=== PATIENT | female | born 1955 | race Caucasian/White ===

== ENCOUNTER 2016-10-02 12:51 | Emergency (ER) | payer OTHER, MEDICARE ==
[2016-10-02] MEDS ORDERED: ASPIRIN 81 MG TABLET, CHEWABLE PO ONE (13:00)
--- NOTE | 2016-10-02 13:00 | ER Document Report ---
ED Medical Screen (RME) - General Stated Complaint: SHORTNESS OF BREATH Notes: Chest pain shortness of breath awoke her 3:00 this morning. has had a cough for three weeks I greeted and performed a rapid initial assessment of this patient. Comprehensive ED assessment and evaluation of the patient, analysis of test results and completion of the medical decision making process will be conducted by additional ED providers. TRAVEL OUTSIDE OF THE [place] IN LAST 30 DAYS: No - Related Data Allergies/Adverse Reactions: diphenhydramine HCl [From Benadryl] Adverse Reaction (Intermediate, Verified 10:45) Anxiety amoxicillin trihydrate [From Augmentin] Adverse Reaction (Mild, Verified 10:45) Diarrhea Potassium Clavulanate * [From Augmentin] Adverse Reaction (Mild, Verified 10:45) Diarrhea Past Medical History - Past Medical History Cardiac Medical History: Reports: Hx Coronary Artery Disease - high chol , Hx Hypercholesterolemia, Hx Hypertension Denies: Hx Heart Attack Pulmonary Medical History: Reports: Hx Asthma, Hx Bronchitis, Hx COPD, Hx Pneumonia - 2003 Neurological Medical History: Denies: Hx Cerebrovascular Accident, Hx Seizures GI Medical History: Denies: Hx Hepatitis, Hx Hiatal Hernia, Hx Ulcer Musculoskeltal Medical History: Reports Hx Arthritis - RA Psychiatric Medical History: Reports: Hx Depression Infectious Medical History: Denies: Hx Hepatitis Past Surgical History: Reports: Hx Appendectomy, Hx Breast Surgery, Hx Hysterectomy, Hx Orthopedic Surgery. Denies: Hx Mastectomy, Hx Open Heart Surgery, Hx Pacemaker - Immunizations Hx Diphtheria, Pertussis, Tetanus Vaccination: Yes - 1966
[2016-10-02 13:36] LABS: HEMATOCRIT 41.6 % (36.0-47.0); HEMOGLOBIN 13.6 g/dL (12.0-15.5); HGB HCT DIFFERENCE -0.8; MEAN CORPUSCULAR HEMOGLOBIN 29.2 pg (27.0-33.4); MEAN CORPUSCULAR HGB CONC 32.6 g/dL (32.0-36.0); MEAN CORPUSCULAR VOLUME 89 fl (80-97); RED BLOOD COUNT 4.65 10^6/uL (3.72-5.28); RED CELL DISTRIBUTION WIDTH 17.1 % (11.5-14.0); WHITE BLOOD COUNT 10.9 10^3/uL (4.0-10.5)
[2016-10-02 13:47] LABS: ALANINE AMINOTRANSFERASE 55 U/L (9-52); ALBUMIN 4.2 g/dL (3.5-5.0); ALKALINE PHOSPHATASE 118 U/L (38-126); ANION GAP 10 (5-19); ASPARTATE AMINO TRANSFERASE 41 U/L (14-36); BILIRUBIN,TOTAL 0.6 mg/dL (0.2-1.3); BLOOD UREA NITROGEN 26 mg/dL (7-20); CALCIUM 9.3 mg/dL (8.4-10.2); CARBON DIOXIDE 30 mmol/L (22-30); CHLORIDE 97 mmol/L (98-107); CREATINE KINASE 100 U/L (30-135); CREATININE RESULT 0.73 mg/dL (0.52-1.25); GLUCOSE 81 mg/dL (75-110); POTASSIUM 4.9 mmol/L (3.6-5.0); SODIUM 137.2 mmol/L (137-145); TOTAL PROTEIN 6.7 g/dL (6.3-8.2)
[2016-10-02 13:53] LABS: BAND NEUTROPHILS % (MANUAL) 1 % (3-5); BASOPHILS % (MANUAL) 0 % (0-2); EOSINOPHILS % (MANUAL) 2 % (0-6); LYMPHOCYTES % (MANUAL) 10 % (13-45); NUCLEATED RED BLOOD CELLS 1 /100 WBC (0); TOTAL CELLS COUNTED 100; TOXIC VACUOLATION PRESENT
[2016-10-02 13:54] LABS: ANISOCYTOSIS 2+; OVALOCYTES 1+; POIKILOCYTOSIS 1+; TOXIC GRANULATION 1+
[2016-10-02 14:03] LABS: TROPONIN I < 0.012 ng/mL
[2016-10-02] MEDS ORDERED: IPRATROPIUM/ALBUTEROL 0.5-2.5 MG/3 ML AMPUL NEB ONE ×3 (14:13)
[2016-10-02] MEDS ORDERED: PREDNISONE 20 MG TABLET PO ONE (14:13)
[2016-10-02] MEDS ORDERED: HYDROCODONE BIT/HOMATROPINE SYRUP 5 ML UDCUP PO ONE (14:48)
[2016-10-02] MEDS ORDERED: HYDROCODONE BIT/HOMATROPINE 5-1.5 MG TABLET PO ONE (14:59)
--- NOTE | 2016-10-02 15:02 | ER Document Report ---
ED General - General Chief Complaint: Shortness Of Breath Stated Complaint: SHORTNESS OF BREATH Mode of Arrival: Ambulatory Information source: Patient Notes: 61-year-old female smoker presents with complaints of shortness of breath over the past 2 weeks. Patient denies any fevers or chills denies any nausea or vomiting. Admits to worsening symptoms when she walks. Admits to productive cough Patient notes that she's been on steroids, has lupus and is on medication for it , notes today she woke after coughing nursing sharp pain in her left rib and right back, pain only occurs when she coughs TRAVEL OUTSIDE OF THE [place] IN LAST 30 DAYS: No - HPI Onset: Last week Onset/Duration: Intermittent Quality of pain: Sharp Severity: Mild Pain Level: 1 Associated symptoms: Nonproductive cough, Shortness of breath Exacerbated by: Coughing Relieved by: Denies Similar symptoms previously: Yes Recently seen / treated by doctor: Yes - Related Data Allergies/Adverse Reactions: diphenhydramine HCl [From Benadryl] Adverse Reaction (Intermediate, Verified 13:01) Anxiety amoxicillin trihydrate [From Augmentin] Adverse Reaction (Mild, Verified 13:01) Diarrhea Potassium Clavulanate * [From Augmentin] Adverse Reaction (Mild, Verified 13:01) Diarrhea Past Medical History - Social History Smoking Status: Current Every Day Smoker Cigarette use (# per day): No Chew tobacco use (# tins/day): No Smoking Education Provided: No Frequency of alcohol use: None Drug Abuse: None Family History: Reviewed & Not Pertinent Patient has suicidal ideation: No Patient has homicidal ideation: No - Past Medical History Cardiac Medical History: Reports: Hx Coronary Artery Disease - high chol , Hx Hypercholesterolemia, Hx Hypertension Denies: Hx Heart Attack Pulmonary Medical History: Reports: Hx Asthma, Hx Bronchitis, Hx COPD, Hx Pneumonia - 2003 Neurological Medical History: Denies: Hx Cerebrovascular Accident, Hx Seizures Renal/ Medical History: Denies: Hx Peritoneal Dialysis GI Medical History: Denies: Hx Hepatitis, Hx Hiatal Hernia, Hx Ulcer Musculoskeltal Medical History: Reports Hx Arthritis - RA Psychiatric Medical History: Reports: Hx Depression Infectious Medical History: Denies: Hx Hepatitis Past Surgical History: Reports: Hx Appendectomy, Hx Breast Surgery, Hx Hysterectomy, Hx Orthopedic Surgery. Denies: Hx Mastectomy, Hx Open Heart Surgery, Hx Pacemaker - Immunizations Hx Diphtheria, Pertussis, Tetanus Vaccination: Yes - 1963 Hx Pneumococcal Vaccination: 09/04/11 Review of Systems - Review of Systems Notes: REVIEW OF SYSTEMS: CONSTITUTIONAL : Denies fever, chills, or sweats. Denies recent illness. EENT: Denies eye, ear, throat, or mouth pain or symptoms. Denies nasal or sinus congestion or discharge. Denies throat, tongue, or mouth swelling or difficulty swallowing. CARDIOVASCULAR: Denies chest pain. Denies palpitations or racing or irregular heart beat. Denies ankle edema. RESPIRATORY: Admits to shortness of breath nonproductive cough pain with coughing. GASTROINTESTINAL: Denies abdominal pain or distention. Denies nausea, vomiting , or diarrhea. Denies blood in vomitus, stools, or per rectum. Denies black, tarry stools. Denies constipation. GENITOURINARY: Denies difficulty urinating, painful urination, burning, frequency, blood in urine, or discharge. FEMALE GENITOURINARY: Denies vaginal bleeding, heavy or abnormal periods, irregular periods. Denies vaginal discharge or odor. MUSCULOSKELETAL: Denies back or neck pain or stiffness. Denies joint pain or swelling. SKIN: Denies rash, lesions or sores. HEMATOLOGIC : Denies easy bruising or bleeding. LYMPHATIC: Denies swollen, enlarged glands. NEUROLOGICAL: Denies confusion or altered mental status. Denies passing out or loss of consciousness. Denies dizziness or lightheadedness. Denies headache. Denies weakness or paralysis or loss of use of either side. Denies problems with gait or speech. Denies sensory loss, numbness, or tingling. Denies seizures. PSYCHIATRIC: Denies anxiety or stress. Denies depression, suicidal ideation, or homicidal ideation. ALL OTHER SYSTEMS REVIEWED AND NEGATIVE. Dictation was performed using [employer] voice recognition software PHYSICAL EXAMINATION: GENERAL: Well-appearing, well-nourished and in no acute distress. HEAD: Atraumatic, normocephalic. EYES: Pupils equal round and reactive to light, extraocular movements intact, conjunctiva are normal. ENT: Nares patent, oropharynx clear without exudates. Moist mucous membranes. NECK: Normal range of motion, supple without lymphadenopathy LUNGS: Coarse rhonchi all throughout. HEART: Regular rate and rhythm without murmurs ABDOMEN: Soft, nontender, nondistended abdomen. No guarding, no rebound. No masses appreciated. Female : deferred Musculoskeletal: Normal range of motion, no pitting or edema. No cyanosis. NEUROLOGICAL: Cranial nerves grossly intact. Normal speech, normal gait. Normal sensory, motor exams PSYCH: Normal mood, normal affect. SKIN: Warm, Dry, normal turgor, no rashes or lesions noted. Physical Exam - Vital signs Vitals: Temp Pulse Resp BP Pulse Ox 99.0 F 110 H 24 H 122/75 95 10/02/16 13:01 10/02/16 13:01 10/02/16 13:10/02/16 13:10/02/16 13:01 Course - Re-evaluation Re-evalutation: 10/02/16 15:01 Patient will be given 3 duo nebs Hycodan tablets for her pain and cough. Otherwise she appears well. She is satting 98% on room air 10/02/16 17:40 pt was ambulated , never went below 95% , cta negative will dc home . After performing a Medical Screening Examination, I estimate there is LOW risk for ACUTE CORONARY SYNDROME, RESPIRATORY FAILURE, SEPSIS OR MENINGITIS, thus I consider the discharge disposition reasonable. The patient and I have discussed the diagnosis and risks, and we agree with discharging home with close follow- up. We also discussed returning to the Emergency Department immediately if new or worsening symptoms occur. We have discussed the symptoms which are most concerning (e.g., changing or worsening pain, trouble swallowing or breathing, neck stiffness, fever) that necessitate immediate return. - Vital Signs Vital signs: Temp Pulse Resp BP Pulse Ox 99.0 F 110 H 23 H 122/66 95 10/02/16 13:01 10/02/16 13:01 10/02/16 17:09 10/02/16 17:09 10/02/16 17:09 - Laboratory Result Diagrams: 10/02/16 13:05 10/02/16 13:05 Laboratory results interpreted by me: 10/02/16 10/02/16 13:05 13:05 WBC 10.9 H RDW 17.1 H Band Neutrophils % 1 L Lymphocytes % (Manual) 10 L Metamyelocytes % 1 H Myelocytes % 1 H Abs Neuts (Manual) 8.3 H Chloride 97 L BUN 26 H AST 41 H ALT 55 H - Diagnostic Test Radiology reviewed: Image reviewed, Reports reviewed - EKG Interpretation by Me EKG shows normal: Sinus rhythm, [place], Intervals, QRS Complexes Discharge - Discharge Clinical Impression: Chest wall pain URI (upper respiratory infection) Qualifiers: URI type: unspecified viral URI Qualified Code(s): J06.9 - Acute upper respiratory infection, unspecified; B97.89 - Other viral agents as the cause of diseases classified elsewhere Condition: Stable Disposition: HOME, SELF-CARE Instructions: Upper Respiratory Illness ([facility]) Prescriptions: Ipratropium/Albuterol Sulfate [Duoneb 3 ml Ampul] 3 ml NEB RTQ8 #20 vial.neb Prednisone 20 mg PO ASDIR PRN #30 tablet PRN Reason: Referrals: TERRY HAGER [Primary Care Provider] - Follow up tomorrow
[2016-10-02] MEDS ORDERED: KETOROLAC TROMETHAMINE INJ/PF 30 MG/1 ML SDV IV ONE (16:37)
[2016-10-02 17:29] VITALS: BP 122/66
--- NOTE | 2016-10-02 22:53 | EKG REPORT ---
SEVERITY:- DEFECTIVE ECG - RIGHT AND LEFT ARM LEADS REVERSED, PLEASE REPEAT ECG : Confirmed by: Alicia Tang MD 02-Oct-2016 22:53:12
[2016-10-03 19:23] LABS: PATH REVIEW PATHOLOGIST REVIEWED
== END 2016-10-02 17:54 | disposition home or self-care (01) ==
LOC: ER 12:51
DX: J06.9 Acute upper respiratory infection, unspecified (principal); R06.02 Shortness of breath; B97.89 Other viral agents as the cause of diseases classified elsewhere; R07.89 Other chest pain; F17.200 Nicotine dependence, unspecified, uncomplicated; I25.10 Atherosclerotic heart disease of native coronary artery without angina pectoris; E78.00 Pure hypercholesterolemia, unspecified; I10 Essential (primary) hypertension; J45.909 Unspecified asthma, uncomplicated; J44.9 Chronic obstructive pulmonary disease, unspecified; Z90.710 Acquired absence of both cervix and uterus; Z88.0 Allergy status to penicillin
CPT/HCPCS: 93005; 94640 ×2; 99285; 96374; 36415; 82553; 82550; 85025; 80053; 84484; 71010; 71275; 93010; J1885; J7512; J7620

== ENCOUNTER 2016-10-09 08:35 | Inpatient (IN) | payer MEDICARE, OTHER ==
[2016-10-09] MEDS ORDERED: NORMAL SALINE 1000 ML 1,000 ML IV ONE ×3 (09:28→11:47)
[2016-10-09 09:39] LABS: ALANINE AMINOTRANSFERASE 43 U/L (9-52); ALBUMIN 3.7 g/dL (3.5-5.0); ALKALINE PHOSPHATASE 96 U/L (38-126); ANION GAP 9 (5-19); ASPARTATE AMINO TRANSFERASE 27 U/L (14-36); BILIRUBIN,TOTAL 1.5 mg/dL (0.2-1.3); BLOOD UREA NITROGEN 27 mg/dL (7-20); CALCIUM 8.6 mg/dL (8.4-10.2); CARBON DIOXIDE 30 mmol/L (22-30); CHLORIDE 99 mmol/L (98-107); CREATINE KINASE 32 U/L (30-135); CREATININE RESULT 0.75 mg/dL (0.52-1.25); GLUCOSE 105 mg/dL (75-110); POTASSIUM 4.2 mmol/L (3.6-5.0); SODIUM 137.5 mmol/L (137-145); TOTAL PROTEIN 6.6 g/dL (6.3-8.2)
[2016-10-09 09:40] LABS: ABSOLUTE LYMPHOCYTES (AUTO) 1.3 10^3/uL (0.5-4.7); ABSOLUTE NEUT (AUTO) 17.2 10^3/uL (1.7-8.2); BASOPHILS % (AUTO) 0.2 % (0-2); EOSINOPHILS % (AUTO) 0.1 % (0-6); HEMATOCRIT 37.8 % (36.0-47.0); HEMOGLOBIN 12.4 g/dL (12.0-15.5); HGB HCT DIFFERENCE -0.6; LYMPHOCYTES % (AUTO) 6.8 % (13-45); MEAN CORPUSCULAR HEMOGLOBIN 29.1 pg (27.0-33.4); MEAN CORPUSCULAR HGB CONC 32.7 g/dL (32.0-36.0); MEAN CORPUSCULAR VOLUME 89 fl (80-97); MONOCYTES % (AUTO) 5.3 % (3-13); RED BLOOD COUNT 4.25 10^6/uL (3.72-5.28); RED CELL DISTRIBUTION WIDTH 16.1 % (11.5-14.0); SEGMENTED NEUTROPHILS % (AUTO) 87.6 % (42-78); WHITE BLOOD COUNT 19.7 10^3/uL (4.0-10.5)
[2016-10-09] MEDS ORDERED: CEFTRIAXONE 1 GM/D5W RTU 50 ML IV ONE (09:43)
[2016-10-09] MEDS ORDERED: AZITHROMYCIN INJ 500 MG VIAL IV ONE (09:43)
[2016-10-09] MEDS ORDERED: IPRATROPIUM/ALBUTEROL 0.5-2.5 MG/3 ML AMPUL NEB ONE (09:48)
--- NOTE | 2016-10-09 09:54 | ER Document Report ---
ED General - General Chief Complaint: Nonproductive Cough Stated Complaint: SHOULDER PAIN Information source: Patient, Relative Notes: This is a 61-year-old female who presents to the emergency department with cough and fever. She has a history of multiple medical problems including COPD , pneumonia, and lupus. Of note she was seen in the ER last week for cough and diagnosed with an upper respiratory infection and has been treated with nebulizers and prednisone. She denies any antibiotics in the past few months. She states that her symptoms became worse 2 days ago and that yesterday she ran a fever of 102. This was the first episode of documented fever for this illness she states that her cough has been nonproductive but associated with pain in her chest when she coughs. She does not feel short of breath at this time. She has been tolerating fluids and denies any nausea vomiting or diarrhea. She also has had no dysuria. She does have a prior history of pneumonia and was hospitalized in [place] last February for several weeks she is uncertain if she had a flu shot this year. TRAVEL OUTSIDE OF THE [place] IN LAST 30 DAYS: No - Related Data Allergies/Adverse Reactions: diphenhydramine HCl [From Benadryl] Adverse Reaction (Intermediate, Verified 01/18 08:42) Anxiety amoxicillin trihydrate [From Augmentin] Adverse Reaction (Mild, Verified 08:42) Diarrhea Potassium Clavulanate * [From Augmentin] Adverse Reaction (Mild, Verified 08:42) Diarrhea Home Medications: Current Home Medications Fluticasone/Salmeterol [Advair 250-50 Diskus 14 Dose/Diskus] 1 inh IH BID [History] Nystatin 1 applic TOP BID 10/09/16 [History] Tofacitinib Citrate [Xeljanz] 5 mg PO BID 10/09/16 [History] Triamcinolone Acetonide [Aristocort 0.025% Cream] 1 applic TOP DAILY 10/09/16 [ History] Past Medical History - General Information source: Patient, Relative, [facility] Records - Social History Smoking Status: Never Smoker Chew tobacco use (# tins/day): No Frequency of alcohol use: None Drug Abuse: None Family History: Reviewed & Not Pertinent Patient has suicidal ideation: No Patient has homicidal ideation: No - Past Medical History Cardiac Medical History: Reports: Hx Coronary Artery Disease - high chol , Hx Hypercholesterolemia, Hx Hypertension Denies: Hx Heart Attack Pulmonary Medical History: Reports: Hx Asthma, Hx Bronchitis, Hx COPD, Hx Pneumonia - 2003 Neurological Medical History: Denies: Hx Cerebrovascular Accident, Hx Seizures Endocrine Medical History: Reports: Other Renal/ Medical History: Denies: Hx Peritoneal Dialysis GI Medical History: Denies: Hx Hepatitis, Hx Hiatal Hernia, Hx Ulcer Musculoskeltal Medical History: Reports Hx Arthritis - RA Psychiatric Medical History: Reports: Hx Depression Infectious Medical History: Denies: Hx Hepatitis Past Surgical History: Reports: Hx Appendectomy, Hx Breast Surgery, Hx Hysterectomy, Hx Orthopedic Surgery. Denies: Hx Mastectomy, Hx Open Heart Surgery, Hx Pacemaker - Immunizations Hx Diphtheria, Pertussis, Tetanus Vaccination: Yes - 1963 Hx Pneumococcal Vaccination: 09/04/11 Review of Systems - Review of Systems Notes: REVIEW OF SYSTEMS: CONSTITUTIONAL : as per hpi EENT: Denies eye, ear, throat, or mouth pain or symptoms. CARDIOVASCULAR: As per history of present illness RESPIRATORY: As per history of present illness GASTROINTESTINAL: Denies abdominal pain. Denies nausea, vomiting, or diarrhea. GENITOURINARY: Denies difficulty urinating, painful urination, burning, frequency, or blood in urine. MUSCULOSKELETAL: Denies neck or back pain or joint pain or swelling. SKIN: Denies rash or skin lesions. HEMATOLOGIC : Denies easy bruising or bleeding. LYMPHATIC: Denies swollen, enlarged glands. NEUROLOGICAL: Denies altered mental status or loss of consciousness. Denies headache. PSYCHIATRIC: Denies current anxiety or stress or depression. ALL OTHER SYSTEMS REVIEWED AND NEGATIVE. Physical Exam - Vital signs Vitals: Temp Pulse Resp BP Pulse Ox 98.1 F 100 21 H 80/42 L 91 L 10/09/16 08:40 10/09/16 08:40 10/09/16 08:40 10/09/16 08:40 10/09/16 08:40 Course - Re-evaluation Re-evalutation: 10/09/16 10:32 Patient reexamined. She is alert and conversant and states she is breathing better after the nebulizer. She is noted to be satting 96% on 2 L nasal cannula. We discussed her lab results and her x-ray results with bilateral pneumonia. Her blood pressure is responding to the IV fluids and is now 96 systolic. She will be admitted to the hospital today and she and her daughter are comfortable with the plan, all questions are answered. 10/09/16 11:24 Patient had initial response to IV fluid bolus however her pressure is now noted to be 81 systolic after the first liter of IV normal saline has completed. She will receive a second liter bolus and we will discuss possible central line placement if pressors are going to be needed. 10/09/16 13:14 Awaiting hospital admission. Patient reassessed and noted the blood pressure systolic is 103. She is responding well to the IV fluids. At this point central venous catheter has not been placed. - Vital Signs Vital signs: Temp Pulse Resp BP Pulse Ox 98.1 F 100 12 107/56 L 95 10/09/16 08:40 10/09/16 08:40 10/09/16 14:35 10/09/16 14:35 10/09/16 14:35 - Laboratory Result Diagrams: 10/09/16 09:00 10/09/16 09:00 Laboratory results interpreted by me: 10/09/16 10/09/16 09:00 09:00 WBC 19.7 H RDW 16.1 H Seg Neutrophils % 87.6 H Lymphocytes % 6.8 L Absolute Neutrophils 17.2 H BUN 27 H Total Bilirubin 1.5 H - Diagnostic Test Radiology reviewed: Reports reviewed - EKG Interpretation by Me Additional EKG results interpreted by me: 10/09/16 09:58 EKG at 0928 demonstrates normal sinus rhythm with a rate of 76. There are no ST elevation or depressions. Discharge - Discharge Clinical Impression: Pneumonia Qualifiers: Pneumonia type: due to unspecified organism Laterality: right Lung location: upper lobe of lung Qualified Code(s): J18.1 - Lobar pneumonia, unspecified organism Sepsis Qualifiers: Sepsis type: sepsis due to unspecified organism Qualified Code(s): A41.9 - Sepsis, unspecified organism Condition: Fair Disposition: ADMITTED INPATIENT Admitting Provider: Hospitalist Unit Admitted: [facility]
[2016-10-09 09:57] LABS: CREATINE KINASE MB < 0.22 ng/mL (<4.55); TROPONIN I < 0.012 ng/mL
--- NOTE | 2016-10-09 10:31 | EKG REPORT ---
SEVERITY:- NORMAL ECG - SINUS RHYTHM : Confirmed by: Sen Tee 09-Oct-2016 10:30:50
[2016-10-09] MEDS ORDERED: VANCOMYCIN HCL INJ 1000 MG VIAL IV ONE (11:25)
[2016-10-09] MEDS ORDERED: ALBUTEROL SULFATE 0.083% NEB 2.5 MG/3 ML AMPUL NEB PRN (11:41)
[2016-10-09] MEDS ORDERED: VANCOMYCIN HCL 0 MG in DEXTROSE 5%-WATER 250 ML IV NR (12:45)
[2016-10-09] MEDS ORDERED: BISACODYL 10 MG SUPP.RECT PR PRN (12:47)
[2016-10-09] MEDS ORDERED: ENOXAPARIN SODIUM INJ 40 MG/0.4 ML DISP.SYRIN SUBCUT ONE ×2 (13:00→18:15)
[2016-10-09] MEDS ORDERED: METHYLPREDNISOLONE INJ 125 MG/2 ML SDV IV ONE (13:15)
[2016-10-09] MEDS ORDERED: KETOROLAC TROMETHAMINE INJ/PF 30 MG/1 ML SDV IV ONE (13:15)
[2016-10-09] MEDS: NORMAL SALINE 1000 ML 1,000 ML IV PRN ×2 (14:02→20:08)
[2016-10-09] MEDS: ACYCLOVIR 200 MG CAPSULE PO SCH ×3 (14:04→18:34)
[2016-10-09] MEDS: IPRATROPIUM/ALBUTEROL 0.5-2.5 MG/3 ML AMPUL NEB SCH ×3 (14:10→20:14)
[2016-10-09 15:58] LABS: APPEARANCE,URINE SLIGHTLY-CLOUDY; BILIRUBIN,URINE NEGATIVE (NEGATIVE); GLUCOSE, URINE NEGATIVE (NEGATIVE); KETONES,URINE NEGATIVE (NEGATIVE); LEUKOCYTE ESTERASE,URINE NEGATIVE (NEGATIVE); NITRITE,URINE NEGATIVE (NEGATIVE); PROTEIN,URINE NEGATIVE (NEGATIVE); URINE SPECIFIC GRAVITY 1.009; UROBILINOGEN,URINE NEGATIVE mg/dL (<2.0)
[2016-10-09] MEDS ORDERED: (PENDING PHARMACY ID) (Tofacitinib Citrate [Xeljanz] 5 MG) PO SCH (18:00)
[2016-10-09] MEDS ORDERED: VIT D3 PO SCH (18:00)
[2016-10-09] MEDS ORDERED: MINERALS PO SCH (18:00)
[2016-10-09] MEDS ORDERED: CALCIUM CARB PO SCH (18:00)
[2016-10-09] MEDS ORDERED: [UNRECOGNIZED DRUG - OTHER] PO SCH (18:00)
[2016-10-09] MEDS: CALCIUM CARBONATE 250 MG/VITAMIN D3 125 UNIT TABLET PO SCH (18:26)
[2016-10-09] MEDS: ASPIRIN 81 MG TABLET, CHEWABLE PO SCH (18:28)
[2016-10-09] MEDS ORDERED: INFLUENZA ADLT QUAD (36MOS+) 2016-17 VAC 0.5 ML SYR IM PRN (18:56)
[2016-10-09] MEDS: ACETYLCYSTEINE 20% SOLN 800 MG/4 ML VIAL.NEB NEB SCH (20:15)
[2016-10-09] MEDS: CEFEPIME 1 GM/D5W RTU 50 ML IV SCH (21:52)
[2016-10-09] MEDS: METHYLPREDNISOLONE INJ 125 MG/2 ML SDV IV SCH (21:53)
[2016-10-09] MEDS: GUAIFENESIN 600 MG TABLET.SA PO SCH (21:54)
[2016-10-09] MEDS: FAMOTIDINE 20 MG TABLET PO SCH (21:54)
[2016-10-09] MEDS: MONTELUKAST SODIUM 10 MG TABLET PO SCH (21:55)
[2016-10-09] MEDS: FLUTICASONE/SALMETEROL DISKUS 250-50 MCG/DOSE IH SCH (21:55)
[2016-10-10 04:43] LABS: HEMATOCRIT 33.6 % (36.0-47.0); HEMOGLOBIN 10.9 g/dL (12.0-15.5); HGB HCT DIFFERENCE -0.9; MEAN CORPUSCULAR HEMOGLOBIN 29.1 pg (27.0-33.4); MEAN CORPUSCULAR HGB CONC 32.5 g/dL (32.0-36.0); MEAN CORPUSCULAR VOLUME 90 fl (80-97); RED BLOOD COUNT 3.75 10^6/uL (3.72-5.28); RED CELL DISTRIBUTION WIDTH 16.5 % (11.5-14.0); WHITE BLOOD COUNT 13.4 10^3/uL (4.0-10.5)
[2016-10-10 05:00] LABS: ANION GAP 9 (5-19); BASOPHILS % (MANUAL) 0 % (0-2); BLOOD UREA NITROGEN 16 mg/dL (7-20); CALCIUM 7.6 mg/dL (8.4-10.2); CARBON DIOXIDE 21 mmol/L (22-30); CHLORIDE 111 mmol/L (98-107); CREATININE RESULT 0.58 mg/dL (0.52-1.25); EOSINOPHILS % (MANUAL) 0 % (0-6); GLUCOSE 161 mg/dL (75-110); LYMPHOCYTES % (MANUAL) 2 % (13-45); POTASSIUM 4.2 mmol/L (3.6-5.0); SODIUM 141.3 mmol/L (137-145); TOTAL CELLS COUNTED 100
[2016-10-10 05:01] LABS: ANISOCYTOSIS 1+; OVALOCYTES SLIGHT; POIKILOCYTOSIS SLIGHT; TOXIC GRANULATION SLIGHT
[2016-10-10] MEDS: METHYLPREDNISOLONE INJ 125 MG/2 ML SDV IV SCH ×4 (06:33→23:13)
[2016-10-10] MEDS: ACYCLOVIR 200 MG CAPSULE PO SCH ×5 (06:33→18:36)
[2016-10-10] MEDS: VANCOMYCIN HCL 750 MG in DEXTROSE 5%-WATER 250 ML IV SCH ×2 (06:34→18:36)
[2016-10-10] MEDS: IPRATROPIUM/ALBUTEROL 0.5-2.5 MG/3 ML AMPUL NEB SCH ×4 (08:05→20:52)
[2016-10-10] MEDS: ACETYLCYSTEINE 20% SOLN 800 MG/4 ML VIAL.NEB NEB SCH ×2 (08:07→20:52)
--- NOTE | 2016-10-10 08:13 | PDOC H&P ---
History of Present Illness Admission Date/PCP: TERRY HAGER History of Present Illness: ALYSHA BEDOLLA is a 61 year old female who presents to the emergency department with cough and fever. She has a history of multiple medical problems including COPD, pneumonia, and lupus. Of note she was seen in the ER last week for cough and diagnosed with an upper respiratory infection and has been treated with nebulizers and prednisone. She denies any antibiotics in the past few months. She states that her symptoms became worse 2 days ago and that yesterday she ran a fever of 102. This was the first episode of documented fever for this illness she states that her cough has been nonproductive but associated with pain in her chest when she coughs. She does not feel short of breath at this time. She has been tolerating fluids and denies any nausea vomiting or diarrhea. She also has had no dysuria. She does have a prior history of pneumonia and was hospitalized in [place] last February for several weeks she is uncertain if she had a flu shot this year. Past Medical History Cardiac Medical History: Reports: Coronary Artery Disease - high chol , Hyperlipidema, Hypertension Denies: Myocardial Infarction Pulmonary Medical History: Reports: Asthma, Bronchitis, Chronic Obstructive Pulmonary Disease (COPD), Pneumonia - 2003 Neurological Medical History: Denies: Seizures Endocrine Medical History: Reports: Other GI Medical History: Denies: Hepatitis, Hiatal Hernia Musculoskeltal Medical History: Reports: Arthritis - RA Psychiatric Medical History: Reports: Depression Hematology: Reports: Anemia Denies: Sickle Cell Disease Past Surgical History Past Surgical History: Reports: Appendectomy, Hysterectomy, Orthopedic Surgery Denies: Amputation, Mastectomy, Pacemaker Social History Smoking Status: Never Smoker Frequency of Alcohol Use: None Hx Recreational Drug Use: No Hx Prescription Drug Abuse: No - Advance Directive Resuscitation Status: Full Code Surrogate healthcare decision maker:: edgar beckford Family History Family History: CAD, CVA, Hypertension, Malignancy Parental Family History Reviewed: Yes Children Family History Reviewed: Yes Sibling(s) Family History Reviewed.: Yes Medication/Allergy Home Medications: Levothyroxine Sodium [Synthroid 0.075 mg Tablet] 75 mcg PO QAM 02/20/12 Estradiol 0.5 mg PO QHS 10/29/13 Fish Oil/Dha/Epa [Fish Oil 1,200 mg Fish Oil] 1 each PO BID 10/29/13 Metoprolol Succinate 50 mg PO DAILY 10/29/13 Montelukast Sodium [Singulair 10 mg Tablet] 10 mg PO QHS 10/29/13 Omeprazole 40 mg PO DAILY 10/29/13 Prednisone 7.5 mg PO QAM 10/29/13 Sertraline HCl 100 mg PO DAILY 10/29/13 Simvastatin [Zocor 20 mg Tablet] 20 mg PO QPM 10/29/13 Albuterol Sulfate [Albuterol Sulfate Hfa] 1 puff PO PRN PRN 10/30/13 Biotin [Biotin 1 mg Tablet] 1 tab PO BID 03/11/15 L.acidoph & Paracasei,B.lactis [Probiotic] 1 each PO QHS 06/11/15 Potassium Chloride [Klor-Con 10] 8 meq PO QHS 06/11/15 Ipratropium/Albuterol Sulfate [Duoneb 3 ml Ampul] 3 ml [facility] RTQ8 #[address] Ascorbic Acid [Vitamin C] 1,000 mg PO QAM 10/09/16 Aspirin [Adult Low Dose Aspirin EC] 81 mg PO DAILY 10/09/16 Calcium Carbonate/Vitamin D3 [Calcium 600 + Vit D Tablet] 2 tab PO BID 10/09/16 Fluticasone/Salmeterol [Advair 250-50 Diskus 14 Dose/Diskus] 1 inh IH BID Ibuprofen [Motrin 800 mg Tablet] 800 mg PO PRN PRN 10/09/16 Nystatin 1 applic TOP BID 10/09/16 Tofacitinib Citrate [Xeljanz] 5 mg PO BID 10/09/16 Triamcinolone Acetonide [Aristocort 0.025% Cream] 1 applic TOP DAILY 10/09/16 Allergies/Adverse Reactions: diphenhydramine HCl [From Benadryl] Adverse Reaction (Intermediate, Verified 01/18 08:42) Anxiety Review of Systems Constitutional: PRESENT: chills, fatigue, fever(s), weakness. ABSENT: headache( s), weight gain, weight loss Eyes: ABSENT: visual disturbances Ears: ABSENT: hearing changes Cardiovascular: PRESENT: chest pain. ABSENT: dyspnea on exertion, edema, orthropnea, palpitations Respiratory: PRESENT: cough, dyspnea, sputum. ABSENT: hemoptysis Gastrointestinal: PRESENT: constipation. ABSENT: abdominal pain, diarrhea, hematemesis, hematochezia, nausea, vomiting Genitourinary: ABSENT: dysuria, hematuria Musculoskeletal: ABSENT: joint swelling Integumentary: ABSENT: rash, wounds Neurological: ABSENT: abnormal gait, abnormal speech, confusion, dizziness, focal weakness, syncope Psychiatric: ABSENT: anxiety, depression, homidical ideation, suicidal ideation Endocrine: ABSENT: cold intolerance, heat intolerance, polydipsia, polyuria Hematologic/Lymphatic: ABSENT: easy bleeding, easy bruising Physical Exam Vital Signs: Temp Pulse Resp BP Pulse Ox 98.1 F 100 13 91/50 L 93 10/09/16 08:40 10/09/16 08:40 10/09/16 11:31 10/09/16 11:31 10/09/16 11:31 Intake & Output 10/08/16 10/09/16 10/10/16 06:59 06:59 06:59 Weight 73.5 kg General appearance: PRESENT: mild distress, obese, well-developed, well- nourished, other - Cushingoid-like appearance Head exam: PRESENT: atraumatic, normocephalic Eye exam: PRESENT: conjunctiva pink, EOMI, periorbital swelling, PERRLA. ABSENT : conjunctival injection, scleral icterus Ear exam: PRESENT: normal external ear exam Mouth exam: PRESENT: dry mucosa, tongue midline Neck exam: ABSENT: JVD, lymphadenopathy, thyromegaly, tracheal deviation Respiratory exam: PRESENT: accessory muscle use, crackles, rhonchi - Right greater than left, symmetrical, tachypnea. ABSENT: rales, wheezes Cardiovascular exam: PRESENT: RRR, +S1, +S2, systolic murmur, tachycardia. ABSENT: diastolic murmur, gallop, rubs Pulses: PRESENT: normal dorsalis pedis pul Vascular exam: PRESENT: normal capillary refill GI/Abdominal exam: PRESENT: hypoactive bowel sounds, normal bowel sounds, soft. ABSENT: distended, firm, guarding, mass, Brown's sign, organolmegaly, rebound , tenderness Rectal exam: PRESENT: deferred Extremities exam: PRESENT: full ROM. ABSENT: calf tenderness, clubbing, pedal edema Neurological exam: PRESENT: alert, awake, oriented to person, oriented to place , oriented to time, oriented to situation, CN II-XII grossly intact. ABSENT: motor sensory deficit Psychiatric exam: PRESENT: appropriate affect, normal mood. ABSENT: homicidal ideation, suicidal ideation Skin exam: PRESENT: dry, intact, warm. ABSENT: cyanosis, rash Results Laboratory Results: 10/09/16 09:00 10/09/16 09:00 10/09/16 10/09/16 10/09/16 09:00 09:00 09:00 WBC 19.7 H RBC 4.25 Hgb 12.4 Hct 37.8 MCV 89 MCH 29.1 MCHC 32.7 RDW 16.1 H Plt Count 192 Seg Neutrophils % 87.6 H Lymphocytes % 6.8 L Monocytes % 5.3 Eosinophils % 0.1 Basophils % 0.2 Absolute Neutrophils 17.2 H Absolute Lymphocytes 1.3 Absolute Monocytes 1.0 Absolute Eosinophils 0.0 Absolute Basophils 0.0 Sodium 137.5 Potassium 4.2 Chloride 99 Carbon Dioxide 30 Anion Gap 9 BUN 27 H Creatinine 0.75 Est GFR ( Amer) > 60 Est GFR (Non-Af Amer) > 60 Glucose 105 Lactic Acid 1.6 Calcium 8.6 Total Bilirubin 1.5 H AST 27 ALT 43 Alkaline Phosphatase 96 Total Protein 6.6 Albumin 3.7 10/09/16 10/09/16 09:00 09:00 Creatine Kinase 32 CK-MB (CK-2) < 0.22 Troponin I < 0.012 NT-Pro-B Natriuret Pep 467 Impressions: Chest X-Ray 10/09/16 09:21 IMPRESSION: Right upper lobe and bilateral lower lobe patchy airspace disease, edema versus pneumonia. Assessment & Plan - Diagnosis (1) Sepsis Qualifiers: Sepsis type: sepsis due to unspecified organism Qualified Code(s): A41.9 - Sepsis, unspecified organism Is this a current diagnosis for this admission?: YesPlan: Patient has pneumonia and a set up for structural lung disease. Will treat pneumonia. Maintain map greater than 65. (2) Acute hypoxemic respiratory failure Is this a current diagnosis for this admission?: YesPlan: Continue oxygen as needed to maintain saturation greater than 94 (3) Pneumonia Qualifiers: Pneumonia type: due to unspecified organism Laterality: right Lung location: upper lobe of lung Qualified Code(s): J18.1 - Lobar pneumonia, unspecified organism Is this a current diagnosis for this admission?: YesPlan: We'll place patient on vancomycin, azithromycin, and cefepime. Patient has a history of structural lung disease and has had 4 weeks of URI followed by fever of 102.7 while chronically immunosuppressed. Aggressive pulmonary toileting. Pending sputum culture. (4) COPD (chronic obstructive pulmonary disease) Qualifiers: COPD type: unspecified COPD Qualified Code(s): J44.9 - Chronic obstructive pulmonary disease, unspecified Is this a current diagnosis for this admission?: YesPlan: We'll place patient on scheduled nebulized treatments. At this time, as questioned this diagnosis of COPD and have concerns for methotrexate related lung disease. (5) Steroid dependence Is this a current diagnosis for this admission?: YesPlan: Place patient on Solu-Medrol 125 IV every 8 and give dose now. Patient is chronically on 7.5 mg of prednisone daily. Patient is cushingoid in appearance. (6) Hypotension (arterial) Qualifiers: Hypotension type: other hypotension type Qualified Code(s): I95.89 - Other hypotension Is this a current diagnosis for this admission?: YesPlan: Patient's hypotension is multifactorial secondary to sepsis and likely baseline adrenal insufficiency due to her chronic corticosteroid dependence. Will adequately bolus patient per sepsis protocol and give 125 mg IV Solu-Medrol to see if this improves her blood pressure. (7) HLD (hyperlipidemia) Qualifiers: Hyperlipidemia type: unspecified Qualified Code(s): E78.5 - Hyperlipidemia, unspecified Is this a current diagnosis for this admission?: NoPlan: on statin (8) Lupus (systemic lupus erythematosus) Qualifiers: Systemic lupus erythematosus type: unspecified Systemic lupus erythematosus organ involvement: unspecified Qualified Code(s): M32.9 - Systemic lupus erythematosus, unspecified Is this a current diagnosis for this admission?: Yes (9) Obesity (BMI 30.0-34.9) Is this a current diagnosis for this admission?: Yes - Time Time Spent: 50 to 70 Minutes Medications reviewed and adjusted accordingly: Yes - Inpatient Certification Based on my medical assessment, after consideration of the patient's comorbidities, presenting symptoms, or acuity I expect that the services needed warrant INPATIENT care.: Yes I certify that my determination is in accordance with my understanding of Medicare's requirements for reasonable and necessary INPATIENT services [42 CFR 412.3e].: Yes Medical Necessity: Need Close Monitoring Due to Risk of Patient Decompensation, Need for Nebulizer Therapy and Monitoring of Response 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
[2016-10-10] MEDS: NORMAL SALINE 1000 ML 1,000 ML IV PRN (08:30)
[2016-10-10] MEDS: LEVOTHYROXINE SODIUM 0.075 MG TABLET PO SCH (09:18)
[2016-10-10] MEDS: GUAIFENESIN 600 MG TABLET.SA PO SCH ×2 (09:18→21:41)
[2016-10-10] MEDS: FAMOTIDINE 20 MG TABLET PO SCH ×2 (09:18→21:42)
[2016-10-10] MEDS: SERTRALINE HCL 50 MG TABLET PO SCH (09:18)
[2016-10-10] MEDS: CEFEPIME 1 GM/D5W RTU 50 ML IV SCH ×2 (09:19→21:40)
[2016-10-10] MEDS: CALCIUM CARBONATE 250 MG/VITAMIN D3 125 UNIT TABLET PO SCH ×2 (09:19→18:36)
[2016-10-10] MEDS: FLUTICASONE/SALMETEROL DISKUS 250-50 MCG/DOSE IH SCH ×2 (09:20→21:41)
[2016-10-10] MEDS: ENOXAPARIN SODIUM INJ 40 MG/0.4 ML DISP.SYRIN SUBCUT SCH (09:20)
[2016-10-10] MEDS ORDERED: CEFTRIAXONE 1 GM/D5W RTU 50 ML IV SCH (10:00)
[2016-10-10] MEDS ORDERED: NORMAL SALINE 1000 ML 1,000 ML IV PRN (11:20)
[2016-10-10] MEDS: AZITHROMYCIN 500 MG in DEXTROSE 5%-WATER 250 ML IV SCH (11:35)
[2016-10-10] MEDS ORDERED: KETOROLAC TROMETHAMINE INJ/PF 30 MG/1 ML SDV IV ONE (13:00)
[2016-10-10] MEDS ORDERED: KETOROLAC TROMETHAMINE INJ/PF 30 MG/1 ML SDV IV PRN (18:00)
[2016-10-10] MEDS ORDERED: (PENDING PHARMACY ID) (Fish Oil/Dha/Epa [Fish Oil 1,200 Mg Fish Oil] 1 EACH) PO SCH (18:00)
[2016-10-10] MEDS ORDERED: VITAMIN D3 PO SCH (18:00)
[2016-10-10] MEDS ORDERED: CALCIUM CARBONATE PO SCH (18:00)
[2016-10-10] MEDS: ASPIRIN 81 MG TABLET, CHEWABLE PO SCH (18:36)
[2016-10-10] MEDS: ACETAMINOPHEN 325 MG TABLET PO PRN (20:36)
[2016-10-10] MEDS: MONTELUKAST SODIUM 10 MG TABLET PO SCH (21:42)
[2016-10-10] MEDS: SIMVASTATIN 10 MG TABLET PO SCH (21:54)
[2016-10-10] MEDS: LACTOBACILLUS ACIDOPHILUS 250 MG TAB PO SCH (21:54)
[2016-10-10] MEDS: OMEGA-3 ACID ETHYL ESTERS 1 GM CAPSULE PO SCH (21:54)
[2016-10-10] MEDS ORDERED: ACIDOPH PO SCH (22:00)
[2016-10-10] MEDS ORDERED: PARACASEI B LACTIS PO SCH (22:00)
--- NOTE | 2016-10-11 03:46 | PDOC PROGRESS REPORT ---
Subjective Progress Note for:: 10/10/16 Subjective:: Patient reports she breathing somewhat better. Continues to complain of pleuritic type chest pain. Patient denies abdominal pain, nausea, vomiting, fevers, chills, diarrhea, constipation, headache, new onset weakness. Physical Exam Vital Signs: Temp Pulse Resp BP Pulse Ox 97.3 F 79 20 133/82 H 98 10/10/16 03:52 10/10/16 03:52 10/10/16 03:52 10/10/16 03:52 10/10/16 03:52 Intake & Output 10/09/16 10/10/16 10/11/16 06:59 06:59 06:59 Intake Total 6604 Balance 6604 Weight 78.6 kg Exam: General: Awake alert and oriented x3, mild respiratory distress HEENT: Duncan like facies, AT/NC, PERRL, EOMI, oropharynx is moist, pink, no scleral icterus, no conjunctival injection Neck: No JVD, trachea midline Chest: Occasional rhonchi and bilateral end expiratory wheezes CV: Regular rate and rhythm, normal S1 and S2, no rub or gallop, 2/6 LLSB SM Abdomen: Soft, nontender to palpation, nondistended, active bowel sounds; no rebound, rigidity, or guarding Extremities: No cyanosis, clubbing or edema Neuro: Cranial nerves II through XII are grossly intact without focal deficits; awake alert and oriented x3 Psych: Normal mood and affect Results Laboratory Results: 10/10/16 04:18 10/10/16 04:18 10/09/16 10/10/16 10/10/16 12:10 04:18 04:18 WBC 13.4 H RBC 3.75 Hgb 10.9 L Hct 33.6 L MCV 90 MCH 29.1 MCHC 32.5 RDW 16.5 H Plt Count 124 L Seg Neutrophils % Not Reportable Lymphocytes % Not Reportable Monocytes % Not Reportable Eosinophils % Not Reportable Basophils % Not Reportable Absolute Neutrophils Not Reportable Absolute Lymphocytes Not Reportable Absolute Monocytes Not Reportable Absolute Eosinophils Not Reportable Absolute Basophils Not Reportable Sodium 141.3 Potassium 4.2 Chloride 111 H Carbon Dioxide 21 L Anion Gap 9 BUN 16 Creatinine 0.58 Est GFR ( Amer) > 60 Est GFR (Non-Af Amer) > 60 Glucose 161 H Calcium 7.6 L Urine Color YELLOW Urine Appearance SLIGHTLY-CLOUDY Urine pH 6.0 Ur Specific [place] 1.009 Urine Protein NEGATIVE Urine Glucose (UA) NEGATIVE Urine Ketones NEGATIVE Urine Blood NEGATIVE Urine Nitrite NEGATIVE Ur Leukocyte Esterase NEGATIVE Urine WBC (Auto) 1 Impressions: Chest X-Ray 10/09/16 09:21 IMPRESSION: Right upper lobe and bilateral lower lobe patchy airspace disease, edema versus pneumonia. Assessment & Plan - Diagnosis (1) Sepsis Qualifiers: Sepsis type: sepsis due to unspecified organism Qualified Code(s): A41.9 - Sepsis, unspecified organism Is this a current diagnosis for this admission?: YesPlan: Patient has pneumonia and a set up for structural lung disease. Will treat pneumonia. Maintain map greater than 65. (2) Acute hypoxemic respiratory failure Is this a current diagnosis for this admission?: YesPlan: Continue oxygen as needed to maintain saturation greater than 94 (3) Pneumonia Qualifiers: Pneumonia type: due to unspecified organism Laterality: right Lung location: upper lobe of lung Qualified Code(s): J18.1 - Lobar pneumonia, unspecified organism Is this a current diagnosis for this admission?: YesPlan: We'll place patient on vancomycin, azithromycin, and cefepime. Patient has a history of structural lung disease and has had 4 weeks of URI followed by fever of 102.7 while chronically immunosuppressed. Aggressive pulmonary toileting. Pending sputum culture. (4) COPD (chronic obstructive pulmonary disease) Qualifiers: COPD type: unspecified COPD Qualified Code(s): J44.9 - Chronic obstructive pulmonary disease, unspecified Is this a current diagnosis for this admission?: YesPlan: We'll place patient on scheduled nebulized treatments. At this time, as questioned this diagnosis of COPD and have concerns for methotrexate related lung disease. Increase patient's Solu-Medrol she still quite bronchospastic. (5) Steroid dependence Is this a current diagnosis for this admission?: Yes (6) Hypotension (arterial) Qualifiers: Hypotension type: other hypotension type Qualified Code(s): I95.89 - Other hypotension Is this a current diagnosis for this admission?: YesPlan: Patient's hypotension is multifactorial secondary to sepsis and likely baseline adrenal insufficiency due to her chronic corticosteroid dependence. Improved with corticosteroids and IV fluids (7) HLD (hyperlipidemia) Qualifiers: Hyperlipidemia type: unspecified Qualified Code(s): E78.5 - Hyperlipidemia, unspecified Is this a current diagnosis for this admission?: No (8) Lupus (systemic lupus erythematosus) Qualifiers: Systemic lupus erythematosus type: unspecified Systemic lupus erythematosus organ involvement: unspecified Qualified Code(s): M32.9 - Systemic lupus erythematosus, unspecified Is this a current diagnosis for this admission?: Yes (9) Obesity (BMI 30.0-34.9) Is this a current diagnosis for this admission?: Yes - Time Time Spent with patient: 25-34 minutes Medications reviewed and adjusted accordingly: Yes
[2016-10-11 05:14] LABS: ANION GAP 10 (5-19); BLOOD UREA NITROGEN 19 mg/dL (7-20); CALCIUM 8.9 mg/dL (8.4-10.2); CARBON DIOXIDE 22 mmol/L (22-30); CHLORIDE 109 mmol/L (98-107); CREATININE RESULT 0.56 mg/dL (0.52-1.25); GLUCOSE 165 mg/dL (75-110); POTASSIUM 3.7 mmol/L (3.6-5.0)
[2016-10-11 05:43] LABS: HEMATOCRIT 31.8 % (36.0-47.0); HEMOGLOBIN 10.5 g/dL (12.0-15.5); HGB HCT DIFFERENCE -0.3; MEAN CORPUSCULAR HEMOGLOBIN 29.5 pg (27.0-33.4); MEAN CORPUSCULAR HGB CONC 33.2 g/dL (32.0-36.0); MEAN CORPUSCULAR VOLUME 89 fl (80-97); RED BLOOD COUNT 3.57 10^6/uL (3.72-5.28)
[2016-10-11 05:50] LABS: BAND NEUTROPHILS % (MANUAL) 2 % (3-5); BASOPHILS % (MANUAL) 0 % (0-2); EOSINOPHILS % (MANUAL) 0 % (0-6); LYMPHOCYTES % (MANUAL) 5 % (13-45); TOTAL CELLS COUNTED 100
[2016-10-11 05:52] LABS: ANISOCYTOSIS 1+; OVALOCYTES SLIGHT; POIKILOCYTOSIS SLIGHT; POLYCHROMASIA SLIGHT; TEAR DROP CELLS SLIGHT; TOXIC GRANULATION SLIGHT
[2016-10-11] MEDS: METHYLPREDNISOLONE INJ 125 MG/2 ML SDV IV SCH ×2 (05:54→12:59)
[2016-10-11] MEDS: VANCOMYCIN HCL 750 MG in DEXTROSE 5%-WATER 250 ML IV SCH (05:54)
[2016-10-11] MEDS: ACYCLOVIR 200 MG CAPSULE PO SCH ×5 (07:05→18:14)
[2016-10-11] MEDS: IPRATROPIUM/ALBUTEROL 0.5-2.5 MG/3 ML AMPUL NEB SCH ×4 (07:54→19:56)
[2016-10-11] MEDS: ACETYLCYSTEINE 20% SOLN 800 MG/4 ML VIAL.NEB NEB SCH ×2 (07:55→19:56)
[2016-10-11] MEDS: ASCORBIC ACID 500 MG TABLET PO SCH (08:26)
[2016-10-11] MEDS: ENOXAPARIN SODIUM INJ 40 MG/0.4 ML DISP.SYRIN SUBCUT SCH (08:27)
[2016-10-11] MEDS: CEFEPIME 1 GM/D5W RTU 50 ML IV SCH (09:59)
[2016-10-11] MEDS: GUAIFENESIN 600 MG TABLET.SA PO SCH ×2 (10:00→21:55)
[2016-10-11] MEDS: SERTRALINE HCL 50 MG TABLET PO SCH (10:01)
[2016-10-11] MEDS: ASPIRIN 81 MG TABLET, ENT COATED PO SCH (10:01)
[2016-10-11] MEDS: METOPROLOL SUCCINATE 50 MG TAB.SR.24H PO SCH (10:01)
[2016-10-11] MEDS: FAMOTIDINE 20 MG TABLET PO SCH ×2 (10:02→21:55)
[2016-10-11] MEDS: LEVOTHYROXINE SODIUM 0.075 MG TABLET PO SCH (10:02)
[2016-10-11] MEDS: OMEGA-3 ACID ETHYL ESTERS 1 GM CAPSULE PO SCH ×2 (10:02→21:55)
[2016-10-11] MEDS: CALCIUM CARBONATE 250 MG/VITAMIN D3 125 UNIT TABLET PO SCH ×2 (10:02→18:14)
[2016-10-11] MEDS: LANSOPRAZOLE 30 MG TAB.RAP.DR PO SCH (10:02)
[2016-10-11] MEDS: FLUTICASONE/SALMETEROL DISKUS 250-50 MCG/DOSE IH SCH ×2 (10:03→21:56)
[2016-10-11] MEDS: TRIAMCINOLONE ACETONIDE 0.025% CREAM 15 GM TOP SCH (10:08)
[2016-10-11] MEDS: AZITHROMYCIN 500 MG in DEXTROSE 5%-WATER 250 ML IV SCH (12:59)
[2016-10-11] MEDS: ACETAMINOPHEN 325 MG TABLET PO PRN (14:08)
--- NOTE | 2016-10-11 14:32 | PDOC PROGRESS REPORT ---
Subjective Progress Note for:: 10/11/16 Subjective:: Patient has continued nonproductive cough, shortness of breath. She feels generally better than she did on admission. She has been getting up and ambulating to the bathroom without difficulty. Patient denies fever, chills, headache, new focal weakness, chest pain, abdominal pain, nausea, vomiting, diarrhea, constipation. Physical Exam Vital Signs: Temp Pulse Resp BP Pulse Ox 97.7 F 94 20 145/85 H 100 10/11/16 12:20 10/11/16 12:20 10/11/16 12:20 10/11/16 12:20 10/11/16 12:20 Intake & Output 10/10/16 10/11/16 10/12/16 06:59 06:59 06:59 Intake Total 6604 5298 462 Balance 6604 5298 462 Weight 78.6 kg 78.4 kg GENERAL: No acute distress HEENT: Conjunctiva clear, nonicteric, moist mucous membranes, no JVD, midline trachea RESPIRATORY: Bilateral wheezes/rhonchi, diminished air excursion CARDIAC: Regular rate and rhythm, no murmurs/gallops/rubs ABDOMEN: Soft, nondistended, nontender, positive bowel sounds, no rebound, no guarding EXTREMETIES: No edema, cyanosis, clubbing NEUROLOGIC: Alert, oriented to person/place/time, CN's grossly intact, no focal deficits SKIN: No rash, wounds PSYCH: Normal mood, normal affect Results Laboratory Results: 10/11/16 04:15 10/11/16 04:15 10/11/16 10/11/16 04:15 04:15 WBC 12.0 H RBC 3.57 L Hgb 10.5 L Hct 31.8 L MCV 89 MCH 29.5 MCHC 33.2 RDW 16.0 H Plt Count 126 L Seg Neutrophils % Not Reportable Lymphocytes % Not Reportable Monocytes % Not Reportable Eosinophils % Not Reportable Basophils % Not Reportable Absolute Neutrophils Not Reportable Absolute Lymphocytes Not Reportable Absolute Monocytes Not Reportable Absolute Eosinophils Not Reportable Absolute Basophils Not Reportable Sodium 141.0 Potassium 3.7 Chloride 109 H Carbon Dioxide 22 Anion Gap 10 BUN 19 Creatinine 0.56 Est GFR ( Amer) > 60 Est GFR (Non-Af Amer) > 60 Glucose 165 H Calcium 8.9 10/09/16 12:10 Clean Catch Midstream Urine Culture - Final NO GROWTH 2 DAYS Impressions: Chest X-Ray 10/09/16 09:21 IMPRESSION: Right upper lobe and bilateral lower lobe patchy airspace disease, edema versus pneumonia. Assessment & Plan - Diagnosis (1) Acute hypoxemic respiratory failure Is this a current diagnosis for this admission?: YesPlan: Continue oxygen supplementation (2) Sepsis Qualifiers: Sepsis type: sepsis due to unspecified organism Qualified Code(s): A41.9 - Sepsis, unspecified organism Is this a current diagnosis for this admission?: Yes (3) Pneumonia Qualifiers: Pneumonia type: due to unspecified organism Laterality: right Lung location: upper lobe of lung Qualified Code(s): J18.1 - Lobar pneumonia, unspecified organism Is this a current diagnosis for this admission?: YesPlan: Patient has multilobar pneumonia on chest x-ray. This is likely bacterial. Cultures of been negative. Discontinue IV antibiotics. Start oral Levaquin. (4) COPD (chronic obstructive pulmonary disease) Qualifiers: COPD type: unspecified COPD Qualified Code(s): J44.9 - Chronic obstructive pulmonary disease, unspecified Is this a current diagnosis for this admission?: YesPlan: Continue IV Solu-Medrol. Continue nebulizer treatments scheduled and when necessary. (5) HLD (hyperlipidemia) Qualifiers: Hyperlipidemia type: unspecified Qualified Code(s): E78.5 - Hyperlipidemia, unspecified Is this a current diagnosis for this admission?: No (6) Lupus (systemic lupus erythematosus) Qualifiers: Systemic lupus erythematosus type: unspecified Systemic lupus erythematosus organ involvement: unspecified Qualified Code(s): M32.9 - Systemic lupus erythematosus, unspecified Is this a current diagnosis for this admission?: Yes (7) Steroid dependence Is this a current diagnosis for this admission?: Yes (8) Hypothyroid Is this a current diagnosis for this admission?: Yes - Time Time Spent with patient: 35 or more minutes Anticipated discharge: Home Within: within 72 hours
[2016-10-11] MEDS: MONTELUKAST SODIUM 10 MG TABLET PO SCH (21:55)
[2016-10-11] MEDS: LACTOBACILLUS ACIDOPHILUS 250 MG TAB PO SCH (21:55)
[2016-10-11] MEDS: METHYLPREDNISOLONE INJ 40 MG/1 ML SDV IV SCH (21:56)
[2016-10-11] MEDS ORDERED: METHYLPREDNISOLONE INJ 125 MG/2 ML SDV IV SCH (22:00)
[2016-10-12] MEDS: METHYLPREDNISOLONE INJ 40 MG/1 ML SDV IV SCH (05:47)
[2016-10-12 06:21] LABS: HEMATOCRIT 31.9 % (36.0-47.0); HEMOGLOBIN 10.7 g/dL (12.0-15.5); HGB HCT DIFFERENCE 0.2; MEAN CORPUSCULAR HEMOGLOBIN 29.3 pg (27.0-33.4); MEAN CORPUSCULAR HGB CONC 33.4 g/dL (32.0-36.0); MEAN CORPUSCULAR VOLUME 88 fl (80-97); RED BLOOD COUNT 3.64 10^6/uL (3.72-5.28); RED CELL DISTRIBUTION WIDTH 15.3 % (11.5-14.0); WHITE BLOOD COUNT 12.6 10^3/uL (4.0-10.5)
[2016-10-12 06:34] LABS: ANION GAP 9 (5-19); BLOOD UREA NITROGEN 21 mg/dL (7-20); CALCIUM 8.5 mg/dL (8.4-10.2); CARBON DIOXIDE 24 mmol/L (22-30); CHLORIDE 107 mmol/L (98-107); CREATININE RESULT 0.53 mg/dL (0.52-1.25); GLUCOSE 131 mg/dL (75-110); POTASSIUM 3.6 mmol/L (3.6-5.0)
[2016-10-12 07:00] LABS: BAND NEUTROPHILS % (MANUAL) 1 % (3-5); BASOPHILS % (MANUAL) 0 % (0-2); EOSINOPHILS % (MANUAL) 0 % (0-6); LYMPHOCYTES % (MANUAL) 1 % (13-45); TOTAL CELLS COUNTED 100
[2016-10-12 07:01] LABS: ANISOCYTOSIS 1+; TOXIC GRANULATION SLIGHT
[2016-10-12] MEDS: ACYCLOVIR 200 MG CAPSULE PO SCH ×5 (07:02→18:17)
[2016-10-12] MEDS: ASCORBIC ACID 500 MG TABLET PO SCH (07:45)
[2016-10-12] MEDS: ENOXAPARIN SODIUM INJ 40 MG/0.4 ML DISP.SYRIN SUBCUT SCH (07:46)
[2016-10-12] MEDS: ACETYLCYSTEINE 20% SOLN 800 MG/4 ML VIAL.NEB NEB SCH ×2 (08:15→20:17)
[2016-10-12] MEDS: IPRATROPIUM/ALBUTEROL 0.5-2.5 MG/3 ML AMPUL NEB SCH ×4 (08:16→20:16)
[2016-10-12] MEDS: OMEGA-3 ACID ETHYL ESTERS 1 GM CAPSULE PO SCH ×2 (09:30→21:18)
[2016-10-12] MEDS: LANSOPRAZOLE 30 MG TAB.RAP.DR PO SCH (09:30)
[2016-10-12] MEDS: METOPROLOL SUCCINATE 50 MG TAB.SR.24H PO SCH (09:31)
[2016-10-12] MEDS: ASPIRIN 81 MG TABLET, ENT COATED PO SCH (09:32)
[2016-10-12] MEDS: FAMOTIDINE 20 MG TABLET PO SCH ×2 (09:32→21:18)
[2016-10-12] MEDS: GUAIFENESIN 600 MG TABLET.SA PO SCH ×2 (09:32→21:17)
[2016-10-12] MEDS: LEVOTHYROXINE SODIUM 0.075 MG TABLET PO SCH (09:32)
[2016-10-12] MEDS: SERTRALINE HCL 50 MG TABLET PO SCH (09:33)
[2016-10-12] MEDS: CALCIUM CARBONATE 250 MG/VITAMIN D3 125 UNIT TABLET PO SCH ×2 (09:33→18:18)
[2016-10-12] MEDS: LEVOFLOXACIN 750 MG TABLET PO SCH (09:34)
[2016-10-12] MEDS: FLUTICASONE/SALMETEROL DISKUS 250-50 MCG/DOSE IH SCH ×2 (09:36→21:15)
[2016-10-12] MEDS: TRIAMCINOLONE ACETONIDE 0.025% CREAM 15 GM TOP SCH (10:08)
--- NOTE | 2016-10-12 11:01 | PDOC PROGRESS REPORT ---
Subjective Progress Note for:: 10/12/16 Subjective:: Patient has continued nonproductive cough, shortness of breath. She feels generally better than she did on admission. Patient denies fever, chills, headache, new focal weakness, chest pain, abdominal pain, nausea, vomiting, diarrhea, constipation. Physical Exam Vital Signs: Temp Pulse Resp BP Pulse Ox 98.2 F 74 16 166/87 H 95 10/12/16 07:21 10/12/16 07:21 10/12/16 07:21 10/12/16 07:21 10/12/16 07:21 Intake & Output 10/11/16 10/12/16 10/13/16 06:59 06:59 06:59 Intake Total 5298 2269 Balance 5298 2269 Weight 78.4 kg 83.2 kg GENERAL: No acute distress HEENT: Conjunctiva clear, nonicteric, moist mucous membranes, no JVD, midline trachea RESPIRATORY: Faint bilateral wheezes, good air excursion CARDIAC: Regular rate and rhythm, no murmurs/gallops/rubs ABDOMEN: Soft, nondistended, nontender, positive bowel sounds, no rebound, no guarding EXTREMETIES: No edema, cyanosis, clubbing NEUROLOGIC: Alert, oriented to person/place/time, CN's grossly intact, no focal deficits SKIN: No rash, wounds PSYCH: Normal mood, normal affect Results Laboratory Results: 10/12/16 04:54 10/12/16 04:54 10/12/16 10/12/16 04:54 04:54 WBC 12.6 H RBC 3.64 L Hgb 10.7 L Hct 31.9 L MCV 88 MCH 29.3 MCHC 33.4 RDW 15.3 H Plt Count 161 Seg Neutrophils % Not Reportable Lymphocytes % Not Reportable Monocytes % Not Reportable Eosinophils % Not Reportable Basophils % Not Reportable Absolute Neutrophils Not Reportable Absolute Lymphocytes Not Reportable Absolute Monocytes Not Reportable Absolute Eosinophils Not Reportable Absolute Basophils Not Reportable Sodium 140.0 Potassium 3.6 Chloride 107 Carbon Dioxide 24 Anion Gap 9 BUN 21 H Creatinine 0.53 Est GFR ( Amer) > 60 Est GFR (Non-Af Amer) > 60 Glucose 131 H Calcium 8.5 10/09/16 12:10 Clean Catch Midstream Urine Culture - Final NO GROWTH 2 DAYS Impressions: Chest X-Ray 10/09/16 09:21 IMPRESSION: Right upper lobe and bilateral lower lobe patchy airspace disease, edema versus pneumonia. Assessment & Plan - Diagnosis (1) Acute hypoxemic respiratory failure Is this a current diagnosis for this admission?: YesPlan: Continue oxygen supplementation (2) Sepsis Qualifiers: Sepsis type: sepsis due to unspecified organism Qualified Code(s): A41.9 - Sepsis, unspecified organism Is this a current diagnosis for this admission?: Yes (3) Pneumonia Qualifiers: Pneumonia type: due to unspecified organism Laterality: right Lung location: upper lobe of lung Qualified Code(s): J18.1 - Lobar pneumonia, unspecified organism Is this a current diagnosis for this admission?: YesPlan: Patient has multilobar pneumonia on chest x-ray. This is likely bacterial. Cultures of been negative. Influenza screen negative. Continue Levaquin. (4) COPD (chronic obstructive pulmonary disease) Qualifiers: COPD type: unspecified COPD Qualified Code(s): J44.9 - Chronic obstructive pulmonary disease, unspecified Is this a current diagnosis for this admission?: YesPlan: Discontinue IV Solu-Medrol. Start prednisone 40 mg daily. Continue Advair, Singulair. Continue nebulizer treatments scheduled and when necessary. (5) HLD (hyperlipidemia) Qualifiers: Hyperlipidemia type: unspecified Qualified Code(s): E78.5 - Hyperlipidemia, unspecified Is this a current diagnosis for this admission?: No (6) Lupus (systemic lupus erythematosus) Qualifiers: Systemic lupus erythematosus type: unspecified Systemic lupus erythematosus organ involvement: unspecified Qualified Code(s): M32.9 - Systemic lupus erythematosus, unspecified Is this a current diagnosis for this admission?: Yes (7) Steroid dependence Is this a current diagnosis for this admission?: Yes (8) Hypothyroid Is this a current diagnosis for this admission?: Yes - Time Time Spent with patient: 35 or more minutes Anticipated discharge: Home Within: within 72 hours
[2016-10-12] MEDS: PREDNISONE 20 MG TABLET PO SCH (13:24)
[2016-10-12] MEDS: BENZONATATE 100 MG CAPSULE PO PRN ×2 (13:26→21:17)
[2016-10-12] MEDS: SIMVASTATIN 10 MG TABLET PO SCH (18:18)
[2016-10-12] MEDS: OXYCODONE-ACETAMINOPHEN 5-325 MG TABLET PO PRN (21:15)
[2016-10-12] MEDS: LACTOBACILLUS ACIDOPHILUS 250 MG TAB PO SCH (21:16)
[2016-10-12] MEDS: MONTELUKAST SODIUM 10 MG TABLET PO SCH (21:20)
[2016-10-13 05:00] LABS: HEMATOCRIT 32.6 % (36.0-47.0); HEMOGLOBIN 10.8 g/dL (12.0-15.5); HGB HCT DIFFERENCE -0.2; MEAN CORPUSCULAR HEMOGLOBIN 29.2 pg (27.0-33.4); MEAN CORPUSCULAR VOLUME 89 fl (80-97); RED BLOOD COUNT 3.69 10^6/uL (3.72-5.28); RED CELL DISTRIBUTION WIDTH 15.8 % (11.5-14.0); WHITE BLOOD COUNT 11.5 10^3/uL (4.0-10.5)
[2016-10-13 05:36] LABS: ANION GAP 8 (5-19); BLOOD UREA NITROGEN 21 mg/dL (7-20); CALCIUM 8.6 mg/dL (8.4-10.2); CARBON DIOXIDE 27 mmol/L (22-30); CHLORIDE 105 mmol/L (98-107); CREATININE RESULT 0.53 mg/dL (0.52-1.25); GLUCOSE 125 mg/dL (75-110); POTASSIUM 3.3 mmol/L (3.6-5.0); SODIUM 140.3 mmol/L (137-145)
[2016-10-13 05:59] LABS: BAND NEUTROPHILS % (MANUAL) 1 % (3-5); BASOPHILS % (MANUAL) 0 % (0-2); EOSINOPHILS % (MANUAL) 0 % (0-6); LYMPHOCYTES % (MANUAL) 4 % (13-45); TOTAL CELLS COUNTED 100
[2016-10-13 06:00] LABS: ANISOCYTOSIS SLIGHT; OVALOCYTES SLIGHT; TOXIC GRANULATION 1+; TOXIC VACUOLATION PRESENT
[2016-10-13] MEDS: BENZONATATE 100 MG CAPSULE PO PRN (06:41)
[2016-10-13] MEDS: ACYCLOVIR 200 MG CAPSULE PO SCH ×5 (06:41→20:38)
[2016-10-13] MEDS: OXYCODONE-ACETAMINOPHEN 5-325 MG TABLET PO PRN (06:41)
[2016-10-13] MEDS ORDERED: POTASSIUM CHLORIDE 10 MEQ TABLET.SA PO ONE (07:21)
[2016-10-13] MEDS: ACETYLCYSTEINE 20% SOLN 800 MG/4 ML VIAL.NEB NEB SCH (07:51)
[2016-10-13] MEDS: IPRATROPIUM/ALBUTEROL 0.5-2.5 MG/3 ML AMPUL NEB SCH ×3 (07:51→19:58)
[2016-10-13] MEDS ORDERED: ACETAMINOPHEN 325 MG TABLET ONE (08:06)
[2016-10-13] MEDS: ACETAMINOPHEN 325 MG TABLET PO PRN (08:10)
[2016-10-13] MEDS: ENOXAPARIN SODIUM INJ 40 MG/0.4 ML DISP.SYRIN SUBCUT SCH (08:11)
[2016-10-13] MEDS: ASCORBIC ACID 500 MG TABLET PO SCH (08:11)
[2016-10-13] MEDS: OMEGA-3 ACID ETHYL ESTERS 1 GM CAPSULE PO SCH ×2 (09:45→21:27)
[2016-10-13] MEDS: LANSOPRAZOLE 30 MG TAB.RAP.DR PO SCH (09:45)
[2016-10-13] MEDS: GUAIFENESIN 600 MG TABLET.SA PO SCH ×2 (09:46→21:28)
[2016-10-13] MEDS: CALCIUM CARBONATE 250 MG/VITAMIN D3 125 UNIT TABLET PO SCH ×2 (09:47→17:32)
[2016-10-13] MEDS: LEVOFLOXACIN 750 MG TABLET PO SCH (09:48)
[2016-10-13] MEDS: SERTRALINE HCL 50 MG TABLET PO SCH (09:48)
[2016-10-13] MEDS: ASPIRIN 81 MG TABLET, ENT COATED PO SCH (09:48)
[2016-10-13] MEDS: METOPROLOL SUCCINATE 50 MG TAB.SR.24H PO SCH (09:49)
[2016-10-13] MEDS: LEVOTHYROXINE SODIUM 0.075 MG TABLET PO SCH (09:49)
[2016-10-13] MEDS: FAMOTIDINE 20 MG TABLET PO SCH ×2 (09:49→21:27)
[2016-10-13] MEDS: FLUTICASONE/SALMETEROL DISKUS 250-50 MCG/DOSE IH SCH ×2 (09:50→21:27)
[2016-10-13] MEDS: TRIAMCINOLONE ACETONIDE 0.025% CREAM 15 GM TOP SCH (09:51)
[2016-10-13] MEDS ORDERED: PROMETHAZINE HCL INJ 25 MG/1 ML VIAL IV ONE (09:56)
[2016-10-13] MEDS ORDERED: HYDROMORPHONE HCL INJ/PF 2 MG/ML AMPULE IV ONE (09:56)
[2016-10-13] MEDS ORDERED: ALBUTEROL SULFATE 0.083% NEB 2.5 MG/3 ML AMPUL NEB PRN (09:57)
--- NOTE | 2016-10-13 10:06 | PDOC PROGRESS REPORT ---
Subjective Progress Note for:: 10/13/16 Subjective:: Patient states her cough and shortness of breath is much improved. She does have a migraine headache. She states she gets migraines occasionally. Patient denies fever, chills, headache, new focal weakness, chest pain, shortness of breath, abdominal pain, nausea, vomiting, diarrhea, constipation. Physical Exam Vital Signs: Temp Pulse Resp BP Pulse Ox 97.9 F 72 17 154/73 H 93 10/13/16 07:32 10/13/16 08:27 10/13/16 07:32 10/13/16 07:32 10/13/16 07:32 Intake & Output 10/12/16 10/13/16 10/14/16 06:59 06:59 06:59 Intake Total 9 1981 Balance 2268 1981 Weight 83.2 kg 83.1 kg GENERAL: No acute distress HEENT: Conjunctiva clear, nonicteric, moist mucous membranes, no JVD, midline trachea RESPIRATORY: Faint bilateral wheezes, good air excursion CARDIAC: Regular rate and rhythm, no murmurs/gallops/rubs ABDOMEN: Soft, nondistended, nontender, positive bowel sounds, no rebound, no guarding EXTREMETIES: No edema, cyanosis, clubbing NEUROLOGIC: Alert, oriented to person/place/time, CN's grossly intact, no focal deficits SKIN: No rash, wounds PSYCH: Normal mood, normal affect Results Laboratory Results: 10/13/16 04:29 10/13/16 04:29 10/13/16 10/13/16 04:29 04:29 WBC 11.5 H RBC 3.69 L Hgb 10.8 L Hct 32.6 L MCV 89 MCH 29.2 MCHC 33.0 RDW 15.8 H Plt Count 140 L Seg Neutrophils % Not Reportable Lymphocytes % Not Reportable Monocytes % Not Reportable Eosinophils % Not Reportable Basophils % Not Reportable Absolute Neutrophils Not Reportable Absolute Lymphocytes Not Reportable Absolute Monocytes Not Reportable Absolute Eosinophils Not Reportable Absolute Basophils Not Reportable Sodium 140.3 Potassium 3.3 L Chloride 105 Carbon Dioxide 27 Anion Gap 8 BUN 21 H Creatinine 0.53 Est GFR ( Amer) > 60 Est GFR (Non-Af Amer) > 60 Glucose 125 H Calcium 8.6 Impressions: Chest X-Ray 10/09/16 09:21 IMPRESSION: Right upper lobe and bilateral lower lobe patchy airspace disease, edema versus pneumonia. Assessment & Plan - Diagnosis (1) Acute hypoxemic respiratory failure Is this a current diagnosis for this admission?: YesPlan: Continue oxygen supplementation. We will check room air oxygen saturation prior to discharge to see if patient needs home oxygen. (2) Sepsis Qualifiers: Sepsis type: sepsis due to unspecified organism Qualified Code(s): A41.9 - Sepsis, unspecified organism Is this a current diagnosis for this admission?: Yes (3) Pneumonia Qualifiers: Pneumonia type: due to unspecified organism Laterality: right Lung location: upper lobe of lung Qualified Code(s): J18.1 - Lobar pneumonia, unspecified organism Is this a current diagnosis for this admission?: YesPlan: Patient has multilobar pneumonia on chest x-ray. This is likely bacterial. Cultures of been negative. Influenza screen negative. Continue Levaquin. (4) COPD (chronic obstructive pulmonary disease) Qualifiers: COPD type: unspecified COPD Qualified Code(s): J44.9 - Chronic obstructive pulmonary disease, unspecified Is this a current diagnosis for this admission?: YesPlan: Continue prednisone 40 mg daily. Continue Advair, Singulair. Continue nebulizer treatments scheduled and when necessary. (5) HLD (hyperlipidemia) Qualifiers: Hyperlipidemia type: unspecified Qualified Code(s): E78.5 - Hyperlipidemia, unspecified Is this a current diagnosis for this admission?: No (6) Lupus (systemic lupus erythematosus) Qualifiers: Systemic lupus erythematosus type: unspecified Systemic lupus erythematosus organ involvement: unspecified Qualified Code(s): M32.9 - Systemic lupus erythematosus, unspecified Is this a current diagnosis for this admission?: Yes (7) Steroid dependence Is this a current diagnosis for this admission?: Yes (8) Hypothyroid Is this a current diagnosis for this admission?: YesPlan: Continue Synthroid. (9) Migraine Is this a current diagnosis for this admission?: YesPlan: Give one-time dose of Dilaudid and Phenergan IV. (10) Hypertension Is this a current diagnosis for this admission?: YesPlan: Continue Toprol-XL 50 mg daily. Patient's blood pressure is slightly elevated however she is also having severe headache. I will treat her pain first and if her blood pressure remains elevated I will adjust blood pressure regimen. - Time Time Spent with patient: 35 or more minutes Anticipated discharge: Home Within: within 24 hours
[2016-10-13] MEDS: PREDNISONE 20 MG TABLET PO SCH (12:10)
[2016-10-13] MEDS: SIMVASTATIN 10 MG TABLET PO SCH (17:32)
[2016-10-13] MEDS: LACTOBACILLUS ACIDOPHILUS 250 MG TAB PO SCH (21:28)
[2016-10-13] MEDS: MONTELUKAST SODIUM 10 MG TABLET PO SCH (21:28)
[2016-10-13] MEDS ORDERED: DILTIAZEM HCL 120 MG CAP.SR.24H PO SCH (22:00)
[2016-10-14] MEDS: ACYCLOVIR 200 MG CAPSULE PO SCH ×3 (06:19→12:03)
[2016-10-14] MEDS: IPRATROPIUM/ALBUTEROL 0.5-2.5 MG/3 ML AMPUL NEB SCH ×2 (08:05→13:37)
[2016-10-14] MEDS: ASCORBIC ACID 500 MG TABLET PO SCH (08:11)
[2016-10-14] MEDS: ENOXAPARIN SODIUM INJ 40 MG/0.4 ML DISP.SYRIN SUBCUT SCH (08:12)
[2016-10-14] MEDS: BENZONATATE 100 MG CAPSULE PO PRN (10:00)
[2016-10-14] MEDS: OMEGA-3 ACID ETHYL ESTERS 1 GM CAPSULE PO SCH ×2 (10:39→21:21)
[2016-10-14] MEDS: LANSOPRAZOLE 30 MG TAB.RAP.DR PO SCH (10:39)
[2016-10-14] MEDS: CALCIUM CARBONATE 250 MG/VITAMIN D3 125 UNIT TABLET PO SCH ×2 (10:39→17:29)
[2016-10-14] MEDS: FLUTICASONE/SALMETEROL DISKUS 250-50 MCG/DOSE IH SCH ×2 (10:39→21:22)
[2016-10-14] MEDS: FAMOTIDINE 20 MG TABLET PO SCH ×2 (10:40→21:23)
[2016-10-14] MEDS: ASPIRIN 81 MG TABLET, ENT COATED PO SCH (10:40)
[2016-10-14] MEDS: LEVOTHYROXINE SODIUM 0.075 MG TABLET PO SCH (10:41)
[2016-10-14] MEDS: LEVOFLOXACIN 750 MG TABLET PO SCH (10:41)
[2016-10-14] MEDS: GUAIFENESIN 600 MG TABLET.SA PO SCH ×2 (10:41→21:22)
[2016-10-14] MEDS: SERTRALINE HCL 50 MG TABLET PO SCH (10:42)
[2016-10-14] MEDS: METOPROLOL SUCCINATE 50 MG TAB.SR.24H PO SCH ×2 (10:42→21:23)
[2016-10-14] MEDS: TRIAMCINOLONE ACETONIDE 0.025% CREAM 15 GM TOP SCH (10:43)
[2016-10-14] MEDS: PREDNISONE 20 MG TABLET PO SCH (12:02)
[2016-10-14] MEDS: ACETAMINOPHEN 325 MG TABLET PO PRN (14:04)
[2016-10-14] MEDS ORDERED: HYDROCODONE BIT/HOMATROPINE SYRUP 5 ML UDCUP PO PRN (14:17)
--- NOTE | 2016-10-14 14:23 | PDOC PROGRESS REPORT ---
Subjective Progress Note for:: 10/14/16 Subjective:: Patient states that her cough is worse today. She also complains of constipation. She states she does not want to go home because she is afraid she will have to be readmitted to the hospital again. Patient denies fever, chills, headache, new focal weakness, chest pain, shortness of breath, abdominal pain, nausea, vomiting, diarrhea. Physical Exam Vital Signs: Temp Pulse Resp BP Pulse Ox 97.8 F 78 16 149/71 H 96 10/14/16 12:05 10/14/16 13:37 10/14/16 13:37 10/14/16 12:05 10/14/16 13:37 Intake & Output 10/13/16 10/14/16 10/15/16 06:59 06:59 06:59 Intake Total 1981 1591 618 Balance 1981 1591 618 Weight 83.1 kg 82 kg GENERAL: No acute distress HEENT: Conjunctiva clear, nonicteric, moist mucous membranes, no JVD, midline trachea RESPIRATORY: Clear to auscultation bilaterally, no wheezes, no rhonchi CARDIAC: Regular rate and rhythm, no murmurs/gallops/rubs ABDOMEN: Soft, nondistended, nontender, positive bowel sounds, no rebound, no guarding EXTREMETIES: No edema, cyanosis, clubbing NEUROLOGIC: Alert, oriented to person/place/time, CN's grossly intact, no focal deficits SKIN: No rash, wounds PSYCH: Normal mood, normal affect Results Laboratory Results: 10/13/16 04:29 10/13/16 04:29 Impressions: Chest X-Ray 10/09/16 09:21 IMPRESSION: Right upper lobe and bilateral lower lobe patchy airspace disease, edema versus pneumonia. Assessment & Plan - Diagnosis (1) Acute hypoxemic respiratory failure Is this a current diagnosis for this admission?: YesPlan: Resolved. O2 sat stable on room air. (2) Sepsis Qualifiers: Sepsis type: sepsis due to unspecified organism Qualified Code(s): A41.9 - Sepsis, unspecified organism Is this a current diagnosis for this admission?: Yes (3) Pneumonia Qualifiers: Pneumonia type: due to unspecified organism Laterality: right Lung location: upper lobe of lung Qualified Code(s): J18.1 - Lobar pneumonia, unspecified organism Is this a current diagnosis for this admission?: YesPlan: Patient has multilobar pneumonia on chest x-ray. This is likely bacterial. Cultures of been negative. Influenza screen negative. Continue Levaquin. (4) COPD (chronic obstructive pulmonary disease) Qualifiers: COPD type: unspecified COPD Qualified Code(s): J44.9 - Chronic obstructive pulmonary disease, unspecified Is this a current diagnosis for this admission?: YesPlan: Continue prednisone 40 mg daily. Continue Advair, Singulair. Continue nebulizer treatments scheduled and when necessary. (5) HLD (hyperlipidemia) Qualifiers: Hyperlipidemia type: unspecified Qualified Code(s): E78.5 - Hyperlipidemia, unspecified Is this a current diagnosis for this admission?: No (6) Lupus (systemic lupus erythematosus) Qualifiers: Systemic lupus erythematosus type: unspecified Systemic lupus erythematosus organ involvement: unspecified Qualified Code(s): M32.9 - Systemic lupus erythematosus, unspecified Is this a current diagnosis for this admission?: Yes (7) Steroid dependence Is this a current diagnosis for this admission?: Yes (8) Hypothyroid Is this a current diagnosis for this admission?: YesPlan: Continue Synthroid. (9) Migraine Is this a current diagnosis for this admission?: Yes (10) Hypertension Is this a current diagnosis for this admission?: YesPlan: Increase Toprol-XL to 50 mg twice daily. (11) Constipation Is this a current diagnosis for this admission?: YesPlan: Give one-time dose of milk of magnesia. Start Colace 100 mg twice daily. Discontinue ipratropium secondary to potential anticholinergic side effects. - Time Time Spent with patient: 35 or more minutes
[2016-10-14] MEDS ORDERED: HYDROCODONE BIT/HOMATROPINE 5-1.5 MG TABLET PO PRN (14:39)
[2016-10-14] MEDS ORDERED: MAGNESIUM HYDROXIDE SUSP 30 ML UDCUP PO ONE (15:00)
[2016-10-14 16:39] LABS: STREP PNEUMO TYPE 56 1.2 ug/mL (>1.3)
[2016-10-14] MEDS: DOCUSATE SODIUM 100 MG CAPSULE PO SCH (17:29)
[2016-10-14] MEDS: SIMVASTATIN 10 MG TABLET PO SCH (17:30)
[2016-10-14] MEDS: LACTOBACILLUS ACIDOPHILUS 250 MG TAB PO SCH (21:22)
[2016-10-14] MEDS: MONTELUKAST SODIUM 10 MG TABLET PO SCH (21:22)
[2016-10-15] MEDS: BENZONATATE 100 MG CAPSULE PO PRN (04:31)
[2016-10-15] MEDS: ASCORBIC ACID 500 MG TABLET PO SCH (09:18)
[2016-10-15] MEDS: CALCIUM CARBONATE 250 MG/VITAMIN D3 125 UNIT TABLET PO SCH (09:19)
[2016-10-15] MEDS: DOCUSATE SODIUM 100 MG CAPSULE PO SCH (09:19)
[2016-10-15] MEDS: METOPROLOL SUCCINATE 50 MG TAB.SR.24H PO SCH (09:19)
[2016-10-15] MEDS: LEVOFLOXACIN 750 MG TABLET PO SCH (09:20)
[2016-10-15] MEDS: FAMOTIDINE 20 MG TABLET PO SCH (09:20)
[2016-10-15] MEDS: SERTRALINE HCL 50 MG TABLET PO SCH (09:20)
[2016-10-15] MEDS: ASPIRIN 81 MG TABLET, ENT COATED PO SCH (09:20)
[2016-10-15] MEDS: LEVOTHYROXINE SODIUM 0.075 MG TABLET PO SCH (09:20)
[2016-10-15] MEDS: LANSOPRAZOLE 30 MG TAB.RAP.DR PO SCH (09:21)
[2016-10-15] MEDS: OMEGA-3 ACID ETHYL ESTERS 1 GM CAPSULE PO SCH (09:21)
[2016-10-15] MEDS: GUAIFENESIN 600 MG TABLET.SA PO SCH (09:21)
[2016-10-15] MEDS: FLUTICASONE/SALMETEROL DISKUS 250-50 MCG/DOSE IH SCH (09:21)
[2016-10-15] MEDS: ENOXAPARIN SODIUM INJ 40 MG/0.4 ML DISP.SYRIN SUBCUT SCH (09:29)
[2016-10-15] MEDS: TRIAMCINOLONE ACETONIDE 0.025% CREAM 15 GM TOP SCH (09:29)
--- NOTE | 2016-10-15 10:08 | PDOC DISCHARGE SUMMARY ---
General - Admit/Disc Date/PCP Admission Date/Primary Care Provider: 10/09/16 11:41 Primary care provider: TERRY HAGER Pulmonary medicine: Dr. Dia Discharge Date: 10/15/16 - Discharge Diagnosis (1) Acute hypoxemic respiratory failure Is this a current diagnosis for this admission?: Yes (2) Sepsis Is this a current diagnosis for this admission?: Yes (3) Pneumonia Is this a current diagnosis for this admission?: Yes (4) COPD (chronic obstructive pulmonary disease) Is this a current diagnosis for this admission?: Yes (5) HLD (hyperlipidemia) Is this a current diagnosis for this admission?: Yes (6) Lupus (systemic lupus erythematosus) Is this a current diagnosis for this admission?: Yes (7) Steroid dependence Is this a current diagnosis for this admission?: Yes (8) Hypothyroid Is this a current diagnosis for this admission?: Yes (9) Migraine Is this a current diagnosis for this admission?: Yes (10) Hypertension Is this a current diagnosis for this admission?: Yes (11) Constipation Is this a current diagnosis for this admission?: Yes - Additional Information Resuscitation Status: Full Code Discharge Diet: Cardiac Discharge Activity: Activity As Tolerated Home Medications: Levothyroxine Sodium [Synthroid 0.075 mg Tablet] 75 mcg PO QAM 02/20/12 Estradiol 0.5 mg PO QHS 10/29/13 Fish Oil/Dha/Epa [Fish Oil 1,200 mg Fish Oil] 1 each PO BID 10/29/13 Montelukast Sodium [Singulair 10 mg Tablet] 10 mg PO QHS 10/29/13 Omeprazole 40 mg PO DAILY 10/29/13 Sertraline HCl 100 mg PO DAILY 10/29/13 Simvastatin [Zocor 20 mg Tablet] 20 mg PO QPM 10/29/13 Albuterol Sulfate [Albuterol Sulfate Hfa] 1 puff PO PRN PRN 10/30/13 Biotin [Biotin 1 mg Tablet] 1 tab PO BID 03/11/15 L.acidoph & Paracasei,B.lactis [Probiotic] 1 each PO QHS 06/11/15 Ipratropium/Albuterol Sulfate [Duoneb 3 ml Ampul] 3 ml NEB RTQ8 #20 vial.neb Ascorbic Acid [Vitamin C] 1,000 mg PO QAM 10/09/16 Aspirin [Adult Low Dose Aspirin EC] 81 mg PO DAILY 10/09/16 Calcium Carbonate/Vitamin D3 [Calcium 600 + Vit D Tablet] 2 tab PO BID 10/09/16 Fluticasone/Salmeterol [Advair 250-50 Diskus 14 Dose/Diskus] 1 inh IH BID Ibuprofen [Motrin 800 mg Tablet] 800 mg PO PRN PRN 10/09/16 Tofacitinib Citrate [Xeljanz] 5 mg PO BID 10/09/16 Triamcinolone Acetonide [Aristocort 0.025% Cream] 1 applic TOP DAILY 10/09/16 Acetaminophen [Tylenol 325 mg Tablet] 650 mg PO Q4HP PRN tablet 10/15/16 Albuterol Sulfate [Ventolin 0.083% Neb 2.5 mg/3 mL Ampul] 2.5 mg NEB RTQ4HP PRN #60 vial.neb 10/15/16 Benzonatate [Tessalon Perles 100 mg Capsule] 100 mg PO Q8HP PRN #20 capsule 07/21 Docusate Sodium [Colace 100 mg Capsule] 100 mg PO BID #60 capsule 10/15/16 Famotidine [Pepcid 20 mg Tablet] 20 mg PO Q12 #60 tablet 10/15/16 Guaifenesin [Mucinex Sr 600 mg Tablet.sa] 1,200 mg PO Q12 #20 tablet.sa Hydrocodone Bit/Homatropine [Hycodan 5-1.5 mg Tablet] 1 tab PO Q8HP PRN #10 tablet 10/15/16 Levofloxacin [Levaquin 750 mg Tablet] 750 mg PO DAILY #5 tablet 10/15/16 Metoprolol Succinate [Toprol Xl 50 mg Tab.sr] 50 mg PO Q12 #60 tab.sr.24h Prednisone 7.5 mg PO QAM #0 10/15/16 Prednisone [Deltasone 20 mg Tablet] 40 mg PO DAILY@1200 #7 tablet 10/15/16 History of Present Illness Patient complains of: Cough/fever History of Present Illness: ALYSHA BEDOLLA is a 61 year old female who presents to the emergency department with cough and fever. She has a history of multiple medical problems including COPD, pneumonia, and lupus. Of note she was seen in the ER last week for cough and diagnosed with an upper respiratory infection and has been treated with nebulizers and prednisone. She denies any antibiotics in the past few months. She states that her symptoms became worse 2 days ago and that yesterday she ran a fever of 102. This was the first episode of documented fever for this illness she states that her cough has been nonproductive but associated with pain in her chest when she coughs. She does not feel short of breath at this time. She has been tolerating fluids and denies any nausea vomiting or diarrhea. She also has had no dysuria. She does have a prior history of pneumonia and was hospitalized in [place] last February for several weeks she is uncertain if she had a flu shot this year. Hospital Course Hospital Course: Patient was admitted for multi focal pneumonia and treated initially with IV antibiotics. Cultures were negative and patient was transitioned to oral Levaquin. White blood count has improved from 19.7 on admission to 11.5 at discharge. Mild leukocytosis is likely related to corticosteroids. Patient is afebrile at time of discharge. Lung exam is clear. Patient has persistent cough. She is discharged home on oral Levaquin and prednisone to be tapered down to her maintenance dose of 7.5 mg daily. She is to follow-up with her primary care provider and her pulmonary medicine specialist. Patient has lupus and is chronic steroid dependent on prednisone 7.5 mg daily at baseline. She also takes Xeljanz, however this medication was held during admission secondary to infection. This can be resumed upon discharge. Patient has hypertension and we increased her metoprolol to 50 mg twice daily secondary to elevated blood pressures. Hopefully her blood pressure 1 improved with steroid taper. Physical Exam Vital Signs: Temp Pulse Resp BP Pulse Ox 98.0 F 81 16 160/79 H 97 10/15/16 07:17 10/15/16 08:00 10/15/16 08:00 10/15/16 07:17 10/15/16 08:00 Intake & Output 10/14/16 10/15/16 10/16/16 06:59 06:59 06:59 Intake Total 1591 2174 Balance 1591 2174 Weight 82 kg 80.8 kg GENERAL: No acute distress HEENT: Conjunctiva clear, nonicteric, moist mucous membranes, no JVD, midline trachea RESPIRATORY: Clear to auscultation bilaterally, no wheezes, no rhonchi CARDIAC: Regular rate and rhythm, no murmurs/gallops/rubs ABDOMEN: Soft, nondistended, nontender, positive bowel sounds, no rebound, no guarding EXTREMETIES: No edema, cyanosis, clubbing NEUROLOGIC: Alert, oriented to person/place/time, CN's grossly intact, no focal deficits SKIN: No rash, wounds PSYCH: Normal mood, normal affect Results Laboratory Results: 10/13/16 04:29 10/13/16 04:29 Labs- Last Values WBC 11.5 10^3/uL (4.0-10.5) H 10/13/16 04:29 RBC 3.69 10^6/uL (3.72-5.28) L 10/13/16 04:29 Hgb 10.8 g/dL (12.0-15.5) L 10/13/16 04:29 Hct 32.6 % (36.0-47.0) L 10/13/16 04:29 MCV 89 fl (80-97) 10/13/16 04:29 MCH 29.2 pg (27.0-33.4) 10/13/16 04:29 MCHC 33.0 g/dL (32.0-36.0) 10/13/16 04:29 RDW 15.8 % (11.5-14.0) H 10/13/16 04:29 Plt Count 140 10^3/uL (150-450) L 10/13/16 04:29 Total Counted 100 10/13/16 04:29 Seg Neutrophils % Not Reportable 10/13/16 04:29 Seg Neuts % (Manual) 89 % (42-78) H 10/13/16 04:29 Band Neutrophils % 1 % (3-5) L 10/13/16 04:29 Lymphocytes % Not Reportable 10/13/16 04:29 Lymphocytes % (Manual) 4 % (13-45) L 10/13/16 04:29 Monocytes % Not Reportable 10/13/16 04:29 Monocytes % (Manual) 6 % (3-13) 10/13/16 04:29 Eosinophils % Not Reportable 10/13/16 04:29 Eosinophils % (Manual) 0 % (0-6) 10/13/16 04:29 Basophils % Not Reportable 10/13/16 04:29 Basophils % (Manual) 0 % (0-2) 10/13/16 04:29 Absolute Neutrophils Not Reportable 10/13/16 04:29 Abs Neuts (Manual) 10.4 10^3/uL (1.7-8.2) H 10/13/16 04:29 Absolute Lymphocytes Not Reportable 10/13/16 04:29 Abs Lymphs (Manual) 0.5 10^3/uL (0.5-4.7) 10/13/16 04:29 Absolute Monocytes Not Reportable 10/13/16 04:29 Abs Monocytes (Manual) 0.7 10^3/uL (0.1-1.4) 10/13/16 04:29 Absolute Eosinophils Not Reportable 10/13/16 04:29 Absolute Eos (Manual) 0.0 10^3/uL (0.0-0.6) 10/13/16 04:29 Absolute Basophils Not Reportable 10/13/16 04:29 Abs Basophils (Manual) 0.0 10^3/uL (0.0-0.2) 10/13/16 04:29 Toxic Granulation 1+ 10/13/16 04:29 Toxic Vacuolation PRESENT 10/13/16 04:29 Platelet Comment DECREASED 10/13/16 04:29 Polychromasia SLIGHT 10/11/16 04:15 Poikilocytosis SLIGHT 10/11/16 04:15 Anisocytosis SLIGHT 10/13/16 04:29 Tear Drop Cells SLIGHT 10/11/16 04:15 Ovalocytes SLIGHT 10/13/16 04:29 Sodium 140.3 mmol/L (137-145) 10/13/16 04:29 Potassium 3.3 mmol/L (3.6-5.0) L 10/13/16 04:29 Chloride 105 mmol/L (98-107) 10/13/16 04:29 Carbon Dioxide 27 mmol/L (22-30) 10/13/16 04:29 Anion Gap 8 (5-19) 10/13/16 04:29 BUN 21 mg/dL (7-20) H 10/13/16 04:29 Creatinine 0.53 mg/dL (0.52-1.25) 10/13/16 04:29 Est GFR ( Amer) > 60 (>60) 10/13/16 04:29 Est GFR (Non-Af Amer) > 60 (>60) 10/13/16 04:29 Glucose 125 mg/dL (75-110) H 10/13/16 04:29 Lactic Acid 1.6 mmol/L (0.7-2.1) 10/09/16 09:00 Calcium 8.6 mg/dL (8.4-10.2) 10/13/16 04:29 Total Bilirubin 1.5 mg/dL (0.2-1.3) H 10/09/16 09:00 Direct Bilirubin 0.0 mg/dL (0.0-0.3) 10/09/16 09:00 AST 27 U/L (14-36) 10/09/16 09:00 ALT 43 U/L (9-52) 10/09/16 09:00 Alkaline Phosphatase 96 U/L (38-126) 10/09/16 09:00 Creatine Kinase 32 U/L (30-135) 10/09/16 09:00 CK-MB (CK-2) < 0.22 ng/mL (<4.55) 10/09/16 09:00 Troponin I < 0.012 ng/mL 10/09/16 09:00 NT-Pro-B Natriuret Pep 467 pg/mL (5-900) 10/09/16 09:00 Total Protein 6.6 g/dL (6.3-8.2) 10/09/16 09:00 Albumin 3.7 g/dL (3.5-5.0) 10/09/16 09:00 Urine Color YELLOW 10/09/16 12:10 Urine Appearance SLIGHTLY-CLOUDY 10/09/16 12:10 Urine pH 6.0 (5.0-9.0) 10/09/16 12:10 Ur Specific [place] 1.009 10/09/16 12:10 Urine Protein NEGATIVE mg/dL (NEGATIVE) 10/09/16 12:10 Urine Glucose (UA) NEGATIVE mg/dL (NEGATIVE) 10/09/16 12:10 Urine Ketones NEGATIVE mg/dL (NEGATIVE) 10/09/16 12:10 Urine Blood NEGATIVE (NEGATIVE) 10/09/16 12:10 Urine Nitrite NEGATIVE (NEGATIVE) 10/09/16 12:10 Urine Bilirubin NEGATIVE (NEGATIVE) 10/09/16 12:10 Urine Urobilinogen NEGATIVE mg/dL (<2.0) 10/09/16 12:10 Ur Leukocyte Esterase NEGATIVE (NEGATIVE) 10/09/16 12:10 Urine WBC (Auto) 1 /HPF 10/09/16 12:10 Urine Bacteria (Auto) TRACE /HPF 10/09/16 12:10 Squamous Epi Cells Auto 1 /HPF 10/09/16 12:10 Urine Mucus (Auto) RARE /LPF 10/09/16 12:10 Urine Ascorbic Acid NEGATIVE (NEGATIVE) 10/09/16 12:10 Influenza A (Rapid) NEGATIVE (NEGATIVE) 10/09/16 10:20 Influenza B (Rapid) NEGATIVE (NEGATIVE) 10/09/16 10:20 10/13/16 06:44 Gram Stain - Preliminary Sputum 10/13/16 05:35 Legionella Urinary Antigen - Pending Clean Catch Midstream 10/09/16 12:10 Urine Culture - Final Clean Catch Midstream NO GROWTH 2 DAYS Impressions: Chest X-Ray 10/09/16 09:21 IMPRESSION: Right upper lobe and bilateral lower lobe patchy airspace disease, edema versus pneumonia. Qualifiers PATEINT BEING DISCHARGED WITH ANY OF THE FOLLOWING DIAGNOSIS?: No Plan Time Spent: Less than 30 Minutes
[2016-10-15 10:52] VITALS: BP 107/58
[2016-10-15] MEDS: PREDNISONE 20 MG TABLET PO SCH (11:48)
== END 2016-10-15 13:31 | disposition home or self-care (01) | DRG 871 ==
LOC: ER 08:35 → EH 11:41 → 3W 16:40
PROVIDERS: ADMIT Family Medicine; ATTEND Family Medicine
PROC: 3E0F73Z Introduction of Anti-inflammatory into Respiratory Tract, Via Natural or Artificial Opening (ICD-10-PCS; principal; 2016-10-09)
DX: A41.9 Sepsis, unspecified organism (principal); J18.9 Pneumonia, unspecified organism; J96.01 Acute respiratory failure with hypoxia; J44.9 Chronic obstructive pulmonary disease, unspecified; M32.9 Systemic lupus erythematosus, unspecified; Z88.0 Allergy status to penicillin; Z88.8 Allergy status to other drugs, medicaments and biological substances; I25.10 Atherosclerotic heart disease of native coronary artery without angina pectoris; I10 Essential (primary) hypertension; E78.00 Pure hypercholesterolemia, unspecified; J45.909 Unspecified asthma, uncomplicated; Z86.73 Personal history of transient ischemic attack (TIA), and cerebral infarction without residual deficits; M06.9 Rheumatoid arthritis, unspecified; Z90.49 Acquired absence of other specified parts of digestive tract; F32.9 Major depressive disorder, single episode, unspecified; Z90.710 Acquired absence of both cervix and uterus; Z79.82 Long term (current) use of aspirin; Z79.899 Other long term (current) drug therapy; Z79.52 Long term (current) use of systemic steroids; Z82.49 Family history of ischemic heart disease and other diseases of the circulatory system; Z82.3 Family history of stroke; Z80.9 Family history of malignant neoplasm, unspecified; Z92.25 Personal history of immunosuppression therapy; E78.5 Hyperlipidemia, unspecified; E66.9 Obesity, unspecified; Z68.31 Body mass index [BMI] 31.0-31.9, adult; E03.9 Hypothyroidism, unspecified; G43.909 Migraine, unspecified, not intractable, without status migrainosus; K59.00 Constipation, unspecified
CPT/HCPCS: 36415; 71010; 80048; 80053; 81001; 82550; 82553; 83605; 83880; 84484; 85025; 86317; 87040; 87070; 87086; 87205; 87804; 93005; 93010; 94660; 94667; 94799; 96365; 96367; 99285; J0456; J0692; J0696; J1170; J1650; J1885; J2550; J2920; J2930; J3370; J3490; J7030; J7060; J7512; J7620

== ENCOUNTER 2017-01-06 14:08 | Inpatient (IN) | payer MEDICARE, OTHER ==
--- NOTE | 2017-01-06 14:14 | ER Document Report ---
ED Respiratory Problem - General Stated Complaint: DIFFICULTY BREATHING Mode of Arrival: Medic Information source: Emergency Med Personnel Cannot obtain history due to: Other - CANNOT VERBALIZE TRAVEL OUTSIDE OF THE [place] IN LAST 30 DAYS: No - HPI Patient complains to provider of: Short of breath Onset: This morning Duration: Continuous Severity: Moderate EMS treatments: Bronchodilators, CPAP, Solumedrol Similar symptoms previously: Yes Recently seen / treated by doctor: No Notes: Patient from home, has been noted to have apparent shortness of breath all day today. EMS arrived to find the patient's respirations labored, O2 sats in the low 70s on room air, she had no fever but was tachypneic and tachycardic. She was treated with supplemental oxygen, bronchodilators, and CPAP, with improvement of the oxygen saturation to the low 90s. Patient is unable to verbalize any history. - Related Data Allergies/Adverse Reactions: diphenhydramine HCl [From Benadryl] Adverse Reaction (Intermediate, Verified 01/18 08:42) Anxiety Past Medical History - General Information source: [facility] Records, Outside Facility Records - Social History Smoking Status: Unknown if Ever Smoked Cigarette use (# per day): No Chew tobacco use (# tins/day): No Frequency of alcohol use: None Drug Abuse: None Lives with: Longterm Family History: CAD, CVA, Hypertension, Malignancy - Past Medical History Cardiac Medical History: Reports: Hx Coronary Artery Disease - high chol , Hx Hypercholesterolemia, Hx Hypertension Denies: Hx Heart Attack Pulmonary Medical History: Reports: Hx Asthma, Hx Bronchitis, Hx COPD, Hx Pneumonia - 2003 Neurological Medical History: Denies: Hx Cerebrovascular Accident, Hx Seizures Renal/ Medical History: Denies: Hx Peritoneal Dialysis GI Medical History: Denies: Hx Hepatitis, Hx Hiatal Hernia, Hx Ulcer Musculoskeltal Medical History: Reports Hx Arthritis - RA Psychiatric Medical History: Reports: Hx Depression Infectious Medical History: Denies: Hx Hepatitis Past Surgical History: Reports: Hx Appendectomy, Hx Breast Surgery, Hx Hysterectomy, Hx Orthopedic Surgery. Denies: Hx Mastectomy, Hx Open Heart Surgery, Hx Pacemaker - Immunizations Hx Diphtheria, Pertussis, Tetanus Vaccination: Yes - 1966 Hx Pneumococcal Vaccination: 09/04/11 Review of Systems - Review of Systems -: Yes ROS unobtainable due to patient's medical condition Physical Exam - Vital signs Vitals: Resp Pulse Ox 30 H 95 01/06/17 14:29 01/06/17 14:29 Interpretation: Hypotensive, Tachycardic, Tachypneic - General General appearance: Lethargic In distress: None - HEENT Head: Normocephalic Eyes: Normal Conjunctiva: Normal Ears: Normal Nasal: Normal Mouth/Lips: Normal Mucous membranes: Normal - Respiratory Respiratory status: Tachypnea Breath sounds: Rhonchi - SCATTERED, BILAT. - Cardiovascular Rhythm: Regular, Tachycardia Heart sounds: Normal auscultation Murmur: No - Abdominal Inspection: Normal Bowel sounds: Hypoactive Tenderness: Nontender - Extremities General upper extremity: Normal inspection General lower extremity: Normal inspection - Neurological Neuro grossly intact: Yes Cognition: Normal Orientation: AAOx4 - Skin Skin Temperature: Warm Skin Moisture: Dry Skin Color: Normal, [place] Skin Turgor: Elastic Course - Vital Signs Vital signs: Temp Pulse Resp BP Pulse Ox 99.6 F 29 H 90/58 L 96 01/06/17 19:26 01/06/17 19:26 01/06/17 19:26 01/06/17 19:26 - Laboratory Result Diagrams: 01/06/17 14:50 01/06/17 14:50 Laboratory results interpreted by me: 01/06/17 01/06/17 01/06/17 14:50 14:50 14:50 Hgb 11.6 L RDW 14.8 H Band Neutrophils % 1 L VBG pH VBG HCO3 Potassium 3.4 L Carbon Dioxide 19 L Creatinine 1.44 H Est GFR ( Amer) 44 L Est GFR (Non-Af Amer) 37 L Lactic Acid 6.9 H Calcium 8.2 L Total Protein 5.1 L Albumin 3.1 L 01/06/17 15:58 Hgb RDW Band Neutrophils % VBG pH 7.29 L VBG HCO3 18.9 L Potassium Carbon Dioxide Creatinine Est GFR ( Amer) Est GFR (Non-Af Amer) Lactic Acid Calcium Total Protein Albumin - EKG Interpretation by Pr EKG shows normal: Sinus rhythm, Gr[place], Intervals, QRS Complexes, ST-T Waves Rate: Tachycardia - Consults DR. TOLENTINO Time consulted: 16:20 Consulted provider: will come to ER Critical Care Note - Critical Care Note Total time excluding time spent on procedures (mins): 30 Comments: Patient extremely ill with sepsis, multiple organ system dysfunction, aggressive interventions, including intravenous pressor agents, necessary to stabilize patient. Discharge - Discharge Clinical Impression: Pneumonia Qualifiers: Pneumonia type: due to unspecified organism Laterality: right Lung location: upper lobe of lung Qualified Code(s): J18.1 - Lobar pneumonia, unspecified organism Sepsis Qualifiers: Sepsis type: sepsis due to unspecified organism Qualified Code(s): A41.9 - Sepsis, unspecified organism Acute renal failure Qualifiers: Acute renal failure type: with acute tubular necrosis Qualified Code(s): N17.0 - Acute kidney failure with tubular necrosis COPD (chronic obstructive pulmonary disease) Qualifiers: COPD type: emphysema Emphysema type: unspecified Qualified Code(s): J43.9 - Emphysema, unspecified Hypotension (arterial) Qualifiers: Hypotension type: other hypotension type Qualified Code(s): I95.89 - Other hypotension Admitting Provider: Hospitalist Unit Admitted: ICU
[2017-01-06] MEDS ORDERED: NORMAL SALINE 1000 ML 500 ML IV ONE ×3 (14:27→23:00)
[2017-01-06 15:10] LABS: HEMATOCRIT 36.1 % (36.0-47.0); HEMOGLOBIN 11.6 g/dL (12.0-15.5); HGB HCT DIFFERENCE -1.3; MEAN CORPUSCULAR HEMOGLOBIN 28.9 pg (27.0-33.4); MEAN CORPUSCULAR HGB CONC 32.1 g/dL (32.0-36.0); MEAN CORPUSCULAR VOLUME 90 fl (80-97); RED BLOOD COUNT 4.02 10^6/uL (3.72-5.28); RED CELL DISTRIBUTION WIDTH 14.8 % (11.5-14.0); WHITE BLOOD COUNT 9.6 10^3/uL (4.0-10.5)
[2017-01-06 15:23] LABS: ALANINE AMINOTRANSFERASE 33 U/L (9-52); ALBUMIN 3.1 g/dL (3.5-5.0); ALKALINE PHOSPHATASE 76 U/L (38-126); ANION GAP 17 (5-19); ASPARTATE AMINO TRANSFERASE 31 U/L (14-36); BILIRUBIN,DIRECT 0.2 mg/dL (0.0-0.4); BILIRUBIN,TOTAL 0.7 mg/dL (0.2-1.3); BLOOD UREA NITROGEN 19 mg/dL (7-20); CALCIUM 8.2 mg/dL (8.4-10.2); CARBON DIOXIDE 19 mmol/L (22-30); CHLORIDE 102 mmol/L (98-107); CREATINE KINASE 116 U/L (30-135); CREATININE RESULT 1.44 mg/dL (0.52-1.25); GLUCOSE 110 mg/dL (75-110); POTASSIUM 3.4 mmol/L (3.6-5.0); SODIUM 137.9 mmol/L (137-145); TOTAL PROTEIN 5.1 g/dL (6.3-8.2)
[2017-01-06 15:38] LABS: BASOPHILS % (MANUAL) 0 % (0-2); CREATINE KINASE MB 0.95 ng/mL (<4.55); EOSINOPHILS % (MANUAL) 0 % (0-6); LYMPHOCYTES % (MANUAL) 13 % (13-45); TOTAL CELLS COUNTED 100
[2017-01-06 15:39] LABS: ANISOCYTOSIS SLIGHT; POLYCHROMASIA SLIGHT; TOXIC GRANULATION SLIGHT; TROPONIN I < 0.012 ng/mL
[2017-01-06] MEDS ORDERED: NORMAL SALINE 1000 ML 1,000 ML IV ONE (16:05)
[2017-01-06] MEDS ORDERED: ERTAPENEM SODIUM INJ 1 GM VIAL IV ONE (16:13)
[2017-01-06 16:17] LABS: VENOUS BLOOD BASE EXCESS -7.2 mmol/L; VENOUS BLOOD HCO3 18.9 mmol/L (20-32); VENOUS BLOOD PH 7.29 (7.30-7.42)
[2017-01-06] MEDS ORDERED: NOREPINEPHRINE BITARTRATE INJ/PF 4 MG/4 ML SDV IV ONE ×2 (16:30→22:25)
[2017-01-06] MEDS: DEXTROSE 5%-WATER 250 ML with NOREPINEPHRINE BITARTRATE 4 MG IV PRN ×4 (16:35→23:24)
[2017-01-06] MEDS ORDERED: ACETAMINOPHEN 325 MG TABLET PO PRN (16:55)
[2017-01-06] MEDS ORDERED: NORMAL SALINE 1000 ML 1,000 ML IV PRN (16:55)
[2017-01-06] MEDS ORDERED: GENTAMICIN SULFATE 0 MG in DEXTROSE 5%-WATER 100 ML IV NR (17:00)
[2017-01-06] MEDS ORDERED: DEXTROSE 40% GEL 15 GM TUBE PO PRN ×2 (17:04)
[2017-01-06] MEDS ORDERED: GLUCAGON,HUMAN RECOMB 1 MG INJ IM PRN (17:04)
[2017-01-06] MEDS ORDERED: DEXTROSE 50%-WATER 25 GM/50 ML DISP.SYRIN IV PRN ×2 (17:04)
[2017-01-06] MEDS ORDERED: NORMAL SALINE 1000 ML 2,000 ML IV ONE (17:06)
[2017-01-06] MEDS ORDERED: PHARMACY COMMUNICATION ORDER MC NR (17:30)
--- NOTE | 2017-01-06 17:50 | PDOC H&P ---
History of Present Illness Admission Date/PCP: 01/06/2017 TERRY HAGER PA-C History of Present Illness: ALYSHA BEDOLLA is a 61 year old female who presents to the emergency department with via EMS with a one-day history of shortness of breath. Upon EMS arrival to patient's residence, she was found to be hypoxic to the low 70s. Patient was also tachycardic and tachypnic. She has a history of multiple medical problems including COPD, pneumonia, chronic steroid dependance, rheumatoid arthritis, and lupus. Patient is currently on BiPAP and history is limited due to patient's hypotension and lethargy. Patient has had one day of vomiting and reports several diarrheal stools. Patient was hospitalized from 10/09/16- and this H&P and discharge summary was reviewed. Patient was discharged on Levaquin at that time. Chest x-ray in the emergency department reveals a right lower lobe pneumonia. Patient's hypotensive currently receiving IV fluids and Levophed. Patient is referred to the hospital service for evaluation and treatment of septic shock. Past Medical History Cardiac Medical History: Reports: Coronary Artery Disease - high chol , Hyperlipidema, Hypertension Denies: Myocardial Infarction Pulmonary Medical History: Reports: Asthma, Bronchitis, Chronic Obstructive Pulmonary Disease (COPD), Pneumonia - 2003 Neurological Medical History: Denies: Seizures Endocrine Medical History: Reports: Diabetes Mellitus Type 2, Hypothyroidism GI Medical History: Denies: Hepatitis, Hiatal Hernia Musculoskeltal Medical History: Reports: Arthritis - RA Psychiatric Medical History: Reports: Depression Hematology: Reports: Anemia Denies: Sickle Cell Disease Past Surgical History Past Surgical History: Reports: Appendectomy, Hysterectomy, Orthopedic Surgery Denies: Amputation, Mastectomy, Pacemaker Social History Lives with: Half-Way Smoking Status: Never Smoker Frequency of Alcohol Use: None Hx Recreational Drug Use: No Drugs: None Hx Prescription Drug Abuse: No - Advance Directive Resuscitation Status: Full Code Surrogate healthcare decision maker:: Georgia Lees daughter Family History Family History: CAD, CVA, Hypertension, Malignancy Parental Family History Reviewed: No - lethargy Children Family History Reviewed: No Sibling(s) Family History Reviewed.: No Medication/Allergy Home Medications: Levothyroxine Sodium [Synthroid 0.075 mg Tablet] 75 mcg PO QAM 02/20/12 Estradiol 0.5 mg PO QHS 10/29/13 Fish Oil/Dha/Epa [Fish Oil 1,200 mg Fish Oil] 1 each PO BID 10/29/13 Montelukast Sodium [Singulair 10 mg Tablet] 10 mg PO QHS 10/29/13 Omeprazole 40 mg PO DAILY 10/29/13 Sertraline HCl 100 mg PO DAILY 10/29/13 Simvastatin [Zocor 20 mg Tablet] 20 mg PO QPM 10/29/13 Albuterol Sulfate [Albuterol Sulfate Hfa] 1 puff PO PRN PRN 10/30/13 Biotin [Biotin 1 mg Tablet] 1 tab PO BID 03/11/15 L.acidoph & Paracasei,B.lactis [Probiotic] 1 each PO QHS 06/11/15 Ipratropium/Albuterol Sulfate [Duoneb 3 ml Ampul] 3 ml NEB RTQ8 #20 vial.neb Ascorbic Acid [Vitamin C] 1,000 mg PO QAM 10/09/16 Aspirin [Adult Low Dose Aspirin EC] 81 mg PO DAILY 10/09/16 Calcium Carbonate/Vitamin D3 [Calcium 600 + Vit D Tablet] 2 tab PO BID 10/09/16 Fluticasone/Salmeterol [Advair 250-50 Diskus 14 Dose/Diskus] 1 inh IH BID Ibuprofen [Motrin 800 mg Tablet] 800 mg PO PRN PRN 10/09/16 Tofacitinib Citrate [Xeljanz] 5 mg PO BID 10/09/16 Triamcinolone Acetonide [Aristocort 0.025% Cream] 1 applic TOP DAILY 10/09/16 Acetaminophen [Tylenol 325 mg Tablet] 650 mg PO Q4HP PRN tablet 10/15/16 Albuterol Sulfate [Ventolin 0.083% Neb 2.5 mg/3 mL Ampul] 2.5 mg NEB RTQ4HP PRN #60 vial.neb 10/15/16 Benzonatate [Tessalon Perles 100 mg Capsule] 100 mg PO Q8HP PRN #20 capsule 07/21 Docusate Sodium [Colace 100 mg Capsule] 100 mg PO BID #60 capsule 10/15/16 Famotidine [Pepcid 20 mg Tablet] 20 mg PO Q12 #60 tablet 10/15/16 Guaifenesin [Mucinex Sr 600 mg Tablet.sa] 1,200 mg PO Q12 #20 tablet.sa Hydrocodone Bit/Homatropine [Hycodan 5-1.5 mg Tablet] 1 tab PO Q8HP PRN #10 tablet 10/15/16 Levofloxacin [Levaquin 750 mg Tablet] 750 mg PO DAILY #5 tablet 10/15/16 Metoprolol Succinate [Toprol Xl 50 mg Tab.sr] 50 mg PO Q12 #60 tab.sr.24h Prednisone 7.5 mg PO QAM #0 10/15/16 Prednisone [Deltasone 20 mg Tablet] 40 mg PO DAILY@1200 #7 tablet 10/15/16 Allergies/Adverse Reactions: diphenhydramine HCl [From Benadryl] Adverse Reaction (Intermediate, Verified 01/18 08:42) Anxiety Review of Systems ROS unobtainable: Due to mental status Physical Exam Vital Signs: Temp Pulse Resp BP Pulse Ox 98.4 F 26 H 78/48 L 100 01/06/17 14:40 01/06/17 15:00 01/06/17 14:40 01/06/17 15:00 General appearance: PRESENT: obese, severe distress, well-developed, well- nourished Head exam: PRESENT: atraumatic, normocephalic, other - Duncan face ease Eye exam: PRESENT: conjunctiva pink, EOMI, PERRLA. ABSENT: conjunctival injection, scleral icterus Ear exam: PRESENT: normal external ear exam Mouth exam: PRESENT: dry mucosa, neck supple, tongue midline Neck exam: ABSENT: carotid bruit, JVD, lymphadenopathy, thyromegaly, tracheal deviation Respiratory exam: PRESENT: accessory muscle use, clear to auscultation urszula, decreased breath sounds - Right lower lobe, retraction, symmetrical, tachypnea. ABSENT: rales, rhonchi, unlabored, wheezes Cardiovascular exam: PRESENT: RRR, +S1, +S2, systolic murmur, tachycardia. ABSENT: clicks, diastolic murmur, gallop, rubs Pulses: PRESENT: normal femoral pulses. ABSENT: normal radial pulses - Thready , normal dorsalis pedis pul Vascular exam: PRESENT: pallor GI/Abdominal exam: PRESENT: diminished bowel sounds, distended, soft, tenderness - Left lower quadrant. ABSENT: firm, guarding, Brown's sign, rebound Rectal exam: PRESENT: deferred Extremities exam: ABSENT: clubbing, joint swelling, pedal edema Neurological exam: PRESENT: altered, awake, oriented to person, CN II-XII grossly intact. ABSENT: oriented to place, oriented to time, oriented to situation, motor sensory deficit Psychiatric exam: PRESENT: appropriate affect, normal mood. ABSENT: homicidal ideation, suicidal ideation Skin exam: PRESENT: dry, intact, warm. ABSENT: cyanosis, rash Results Laboratory Results: 01/06/17 14:50 01/06/17 14:50 01/06/17 01/06/17 01/06/17 14:50 14:50 14:50 WBC 9.6 RBC 4.02 Hgb 11.6 L Hct 36.1 MCV 90 MCH 28.9 MCHC 32.1 RDW 14.8 H Plt Count 201 Seg Neutrophils % Not Reportable Lymphocytes % Not Reportable Monocytes % Not Reportable Eosinophils % Not Reportable Basophils % Not Reportable Absolute Neutrophils Not Reportable Absolute Lymphocytes Not Reportable Absolute Monocytes Not Reportable Absolute Eosinophils Not Reportable Absolute Basophils Not Reportable VBG pH VBG pCO2 VBG HCO3 VBG Base Excess Sodium 137.9 Potassium 3.4 L Chloride 102 Carbon Dioxide 19 L Anion Gap 17 BUN 19 Creatinine 1.44 H Est GFR ( Amer) 44 L Est GFR (Non-Af Amer) 37 L Glucose 110 Lactic Acid 6.9 H Calcium 8.2 L Total Bilirubin 0.7 AST 31 ALT 33 Alkaline Phosphatase 76 Total Protein 5.1 L Albumin 3.1 L 01/06/17 15:58 WBC RBC Hgb Hct MCV MCH MCHC RDW Plt Count Seg Neutrophils % Lymphocytes % Monocytes % Eosinophils % Basophils % Absolute Neutrophils Absolute Lymphocytes Absolute Monocytes Absolute Eosinophils Absolute Basophils VBG pH 7.29 L VBG pCO2 40.0 VBG HCO3 18.9 L VBG Base Excess -7.2 Sodium Potassium Chloride Carbon Dioxide Anion Gap BUN Creatinine Est GFR ( Amer) Est GFR (Non-Af Amer) Glucose Lactic Acid Calcium Total Bilirubin AST ALT Alkaline Phosphatase Total Protein Albumin 01/06/17 01/06/17 14:50 14:50 Creatine Kinase 116 CK-MB (CK-2) 0.95 Troponin I < 0.012 Impressions: Chest X-Ray 01/06/17 14:21 IMPRESSION: Hazy consolidation right lung base. Status: Imported from PACS Assessment & Plan - Diagnosis (1) Septic shock Is this a current diagnosis for this admission?: YesPlan: Patient is currently receiving fifth liter of IV fluid and still requiring levo fed at [address] patient on empiric coverage for pneumonia given her structural lung disease including cefepime, gentamicin, Levaquin as patient qualifies for healthcare associated pneumonia. Will maintain a map of 65. Obtain central line and monitor CVP every 4 hours. Patient was lactic acid of 6.9 will repeat this. Concern also for C. difficile in light of patient's reported diarrhea. Have considered adrenal insufficiency and patient is on Solu-Medrol 125 mg IV every 6 and will give her a one-time dose of Solu-Cortef 100 mg IV 1. Will obtain cultures. (2) Pneumonia Qualifiers: Pneumonia type: due to unspecified organism Laterality: right Lung location: lower lobe of lung Qualified Code(s): J18.1 - Lobar pneumonia, unspecified organism Is this a current diagnosis for this admission?: YesPlan: Place patient on empiric coverage for pneumonia given her structural lung disease including cefepime, gentamicin, Levaquin as patient qualifies for healthcare associated pneumonia. Scheduled nebulized treatments. Cultures including AFB with concern for MAC, PJP, andfungal cultures in light of her immune suppression. Patient was lactic acid of 6.9 will repeat this. (3) Acute renal failure Qualifiers: Acute renal failure type: with acute tubular necrosis Qualified Code (s): N17.0 - Acute kidney failure with tubular necrosis Is this a current diagnosis for this admission?: YesPlan: This is likely ATN. We will renally adjust patient's medications and will monitor for improvement (4) COPD (chronic obstructive pulmonary disease) Qualifiers: COPD type: emphysema Emphysema type: unspecified Qualified Code( s): J43.9 - Emphysema, unspecified Is this a current diagnosis for this admission?: YesPlan: We'll repeat patient's ABG. Continue patient on scheduled nebulized treatments and steroids (5) Acute hypoxemic respiratory failure Is this a current diagnosis for this admission?: YesPlan: Patient currently on BiPAP. Patient with documented hypoxemia in the field. Concern for underlying pulmonary embolus and will check patient's PT/INR empirically start her on anticoagulation until tomorrow. Hoping that after rehydration patient will be able to tolerate contrast for CTA. (6) Hypothyroid Qualifiers: Hypothyroidism type: unspecified Qualified Code(s): E03.9 - Hypothyroidism, unspecified Is this a current diagnosis for this admission?: YesPlan: Check a TSH as well as free T3 and free T4. (7) Lupus (systemic lupus erythematosus) Qualifiers: Systemic lupus erythematosus type: unspecified Systemic lupus erythematosus organ involvement: unspecified Qualified Code(s): M32.9 - Systemic lupus erythematosus, unspecified Is this a current diagnosis for this admission?: YesPlan: Patient on Xeljanz outpatient. Stress dose steroids. (8) Steroid dependence Is this a current diagnosis for this admission?: YesPlan: Stress dose steroids (9) HLD (hyperlipidemia) Qualifiers: Hyperlipidemia type: unspecified Qualified Code(s): E78.5 - Hyperlipidemia, unspecified Is this a current diagnosis for this admission?: Yes (10) Obesity (BMI 30.0-34.9) Is this a current diagnosis for this admission?: Yes - Time Time Spent: Greater than 70 Minutes Critical Time spent with patient: 35 or more minutes Medications reviewed and adjusted accordingly: Yes - Inpatient Certification Based on my medical assessment, after consideration of the patient's comorbidities, presenting symptoms, or acuity I expect that the services needed warrant INPATIENT care.: Yes I certify that my determination is in accordance with my understanding of Medicare's requirements for reasonable and necessary INPATIENT services [42 CFR 412.3e].: Yes Medical Necessity: Need For IV Fluids, Need for IV Antibiotics Post Hospital Care: D/C Outside Sales Professional Documentation
[2017-01-06 18:03] LABS: THYROID STIMULATING HORMONE 1.93 uIU/mL (0.47-4.68)
[2017-01-06 18:05] LABS: APPEARANCE,URINE SLIGHTLY-CLOUDY; BILIRUBIN,URINE NEGATIVE (NEGATIVE); GLUCOSE, URINE NEGATIVE (NEGATIVE); KETONES,URINE NEGATIVE (NEGATIVE); LEUKOCYTE ESTERASE,URINE NEGATIVE (NEGATIVE); NITRITE,URINE NEGATIVE (NEGATIVE); PROTEIN,URINE 30 mg/dL (NEGATIVE); URINE SPECIFIC GRAVITY 1.009; UROBILINOGEN,URINE NEGATIVE mg/dL (<2.0)
[2017-01-06 18:11] LABS: PROTHROMBIN TIME 14.5 SEC (11.4-15.4)
[2017-01-06 18:12] LABS: PARTIAL THROMBOPLASTIN TIME 23.9 SEC (23.5-35.8)
--- NOTE | 2017-01-06 19:00 | EKG REPORT ---
SEVERITY:- ABNORMAL ECG - SINUS TACHYCARDIA DIFFUSE NONSPECIFIC ST-T CHANGES : Confirmed by: Aristides Garcia MD 06-Jan-2017 18:59:10
--- NOTE | 2017-01-06 19:58 | OPERATIVE REPORT E ---
Operative Report NAME: ALYSHA BEDOLLA : 1955 AGE: 61Y DATE OF SURGERY: 01/06/2017 ROOM: ED20 PREOPERATIVE DIAGNOSES: 1. Lack of venous access. 2. Pneumonia. 3. Multiple medical problems. POSTOPERATIVE DIAGNOSES: 1. Lack of venous access. 2. Pneumonia. 3. Multiple medical problems. OPERATION: Insertion of right internal jugular *------* with ultrasonic guidance. SURGEON: GIORGI AUGUSTIN M.D. ANESTHESIA: Local. ESTIMATED BLOOD LOSS: Less than 10 mL. COMPLICATIONS: None. INDICATIONS: As noted, the patient has multiple medical problems: pneumonia, is hypotensive, has poor peripheral access. PROCEDURE IN DETAIL: Informed consent was obtained. The patient was identified and a timeout was done. She was prepped and draped in a standard sterile fashion and placed in Trendelenburg position with a shoulder roll. The ultrasonic device, which had been placed in a sterile bag, was used to identify the right internal jugular vein. Using a Seldinger technique, the right internal jugular vein was intubated with a good blood return. A wire was easily passed. The needle was withdrawn and a small incision was made and the dilator was passed. The wire was then threaded through a triple-lumen, 20 cm catheter. Good blood return was noted. The wire was withdrawn. The various 3 lumens of this were flushed with saline and then clamped. The wound was dressed. A chest x-ray is pending. The patient tolerated the procedure well with no problems or shortness of breath. DICTATING PHYSICIAN: GIORGI AUGUSTIN M.D. [id number] PHY#: [id number] ID: [id number] JOB#: [id number] ACCT: [id number] cc:GIORGI AUGUSTIN M.D. >
--- NOTE | 2017-01-06 20:09 | CONSULTATION REPORT E ---
Consultation Report NAME: ALYSHA BEDOLLA : 1955 AGE: 61Y DATE: 01/06/2017 ED20 A TO: GIORGI AUGUSTIN M.D. FROM: JAIDEN BUTLER M.D. Requesting Physician REASON FOR CONSULTATION: Venous access. HISTORY OF PRESENT ILLNESS: The patient is a 61-year-old female who presented to the Emergency Department via EMS with a history of shortness of breath. When EMS arrived, the patient was found to be hypoxic in the 70s, tachycardic and tachypneic. She has multiple medical problems including COPD, pneumonia, chronic steroid dependence, rheumatoid arthritis and lupus. The patient currently takes BiPAP and history is limited due to patient's hypotension and lethargy. The patient has also been having vomiting and several diarrheal stools. The patient was recently hospitalized on 10/09/2016 through 10/15/2016. Chest x-ray in the Emergency Department shows a right lower lobe pneumonia. The patient is hypotensive and she was currently receiving IV fluids and Levophed. PAST MEDICAL HISTORY: Remarkable for: 1. Coronary artery disease. 2. High cholesterol. 3. Hyperlipidemia. 4. Hypertension. 5. She has never had a myocardial infarction. 6. Pulmonary past medical history reports asthma, bronchitis, COPD, and pneumonia in 2003. 7. Neurologically, she does not have a history of seizures. 8. The patient is diabetic type 2. 9. Hypothyroid. 10. Musculoskeletal history, reports arthritis. 11. Depression. 12. She is chronically anemic. MEDICATIONS: She takes multiple medications includin. Levothyroxine. 2. Estradiol. 3. Fish oil. 4. Montelukast. 5. Omeprazole. 6. Sertraline. 7. Simvastatin. 8. Albuterol. 9. Biotin. 10. Acidophilus. 11. Ipratropium. 12. Ascorbic acid. 13. Aspirin. 14. Calcium carbonate. 15. Fluticasone. 16. Ibuprofen. 17. Xeljanz. The patient's labs are remarkable for normal white blood count at 9.6, hematocrit 36.1. In pertinence to the procedure, her PT and INR are within normal limits. ASSESSMENT: The patient has a small peripheral IV but is extremely difficult to stick and a central line was requested for venous access. The patient was evaluated and found to be a reasonable candidate for internal jugular. Given her pulmonary history, would like to avoid anything in the subclavian area. I discussed this with the patient discussed the risks of infection, bleeding, reaction to drugs, possibility of clotting the vein or injury to other structures. She indicated understanding and wished for me to proceed. DICTATING PHYSICIAN: GIORGI AUGUSTIN M.D. [id number] 1947 PHY#: [id number] ID: [id number] JOB#: [id number] ACCT: [id number] cc:GIORGI AUGUSTIN M.D. >
[2017-01-06 20:26] LABS: ARTERIAL BLOOD BASE EXCESS -11.3 mmol/L; ARTERIAL BLOOD O2 SATURATION 91.4 % (94-98)
[2017-01-06] MEDS ORDERED: LEVOFLOXACIN 750 MG/D5W RTU 750 MG/150 ML RTUPB IV SCH (21:00)
[2017-01-06] MEDS ORDERED: ACETAMINOPHEN 650 MG SUPP.RECT PR ONE (21:00)
[2017-01-06] MEDS ORDERED: HYDROCORTISONE SOD SUCCINATE INJ/PF 100 MG/2 ML SDV IV ONE (21:00)
[2017-01-06] MEDS: IPRATROPIUM/ALBUTEROL 0.5-2.5 MG/3 ML AMPUL NEB SCH (21:18)
[2017-01-06] MEDS ORDERED: GUAIFENESIN 600 MG TABLET.SA PO SCH (22:00)
[2017-01-06] MEDS ORDERED: CEFEPIME 2 GM/D5W RTU 2 GM/50 ML RTUPB IV SCH (22:00)
[2017-01-06] MEDS: LANSOPRAZOLE 15 MG TAB.RAP.DR PO SCH (23:25)
[2017-01-06] MEDS: GENTAMICIN SULFATE 140 MG in DEXTROSE 5%-WATER 100 ML IV SCH (23:27)
[2017-01-06] MEDS: CEFEPIME HCL 2 GM in DEXTROSE 5%-WATER 50 ML IV SCH (23:27)
[2017-01-06 23:47] LABS: VENOUS BLOOD BASE EXCESS -10.1 mmol/L; VENOUS BLOOD HCO3 16.5 mmol/L (20-32); VENOUS BLOOD PCO2 39.3 mmHg (35-63); VENOUS BLOOD PH 7.24 (7.30-7.42)
[2017-01-06 23:57] LABS: ANION GAP 11 (5-19); BLOOD UREA NITROGEN 18 mg/dL (7-20); CARBON DIOXIDE 17 mmol/L (22-30); CHLORIDE 109 mmol/L (98-107); CREATINE KINASE 302 U/L (30-135); CREATININE RESULT 1.17 mg/dL (0.52-1.25); GLUCOSE 133 mg/dL (75-110); LDH 577 U/L (313-618); POTASSIUM 3.8 mmol/L (3.6-5.0); SODIUM 137.3 mmol/L (137-145)
[2017-01-07] MEDS ORDERED: METHYLPREDNISOLONE INJ 125 MG/2 ML SDV IV SCH
[2017-01-07 00:09] LABS: CALCIUM 6.8 mg/dL (8.4-10.2); CREATINE KINASE MB 7.47 ng/mL (<4.55); TROPONIN I 0.027 ng/mL
[2017-01-07 00:10] LABS: MAGNESIUM 0.9 mg/dL (1.6-2.3)
[2017-01-07] MEDS ORDERED: RINGERS SOLUTION,LACTATED 2,000 ML IV ONE (01:00)
[2017-01-07] MEDS: METRONIDAZOLE 500 MG/NS RTU 100 ML IV SCH ×4 (01:30→17:13)
[2017-01-07] MEDS: MAGNESIUM SULFATE/D5W 1 GM/100 ML RTUPB IV SCH ×3 (01:31→03:40)
[2017-01-07 02:01] LABS: ADD ON TESTING BLD IN LAB ACKNOWLEDGE
[2017-01-07 02:09] LABS: ALBUMIN 2.4 g/dL (3.5-5.0)
[2017-01-07] MEDS: IPRATROPIUM/ALBUTEROL 0.5-2.5 MG/3 ML AMPUL NEB SCH ×4 (02:35→20:06)
[2017-01-07] MEDS ORDERED: GUAIFENESIN SYRP 200 MG/10 ML UDC PO PRN (03:23)
[2017-01-07] MEDS: NORMAL SALINE 1000 ML 1,000 ML IV PRN ×2 (03:45→05:56)
[2017-01-07] MEDS ORDERED: BENZONATATE 100 MG CAPSULE PO SCH (04:15)
[2017-01-07] MEDS ORDERED: BENZONATATE 100 MG CAPSULE PO ONE (04:15)
[2017-01-07 05:28] LABS: HEMATOCRIT 33.2 % (36.0-47.0); HEMOGLOBIN 10.9 g/dL (12.0-15.5); HGB HCT DIFFERENCE -0.5; MEAN CORPUSCULAR HEMOGLOBIN 29.4 pg (27.0-33.4); MEAN CORPUSCULAR HGB CONC 32.8 g/dL (32.0-36.0); MEAN CORPUSCULAR VOLUME 90 fl (80-97); RED BLOOD COUNT 3.71 10^6/uL (3.72-5.28); RED CELL DISTRIBUTION WIDTH 15.6 % (11.5-14.0); WHITE BLOOD COUNT 8.1 10^3/uL (4.0-10.5)
[2017-01-07 05:38] LABS: ANION GAP 14 (5-19); BLOOD UREA NITROGEN 18 mg/dL (7-20); CARBON DIOXIDE 15 mmol/L (22-30); CHLORIDE 109 mmol/L (98-107); CREATININE RESULT 0.91 mg/dL (0.52-1.25); GLUCOSE 149 mg/dL (75-110); POTASSIUM 3.7 mmol/L (3.6-5.0); SODIUM 137.6 mmol/L (137-145)
[2017-01-07] MEDS ORDERED: PROMETHAZINE HCL 25 MG SUPP.RECT PR PRN (05:38)
[2017-01-07] MEDS: LANSOPRAZOLE 15 MG TAB.RAP.DR PO SCH (05:55)
[2017-01-07 05:59] LABS: MAGNESIUM 1.9 mg/dL (1.6-2.3)
[2017-01-07] MEDS ORDERED: HYDROCORTISONE SOD SUCCINATE INJ/PF 100 MG/2 ML SDV IV SCH (06:00)
[2017-01-07 06:02] LABS: CALCIUM 6.8 mg/dL (8.4-10.2)
[2017-01-07] MEDS: DEXTROSE 5%-WATER 250 ML with NOREPINEPHRINE BITARTRATE 4 MG IV PRN ×6 (06:04→17:17)
[2017-01-07] MEDS ORDERED: NOREPINEPHRINE BITARTRATE INJ/PF 4 MG/4 ML SDV IV ONE ×2 (06:04→11:06)
[2017-01-07 06:06] LABS: BASOPHILS % (MANUAL) 0 % (0-2); EOSINOPHILS % (MANUAL) 0 % (0-6); LYMPHOCYTES % (MANUAL) 6 % (13-45); TOTAL CELLS COUNTED 100
[2017-01-07 06:12] LABS: ANISOCYTOSIS 1+; BURR CELLS SLIGHT; OVALOCYTES 1+; POIKILOCYTOSIS 1+; POLYCHROMASIA SLIGHT; TOXIC GRANULATION 1+; TOXIC VACUOLATION PRESENT
[2017-01-07] MEDS ORDERED: CALCIUM GLUCONATE 1000 MG/10 ML INJ IV ONE (07:07)
[2017-01-07 07:10] LABS: BAND NEUTROPHILS % (MANUAL) 37 % (3-5)
[2017-01-07 07:41] LABS: ARTERIAL BLOOD BASE EXCESS -11.8 mmol/L
[2017-01-07] MEDS ORDERED: FUROSEMIDE INJ/PF 40 MG/4 ML SDV ONE (07:44)
--- NOTE | 2017-01-07 07:48 | EKG REPORT ---
SEVERITY:- OTHERWISE NORMAL ECG - SINUS TACHYCARDIA : Confirmed by: Aristides Garcia MD 07-Jan-2017 07:47:33
[2017-01-07] MEDS ORDERED: FUROSEMIDE INJ/PF 40 MG/4 ML SDV IV ONE (08:00)
[2017-01-07] MEDS ORDERED: CALCIUM CARBONATE 250 MG/VITAMIN D3 125 UNIT TABLET PO SCH (08:00)
[2017-01-07] MEDS ORDERED: ENOXAPARIN SODIUM INJ 40 MG/0.4 ML DISP.SYRIN SUBCUT SCH (08:00)
[2017-01-07] MEDS ORDERED: SODIUM BICARBONATE 8.4% INJ 50 MEQ/50 ML DISP.SYRIN IV ONE (08:10)
[2017-01-07] MEDS ORDERED: PROPOFOL 100 ML IV ONE (08:12)
[2017-01-07] MEDS ORDERED: PHARMACY COMMUNICATION ORDER MC NR (08:15)
[2017-01-07] MEDS ORDERED: VANCOMYCIN HCL 0 MG in DEXTROSE 5%-WATER 250 ML IV NR (08:15)
[2017-01-07] MEDS ORDERED: LEVALBUTEROL HCL NEB 1.25 MG/3 ML AMPUL NEB PRN (08:20)
[2017-01-07] MEDS ORDERED: PHENYLEPHRINE HCL INJ/PF 10 MG/1 ML SDV ONE (08:36)
[2017-01-07] MEDS ORDERED: NORMAL SALINE 1000 ML 1,000 ML IV PRN (08:39)
[2017-01-07] MEDS ORDERED: VECURONIUM BROMIDE INJ 10 MG VIAL IV ONE (09:00)
[2017-01-07] MEDS: LORAZEPAM INJ 2 MG/1 ML VIAL IV PRN (09:24)
[2017-01-07] MEDS: ALBUMIN HUMAN 50 ML IV SCH ×4 (09:25→13:09)
[2017-01-07 09:42] LABS: ARTERIAL BLOOD BASE EXCESS -10.9 mmol/L; ARTERIAL BLOOD O2 SATURATION 94.9 % (94-98)
[2017-01-07] MEDS ORDERED: (PENDING PHARMACY ID) (Esomeprazole Mag Trihydrate [Nexium] 40 MG) PO SCH (10:00)
[2017-01-07] MEDS ORDERED: CALCIUM CARBONATE PO SCH (10:00)
[2017-01-07] MEDS ORDERED: FUROSEMIDE INJ/PF 20 MG/2 ML SDV IV SCH (10:00)
[2017-01-07] MEDS ORDERED: VITAMIN D3 PO SCH (10:00)
[2017-01-07] MEDS ORDERED: VANCOMYCIN HCL 1,000 MG in DEXTROSE 5%-WATER 250 ML IV SCH (10:00)
[2017-01-07] MEDS ORDERED: ASCORBIC ACID 500 MG TABLET PO SCH (10:00)
[2017-01-07] MEDS: PROPOFOL 100 ML IV PRN ×3 (10:07→18:55)
[2017-01-07] MEDS: METHYLPREDNISOLONE INJ 125 MG/2 ML SDV IV SCH ×3 (10:14→20:51)
[2017-01-07] MEDS: CALCIUM CARBONATE 250 MG/VITAMIN D3 125 UNIT TABLET PO SCH ×2 (10:19→21:50)
[2017-01-07] MEDS: ASCORBIC ACID 500 MG TABLET NG SCH (10:21)
[2017-01-07] MEDS: CEFEPIME HCL 2 GM in DEXTROSE 5%-WATER 50 ML IV SCH ×2 (10:21→21:47)
[2017-01-07] MEDS: FLUTICASONE/SALMETEROL DISKUS 250-50 MCG/DOSE IH SCH ×2 (10:22→21:55)
[2017-01-07] MEDS: GUAIFENESIN SYRP 200 MG/10 ML UDC NG SCH ×4 (10:37→20:51)
[2017-01-07] MEDS ORDERED: SUCCINYLCHOLINE CHLORIDE INJ 200 MG/10 ML VIAL ONE (10:41)
--- NOTE | 2017-01-07 11:20 | XCELERA REPORT ---
[address] [address] Transthoracic Echocardiogram Report Name: ALYSHA BEDOLLA Age: 61 yrs Gender: Female : 1955 Patient Status: Inpatient Patient Location: ICU\S\609\S\A Study Date: 01/07/2017 10:23 AM Height: 63 in Weight: 201 lb BSA: 1.9 m2 Procedure: A complete two-dimensional transthoracic echocardiogram was performed (2D, M-mode, spectral and color flow Doppler). The study was technically adequate with some images being suboptimal in quality. Reason For Study: hypoxia, lupus, pulm edema Ordering Physician: JAIDEN BUTLER Performed By: Lashanda Plunkett Interpretation Summary The Ejection Fraction estimate is 50-55% Left ventricular systolic function is borderline reduced. There is normal left ventricular wall thickness. The left ventricle is grossly normal size. LV diastolic function could not be adequately assessed. Wall motion cannot be accurately commented on, but no definite regional wall motion abnormalities noted. The right ventricle is borderline dilated. The right ventricular systolic function is normal. The left atrial size is normal. The right atrium is normal in size There is a mild amount of mitral regurgitation There is no mitral valve stenosis. There is no aortic valve stenosis No aortic regurgitation is present. There is a trace or physiologic amount of tricuspid regurgitation Right ventricular systolic pressure is at the upper limits of normal The aortic root is not well visualized but is probably normal size. The inferior vena cava appeared normal and decreased < 50% with respiration (RAP 10-15 mmHg) Minimal pericardial effusion. MMode/2D Measurements \T\ Calculations RVDd: 3.1 cm LVIDd: 5.3 cm FS: 28.0 % Ao root diam: 2.5 cm IVSd: 0.77 cm LVIDs: 3.8 cm EDV(Teich): 137.3 ml LVPWd: 0.76 cm ESV(Teich): 63.6 ml Ao root area: 5.0 cm2 EF(Teich): 53.7 % LA dimension: 3.3 cm Doppler Measurements \T\ Calculations MV E max kaelyn: MV P1/2t max kaelyn: Ao V2 max: LV V1 max P.2 cm/sec 100.7 cm/sec 130.3 cm/sec 4.0 mmHg MV A max kaelyn: MV P1/2t: 41.9 msec Ao max PG: LV V1 max: 65.2 cm/sec 6.8 mmHg 100.2 cm/sec MV E/A: 1.5 MVA(P1/2t): 5.3 cm2 MV dec slope: 704.4 cm/sec2 MV dec time: 0.15 sec PA V2 max: TR max kaelyn: 76.0 cm/sec 218.9 cm/sec PA max PG: TR max P.2 mmHg 2.3 mmHg Left Ventricle The left ventricle is grossly normal size. There is normal left ventricular wall thickness. Left ventricular systolic function is borderline reduced. The Ejection Fraction estimate is 50-55%. LV diastolic function could not be adequately assessed. Wall motion cannot be accurately commented on, but no definite regional wall motion abnormalities noted. Right Ventricle The right ventricle is borderline dilated. There is normal right ventricular wall thickness. The right ventricular systolic function is normal. Atria The right atrium is normal in size. The left atrial size is normal. Interarterial septum not well visualized and not well dopplered. Cannot comment on ASD/PFO presence. Mitral Valve The mitral valve is grossly normal. There is no mitral valve stenosis. There is a mild amount of mitral regurgitation. Aortic Valve The aortic valve is grossly normal. There is no aortic valve stenosis. No aortic regurgitation is present. Tricuspid Valve The tricuspid valve is not well visualized, but is grossly normal. There is no tricuspid stenosis. There is a trace or physiologic amount of tricuspid regurgitation. Right ventricular systolic pressure is at the upper limits of normal. Pulmonic Valve The pulmonic valve is not well visualized. Great Vessels The aortic root is not well visualized but is probably normal size. The inferior vena cava appeared normal and decreased < 50% with respiration (RAP 10-15 mmHg). Effusions Minimal pericardial effusion. : JAIDEN BUTLER > [place]
[2017-01-07 11:34] LABS: HEMOGLOBIN 11.5 g/dL (12.0-15.5); HGB HCT DIFFERENCE 0.5; MEAN CORPUSCULAR HEMOGLOBIN 29.7 pg (27.0-33.4); MEAN CORPUSCULAR HGB CONC 33.7 g/dL (32.0-36.0); MEAN CORPUSCULAR VOLUME 88 fl (80-97); RED BLOOD COUNT 3.87 10^6/uL (3.72-5.28); RED CELL DISTRIBUTION WIDTH 15.9 % (11.5-14.0); WHITE BLOOD COUNT 10.9 10^3/uL (4.0-10.5)
[2017-01-07 11:46] LABS: ALANINE AMINOTRANSFERASE 50 U/L (9-52); ALBUMIN 3.1 g/dL (3.5-5.0); ALKALINE PHOSPHATASE 38 U/L (38-126); ANION GAP 17 (5-19); ASPARTATE AMINO TRANSFERASE 54 U/L (14-36); BILIRUBIN,DIRECT 0.5 mg/dL (0.0-0.4); BLOOD UREA NITROGEN 18 mg/dL (7-20); CALCIUM 7.6 mg/dL (8.4-10.2); CARBON DIOXIDE 17 mmol/L (22-30); CHLORIDE 106 mmol/L (98-107); CREATININE RESULT 0.85 mg/dL (0.52-1.25); GLUCOSE 168 mg/dL (75-110); MAGNESIUM 1.6 mg/dL (1.6-2.3); POTASSIUM 3.4 mmol/L (3.6-5.0); SODIUM 139.6 mmol/L (137-145); TOTAL PROTEIN 5.2 g/dL (6.3-8.2)
[2017-01-07 11:58] LABS: BAND NEUTROPHILS % (MANUAL) 41 % (3-5); BASOPHILS % (MANUAL) 0 % (0-2); EOSINOPHILS % (MANUAL) 0 % (0-6); LYMPHOCYTES % (MANUAL) 0 % (13-45); TOTAL CELLS COUNTED 100
[2017-01-07 12:00] LABS: BURR CELLS SLIGHT; OVALOCYTES SLIGHT; POIKILOCYTOSIS 1+; POLYCHROMASIA SLIGHT
[2017-01-07] MEDS ORDERED: VANCOMYCIN HCL INJ 500 MG VIAL PO SCH (12:00)
[2017-01-07 12:01] LABS: ANISOCYTOSIS SLIGHT
[2017-01-07] MEDS: FENTANYL CITRATE INJ/PF 100 MCG/2 ML AMPUL IV PRN ×2 (12:02→21:53)
--- NOTE | 2017-01-07 12:57 | PDOC PROGRESS REPORT ---
Subjective Progress Note for:: 01/07/17 Subjective:: Patient was hypotensive overnight, requiring multiple fluid boluses. Called by patient's nurse this morning as patient was tachypnic and hypoxic. Patient had increased work of breathing even on BiPAP. At patient's bedside, she reports that she's becoming tired. And she does consent to intubation. Physical Exam Vital Signs: Temp Pulse Resp BP Pulse Ox 99.2 F 112 H 31 H 94/69 L 90 L 01/06/17 22:53 01/07/17 02:35 01/07/17 06:19 01/07/17 06:19 01/07/17 06:19 Intake & Output 01/06/17 01/07/17 01/08/17 06:59 06:59 06:59 Intake Total 4880 Output Total 1520 Balance 3360 Weight 91.4 kg Exam: General: Awake alert and answers questions appropriately, severe respiratory distress, 3 word dyspnea HEENT: AT/NC, PERRL, EOMI, oropharynx is moist, pink, no scleral icterus, no conjunctival injection Neck: +JVD, trachea midline Chest: Rales bilaterally, diminished bases CV: Tachycardic, normal S1 and S2, no rub, +gallop, +sm llsb Abdomen: Soft, mildly to palpation LLQ, distended, active bowel sounds; no rebound, rigidity, or guarding Extremities: No cyanosis, clubbing; 3+edema Neuro: Cranial nerves II through XII are grossly intact without focal deficits Psych: Appropriate mood and affect Results Laboratory Results: 01/07/17 05:03 01/07/17 05:03 01/06/17 01/06/17 01/06/17 17:20 20:05 23:20 WBC RBC Hgb Hct MCV MCH MCHC RDW Plt Count Seg Neutrophils % Lymphocytes % Monocytes % Eosinophils % Basophils % Absolute Neutrophils Absolute Lymphocytes Absolute Monocytes Absolute Eosinophils Absolute Basophils Carbonic Acid 1.04 L HCO3/H2CO3 Ratio 14:1 ABG pH 7.25 L ABG pCO2 34.7 L ABG pO2 69.2 L ABG HCO3 14.9 L ABG O2 Saturation 91.4 L ABG Base Excess -11.3 VBG pH VBG pCO2 VBG HCO3 VBG Base Excess FiO2 40% Sodium Potassium Chloride Carbon Dioxide Anion Gap BUN Creatinine Est GFR ( Amer) Est GFR (Non-Af Amer) Glucose Lactic Acid 3.9 H Calcium Magnesium Albumin Urine Color YELLOW Urine Appearance SLIGHTLY-CLOUDY Urine pH 5.0 Ur Specific [place] 1.009 Urine Protein 30 H Urine Glucose (UA) NEGATIVE Urine Ketones NEGATIVE Urine Blood NEGATIVE Urine Nitrite NEGATIVE Ur Leukocyte Esterase NEGATIVE Urine WBC (Auto) 0 01/06/17 01/06/17 01/06/17 23:20 23:20 23:20 WBC RBC Hgb Hct MCV MCH MCHC RDW Plt Count Seg Neutrophils % Lymphocytes % Monocytes % Eosinophils % Basophils % Absolute Neutrophils Absolute Lymphocytes Absolute Monocytes Absolute Eosinophils Absolute Basophils Carbonic Acid HCO3/H2CO3 Ratio ABG pH ABG pCO2 ABG pO2 ABG HCO3 ABG O2 Saturation ABG Base Excess VBG pH 7.24 L VBG pCO2 39.3 VBG HCO3 16.5 L VBG Base Excess -10.1 FiO2 Sodium 137.3 Potassium 3.8 Chloride 109 H Carbon Dioxide 17 L Anion Gap 11 BUN 18 Creatinine 1.17 Est GFR ( Amer) 57 L Est GFR (Non-Af Amer) 47 L Glucose 133 H Lactic Acid Calcium 6.8 L* Magnesium 0.9 L* Albumin 2.4 L Urine Color Urine Appearance Urine pH Ur Specific [place] Urine Protein Urine Glucose (UA) Urine Ketones Urine Blood Urine Nitrite Ur Leukocyte Esterase Urine WBC (Auto) 01/07/17 01/07/17 05:03 05:03 WBC 8.1 RBC 3.71 L Hgb 10.9 L Hct 33.2 L MCV 90 MCH 29.4 MCHC 32.8 RDW 15.6 H Plt Count 159 Seg Neutrophils % Not Reportable Lymphocytes % Not Reportable Monocytes % Not Reportable Eosinophils % Not Reportable Basophils % Not Reportable Absolute Neutrophils Not Reportable Absolute Lymphocytes Not Reportable Absolute Monocytes Not Reportable Absolute Eosinophils Not Reportable Absolute Basophils Not Reportable Carbonic Acid HCO3/H2CO3 Ratio ABG pH ABG pCO2 ABG pO2 ABG HCO3 ABG O2 Saturation ABG Base Excess VBG pH VBG pCO2 VBG HCO3 VBG Base Excess FiO2 Sodium 137.6 Potassium 3.7 Chloride 109 H Carbon Dioxide 15 L Anion Gap 14 BUN 18 Creatinine 0.91 Est GFR ( Amer) > 60 Est GFR (Non-Af Amer) > 60 Glucose 149 H Lactic Acid Calcium 6.8 L* Magnesium 1.9 D Albumin Urine Color Urine Appearance Urine pH Ur Specific [place] Urine Protein Urine Glucose (UA) Urine Ketones Urine Blood Urine Nitrite Ur Leukocyte Esterase Urine WBC (Auto) 01/06/17 01/06/17 23:20 23:20 Creatine Kinase 302 H CK-MB (CK-2) 7.47 H Troponin I 0.027 NT-Pro-B Natriuret Pep [id number] H Impressions: Chest X-Ray 01/06/17 17:01 IMPRESSION: No pneumothorax. Similar mild hazy opacity in the right lung base. Mild basilar subsegmental atelectasis in the left lower lobe. No central line identified. Assessment & Plan - Diagnosis (1) Septic shock Is this a current diagnosis for this admission?: YesPlan: Patient more than over volume resuscitated and still requiring levophed at 10 mcg with persistent [address]. Place patient on empiric coverage for pneumonia given her structural lung disease including cefepime, gentamicin, Levaquin and vancomycin as patient qualifies for healthcare associated pneumonia. Currently with one set of blood cultures positive for gram-negative rods. Will continue vancomycin until sputum cultures have been obtained and resulted. Will maintain a map of 65. Obtain central line and monitor CVP every 4 hours. Last CVP is 20. Patient had lactic acid of 6.9 which decreased to 3.9 after hydration. Concern also for C. difficile in light of patient's reported diarrhea, which is currently pending. Have considered adrenal insufficiency and patient is on Solu-Medrol 125 mg IV every 6. (2) Pneumonia Qualifiers: Pneumonia type: due to other aerobic Gram-negative bacteria Laterality : right Lung location: lower lobe of lung Qualified Code(s): J15.6 - Pneumonia due to other aerobic Gram-negative bacteria Is this a current diagnosis for this admission?: YesPlan: Place patient on empiric coverage for pneumonia given her structural lung disease including cefepime, gentamicin, Levaquin as patient qualifies for healthcare associated pneumonia, but with blood cultures growing gram negatives rods suspect that patient likely had an aspiration pneumonia given its location of right middle and lower lobe. Scheduled nebulized treatments. Add Mucomyst. Cultures including AFB with concern for MAC and fungal cultures in light of her immune suppression. (3) Acute renal failure Qualifiers: Acute renal failure type: with acute tubular necrosis Qualified Code (s): N17.0 - Acute kidney failure with tubular necrosis Is this a current diagnosis for this admission?: YesPlan: Has resolved to baseline. This is likely ATN. We will renally adjust patient' s medications and will monitor for improvement (4) COPD (chronic obstructive pulmonary disease) Qualifiers: COPD type: emphysema Emphysema type: unspecified Qualified Code( s): J43.9 - Emphysema, unspecified Is this a current diagnosis for this admission?: YesPlan: Continue patient on scheduled nebulized treatments and steroids (5) Acute hypoxemic respiratory failure Is this a current diagnosis for this admission?: YesPlan: Will intubate patient. Patient with documented hypoxemia in the field. Concern for underlying pulmonary embolus and will obtain CTA. Consult pulmonary medicine for ventilator management and possible bronchoscopy. (6) Hypothyroid Qualifiers: Hypothyroidism type: unspecified Qualified Code(s): E03.9 - Hypothyroidism, unspecified Is this a current diagnosis for this admission?: YesPlan: All numbers are within normal limits. Continue current Synthroid dosage. (7) Lupus (systemic lupus erythematosus) Qualifiers: Systemic lupus erythematosus type: unspecified Systemic lupus erythematosus organ involvement: unspecified Qualified Code(s): M32.9 - Systemic lupus erythematosus, unspecified Is this a current diagnosis for this admission?: YesPlan: We'll send anti-dsDNA for paulson of her lupus activity. (8) Steroid dependence Is this a current diagnosis for this admission?: YesPlan: Stress dose steroids (9) HLD (hyperlipidemia) Qualifiers: Hyperlipidemia type: unspecified Qualified Code(s): E78.5 - Hyperlipidemia, unspecified Is this a current diagnosis for this admission?: Yes (10) Obesity (BMI 30.0-34.9) Is this a current diagnosis for this admission?: Yes - Time Time Spent with patient: 35 or more minutes - Spent 90 minutes of critical care time with this patient. More than half of this time was spent actively managing patient at bedside. 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
[2017-01-07] MEDS ORDERED: DEXTROSE 5%-WATER 250 ML with PHENYLEPHRINE HCL 40 MG IV PRN ×2 (15:15)
[2017-01-07 15:19] LABS: ARTERIAL BLOOD BASE EXCESS -4.9 mmol/L; ARTERIAL BLOOD O2 SATURATION 98.7 % (94-98)
[2017-01-07] MEDS ORDERED: POTASSI CL 20 MEQ/50 ML RIDER 20 MEQ/50 ML RTUPB IV ONE (15:29)
[2017-01-07] MEDS: POTASSIUM CHLORIDE 20 MEQ/50 ML RTU IV SCH ×2 (15:40→17:15)
[2017-01-07] MEDS: LANSOPRAZOLE 30 MG TAB.RAP.DR PO SCH (17:14)
--- NOTE | 2017-01-07 17:15 | Progress Note ---
Provider Note Provider Note: ADDENDUM: I was addressed by nursing staff regarding fluid management. Chart reviewed as well as today's documentation from Dr. Orona. It appears the patient is in respiratory failure secondary to pneumonia as well as septic shock. Patient was initially given Lasix for respiratory distress prior to being intubated. As patient is now intubated I will discontinue Lasix and continue with volume resuscitation of normal saline at 150 mL per hour.
[2017-01-07 17:42] LABS: ARTERIAL BLOOD BASE EXCESS -5.1 mmol/L; ARTERIAL BLOOD O2 SATURATION 96.4 % (94-98)
[2017-01-07] MEDS: ACETYLCYSTEINE 20% SOLN 800 MG/4 ML VIAL.NEB NEB SCH (20:06)
--- NOTE | 2017-01-07 20:19 | PDOC CONSULTATION ---
Consultation Consult Date: 01/07/17 Attending physician:: JAIDEN BUTLER Consult reason:: RESP FAIL/PNA History of Present Illness Admission Date/PCP: 01/06/17 16:55 TERRY HAGER PA-C History of Present Illness: ALYSHA BEDOLLA is a 61 year old female who presents to the emergency department with via EMS with a one-day history of shortness of breath. Upon EMS arrival to patient's residence, she was found to be hypoxic to the low 70s. Patient was also tachycardic and tachypnic. She has a history of multiple medical problems including COPD, pneumonia, chronic steroid dependance, rheumatoid arthritis, and lupus. Patient is currently on BiPAP and history is limited due to patient's hypotension and lethargy. Patient has had one day of vomiting and reports several diarrheal stools. Patient was hospitalized from 10/09/16- and this H&P and discharge summary was reviewed. Patient was discharged on Levaquin at that time. Chest x-ray in the emergency department reveals a right lower lobe pneumonia. Patient's hypotensive currently receiving IV fluids and Levophed.Patient had CT scan demonstrating bilateral pleural and multi-lobed r sided pneumonnia and 2 of 2 blood cultures + for gnr.She is currently requiring two vasopresorer agent and hyperventilation to compensate for metabolic acidosis. Past Medical History Cardiac Medical History: Reports: Coronary Artery Disease - high chol , Hyperlipidema, Hypertension Denies: Myocardial Infarction Pulmonary Medical History: Reports: Asthma, Bronchitis, Chronic Obstructive Pulmonary Disease (COPD), Pneumonia - 2003 Neurological Medical History: Denies: Seizures Endocrine Medical History: Reports: Diabetes Mellitus Type 2, Hypothyroidism GI Medical History: Denies: Hepatitis, Hiatal Hernia Musculoskeltal Medical History: Reports: Arthritis - RA Psychiatric Medical History: Reports: Depression Hematology: Reports: Anemia Denies: Sickle Cell Disease Past Surgical History Past Surgical History: Reports: Appendectomy, Hysterectomy, Orthopedic Surgery Denies: Amputation, Mastectomy, Pacemaker Social History Information Source: [facility] Records Lives with: Retirement Smoking Status: Unknown if Ever Smoked Frequency of Alcohol Use: None Hx Recreational Drug Use: No Drugs: None Hx Prescription Drug Abuse: No - Advance Directive Resuscitation Status: Full Code Family History Family History: CAD, CVA, Hypertension, Malignancy Parental Family History Reviewed: No Children Family History Reviewed: No Sibling(s) Family History Reviewed.: No Medication/Allergy Home Medications: Albuterol Sulfate [Proair HFA] 1 puff IH PRN PRN 01/06/17 Ascorbic Acid [Vitamin C] 1,000 mg PO DAILY 01/06/17 Aspirin [Aspirin EC] 81 mg PO QHS 01/06/17 Calcium Carbonate/Vitamin D3 [Calcium 600 + Vit D Tablet] 2 tab PO Q12 01/06/17 Cetirizine HCl [Zyrtec 10 mg Tablet] 10 mg PO QHS 01/06/17 Esomeprazole Mag Trihydrate [Nexium] 40 mg PO DAILY 01/06/17 Estradiol [Estrace] 0.5 mg PO QHS 01/06/17 Fish Oil/Dha/Epa [Fish Oil 1,200 mg Fish Oil] 1,200 mg PO Q12 01/06/17 Fluticasone/Salmeterol [Advair 250-50 Diskus 28 dose] 1 puff IH Q12 01/06/17 Ibuprofen [Motrin 800 mg Tablet] 800 mg PO Q8HP PRN 01/06/17 Lactobacillus Combination No.8 [Adult Probiotic] 1 cap PO QHS 01/06/17 Levothyroxine Sodium [Synthroid 0.075 mg Tablet] 75 mcg PO DAILY 01/06/17 Metoprolol Succinate [Toprol Xl 50 mg Tab.sr] 50 mg PO Q12 01/06/17 Montelukast Sodium [Singulair 10 mg Tablet] 10 mg PO QHS 01/06/17 Multivitamin with Minerals [Hair, Skin and Nails] 5,000 mg PO Q12 01/06/17 Nystatin [Nystatin] 1 applic TOP ASDIR PRN 01/06/17 Potassium Chloride [Klor-Con 8] 16 meq PO Q12 01/06/17 Prednisone [Deltasone 5 mg Tablet] 5 mg PO DAILY 01/06/17 Sertraline HCl [Zoloft] 100 mg PO QHS 01/06/17 Simvastatin [Zocor 20 mg Tablet] 20 mg PO QHS 01/06/17 Tofacitinib Citrate [Xeljanz] 5 mg PO Q12 01/06/17 Triamcinolone Acetonide 0.03% Cream 1 applic TOP ASDIR PRN 01/06/17 Turmeric Curcumin 500mg 500 mg PO QPM 01/06/17 Allergies/Adverse Reactions: diphenhydramine HCl [From Benadryl] Adverse Reaction (Intermediate, Verified 01/18 08:42) Anxiety Review of Systems ROS unobtainable: Due to endotracheal tube Physical Exam Vital Signs: Temp Pulse Resp BP Pulse Ox 97.3 F 87 16 91/55 L 98 01/07/17 14:52 01/07/17 13:34 01/07/17 14:52 01/07/17 14:52 01/07/17 14:52 Intake & Output 01/06/17 01/07/17 01/08/17 06:59 06:59 06:59 Intake Total 4880 Output Total 1520 4975 Balance 3360 -4975 Weight 91.4 kg 91.4 kg General appearance: PRESENT: no acute distress, disheveled, obese, well- developed Head exam: PRESENT: atraumatic, normocephalic Eye exam: PRESENT: conjunctiva pale, EOMI Mouth exam: PRESENT: dry mucosa, neck supple, other - ET tube Neck exam: ABSENT: carotid bruit, JVD, lymphadenopathy, thyromegaly Respiratory exam: PRESENT: crackles, decreased breath sounds, prolonged expiratory phas, rales, rhonchi, symmetrical, unlabored, other - bibasilar GI/Abdominal exam: PRESENT: normal bowel sounds, soft. ABSENT: distended, guarding, mass, organolmegaly, rebound, tenderness Rectal exam: PRESENT: deferred Gentrourinary exam: PRESENT: indwelling catheter Musculoskeletal exam: PRESENT: normal inspection Skin exam: PRESENT: petechiae Results Laboratory Results: 01/07/17 10:58 01/07/17 10:58 01/06/17 01/06/17 01/06/17 17:20 20:05 23:20 WBC RBC Hgb Hct MCV MCH MCHC RDW Plt Count Seg Neutrophils % Lymphocytes % Monocytes % Eosinophils % Basophils % Absolute Neutrophils Absolute Lymphocytes Absolute Monocytes Absolute Eosinophils Absolute Basophils Carbonic Acid 1.04 L HCO3/H2CO3 Ratio 14:1 ABG pH 7.25 L ABG pCO2 34.7 L ABG pO2 69.2 L ABG HCO3 14.9 L ABG O2 Saturation 91.4 L ABG Base Excess -11.3 VBG pH VBG pCO2 VBG HCO3 VBG Base Excess FiO2 40% Sodium Potassium Chloride Carbon Dioxide Anion Gap BUN Creatinine Est GFR ( Amer) Est GFR (Non-Af Amer) Glucose Lactic Acid 3.9 H Calcium Magnesium Total Bilirubin AST ALT Alkaline Phosphatase Total Protein Albumin Urine Color YELLOW Urine Appearance SLIGHTLY-CLOUDY Urine pH 5.0 Ur Specific [place] 1.009 Urine Protein 30 H Urine Glucose (UA) NEGATIVE Urine Ketones NEGATIVE Urine Blood NEGATIVE Urine Nitrite NEGATIVE Ur Leukocyte Esterase NEGATIVE Urine WBC (Auto) 0 Stool Occult Blood Stool for White Cells 01/06/17 01/06/17 01/06/17 23:20 23:20 23:20 WBC RBC Hgb Hct MCV MCH MCHC RDW Plt Count Seg Neutrophils % Lymphocytes % Monocytes % Eosinophils % Basophils % Absolute Neutrophils Absolute Lymphocytes Absolute Monocytes Absolute Eosinophils Absolute Basophils Carbonic Acid HCO3/H2CO3 Ratio ABG pH ABG pCO2 ABG pO2 ABG HCO3 ABG O2 Saturation ABG Base Excess VBG pH 7.24 L VBG pCO2 39.3 VBG HCO3 16.5 L VBG Base Excess -10.1 FiO2 Sodium 137.3 Potassium 3.8 Chloride 109 H Carbon Dioxide 17 L Anion Gap 11 BUN 18 Creatinine 1.17 Est GFR ( Amer) 57 L Est GFR (Non-Af Amer) 47 L Glucose 133 H Lactic Acid Calcium 6.8 L* Magnesium 0.9 L* Total Bilirubin AST ALT Alkaline Phosphatase Total Protein Albumin 2.4 L Urine Color Urine Appearance Urine pH Ur Specific [place] Urine Protein Urine Glucose (UA) Urine Ketones Urine Blood Urine Nitrite Ur Leukocyte Esterase Urine WBC (Auto) Stool Occult Blood Stool for White Cells 01/07/17 01/07/17 01/07/17 05:03 05:03 07:30 WBC 8.1 RBC 3.71 L Hgb 10.9 L Hct 33.2 L MCV 90 MCH 29.4 MCHC 32.8 RDW 15.6 H Plt Count 159 Seg Neutrophils % Not Reportable Lymphocytes % Not Reportable Monocytes % Not Reportable Eosinophils % Not Reportable Basophils % Not Reportable Absolute Neutrophils Not Reportable Absolute Lymphocytes Not Reportable Absolute Monocytes Not Reportable Absolute Eosinophils Not Reportable Absolute Basophils Not Reportable Carbonic Acid 0.88 L HCO3/H2CO3 Ratio 15:1 ABG pH 7.28 L ABG pCO2 29.2 L ABG pO2 65.8 L ABG HCO3 13.5 L ABG O2 Saturation 91.0 L ABG Base Excess -11.8 VBG pH VBG pCO2 VBG HCO3 VBG Base Excess FiO2 5L Sodium 137.6 Potassium 3.7 Chloride 109 H Carbon Dioxide 15 L Anion Gap 14 BUN 18 Creatinine 0.91 Est GFR ( Amer) > 60 Est GFR (Non-Af Amer) > 60 Glucose 149 H Lactic Acid Calcium 6.8 L* Magnesium 1.9 D Total Bilirubin AST ALT Alkaline Phosphatase Total Protein Albumin Urine Color Urine Appearance Urine pH Ur Specific [place] Urine Protein Urine Glucose (UA) Urine Ketones Urine Blood Urine Nitrite Ur Leukocyte Esterase Urine WBC (Auto) Stool Occult Blood Stool for White Cells 01/07/17 01/07/17 01/07/17 08:50 08:50 09:30 WBC RBC Hgb Hct MCV MCH MCHC RDW Plt Count Seg Neutrophils % Lymphocytes % Monocytes % Eosinophils % Basophils % Absolute Neutrophils Absolute Lymphocytes Absolute Monocytes Absolute Eosinophils Absolute Basophils Carbonic Acid 1.10 HCO3/H2CO3 Ratio 14:1 ABG pH 7.25 L ABG pCO2 36.4 ABG pO2 84.6 ABG HCO3 15.5 L ABG O2 Saturation 94.9 ABG Base Excess -10.9 VBG pH VBG pCO2 VBG HCO3 VBG Base Excess FiO2 60% Sodium Potassium Chloride Carbon Dioxide Anion Gap BUN Creatinine Est GFR ( Amer) Est GFR (Non-Af Amer) Glucose Lactic Acid Calcium Magnesium Total Bilirubin AST ALT Alkaline Phosphatase Total Protein Albumin Urine Color Urine Appearance Urine pH Ur Specific [place] Urine Protein Urine Glucose (UA) Urine Ketones Urine Blood Urine Nitrite Ur Leukocyte Esterase Urine WBC (Auto) Stool Occult Blood POSITIVE Stool for White Cells FEW H 01/07/17 01/07/17 01/07/17 10:58 10:58 14:30 WBC 10.9 H RBC 3.87 Hgb 11.5 L Hct 34.0 L MCV 88 MCH 29.7 MCHC 33.7 RDW 15.9 H Plt Count 209 Seg Neutrophils % Not Reportable Lymphocytes % Not Reportable Monocytes % Not Reportable Eosinophils % Not Reportable Basophils % Not Reportable Absolute Neutrophils Not Reportable Absolute Lymphocytes Not Reportable Absolute Monocytes Not Reportable Absolute Eosinophils Not Reportable Absolute Basophils Not Reportable Carbonic Acid 1.10 HCO3/H2CO3 Ratio 18:1 ABG pH 7.35 ABG pCO2 36.7 ABG pO2 139.3 H ABG HCO3 19.9 L ABG O2 Saturation 98.7 H ABG Base Excess -4.9 VBG pH VBG pCO2 VBG HCO3 VBG Base Excess FiO2 60% Sodium 139.6 Potassium 3.4 L Chloride 106 Carbon Dioxide 17 L Anion Gap 17 BUN 18 Creatinine 0.85 Est GFR ( Amer) > 60 Est GFR (Non-Af Amer) > 60 Glucose 168 H Lactic Acid Calcium 7.6 L Magnesium 1.6 Total Bilirubin 1.0 AST 54 H ALT 50 Alkaline Phosphatase 38 Total Protein 5.2 L Albumin 3.1 L Urine Color Urine Appearance Urine pH Ur Specific [place] Urine Protein Urine Glucose (UA) Urine Ketones Urine Blood Urine Nitrite Ur Leukocyte Esterase Urine WBC (Auto) Stool Occult Blood Stool for White Cells 01/06/17 01/06/17 23:20 23:20 Creatine Kinase 302 H CK-MB (CK-2) 7.47 H Troponin I 0.027 NT-Pro-B Natriuret Pep [id number] H Impressions: Abdomen/Pelvis CT 01/07/17 00:00 IMPRESSION: NO ACUTE FINDINGS WITHIN THE ABDOMEN OR PELVIS. CHRONIC CHANGES ABOVE. Chest X-Ray 01/07/17 00:00 IMPRESSION: SATISFACTORY PLACEMENT OF ENDOTRACHEAL TUBE AND NASOGASTRIC TUBE. OTHERWISE GROSSLY STABLE APPEARANCE OF THE CHEST. Chest/Abdomen CTA 01/07/17 00:00 IMPRESSION: NO PULMONARY EMBOLISM. MULTIFOCAL PNEUMONIA ABOVE WITH SMALL RIGHT PLEURAL EFFUSION. SATISFACTORY POSITION LINES/TUBES. Assessment & Plan - Diagnosis (1) COPD (chronic obstructive pulmonary disease) Qualifiers: COPD type: emphysema Emphysema type: centrilobular Qualified Code(s): J43.2 - Centrilobular emphysema Is this a current diagnosis for this admission?: Yes (2) Pneumonia Qualifiers: Pneumonia type: due to unspecified organism Laterality: bilateral Lung location: lower lobe of lung Qualified Code(s): J18.9 - Pneumonia, unspecified organism Is this a current diagnosis for this admission?: YesPlan: gnr (3) Septic shock Is this a current diagnosis for this admission?: YesPlan: gnr-vasopressor agent (4) Acute hypoxemic respiratory failure Is this a current diagnosis for this admission?: Yes (5) Lupus (systemic lupus erythematosus) Qualifiers: Systemic lupus erythematosus type: unspecified Systemic lupus erythematosus organ involvement: unspecified Qualified Code(s): M32.9 - Systemic lupus erythematosus, unspecified Is this a current diagnosis for this admission?: Yes (6) Steroid dependence Is this a current diagnosis for this admission?: YesPlan: may need increased additional stress dose - Time Critical Time spent with patient: 35 or more minutes
[2017-01-07] MEDS: GENTAMICIN SULFATE 140 MG in DEXTROSE 5%-WATER 100 ML IV SCH (21:52)
[2017-01-07] MEDS: VANCOMYCIN HCL 1,000 MG in DEXTROSE 5%-WATER 250 ML IV SCH (21:53)
[2017-01-07] MEDS ORDERED: MONTELUKAST SODIUM 10 MG TABLET PO SCH (22:00)
[2017-01-07] MEDS ORDERED: LACTOBACILLUS ACIDOPHILUS 250 MG TAB PO SCH (22:00)
[2017-01-07] MEDS ORDERED: SERTRALINE HCL 50 MG TABLET PO SCH (22:00)
[2017-01-07] MEDS ORDERED: ASPIRIN 81 MG TABLET, ENT COATED PO SCH (22:00)
[2017-01-07] MEDS ORDERED: LACTOBACILLUS COMBINATION NO 8 PO SCH (22:00)
[2017-01-07] MEDS ORDERED: CETIRIZINE 10 MG TABLET PO SCH (22:00)
[2017-01-08] MEDS: METRONIDAZOLE 500 MG/NS RTU 100 ML IV SCH ×2 (00:43→06:23)
[2017-01-08] MEDS: DEXTROSE 5%-WATER 250 ML with NOREPINEPHRINE BITARTRATE 4 MG IV PRN ×4 (00:44→13:20)
[2017-01-08] MEDS: GUAIFENESIN SYRP 200 MG/10 ML UDC NG SCH ×7 (00:44→22:34)
[2017-01-08] MEDS: IPRATROPIUM/ALBUTEROL 0.5-2.5 MG/3 ML AMPUL NEB SCH ×4 (02:04→20:09)
[2017-01-08] MEDS: METHYLPREDNISOLONE INJ 125 MG/2 ML SDV IV SCH ×4 (02:14→22:32)
[2017-01-08] MEDS: INSULIN REG, HUMAN 100 UNIT/ML 3 ML VIAL (PYX) SUBCUT PRN ×2 (02:14→18:05)
[2017-01-08] MEDS: LORAZEPAM INJ 2 MG/1 ML VIAL IV PRN (02:40)
[2017-01-08] MEDS: FENTANYL CITRATE INJ/PF 100 MCG/2 ML AMPUL IV PRN ×3 (02:40→14:41)
[2017-01-08 05:32] LABS: ARTERIAL BLOOD BASE EXCESS -3.9 mmol/L; ARTERIAL BLOOD O2 SATURATION 96.4 % (94-98)
[2017-01-08 05:36] LABS: HEMATOCRIT 28.8 % (36.0-47.0); HEMOGLOBIN 9.8 g/dL (12.0-15.5); HGB HCT DIFFERENCE 0.6; MEAN CORPUSCULAR HEMOGLOBIN 29.7 pg (27.0-33.4); MEAN CORPUSCULAR HGB CONC 33.9 g/dL (32.0-36.0); MEAN CORPUSCULAR VOLUME 88 fl (80-97); RED BLOOD COUNT 3.28 10^6/uL (3.72-5.28); RED CELL DISTRIBUTION WIDTH 15.1 % (11.5-14.0); WHITE BLOOD COUNT 6.7 10^3/uL (4.0-10.5)
[2017-01-08 05:46] LABS: ANION GAP 14 (5-19); BLOOD UREA NITROGEN 23 mg/dL (7-20); CALCIUM 7.6 mg/dL (8.4-10.2); CARBON DIOXIDE 21 mmol/L (22-30); CHLORIDE 109 mmol/L (98-107); CREATININE RESULT 0.74 mg/dL (0.52-1.25); GLUCOSE 164 mg/dL (75-110); POTASSIUM 3.3 mmol/L (3.6-5.0); SODIUM 143.7 mmol/L (137-145)
[2017-01-08] MEDS ORDERED: LEVOTHYROXINE SODIUM 0.075 MG TABLET PO SCH (06:00)
[2017-01-08] MEDS ORDERED: LANSOPRAZOLE 30 MG TAB.RAP.DR PO SCH (06:00)
[2017-01-08 06:16] LABS: BAND NEUTROPHILS % (MANUAL) 30 % (3-5); BASOPHILS % (MANUAL) 0 % (0-2); EOSINOPHILS % (MANUAL) 0 % (0-6); LYMPHOCYTES % (MANUAL) 3 % (13-45); TOTAL CELLS COUNTED 100
[2017-01-08] MEDS: LANSOPRAZOLE 30 MG TAB.RAP.DR PO SCH (06:23)
[2017-01-08] MEDS: PROPOFOL 100 ML IV PRN ×3 (06:24→18:02)
[2017-01-08 06:25] LABS: ANISOCYTOSIS SLIGHT; OVALOCYTES SLIGHT; POIKILOCYTOSIS SLIGHT; TOXIC GRANULATION SLIGHT
[2017-01-08] MEDS ORDERED: NORMAL SALINE 1000 ML 1,000 ML IV PRN ×2 (07:04→07:57)
[2017-01-08] MEDS ORDERED: POTASSIUM CHLORIDE 20 MEQ/15 ML UDCUP NG ONE (07:05)
[2017-01-08] MEDS: ACETYLCYSTEINE 20% SOLN 800 MG/4 ML VIAL.NEB NEB SCH ×2 (07:30→20:09)
[2017-01-08] MEDS ORDERED: ENOXAPARIN SODIUM INJ 40 MG/0.4 ML DISP.SYRIN SUBCUT SCH (08:00)
[2017-01-08 08:53] LABS: FIBRINOGEN 350 mg/dL (209-497); PROTHROMBIN TIME 20.2 SEC (11.4-15.4)
[2017-01-08 08:54] LABS: PARTIAL THROMBOPLASTIN TIME 37.3 SEC (23.5-35.8)
[2017-01-08] MEDS: CALCIUM CARBONATE 250 MG/VITAMIN D3 125 UNIT TABLET NG SCH ×2 (09:09→22:33)
[2017-01-08] MEDS: LACTOBACILLUS ACIDOPHILUS 250 MG TAB NG SCH ×2 (09:10→16:56)
[2017-01-08] MEDS: ASCORBIC ACID 500 MG TABLET NG SCH (09:10)
[2017-01-08] MEDS: FERROUS SULFATE LIQUID 300 MG/5 ML UDC NG SCH ×3 (09:10→16:56)
[2017-01-08] MEDS ORDERED: FUROSEMIDE INJ/PF 20 MG/2 ML SDV IV SCH (10:00)
[2017-01-08] MEDS ORDERED: POTASSIUM CHLORIDE 20 MEQ/15 ML UDCUP NG SCH (10:00)
[2017-01-08] MEDS: CEFEPIME HCL 2 GM in DEXTROSE 5%-WATER 50 ML IV SCH ×2 (11:20→22:36)
[2017-01-08] MEDS: FLUTICASONE/SALMETEROL DISKUS 250-50 MCG/DOSE IH SCH ×2 (11:21→22:36)
[2017-01-08] MEDS: VANCOMYCIN HCL 1,000 MG in DEXTROSE 5%-WATER 250 ML IV SCH (11:21)
[2017-01-08] MEDS: METOPROLOL TARTRATE PF/INJ 5 MG/5 ML SDV IV PRN (13:18)
--- NOTE | 2017-01-08 13:21 | PDOC PROGRESS REPORT ---
Subjective Progress Note for:: 01/08/17 Subjective:: intubated Physical Exam Vital Signs: Temp Pulse Resp BP Pulse Ox 98.1 F 105 H 16 89/45 L 97 01/08/17 06:07 01/08/17 02:04 01/08/17 06:07 01/08/17 06:07 01/08/17 06:07 Intake & Output 01/07/17 01/08/17 01/09/17 06:59 06:59 06:59 Intake Total 8261 4695 Output Total 2683 1757 Balance 3360 -3192 Weight 91.4 kg 83.4 kg General appearance: PRESENT: no acute distress, disheveled, obese Head exam: PRESENT: atraumatic, normocephalic Eye exam: PRESENT: conjunctiva pale, EOMI Mouth exam: PRESENT: dry mucosa, neck supple, other - ET tube Neck exam: ABSENT: carotid bruit, JVD, lymphadenopathy, thyromegaly Respiratory exam: PRESENT: decreased breath sounds, prolonged expiratory phas, rales, rhonchi, symmetrical, unlabored Cardiovascular exam: PRESENT: RRR, +S1, +S2 Pulses: PRESENT: normal radial pulses GI/Abdominal exam: PRESENT: normal bowel sounds, soft. ABSENT: distended, guarding, mass, organolmegaly, rebound, tenderness Rectal exam: PRESENT: deferred Gentrourinary exam: PRESENT: indwelling catheter Musculoskeletal exam: PRESENT: normal inspection Skin exam: PRESENT: dry, warm Results Laboratory Results: 01/08/17 05:15 01/08/17 05:15 01/07/17 01/07/17 01/07/17 07:30 08:50 08:50 WBC RBC Hgb Hct MCV MCH MCHC RDW Plt Count Seg Neutrophils % Lymphocytes % Monocytes % Eosinophils % Basophils % Absolute Neutrophils Absolute Lymphocytes Absolute Monocytes Absolute Eosinophils Absolute Basophils Retic Count (auto) Absolute Retic Carbonic Acid 0.88 L HCO3/H2CO3 Ratio 15:1 ABG pH 7.28 L ABG pCO2 29.2 L ABG pO2 65.8 L ABG HCO3 13.5 L ABG O2 Saturation 91.0 L ABG Base Excess -11.8 FiO2 5L Sodium Potassium Chloride Carbon Dioxide Anion Gap BUN Creatinine Est GFR ( Amer) Est GFR (Non-Af Amer) Glucose Calcium Magnesium Iron TIBC % Saturation Ferritin Total Bilirubin AST ALT Alkaline Phosphatase Total Protein Albumin Vitamin B12 Folate Stool Occult Blood POSITIVE Stool for White Cells FEW H 01/07/17 01/07/17 01/07/17 09:30 10:58 10:58 WBC 10.9 H RBC 3.87 Hgb 11.5 L Hct 34.0 L MCV 88 MCH 29.7 MCHC 33.7 RDW 15.9 H Plt Count 209 Seg Neutrophils % Not Reportable Lymphocytes % Not Reportable Monocytes % Not Reportable Eosinophils % Not Reportable Basophils % Not Reportable Absolute Neutrophils Not Reportable Absolute Lymphocytes Not Reportable Absolute Monocytes Not Reportable Absolute Eosinophils Not Reportable Absolute Basophils Not Reportable Retic Count (auto) Absolute Retic Carbonic Acid 1.10 HCO3/H2CO3 Ratio 14:1 ABG pH 7.25 L ABG pCO2 36.4 ABG pO2 84.6 ABG HCO3 15.5 L ABG O2 Saturation 94.9 ABG Base Excess -10.9 FiO2 60% Sodium 139.6 Potassium 3.4 L Chloride 106 Carbon Dioxide 17 L Anion Gap 17 BUN 18 Creatinine 0.85 Est GFR ( Amer) > 60 Est GFR (Non-Af Amer) > 60 Glucose 168 H Calcium 7.6 L Magnesium 1.6 Iron TIBC % Saturation Ferritin Total Bilirubin 1.0 AST 54 H ALT 50 Alkaline Phosphatase 38 Total Protein 5.2 L Albumin 3.1 L Vitamin B12 Folate Stool Occult Blood Stool for White Cells 01/07/17 01/07/17 01/07/17 14:30 17:32 22:55 WBC RBC Hgb Hct MCV MCH MCHC RDW Plt Count Seg Neutrophils % Lymphocytes % Monocytes % Eosinophils % Basophils % Absolute Neutrophils Absolute Lymphocytes Absolute Monocytes Absolute Eosinophils Absolute Basophils Retic Count (auto) Absolute Retic Carbonic Acid 1.10 1.04 L HCO3/H2CO3 Ratio 18:1 18:1 ABG pH 7.35 7.37 ABG pCO2 36.7 34.5 L ABG pO2 139.3 H 86.0 ABG HCO3 19.9 L 19.5 L ABG O2 Saturation 98.7 H 96.4 ABG Base Excess -4.9 -5.1 FiO2 60% 45% Sodium Potassium 3.6 Chloride Carbon Dioxide Anion Gap BUN Creatinine Est GFR ( Amer) Est GFR (Non-Af Amer) Glucose Calcium Magnesium Iron TIBC % Saturation Ferritin Total Bilirubin AST ALT Alkaline Phosphatase Total Protein Albumin Vitamin B12 Folate Stool Occult Blood Stool for White Cells 01/08/17 01/08/17 01/08/17 05:10 05:15 05:15 WBC 6.7 RBC 3.28 L Hgb 9.8 L Hct 28.8 L MCV 88 MCH 29.7 MCHC 33.9 RDW 15.1 H Plt Count 100 L Seg Neutrophils % Not Reportable Lymphocytes % Not Reportable Monocytes % Not Reportable Eosinophils % Not Reportable Basophils % Not Reportable Absolute Neutrophils Not Reportable Absolute Lymphocytes Not Reportable Absolute Monocytes Not Reportable Absolute Eosinophils Not Reportable Absolute Basophils Not Reportable Retic Count (auto) 1.44 Absolute Retic 0.047 Carbonic Acid 1.03 L HCO3/H2CO3 Ratio 19:1 ABG pH 7.39 ABG pCO2 34.1 L ABG pO2 84.1 ABG HCO3 20.3 ABG O2 Saturation 96.4 ABG Base Excess -3.9 FiO2 45% Sodium 143.7 Potassium 3.3 L Chloride 109 H Carbon Dioxide 21 L Anion Gap 14 BUN 23 H Creatinine 0.74 Est GFR ( Amer) > 60 Est GFR (Non-Af Amer) > 60 Glucose 164 H Calcium 7.6 L Magnesium Iron < 10.1 L TIBC 198 L % Saturation UNABLE TO CALCULATE Ferritin 147.00 Total Bilirubin AST ALT Alkaline Phosphatase Total Protein Albumin Vitamin B12 > 1000.0 H Folate 16.80 Stool Occult Blood Stool for White Cells 01/06/17 01/06/17 23:20 23:20 Creatine Kinase 302 H CK-MB (CK-2) 7.47 H Troponin I 0.027 NT-Pro-B Natriuret Pep 54487 H Impressions: Abdomen/Pelvis CT 01/07/17 00:00 IMPRESSION: NO ACUTE FINDINGS WITHIN THE ABDOMEN OR PELVIS. CHRONIC CHANGES ABOVE. Chest/Abdomen CTA 01/07/17 00:00 IMPRESSION: NO PULMONARY EMBOLISM. MULTIFOCAL PNEUMONIA ABOVE WITH SMALL RIGHT PLEURAL EFFUSION. SATISFACTORY POSITION LINES/TUBES. Chest X-Ray 01/08/17 06:00 IMPRESSION: Mild cardiomegaly and vascular congestion. Small right pleural effusion. Persistent bibasilar airspace opacities, right > left, may represent atelectasis or pneumonia. Assessment & Plan - Diagnosis (1) COPD (chronic obstructive pulmonary disease) Qualifiers: COPD type: emphysema Emphysema type: centrilobular Qualified Code(s): J43.2 - Centrilobular emphysema Is this a current diagnosis for this admission?: Yes (2) Pneumonia Qualifiers: Pneumonia type: due to unspecified organism Laterality: bilateral Lung location: lower lobe of lung Qualified Code(s): J18.9 - Pneumonia, unspecified organism Is this a current diagnosis for this admission?: YesPlan: no cultures thus far consider bronchoscopy (3) Septic shock Is this a current diagnosis for this admission?: Yes (4) Acute hypoxemic respiratory failure Is this a current diagnosis for this admission?: Yes (5) Lupus (systemic lupus erythematosus) Qualifiers: Systemic lupus erythematosus type: unspecified Systemic lupus erythematosus organ involvement: unspecified Qualified Code(s): M32.9 - Systemic lupus erythematosus, unspecified Is this a current diagnosis for this admission?: Yes (6) Steroid dependence Is this a current diagnosis for this admission?: Yes - Time Critical Time spent with patient: 35 or more minutes
--- NOTE | 2017-01-08 13:49 | PDOC PROGRESS REPORT ---
Subjective Progress Note for:: 01/08/17 Subjective:: No acute events overnight. Patient has nearly been weaned from both pressors. Patient intubated and sedated. Unable to obtain review of systems. Physical Exam Vital Signs: Temp Pulse Resp BP Pulse Ox 98.1 F 105 H 16 89/45 L 97 01/08/17 06:07 01/08/17 02:04 01/08/17 06:07 01/08/17 06:07 01/08/17 06:07 Intake & Output 01/07/17 01/08/17 01/09/17 06:59 06:59 06:59 Intake Total 4880 4667 Output Total 7174 1843 Balance 3360 -3192 Weight 91.4 kg 83.4 kg Exam: General: Intubated and sedated, HEENT: AT/NC, PERRL, oropharynx is moist, pink, no scleral icterus, no conjunctival injection Neck: +JVD, trachea midline Chest: Bilateral rhonchi, bibasilar bilateral Rales CV: IRR, normal S1 and S2, no rub, no gallop, +sm llsb Abdomen: Soft, active bowel sounds; no rigidity Extremities: No cyanosis, clubbing; 1+edema Results Laboratory Results: 01/08/17 05:15 01/08/17 05:15 01/07/17 01/07/17 01/07/17 05:03 07:30 08:50 WBC 8.1 RBC 3.71 L Hgb 10.9 L Hct 33.2 L MCV 90 MCH 29.4 MCHC 32.8 RDW 15.6 H Plt Count 159 Seg Neutrophils % Lymphocytes % Monocytes % Eosinophils % Basophils % Absolute Neutrophils Absolute Lymphocytes Absolute Monocytes Absolute Eosinophils Absolute Basophils Retic Count (auto) Absolute Retic Carbonic Acid 0.88 L HCO3/H2CO3 Ratio 15:1 ABG pH 7.28 L ABG pCO2 29.2 L ABG pO2 65.8 L ABG HCO3 13.5 L ABG O2 Saturation 91.0 L ABG Base Excess -11.8 FiO2 5L Sodium Potassium Chloride Carbon Dioxide Anion Gap BUN Creatinine Est GFR ( Amer) Est GFR (Non-Af Amer) Glucose Calcium Magnesium Iron TIBC % Saturation Ferritin Total Bilirubin AST ALT Alkaline Phosphatase Total Protein Albumin Vitamin B12 Folate Stool Occult Blood POSITIVE Stool for White Cells 01/07/17 01/07/17 01/07/17 08:50 09:30 10:58 WBC 10.9 H RBC 3.87 Hgb 11.5 L Hct 34.0 L MCV 88 MCH 29.7 MCHC 33.7 RDW 15.9 H Plt Count 209 Seg Neutrophils % Not Reportable Lymphocytes % Not Reportable Monocytes % Not Reportable Eosinophils % Not Reportable Basophils % Not Reportable Absolute Neutrophils Not Reportable Absolute Lymphocytes Not Reportable Absolute Monocytes Not Reportable Absolute Eosinophils Not Reportable Absolute Basophils Not Reportable Retic Count (auto) Absolute Retic Carbonic Acid 1.10 HCO3/H2CO3 Ratio 14:1 ABG pH 7.25 L ABG pCO2 36.4 ABG pO2 84.6 ABG HCO3 15.5 L ABG O2 Saturation 94.9 ABG Base Excess -10.9 FiO2 60% Sodium Potassium Chloride Carbon Dioxide Anion Gap BUN Creatinine Est GFR ( Amer) Est GFR (Non-Af Amer) Glucose Calcium Magnesium Iron TIBC % Saturation Ferritin Total Bilirubin AST ALT Alkaline Phosphatase Total Protein Albumin Vitamin B12 Folate Stool Occult Blood Stool for White Cells FEW H 01/07/17 01/07/17 01/07/17 10:58 14:30 17:32 WBC RBC Hgb Hct MCV MCH MCHC RDW Plt Count Seg Neutrophils % Lymphocytes % Monocytes % Eosinophils % Basophils % Absolute Neutrophils Absolute Lymphocytes Absolute Monocytes Absolute Eosinophils Absolute Basophils Retic Count (auto) Absolute Retic Carbonic Acid 1.10 1.04 L HCO3/H2CO3 Ratio 18:1 18:1 ABG pH 7.35 7.37 ABG pCO2 36.7 34.5 L ABG pO2 139.3 H 86.0 ABG HCO3 19.9 L 19.5 L ABG O2 Saturation 98.7 H 96.4 ABG Base Excess -4.9 -5.1 FiO2 60% 45% Sodium 139.6 Potassium 3.4 L Chloride 106 Carbon Dioxide 17 L Anion Gap 17 BUN 18 Creatinine 0.85 Est GFR ( Amer) > 60 Est GFR (Non-Af Amer) > 60 Glucose 168 H Calcium 7.6 L Magnesium 1.6 Iron TIBC % Saturation Ferritin Total Bilirubin 1.0 AST 54 H ALT 50 Alkaline Phosphatase 38 Total Protein 5.2 L Albumin 3.1 L Vitamin B12 Folate Stool Occult Blood Stool for White Cells 01/07/17 01/08/17 01/08/17 22:55 05:10 05:15 WBC 6.7 RBC 3.28 L Hgb 9.8 L Hct 28.8 L MCV 88 MCH 29.7 MCHC 33.9 RDW 15.1 H Plt Count 100 L Seg Neutrophils % Not Reportable Lymphocytes % Not Reportable Monocytes % Not Reportable Eosinophils % Not Reportable Basophils % Not Reportable Absolute Neutrophils Not Reportable Absolute Lymphocytes Not Reportable Absolute Monocytes Not Reportable Absolute Eosinophils Not Reportable Absolute Basophils Not Reportable Retic Count (auto) 1.44 Absolute Retic 0.047 Carbonic Acid 1.03 L HCO3/H2CO3 Ratio 19:1 ABG pH 7.39 ABG pCO2 34.1 L ABG pO2 84.1 ABG HCO3 20.3 ABG O2 Saturation 96.4 ABG Base Excess -3.9 FiO2 45% Sodium Potassium 3.6 Chloride Carbon Dioxide Anion Gap BUN Creatinine Est GFR ( Amer) Est GFR (Non-Af Amer) Glucose Calcium Magnesium Iron TIBC % Saturation Ferritin Total Bilirubin AST ALT Alkaline Phosphatase Total Protein Albumin Vitamin B12 Folate Stool Occult Blood Stool for White Cells 01/08/17 05:15 WBC RBC Hgb Hct MCV MCH MCHC RDW Plt Count Seg Neutrophils % Lymphocytes % Monocytes % Eosinophils % Basophils % Absolute Neutrophils Absolute Lymphocytes Absolute Monocytes Absolute Eosinophils Absolute Basophils Retic Count (auto) Absolute Retic Carbonic Acid HCO3/H2CO3 Ratio ABG pH ABG pCO2 ABG pO2 ABG HCO3 ABG O2 Saturation ABG Base Excess FiO2 Sodium 143.7 Potassium 3.3 L Chloride 109 H Carbon Dioxide 21 L Anion Gap 14 BUN 23 H Creatinine 0.74 Est GFR ( Amer) > 60 Est GFR (Non-Af Amer) > 60 Glucose 164 H Calcium 7.6 L Magnesium Iron < 10.1 L TIBC 198 L % Saturation UNABLE TO CALCULATE Ferritin 147.00 Total Bilirubin AST ALT Alkaline Phosphatase Total Protein Albumin Vitamin B12 > 1000.0 H Folate 16.80 Stool Occult Blood Stool for White Cells 01/06/17 01/06/17 23:20 23:20 Creatine Kinase 302 H CK-MB (CK-2) 7.47 H Troponin I 0.027 NT-Pro-B Natriuret Pep 40347 H Impressions: Abdomen/Pelvis CT 01/07/17 00:00 IMPRESSION: NO ACUTE FINDINGS WITHIN THE ABDOMEN OR PELVIS. CHRONIC CHANGES ABOVE. Chest/Abdomen CTA 01/07/17 00:00 IMPRESSION: NO PULMONARY EMBOLISM. MULTIFOCAL PNEUMONIA ABOVE WITH SMALL RIGHT PLEURAL EFFUSION. SATISFACTORY POSITION LINES/TUBES. Chest X-Ray 01/08/17 06:00 IMPRESSION: Mild cardiomegaly and vascular congestion. Small right pleural effusion. Persistent bibasilar airspace opacities, right > left, may represent atelectasis or pneumonia. Assessment & Plan - Diagnosis (1) Septic shock Is this a current diagnosis for this admission?: YesPlan: Improving. Patient is still requiring 4 g a levophed. Patient currently with Haemophilus influenza of both sets of blood cultures. Patient is well covered with Levaquin and cefepime. Will stop gentamicin and vancomycin. Will maintain a map of 65. Obtain central line and monitor CVP every 4 hours. Last CVP is 20. Patient had lactic acid of 6.9 which decreased to 3.9 after hydration. Likely with adrenal insufficiency and patient is on Solu-Medrol 125 mg IV every 6. (2) Pneumonia Qualifiers: Pneumonia type: due to other aerobic Gram-negative bacteria Laterality : right Lung location: lower lobe of lung Qualified Code(s): J15.6 - Pneumonia due to other aerobic Gram-negative bacteria Is this a current diagnosis for this admission?: YesPlan: Patient currently with Haemophilus influenza of both sets of blood cultures. Patient is well covered with Levaquin and cefepime. Will stop gentamicin and vancomycin. Scheduled nebulized treatments. Add Mucomyst. Cultures including AFB with concern for MAC and fungal cultures in light of her immune suppression. Would still entertain the idea of a bronchoscopy for this patient. Initiate chest physiotherapy. (3) Acute renal failure Qualifiers: Acute renal failure type: with acute tubular necrosis Qualified Code (s): N17.0 - Acute kidney failure with tubular necrosis Is this a current diagnosis for this admission?: YesPlan: Has resolved to baseline. This is likely ATN. We will renally adjust patient' s medications and will monitor for improvement (4) COPD (chronic obstructive pulmonary disease) Qualifiers: COPD type: emphysema Emphysema type: centrilobular Qualified Code(s): J43.2 - Centrilobular emphysema Is this a current diagnosis for this admission?: YesPlan: Continue patient on scheduled nebulized treatments and steroids (5) Acute hypoxemic respiratory failure Is this a current diagnosis for this admission?: YesPlan: Improving O2 requirement. Continues to be intubated. Patient with documented hypoxemia in the field. Appreciate consult pulmonary medicine for ventilator management and possible bronchoscopy. (6) Hypothyroid Qualifiers: Hypothyroidism type: unspecified Qualified Code(s): E03.9 - Hypothyroidism, unspecified Is this a current diagnosis for this admission?: YesPlan: All numbers are within normal limits. Continue current Synthroid dosage. (7) Lupus (systemic lupus erythematosus) Qualifiers: Systemic lupus erythematosus type: unspecified Systemic lupus erythematosus organ involvement: unspecified Qualified Code(s): M32.9 - Systemic lupus erythematosus, unspecified Is this a current diagnosis for this admission?: YesPlan: We'll send anti-dsDNA for paulson of her lupus activity. Concern for lupus involvement of her lungs. (8) Steroid dependence Is this a current diagnosis for this admission?: YesPlan: Stress dose steroids (9) HLD (hyperlipidemia) Qualifiers: Hyperlipidemia type: unspecified Qualified Code(s): E78.5 - Hyperlipidemia, unspecified Is this a current diagnosis for this admission?: Yes (10) Obesity (BMI 30.0-34.9) Is this a current diagnosis for this admission?: Yes - Time Critical Time spent with patient: 35 or more minutes Medications reviewed and adjusted accordingly: Yes Anticipated discharge: Acute Rehab
[2017-01-08] MEDS ORDERED: METOPROLOL TARTRATE PF/INJ 5 MG/5 ML SDV IV ONE ×2 (14:37→14:45)
[2017-01-08] MEDS: ACETAMINOPHEN 325 MG TABLET NG PRN (15:12)
[2017-01-08] MEDS ORDERED: NORMAL SALINE 1000 ML 1,000 ML IV ONE (15:19)
[2017-01-08 15:34] LABS: MAGNESIUM 1.7 mg/dL (1.6-2.3); POTASSIUM 3.7 mmol/L (3.6-5.0)
[2017-01-08] MEDS: MAGNESIUM SULFATE/D5W 1 GM/100 ML RTUPB IV SCH ×2 (16:41→16:52)
[2017-01-08] MEDS: LANSOPRAZOLE 30 MG TAB.RAP.DR NG SCH (16:53)
[2017-01-08] MEDS: MIDAZOLAM HCL 100 ML IV PRN (21:29)
[2017-01-08] MEDS: ASPIRIN 81 MG TABLET, CHEWABLE NG SCH (22:33)
[2017-01-08] MEDS: CETIRIZINE 10 MG TABLET NG SCH (22:34)
[2017-01-08] MEDS: LEVOFLOXACIN 750 MG/D5W RTU 750 MG/150 ML RTUPB IV SCH (22:34)
[2017-01-08] MEDS: MONTELUKAST SODIUM 10 MG TABLET NG SCH (22:35)
[2017-01-08] MEDS: SERTRALINE HCL 50 MG TABLET NG SCH (22:36)
[2017-01-09] MEDS: PROPOFOL 100 ML IV PRN ×5 (00:06→18:33)
[2017-01-09] MEDS: IPRATROPIUM/ALBUTEROL 0.5-2.5 MG/3 ML AMPUL NEB SCH ×4 (01:46→19:49)
[2017-01-09] MEDS: GUAIFENESIN SYRP 200 MG/10 ML UDC NG SCH ×6 (02:31→22:10)
[2017-01-09] MEDS: FENTANYL CITRATE INJ/PF 100 MCG/2 ML AMPUL IV PRN ×2 (02:31→14:22)
[2017-01-09] MEDS: DEXTROSE 5%-WATER 250 ML with NOREPINEPHRINE BITARTRATE 4 MG IV PRN ×2 (03:19)
[2017-01-09] MEDS: METHYLPREDNISOLONE INJ 125 MG/2 ML SDV IV SCH ×4 (03:19→20:25)
[2017-01-09 05:50] LABS: HEMATOCRIT 28.1 % (36.0-47.0); HEMOGLOBIN 9.6 g/dL (12.0-15.5); HGB HCT DIFFERENCE 0.7; MEAN CORPUSCULAR HEMOGLOBIN 29.2 pg (27.0-33.4); MEAN CORPUSCULAR HGB CONC 34.1 g/dL (32.0-36.0); MEAN CORPUSCULAR VOLUME 86 fl (80-97); RED BLOOD COUNT 3.27 10^6/uL (3.72-5.28); RED CELL DISTRIBUTION WIDTH 15.1 % (11.5-14.0); WHITE BLOOD COUNT 11.5 10^3/uL (4.0-10.5)
[2017-01-09] MEDS: LANSOPRAZOLE 30 MG TAB.RAP.DR NG SCH ×2 (05:53→17:27)
[2017-01-09] MEDS: LEVOTHYROXINE SODIUM 0.075 MG TABLET NG SCH (05:53)
[2017-01-09 05:56] LABS: PARTIAL THROMBOPLASTIN TIME 33.5 SEC (23.5-35.8); PROTHROMBIN TIME 21.3 SEC (11.4-15.4)
[2017-01-09 06:03] LABS: ANION GAP 8 (5-19); BLOOD UREA NITROGEN 25 mg/dL (7-20); CALCIUM 8.1 mg/dL (8.4-10.2); CARBON DIOXIDE 23 mmol/L (22-30); CHLORIDE 111 mmol/L (98-107); CREATININE RESULT 0.61 mg/dL (0.52-1.25); GLUCOSE 161 mg/dL (75-110); POTASSIUM 3.1 mmol/L (3.6-5.0); SODIUM 142.4 mmol/L (137-145)
[2017-01-09 06:25] LABS: BAND NEUTROPHILS % (MANUAL) 20 % (3-5); BASOPHILS % (MANUAL) 0 % (0-2); EOSINOPHILS % (MANUAL) 0 % (0-6); LYMPHOCYTES % (MANUAL) 0 % (13-45); TOTAL CELLS COUNTED 100
[2017-01-09 06:27] LABS: ANISOCYTOSIS SLIGHT; BURR CELLS 1+; OVALOCYTES SLIGHT; POIKILOCYTOSIS 1+; POLYCHROMASIA SLIGHT; TOXIC GRANULATION SLIGHT
[2017-01-09 06:29] LABS: ARTERIAL BLOOD BASE EXCESS -1.5 mmol/L; ARTERIAL BLOOD O2 SATURATION 96.9 % (94-98)
[2017-01-09] MEDS: ACETYLCYSTEINE 20% SOLN 800 MG/4 ML VIAL.NEB NEB SCH ×2 (08:21→19:48)
[2017-01-09] MEDS ORDERED: POTASSIUM CHLORIDE 20 MEQ/15 ML UDCUP NG ONE (08:30)
[2017-01-09] MEDS: FUROSEMIDE INJ/PF 20 MG/2 ML SDV IV SCH ×2 (09:17→17:27)
[2017-01-09] MEDS: LACTOBACILLUS ACIDOPHILUS 250 MG TAB NG SCH ×2 (09:17→17:27)
[2017-01-09] MEDS: POLYETHYLENE GLYCOL 3350 POWDER 17 GM/1 PACKET NG SCH (09:17)
[2017-01-09] MEDS: CALCIUM CARBONATE 250 MG/VITAMIN D3 125 UNIT TABLET NG SCH ×2 (09:17→22:09)
[2017-01-09] MEDS: FERROUS SULFATE LIQUID 300 MG/5 ML UDC NG SCH ×3 (09:18→17:27)
[2017-01-09] MEDS: CEFEPIME HCL 2 GM in DEXTROSE 5%-WATER 50 ML IV SCH ×2 (09:18→22:07)
[2017-01-09] MEDS: ASCORBIC ACID 500 MG TABLET NG SCH (09:18)
[2017-01-09] MEDS: POTASSIUM CHLORIDE 20 MEQ/50 ML RTU IV SCH ×2 (09:18→10:49)
[2017-01-09] MEDS: FLUTICASONE/SALMETEROL DISKUS 250-50 MCG/DOSE IH SCH ×2 (09:19→22:10)
[2017-01-09] MEDS: METOPROLOL TARTRATE PF/INJ 5 MG/5 ML SDV IV PRN ×2 (10:01→20:25)
[2017-01-09] MEDS ORDERED: LIDOCAINE 1% INJ-PF (10 MG/ML) 30 ML SDV ONE (10:11)
--- NOTE | 2017-01-09 10:35 | Operative Report ---
Operative Report DATE OF SURGERY: 01/09/17 Operative Report: patient npo ,previously intubated ;taken to reverse isolation room,then using a "T" sized scope her tracheo-bronchial tree was explored diffuse submucosal swelling and purulent exudate R lower lobe and r upper lobe PREOPERATIVE DIAGNOSIS: pneumonia-resp fail POSTOPERATIVE DIAGNOSIS: unchanged OPERATION: Fiberoptic bronchoscopy with bronchoalveolar lavage and transbronchial biopsy SURGEON: GARTH CRUZ ANESTHESIA: GA TISSUE REMOVED OR ALTERED: bronchoalveolar lavage r lower lobe and r upper lobe COMPLICATIONS: none ESTIMATED BLOOD LOSS: 0ml INTRAOPERATIVE FINDINGS: friable airways, submucosal swelling, purulent exudate, mucous plugging
--- NOTE | 2017-01-09 10:38 | PDOC PROGRESS REPORT ---
Subjective Progress Note for:: 01/09/17 Subjective:: intubated Physical Exam Vital Signs: Temp Pulse Resp BP Pulse Ox 97.9 F 100 16 117/74 97 01/09/17 08:00 01/09/17 08:25 01/09/17 08:25 01/09/17 08:00 01/09/17 08:25 Intake & Output 01/08/17 01/09/17 01/10/17 06:59 06:59 06:59 Intake Total 4633 5096 Output Total 7898 2425 125 Balance -3192 2671 -125 Weight 83.4 kg 87.2 kg General appearance: PRESENT: no acute distress, disheveled, obese, well- developed Head exam: PRESENT: atraumatic, normocephalic Eye exam: PRESENT: conjunctiva pale Mouth exam: PRESENT: moist, neck supple, other - ET tube Neck exam: ABSENT: carotid bruit, JVD, lymphadenopathy, thyromegaly Respiratory exam: PRESENT: decreased breath sounds, prolonged expiratory phas, rales, rhonchi, symmetrical, unlabored Cardiovascular exam: PRESENT: irregular rhythm Pulses: PRESENT: normal radial pulses GI/Abdominal exam: PRESENT: ascites Rectal exam: PRESENT: deferred Gentrourinary exam: PRESENT: indwelling catheter Skin exam: PRESENT: dry, warm Results Laboratory Results: 01/09/17 05:15 01/09/17 05:15 01/08/17 01/08/17 01/09/17 08:20 14:40 05:15 WBC RBC Hgb Hct MCV MCH MCHC RDW Plt Count Seg Neutrophils % Lymphocytes % Monocytes % Eosinophils % Basophils % Absolute Neutrophils Absolute Lymphocytes Absolute Monocytes Absolute Eosinophils Absolute Basophils Carbonic Acid HCO3/H2CO3 Ratio ABG pH ABG pCO2 ABG pO2 ABG HCO3 ABG O2 Saturation ABG Base Excess FiO2 Sodium 142.4 Potassium 3.7 3.1 L Chloride 111 H Carbon Dioxide 23 Anion Gap 8 BUN 25 H Creatinine 0.61 Est GFR ( Amer) > 60 Est GFR (Non-Af Amer) > 60 Glucose 161 H Calcium 8.1 L Magnesium 1.7 Blood Type O POSITIVE Antibody Screen NEGATIVE 01/09/17 01/09/17 05:15 06:20 WBC 11.5 H RBC 3.27 L Hgb 9.6 L Hct 28.1 L MCV 86 MCH 29.2 MCHC 34.1 RDW 15.1 H Plt Count 121 L Seg Neutrophils % Not Reportable Lymphocytes % Not Reportable Monocytes % Not Reportable Eosinophils % Not Reportable Basophils % Not Reportable Absolute Neutrophils Not Reportable Absolute Lymphocytes Not Reportable Absolute Monocytes Not Reportable Absolute Eosinophils Not Reportable Absolute Basophils Not Reportable Carbonic Acid 1.08 HCO3/H2CO3 Ratio 21:1 ABG pH 7.42 ABG pCO2 35.9 ABG pO2 87.6 ABG HCO3 22.7 ABG O2 Saturation 96.9 ABG Base Excess -1.5 FiO2 35% Sodium Potassium Chloride Carbon Dioxide Anion Gap BUN Creatinine Est GFR ( Amer) Est GFR (Non-Af Amer) Glucose Calcium Magnesium Blood Type Antibody Screen 01/06/17 17:20 Saez Catheter Urine Culture - Final NO GROWTH 2 DAYS 01/06/17 01/06/17 23:20 23:20 Creatine Kinase 302 H CK-MB (CK-2) 7.47 H Troponin I 0.027 NT-Pro-B Natriuret Pep [id number] H Impressions: Abdomen/Pelvis CT 01/07/17 00:00 IMPRESSION: NO ACUTE FINDINGS WITHIN THE ABDOMEN OR PELVIS. CHRONIC CHANGES ABOVE. Chest/Abdomen CTA 01/07/17 00:00 IMPRESSION: NO PULMONARY EMBOLISM. MULTIFOCAL PNEUMONIA ABOVE WITH SMALL RIGHT PLEURAL EFFUSION. SATISFACTORY POSITION LINES/TUBES. Chest X-Ray 01/09/17 06:00 IMPRESSION: Stable. Lines and tubes. Assessment & Plan - Diagnosis (1) COPD (chronic obstructive pulmonary disease) Qualifiers: COPD type: emphysema Emphysema type: centrilobular Qualified Code(s): J43.2 - Centrilobular emphysema Is this a current diagnosis for this admission?: Yes (2) Pneumonia Qualifiers: Pneumonia type: due to unspecified organism Laterality: bilateral Lung location: lower lobe of lung Qualified Code(s): J18.9 - Pneumonia, unspecified organism Is this a current diagnosis for this admission?: YesPlan: proceed with bronchoscopy (3) Septic shock Is this a current diagnosis for this admission?: YesPlan: minimal-vasopressor agent (4) Acute hypoxemic respiratory failure Is this a current diagnosis for this admission?: YesPlan: improved (5) Lupus (systemic lupus erythematosus) Qualifiers: Systemic lupus erythematosus type: unspecified Systemic lupus erythematosus organ involvement: unspecified Qualified Code(s): M32.9 - Systemic lupus erythematosus, unspecified Is this a current diagnosis for this admission?: Yes (6) Steroid dependence Is this a current diagnosis for this admission?: Yes - Time Critical Time spent with patient: 25-34 minutes
[2017-01-09 11:28] LABS: BAND NEUTROPHILS % (MANUAL) 39 % (3-5)
--- NOTE | 2017-01-09 12:30 | PDOC PROGRESS REPORT ---
Subjective Progress Note for:: 01/09/17 Subjective:: No acute events overnight. Patient has been weaned off levophed. MAXIMUM TEMPERATURE the last 24 hours has been 98.8F. Patient intubated and sedated. Unable to obtain review of systems. Physical Exam Vital Signs: Temp Pulse Resp BP Pulse Ox 97.9 F 97 16 117/74 96 01/09/17 07:38 01/09/17 01:45 01/09/17 07:38 01/09/17 07:38 01/09/17 07:38 Intake & Output 01/08/17 01/09/17 01/10/17 06:59 06:59 06:59 Intake Total 4633 5096 Output Total 7843 9280 Balance -7707 2679 Weight 83.4 kg 87.2 kg Exam: General: Intubated and sedated, HEENT: AT/NC, PERRL, oropharynx is moist, pink, no scleral icterus, no conjunctival injection Neck: +JVD, trachea midline Chest: Bilateral rhonchi, bilateral Rales CV: IRR, normal S1 and S2, no rub, no gallop, +sm llsb Abdomen: Soft, active bowel sounds; no rigidity Extremities: No cyanosis, clubbing; 3+edema Results Laboratory Results: 01/09/17 05:15 01/09/17 05:15 01/08/17 01/08/17 01/08/17 05:15 08:20 14:40 WBC RBC Hgb Hct MCV MCH MCHC RDW Plt Count Seg Neutrophils % Lymphocytes % Monocytes % Eosinophils % Basophils % Absolute Neutrophils Absolute Lymphocytes Absolute Monocytes Absolute Eosinophils Absolute Basophils Carbonic Acid HCO3/H2CO3 Ratio ABG pH ABG pCO2 ABG pO2 ABG HCO3 ABG O2 Saturation ABG Base Excess FiO2 Sodium Potassium 3.7 Chloride Carbon Dioxide Anion Gap BUN Creatinine Est GFR ( Amer) Est GFR (Non-Af Amer) Glucose Calcium Magnesium 1.7 1.7 Blood Type O POSITIVE Antibody Screen NEGATIVE 01/09/17 01/09/17 01/09/17 05:15 05:15 06:20 WBC 11.5 H RBC 3.27 L Hgb 9.6 L Hct 28.1 L MCV 86 MCH 29.2 MCHC 34.1 RDW 15.1 H Plt Count 121 L Seg Neutrophils % Not Reportable Lymphocytes % Not Reportable Monocytes % Not Reportable Eosinophils % Not Reportable Basophils % Not Reportable Absolute Neutrophils Not Reportable Absolute Lymphocytes Not Reportable Absolute Monocytes Not Reportable Absolute Eosinophils Not Reportable Absolute Basophils Not Reportable Carbonic Acid 1.08 HCO3/H2CO3 Ratio 21:1 ABG pH 7.42 ABG pCO2 35.9 ABG pO2 87.6 ABG HCO3 22.7 ABG O2 Saturation 96.9 ABG Base Excess -1.5 FiO2 35% Sodium 142.4 Potassium 3.1 L Chloride 111 H Carbon Dioxide 23 Anion Gap 8 BUN 25 H Creatinine 0.61 Est GFR ( Amer) > 60 Est GFR (Non-Af Amer) > 60 Glucose 161 H Calcium 8.1 L Magnesium Blood Type Antibody Screen 01/06/17 17:20 Saez Catheter Urine Culture - Final NO GROWTH 2 DAYS 01/06/17 01/06/17 23:20 23:20 Creatine Kinase 302 H CK-MB (CK-2) 7.47 H Troponin I 0.027 NT-Pro-B Natriuret Pep 68846 H Impressions: Abdomen/Pelvis CT 01/07/17 00:00 IMPRESSION: NO ACUTE FINDINGS WITHIN THE ABDOMEN OR PELVIS. CHRONIC CHANGES ABOVE. Chest/Abdomen CTA 01/07/17 00:00 IMPRESSION: NO PULMONARY EMBOLISM. MULTIFOCAL PNEUMONIA ABOVE WITH SMALL RIGHT PLEURAL EFFUSION. SATISFACTORY POSITION LINES/TUBES. Chest X-Ray 01/09/17 06:00 IMPRESSION: Stable. Lines and tubes. Assessment & Plan - Diagnosis (1) Septic shock Is this a current diagnosis for this admission?: YesPlan: Improving. Patient is off levophed. Patient currently with Haemophilus influenza of both sets of blood cultures. Patient is well covered with Levaquin and cefepime. Will stop gentamicin and vancomycin. Currently pending bronchoscopy as there underlying concerns for chronic aspiration pneumonia. Will maintain a map of 65. Obtain central line and monitor CVP every 4 hours. Last CVP is 18. Patient had lactic acid of 6.9 which decreased to 3.9 after hydration. Likely with adrenal insufficiency and will decrease Solu-Medrol to 80 IV every 6. (2) Pneumonia Qualifiers: Pneumonia type: due to Haemophilus influenzae Laterality: right Lung location: lower lobe of lung Qualified Code(s): J14 - Pneumonia due to Hemophilus influenzae Is this a current diagnosis for this admission?: YesPlan: Patient currently with Haemophilus influenza of both sets of blood cultures. Patient is well covered with Levaquin and cefepime. Scheduled nebulized treatments. BID Mucomyst. Cultures including AFB with concern for MAC and fungal cultures in light of her immune suppression. Patient to undergo bronchoscopy today with pulmonary medicine. Initiate chest physiotherapy. (3) Acute renal failure Qualifiers: Acute renal failure type: with acute tubular necrosis Qualified Code (s): N17.0 - Acute kidney failure with tubular necrosis Is this a current diagnosis for this admission?: YesPlan: Has resolved to baseline. This was likely ATN due to underlying sepsis (4) COPD (chronic obstructive pulmonary disease) Qualifiers: COPD type: emphysema Emphysema type: centrilobular Qualified Code(s): J43.2 - Centrilobular emphysema Is this a current diagnosis for this admission?: YesPlan: Continue patient on scheduled nebulized treatments and steroids (5) Acute hypoxemic respiratory failure Is this a current diagnosis for this admission?: YesPlan: Improving O2 requirement. Continues to be intubated. Patient with documented hypoxemia in the field. Appreciate consult pulmonary medicine for ventilator management and possible bronchoscopy. (6) Hypothyroid Qualifiers: Hypothyroidism type: unspecified Qualified Code(s): E03.9 - Hypothyroidism, unspecified Is this a current diagnosis for this admission?: YesPlan: All numbers are within normal limits. Continue current Synthroid dosage. (7) Lupus (systemic lupus erythematosus) Qualifiers: Systemic lupus erythematosus type: unspecified Systemic lupus erythematosus organ involvement: unspecified Qualified Code(s): M32.9 - Systemic lupus erythematosus, unspecified Is this a current diagnosis for this admission?: YesPlan: Pending anti-dsDNA for paulson of her lupus activity. Concern for lupus involvement of her lungs. (8) Steroid dependence Is this a current diagnosis for this admission?: YesPlan: We will potentially have to transition patient to Cortef in addition to steroid due to her underlying steroid dependence. Stress dose steroids (9) HLD (hyperlipidemia) Qualifiers: Hyperlipidemia type: unspecified Qualified Code(s): E78.5 - Hyperlipidemia, unspecified Is this a current diagnosis for this admission?: Yes (10) Obesity (BMI 30.0-34.9) Is this a current diagnosis for this admission?: Yes - Time Critical Time spent with patient: 35 or more minutes Medications reviewed and adjusted accordingly: Yes
[2017-01-09 14:28] LABS: FLUID TYPE BRONCHIAL WASH
[2017-01-09 14:30] LABS: FLUID APPEARANCE TURBID; FLUID RBC AVERAGE 184.5; FLUID RBC DILUENT USED SALINE; FLUID RBC DILUTION FACTOR 5; FLUID RBC SIDE 1 183; FLUID RBC SIDE 2 186; TOTAL RBC SQUARES COUNTED FLD 25
[2017-01-09] MEDS: NORMAL SALINE 1000 ML 1,000 ML IV PRN ×2 (14:41→20:24)
[2017-01-09 15:49] LABS: PATH REVIEW PATHOLOGIST REVIEWED
[2017-01-09] MEDS: MIDAZOLAM HCL 100 ML IV PRN (18:33)
[2017-01-09] MEDS: INSULIN REG, HUMAN 100 UNIT/ML 3 ML VIAL (PYX) SUBCUT PRN (18:46)
[2017-01-09] MEDS: LEVOFLOXACIN 750 MG/D5W RTU 750 MG/150 ML RTUPB IV SCH (22:07)
[2017-01-09] MEDS: SERTRALINE HCL 50 MG TABLET NG SCH (22:08)
[2017-01-09] MEDS: CETIRIZINE 10 MG TABLET NG SCH (22:09)
[2017-01-09] MEDS: ASPIRIN 81 MG TABLET, CHEWABLE NG SCH (22:09)
[2017-01-09] MEDS: MONTELUKAST SODIUM 10 MG TABLET NG SCH (22:09)
[2017-01-09 22:27] LABS: GENTAMICIN-TROUGH < 0.6 ug/mL (<2.0); TROUGH DRAW TIME 2135
[2017-01-10] MEDS: INSULIN REG, HUMAN 100 UNIT/ML 3 ML VIAL (PYX) SUBCUT PRN ×2 (00:01→14:04)
[2017-01-10] MEDS: PROPOFOL 100 ML IV PRN ×7 (00:01→22:35)
[2017-01-10] MEDS: IPRATROPIUM/ALBUTEROL 0.5-2.5 MG/3 ML AMPUL NEB SCH ×4 (01:37→20:11)
[2017-01-10] MEDS: GUAIFENESIN SYRP 200 MG/10 ML UDC NG SCH ×6 (01:42→21:12)
[2017-01-10] MEDS: FUROSEMIDE INJ/PF 20 MG/2 ML SDV IV SCH ×3 (01:42→17:21)
[2017-01-10] MEDS: FENTANYL CITRATE INJ/PF 100 MCG/2 ML AMPUL IV PRN ×3 (02:03→21:41)
[2017-01-10] MEDS: METHYLPREDNISOLONE INJ 125 MG/2 ML SDV IV SCH ×4 (03:46→21:12)
[2017-01-10 04:34] LABS: HEMATOCRIT 28.5 % (36.0-47.0); HEMOGLOBIN 9.4 g/dL (12.0-15.5); HGB HCT DIFFERENCE -0.3; MEAN CORPUSCULAR HEMOGLOBIN 29.1 pg (27.0-33.4); MEAN CORPUSCULAR VOLUME 88 fl (80-97); RED BLOOD COUNT 3.23 10^6/uL (3.72-5.28); RED CELL DISTRIBUTION WIDTH 15.4 % (11.5-14.0); WHITE BLOOD COUNT 16.4 10^3/uL (4.0-10.5)
[2017-01-10 04:40] LABS: ANION GAP 5 (5-19); BLOOD UREA NITROGEN 33 mg/dL (7-20); CALCIUM 8.1 mg/dL (8.4-10.2); CARBON DIOXIDE 26 mmol/L (22-30); CHLORIDE 113 mmol/L (98-107); CREATININE RESULT 0.64 mg/dL (0.52-1.25); GLUCOSE 162 mg/dL (75-110); MAGNESIUM 2.1 mg/dL (1.6-2.3); PHOSPHORUS 2.2 mg/dL (2.5-4.5); POTASSIUM 3.1 mmol/L (3.6-5.0); SODIUM 143.9 mmol/L (137-145)
[2017-01-10 04:42] LABS: ARTERIAL BLOOD BASE EXCESS -2.4 mmol/L; ARTERIAL BLOOD O2 SATURATION 94.5 % (94-98)
[2017-01-10 04:46] LABS: PREALBUMIN 25.5 mg/dL (17.6-36.0)
[2017-01-10 05:19] LABS: BAND NEUTROPHILS % (MANUAL) 1 % (3-5); BASOPHILS % (MANUAL) 0 % (0-2); EOSINOPHILS % (MANUAL) 0 % (0-6); LYMPHOCYTES % (MANUAL) 7 % (13-45); TOTAL CELLS COUNTED 100
[2017-01-10 05:21] LABS: ANISOCYTOSIS 1+; TOXIC GRANULATION 1+
[2017-01-10] MEDS: LEVOTHYROXINE SODIUM 0.075 MG TABLET NG SCH (05:43)
[2017-01-10] MEDS: LANSOPRAZOLE 30 MG TAB.RAP.DR NG SCH ×2 (05:43→17:21)
[2017-01-10] MEDS: NORMAL SALINE 1000 ML 1,000 ML IV PRN ×2 (05:44→19:35)
[2017-01-10] MEDS: POTASSIUM CHLORIDE 20 MEQ/50 ML RTU IV SCH ×2 (07:47→10:18)
[2017-01-10] MEDS: ACETYLCYSTEINE 20% SOLN 800 MG/4 ML VIAL.NEB NEB SCH ×2 (08:04→20:18)
[2017-01-10] MEDS: METOPROLOL TARTRATE PF/INJ 5 MG/5 ML SDV IV PRN (08:52)
[2017-01-10] MEDS ORDERED: POTASSIUM CHLORIDE 20 MEQ/15 ML UDCUP NG ONE (09:00)
[2017-01-10] MEDS: FONDAPARINUX SODIUM INJ 2.5 MG/0.5 ML DISP.SYRIN SUBCUT SCH (10:14)
[2017-01-10] MEDS: POLYETHYLENE GLYCOL 3350 POWDER 17 GM/1 PACKET NG SCH (10:15)
[2017-01-10] MEDS: POTASSIUM CHLORIDE 20 MEQ/15 ML UDCUP NG SCH (10:15)
[2017-01-10] MEDS: FERROUS SULFATE LIQUID 300 MG/5 ML UDC NG SCH ×3 (10:15→17:21)
[2017-01-10] MEDS: CALCIUM CARBONATE 250 MG/VITAMIN D3 125 UNIT TABLET NG SCH ×2 (10:16→21:13)
[2017-01-10] MEDS: ALBUMIN HUMAN 50 ML IV SCH ×2 (10:17→10:52)
[2017-01-10] MEDS: ASCORBIC ACID 500 MG TABLET NG SCH (10:18)
[2017-01-10] MEDS: METOPROLOL TARTRATE 25 MG TABLET NG SCH ×2 (10:19→21:15)
[2017-01-10] MEDS: LACTOBACILLUS ACIDOPHILUS 250 MG TAB NG SCH ×2 (10:20→17:21)
[2017-01-10] MEDS: CEFEPIME HCL 2 GM in DEXTROSE 5%-WATER 50 ML IV SCH ×2 (10:20→21:13)
[2017-01-10] MEDS: FLUTICASONE/SALMETEROL DISKUS 250-50 MCG/DOSE IH SCH ×2 (10:21→21:15)
--- NOTE | 2017-01-10 13:03 | PDOC PROGRESS REPORT ---
Subjective Progress Note for:: 01/10/17 Subjective:: intubated Physical Exam Vital Signs: Temp Pulse Resp BP Pulse Ox 97.9 F 91 22 H 92/59 L 94 01/10/17 12:00 01/10/17 12:00 01/10/17 12:00 01/10/17 12:00 01/10/17 12:48 Intake & Output 01/09/17 01/10/17 01/11/17 06:59 06:59 06:59 Intake Total 5096 3986 Output Total 2425 5875 850 Balance 2671 491 -850 Weight 87.2 kg 91.4 kg General appearance: PRESENT: no acute distress, disheveled, obese, well- developed Head exam: PRESENT: atraumatic, normocephalic Eye exam: PRESENT: conjunctiva pale Mouth exam: PRESENT: dry mucosa, neck supple, other - ET tube Neck exam: ABSENT: carotid bruit, JVD, lymphadenopathy, thyromegaly Respiratory exam: PRESENT: decreased breath sounds, prolonged expiratory phas, rales, rhonchi, symmetrical, unlabored Cardiovascular exam: PRESENT: RRR, +S1, +S2 Pulses: PRESENT: normal radial pulses GI/Abdominal exam: PRESENT: normal bowel sounds, soft. ABSENT: distended, guarding, mass, organolmegaly, rebound, tenderness Rectal exam: PRESENT: deferred Gentrourinary exam: PRESENT: indwelling catheter Musculoskeletal exam: PRESENT: normal inspection Skin exam: PRESENT: dry, warm Results Laboratory Results: 01/10/17 04:15 01/10/17 04:15 01/07/17 01/08/17 01/09/17 05:03 05:15 10:08 WBC 8.1 RBC 3.71 L Hgb 10.9 L Hct 33.2 L MCV 90 MCH 29.4 MCHC 32.8 RDW 15.6 H Plt Count 159 Seg Neutrophils % Lymphocytes % Monocytes % Eosinophils % Basophils % Absolute Neutrophils Absolute Lymphocytes Absolute Monocytes Absolute Eosinophils Absolute Basophils Carbonic Acid HCO3/H2CO3 Ratio ABG pH ABG pCO2 ABG pO2 ABG HCO3 ABG O2 Saturation ABG Base Excess FiO2 Sodium Potassium Chloride Carbon Dioxide Anion Gap BUN Creatinine Est GFR ( Amer) Est GFR (Non-Af Amer) Glucose Calcium Phosphorus Magnesium Transferrin 122 L Prealbumin Fluid Type BRONCHIAL WASH Fluid Source Fluid Color PINK Fluid Appearance TURBID Fluid Viscosity HIGHLY VISCOUS Fluid WBC 8850 Fluid RBC 9225 01/10/17 01/10/17 01/10/17 04:15 04:15 04:15 WBC 16.4 H RBC 3.23 L Hgb 9.4 L Hct 28.5 L MCV 88 MCH 29.1 MCHC 33.0 RDW 15.4 H Plt Count 121 L Seg Neutrophils % Not Reportable Lymphocytes % Not Reportable Monocytes % Not Reportable Eosinophils % Not Reportable Basophils % Not Reportable Absolute Neutrophils Not Reportable Absolute Lymphocytes Not Reportable Absolute Monocytes Not Reportable Absolute Eosinophils Not Reportable Absolute Basophils Not Reportable Carbonic Acid 1.34 HCO3/H2CO3 Ratio 17:1 ABG pH 7.34 L ABG pCO2 44.6 ABG pO2 76.6 L ABG HCO3 23.5 ABG O2 Saturation 94.5 ABG Base Excess -2.4 FiO2 50% Sodium 143.9 Potassium 3.1 L Chloride 113 H Carbon Dioxide 26 Anion Gap 5 BUN 33 H Creatinine 0.64 Est GFR ( Amer) > 60 Est GFR (Non-Af Amer) > 60 Glucose 162 H Calcium 8.1 L Phosphorus 2.2 L Magnesium 2.1 Transferrin Prealbumin 25.5 Fluid Type Fluid Source Fluid Color Fluid Appearance Fluid Viscosity Fluid WBC Fluid RBC 01/07/17 08:50 Stool - Stool - Final 01/07/17 08:50 Stool - Stool Stool Culture - Final NO SALMONELLA, SHIGELLA, CAMPYLOBACTER, OR E.COLI 0157 RECOVERED. NEGATIVE FOR SHIGA TOXINS 1&2. 01/06/17 01/06/17 23:20 23:20 Creatine Kinase 302 H CK-MB (CK-2) 7.47 H Troponin I 0.027 NT-Pro-B Natriuret Pep [id number] H Impressions: Abdomen/Pelvis CT 01/07/17 00:00 IMPRESSION: NO ACUTE FINDINGS WITHIN THE ABDOMEN OR PELVIS. CHRONIC CHANGES ABOVE. Chest/Abdomen CTA 01/07/17 00:00 IMPRESSION: NO PULMONARY EMBOLISM. MULTIFOCAL PNEUMONIA ABOVE WITH SMALL RIGHT PLEURAL EFFUSION. SATISFACTORY POSITION LINES/TUBES. Chest X-Ray 01/10/17 06:00 IMPRESSION: Moderate mixed interstitial and airspace opacities slightly improved. Lines and tubes including right internal jugular central line tip in the right atrium ; consider 8 cm retraction. Assessment & Plan - Diagnosis (1) COPD (chronic obstructive pulmonary disease) Qualifiers: COPD type: emphysema Emphysema type: centrilobular Qualified Code(s): J43.2 - Centrilobular emphysema Is this a current diagnosis for this admission?: Yes (2) Pneumonia Qualifiers: Pneumonia type: due to unspecified organism Laterality: bilateral Lung location: lower lobe of lung Qualified Code(s): J18.9 - Pneumonia, unspecified organism Is this a current diagnosis for this admission?: Yes (3) Septic shock Is this a current diagnosis for this admission?: Yes (4) Acute hypoxemic respiratory failure Is this a current diagnosis for this admission?: Yes (5) Lupus (systemic lupus erythematosus) Qualifiers: Systemic lupus erythematosus type: unspecified Systemic lupus erythematosus organ involvement: unspecified Qualified Code(s): M32.9 - Systemic lupus erythematosus, unspecified Is this a current diagnosis for this admission?: Yes (6) Steroid dependence Is this a current diagnosis for this admission?: Yes - Time Critical Time spent with patient: 25-34 minutes
[2017-01-10 14:41] LABS: HLA CLASS 1 ANTIBODY Negative (Negative); IIB/IIIA ANTIBODY Negative (Negative)
--- NOTE | 2017-01-10 14:53 | PDOC PROGRESS REPORT ---
Subjective Progress Note for:: 01/10/17 Subjective:: No acute events overnight. Patient has almost been weaned off levophed. MAXIMUM TEMPERATURE the last 24 hours has been 98.6F. Patient intubated and sedated. Unable to obtain review of systems. Physical Exam Vital Signs: Temp Pulse Resp BP Pulse Ox 97.0 F 96 10 L 122/75 92 01/10/17 06:00 01/10/17 01:40 01/10/17 06:00 01/10/17 05:49 01/10/17 06:00 Intake & Output 01/09/17 01/10/17 01/11/17 06:59 06:59 06:59 Intake Total 5096 3986 Output Total 7564 3495 Balance 2671 491 Weight 87.2 kg 91.4 kg Exam: General: Intubated and sedated, HEENT: AT/NC, PERRL, oropharynx is moist, pink, no scleral icterus, no conjunctival injection Neck: +JVD, trachea midline Chest: Bilateral rhonchi, bilateral Rales CV: IRR, normal S1 and S2, no rub, no gallop, +sm llsb Abdomen: Soft, active bowel sounds; no rigidity Extremities: No cyanosis, clubbing; 3+edema Results Laboratory Results: 01/10/17 04:15 01/10/17 04:15 01/07/17 01/08/17 01/09/17 05:03 05:15 05:15 WBC 8.1 RBC 3.71 L Hgb 10.9 L Hct 33.2 L MCV 90 MCH 29.4 MCHC 32.8 RDW 15.6 H Plt Count 159 Seg Neutrophils % Lymphocytes % Monocytes % Eosinophils % Basophils % Absolute Neutrophils Absolute Lymphocytes Absolute Monocytes Absolute Eosinophils Absolute Basophils Carbonic Acid HCO3/H2CO3 Ratio ABG pH ABG pCO2 ABG pO2 ABG HCO3 ABG O2 Saturation ABG Base Excess FiO2 Sodium Potassium Chloride Carbon Dioxide Anion Gap BUN Creatinine Est GFR ( Amer) Est GFR (Non-Af Amer) Glucose Calcium Phosphorus Magnesium 2.4 H Transferrin 122 L Prealbumin Fluid Type Fluid Source Fluid Color Fluid Appearance Fluid Viscosity Fluid WBC Fluid RBC 01/09/17 01/10/17 01/10/17 10:08 04:15 04:15 WBC RBC Hgb Hct MCV MCH MCHC RDW Plt Count Seg Neutrophils % Lymphocytes % Monocytes % Eosinophils % Basophils % Absolute Neutrophils Absolute Lymphocytes Absolute Monocytes Absolute Eosinophils Absolute Basophils Carbonic Acid 1.34 HCO3/H2CO3 Ratio 17:1 ABG pH 7.34 L ABG pCO2 44.6 ABG pO2 76.6 L ABG HCO3 23.5 ABG O2 Saturation 94.5 ABG Base Excess -2.4 FiO2 50% Sodium 143.9 Potassium 3.1 L Chloride 113 H Carbon Dioxide 26 Anion Gap 5 BUN 33 H Creatinine 0.64 Est GFR ( Amer) > 60 Est GFR (Non-Af Amer) > 60 Glucose 162 H Calcium 8.1 L Phosphorus 2.2 L Magnesium 2.1 Transferrin Prealbumin 25.5 Fluid Type BRONCHIAL WASH Fluid Source Fluid Color PINK Fluid Appearance TURBID Fluid Viscosity HIGHLY VISCOUS Fluid WBC 8850 Fluid RBC 9225 01/10/17 04:15 WBC 16.4 H RBC 3.23 L Hgb 9.4 L Hct 28.5 L MCV 88 MCH 29.1 MCHC 33.0 RDW 15.4 H Plt Count 121 L Seg Neutrophils % Not Reportable Lymphocytes % Not Reportable Monocytes % Not Reportable Eosinophils % Not Reportable Basophils % Not Reportable Absolute Neutrophils Not Reportable Absolute Lymphocytes Not Reportable Absolute Monocytes Not Reportable Absolute Eosinophils Not Reportable Absolute Basophils Not Reportable Carbonic Acid HCO3/H2CO3 Ratio ABG pH ABG pCO2 ABG pO2 ABG HCO3 ABG O2 Saturation ABG Base Excess FiO2 Sodium Potassium Chloride Carbon Dioxide Anion Gap BUN Creatinine Est GFR ( Amer) Est GFR (Non-Af Amer) Glucose Calcium Phosphorus Magnesium Transferrin Prealbumin Fluid Type Fluid Source Fluid Color Fluid Appearance Fluid Viscosity Fluid WBC Fluid RBC 01/07/17 08:50 Stool - Stool - Final 01/07/17 08:50 Stool - Stool Stool Culture - Final NO SALMONELLA, SHIGELLA, CAMPYLOBACTER, OR E.COLI 0157 RECOVERED. NEGATIVE FOR SHIGA TOXINS 1&2. 01/07/17 08:50 Sputum Gram Stain - Final 01/07/17 08:50 Sputum Sputum Culture - Final NO GROWTH 2 DAYS 01/06/17 01/06/17 23:20 23:20 Creatine Kinase 302 H CK-MB (CK-2) 7.47 H Troponin I 0.027 NT-Pro-B Natriuret Pep [id number] H Impressions: Abdomen/Pelvis CT 01/07/17 00:00 IMPRESSION: NO ACUTE FINDINGS WITHIN THE ABDOMEN OR PELVIS. CHRONIC CHANGES ABOVE. Chest/Abdomen CTA 01/07/17 00:00 IMPRESSION: NO PULMONARY EMBOLISM. MULTIFOCAL PNEUMONIA ABOVE WITH SMALL RIGHT PLEURAL EFFUSION. SATISFACTORY POSITION LINES/TUBES. Chest X-Ray 01/10/17 06:00 IMPRESSION: Moderate mixed interstitial and airspace opacities slightly improved. Lines and tubes including right internal jugular central line tip in the right atrium ; consider 8 cm retraction. Assessment & Plan - Diagnosis (1) Septic shock Is this a current diagnosis for this admission?: YesPlan: Improving. Patient is off levophed. Patient currently with Haemophilus influenza of both sets of blood cultures. Patient is well covered with Levaquin and cefepime. Have stopped gentamicin and vancomycin. Bronchoscopy reveals purulent drainage and inflamed Will maintain a map of 65. Obtain central line and monitor CVP every 4 hours. Patient had lactic acid of 6.9 which decreased to 3.9 after hydration. Likely with adrenal insufficiency and will decrease Solu-Medrol to 60 IV every 6. (2) Pneumonia Qualifiers: Pneumonia type: due to Haemophilus influenzae Laterality: right Lung location: lower lobe of lung Qualified Code(s): J14 - Pneumonia due to Hemophilus influenzae Is this a current diagnosis for this admission?: YesPlan: Patient currently with Haemophilus influenza of both sets of blood cultures. Patient is well covered with Levaquin and cefepime. Scheduled nebulized treatments. BID Mucomyst. Cultures including AFB with concern for MAC and fungal cultures in light of her immune suppression. Patient to undergo bronchoscopy today with pulmonary medicine. Initiate chest physiotherapy. (3) Acute renal failure Qualifiers: Acute renal failure type: with acute tubular necrosis Qualified Code (s): N17.0 - Acute kidney failure with tubular necrosis Is this a current diagnosis for this admission?: YesPlan: Has resolved to baseline. This was likely ATN due to underlying sepsis (4) COPD (chronic obstructive pulmonary disease) Qualifiers: COPD type: emphysema Emphysema type: centrilobular Qualified Code(s): J43.2 - Centrilobular emphysema Is this a current diagnosis for this admission?: YesPlan: Continue patient on scheduled nebulized treatments and steroids (5) Acute hypoxemic respiratory failure Is this a current diagnosis for this admission?: YesPlan: Improving O2 requirement. Continues to be intubated. Patient with documented hypoxemia in the field. Appreciate consult pulmonary medicine for ventilator management and bronchoscopy. (6) Hypothyroid Qualifiers: Hypothyroidism type: unspecified Qualified Code(s): E03.9 - Hypothyroidism, unspecified Is this a current diagnosis for this admission?: YesPlan: All numbers are within normal limits. Continue current Synthroid dosage. (7) Lupus (systemic lupus erythematosus) Qualifiers: Systemic lupus erythematosus type: unspecified Systemic lupus erythematosus organ involvement: unspecified Qualified Code(s): M32.9 - Systemic lupus erythematosus, unspecified Is this a current diagnosis for this admission?: YesPlan: Anti-dsDNA antibodies are less than 1. Concern for lupus involvement of her lungs. (8) Steroid dependence Is this a current diagnosis for this admission?: YesPlan: We will potentially have to transition patient to Cortef in addition to steroid due to her underlying steroid dependence. Stress dose steroids (9) HLD (hyperlipidemia) Qualifiers: Hyperlipidemia type: unspecified Qualified Code(s): E78.5 - Hyperlipidemia, unspecified Is this a current diagnosis for this admission?: Yes (10) Obesity (BMI 30.0-34.9) Is this a current diagnosis for this admission?: Yes - Time Critical Time spent with patient: 35 or more minutes Medications reviewed and adjusted accordingly: Yes Anticipated discharge: Acute Rehab
[2017-01-10 14:58] LABS: IA/IIA ANTIBODY Negative (Negative)
[2017-01-10] MEDS: MIDAZOLAM HCL 100 ML IV PRN (19:34)
[2017-01-10] MEDS: MONTELUKAST SODIUM 10 MG TABLET NG SCH (21:12)
[2017-01-10] MEDS: ASPIRIN 81 MG TABLET, CHEWABLE NG SCH (21:12)
[2017-01-10] MEDS: SERTRALINE HCL 50 MG TABLET NG SCH (21:12)
[2017-01-10] MEDS: LEVOFLOXACIN 750 MG/D5W RTU 750 MG/150 ML RTUPB IV SCH (21:13)
[2017-01-10] MEDS: CETIRIZINE 10 MG TABLET NG SCH (21:13)
[2017-01-11] MEDS: PROPOFOL 100 ML IV PRN ×6 (01:24→21:26)
[2017-01-11] MEDS: GUAIFENESIN SYRP 200 MG/10 ML UDC NG SCH ×6 (01:25→21:20)
[2017-01-11] MEDS: FUROSEMIDE INJ/PF 20 MG/2 ML SDV IV SCH (01:26)
[2017-01-11] MEDS: IPRATROPIUM/ALBUTEROL 0.5-2.5 MG/3 ML AMPUL NEB SCH ×4 (02:17→20:42)
[2017-01-11] MEDS: METHYLPREDNISOLONE INJ 125 MG/2 ML SDV IV SCH ×4 (03:30→21:19)
[2017-01-11 04:48] LABS: ARTERIAL BLOOD BASE EXCESS -1.6 mmol/L; ARTERIAL BLOOD O2 SATURATION 92.1 % (94-98)
[2017-01-11 04:54] LABS: HEMATOCRIT 26.6 % (36.0-47.0); HEMOGLOBIN 9.1 g/dL (12.0-15.5); HGB HCT DIFFERENCE 0.7; MEAN CORPUSCULAR HGB CONC 34.2 g/dL (32.0-36.0); MEAN CORPUSCULAR VOLUME 88 fl (80-97); RED BLOOD COUNT 3.03 10^6/uL (3.72-5.28); RED CELL DISTRIBUTION WIDTH 15.5 % (11.5-14.0); WHITE BLOOD COUNT 12.7 10^3/uL (4.0-10.5)
[2017-01-11] MEDS: LANSOPRAZOLE 30 MG TAB.RAP.DR NG SCH ×2 (05:12→17:10)
[2017-01-11] MEDS: LEVOTHYROXINE SODIUM 0.075 MG TABLET NG SCH (05:12)
[2017-01-11 05:16] LABS: ANION GAP 7 (5-19); BLOOD UREA NITROGEN 44 mg/dL (7-20); CALCIUM 8.2 mg/dL (8.4-10.2); CARBON DIOXIDE 25 mmol/L (22-30); CHLORIDE 113 mmol/L (98-107); CREATININE RESULT 0.66 mg/dL (0.52-1.25); GLUCOSE 152 mg/dL (75-110); MAGNESIUM 2.1 mg/dL (1.6-2.3); POTASSIUM 4.5 mmol/L (3.6-5.0); SODIUM 145.3 mmol/L (137-145)
[2017-01-11 05:20] LABS: BAND NEUTROPHILS % (MANUAL) 2 % (3-5); BASOPHILS % (MANUAL) 0 % (0-2); EOSINOPHILS % (MANUAL) 0 % (0-6); LYMPHOCYTES % (MANUAL) 2 % (13-45); NUCLEATED RED BLOOD CELLS 2 /100 WBC (0); TOTAL CELLS COUNTED 100
[2017-01-11 05:21] LABS: ANISOCYTOSIS 1+; POLYCHROMASIA SLIGHT; TOXIC GRANULATION SLIGHT
[2017-01-11] MEDS: ACETYLCYSTEINE 20% SOLN 800 MG/4 ML VIAL.NEB NEB SCH ×2 (08:28→20:42)
[2017-01-11] MEDS: MIDAZOLAM HCL 100 ML IV PRN (08:30)
[2017-01-11 09:13] LABS: ARTERIAL BLOOD BASE EXCESS 0.5 mmol/L; ARTERIAL BLOOD O2 SATURATION 92.8 % (94-98)
[2017-01-11] MEDS ORDERED: FUROSEMIDE INJ/PF 20 MG/2 ML SDV IV SCH (10:00)
[2017-01-11] MEDS: FONDAPARINUX SODIUM INJ 2.5 MG/0.5 ML DISP.SYRIN SUBCUT SCH (10:26)
[2017-01-11] MEDS: CALCIUM CARBONATE 250 MG/VITAMIN D3 125 UNIT TABLET NG SCH ×2 (10:27→21:20)
[2017-01-11] MEDS: LACTOBACILLUS ACIDOPHILUS 250 MG TAB NG SCH ×2 (10:27→17:10)
[2017-01-11] MEDS: FERROUS SULFATE LIQUID 300 MG/5 ML UDC NG SCH ×3 (10:27→17:10)
[2017-01-11] MEDS: POLYETHYLENE GLYCOL 3350 POWDER 17 GM/1 PACKET NG SCH (10:27)
[2017-01-11] MEDS: POTASSIUM CHLORIDE 20 MEQ/15 ML UDCUP NG SCH (10:27)
[2017-01-11] MEDS: ASCORBIC ACID 500 MG TABLET NG SCH (10:28)
[2017-01-11] MEDS: CEFEPIME HCL 2 GM in DEXTROSE 5%-WATER 50 ML IV SCH ×2 (10:30→21:21)
[2017-01-11] MEDS: METOCLOPRAMIDE HCL ORAL SOLN 10 MG/10 ML UDCUP NG SCH ×3 (10:34→21:24)
[2017-01-11] MEDS: FLUTICASONE/SALMETEROL DISKUS 250-50 MCG/DOSE IH SCH ×2 (10:43→21:24)
[2017-01-11] MEDS: METOPROLOL TARTRATE 25 MG TABLET NG SCH ×2 (10:43→21:22)
--- NOTE | 2017-01-11 12:02 | PDOC PROGRESS REPORT ---
Subjective Progress Note for:: 01/11/17 Subjective:: intubated Physical Exam Vital Signs: Temp Pulse Resp BP Pulse Ox 98.4 F 93 11 L 106/55 L 95 01/11/17 06:00 01/11/17 02:00 01/11/17 06:00 01/11/17 05:50 01/11/17 06:00 Intake & Output 01/10/17 01/11/17 01/12/17 06:59 06:59 06:59 Intake Total 3986 9351 Output Total 6973 4047 Balance 491 -417 Weight 91.4 kg 95.7 kg General appearance: PRESENT: no acute distress, disheveled, obese, well- developed Head exam: PRESENT: atraumatic, normocephalic Eye exam: PRESENT: conjunctiva pale Mouth exam: PRESENT: dry mucosa, neck supple, other - Endotracheal tube in place Neck exam: ABSENT: carotid bruit, JVD, lymphadenopathy, thyromegaly Respiratory exam: PRESENT: decreased breath sounds, prolonged expiratory phas, rales, rhonchi, symmetrical, unlabored, wheezes Cardiovascular exam: PRESENT: irregular rhythm Pulses: PRESENT: normal radial pulses GI/Abdominal exam: PRESENT: normal bowel sounds, soft. ABSENT: distended, guarding, mass, organolmegaly, rebound, tenderness Rectal exam: PRESENT: deferred Gentrourinary exam: PRESENT: indwelling catheter Extremities exam: PRESENT: +1 edema Skin exam: PRESENT: dry, warm Results Laboratory Results: 01/11/17 04:30 01/11/17 04:30 01/11/17 01/11/17 01/11/17 04:30 04:30 04:30 WBC 12.7 H RBC 3.03 L Hgb 9.1 L Hct 26.6 L MCV 88 MCH 30.0 MCHC 34.2 RDW 15.5 H Plt Count 100 L Seg Neutrophils % Not Reportable Lymphocytes % Not Reportable Monocytes % Not Reportable Eosinophils % Not Reportable Basophils % Not Reportable Absolute Neutrophils Not Reportable Absolute Lymphocytes Not Reportable Absolute Monocytes Not Reportable Absolute Eosinophils Not Reportable Absolute Basophils Not Reportable Carbonic Acid 1.71 H HCO3/H2CO3 Ratio 15:1 ABG pH 7.28 L ABG pCO2 56.9 H ABG pO2 71.4 L ABG HCO3 26.2 H ABG O2 Saturation 92.1 L ABG Base Excess -1.6 FiO2 60% Sodium 145.3 H Potassium 4.5 Chloride 113 H Carbon Dioxide 25 Anion Gap 7 BUN 44 H Creatinine 0.66 Est GFR ( Amer) > 60 Est GFR (Non-Af Amer) > 60 Glucose 152 H Calcium 8.2 L Magnesium 2.1 01/09/17 10:08 Bronchial Washings Gram Stain - Final 01/09/17 10:08 Bronchial Washings Bronchial Washings Culture - Final NO GROWTH 2 DAYS 01/09/17 10:08 Bronchial Washings AFB Smear Concentration - Final 01/09/17 10:08 Bronchial Washings Acid Fast Bacilli Smear - Final 01/06/17 01/06/17 23:20 23:20 Creatine Kinase 302 H CK-MB (CK-2) 7.47 H Troponin I 0.027 NT-Pro-B Natriuret Pep [id number] H Impressions: Abdomen/Pelvis CT 01/07/17 00:00 IMPRESSION: NO ACUTE FINDINGS WITHIN THE ABDOMEN OR PELVIS. CHRONIC CHANGES ABOVE. Chest/Abdomen CTA 01/07/17 00:00 IMPRESSION: NO PULMONARY EMBOLISM. MULTIFOCAL PNEUMONIA ABOVE WITH SMALL RIGHT PLEURAL EFFUSION. SATISFACTORY POSITION LINES/TUBES. Chest X-Ray 01/11/17 06:00 IMPRESSION: Moderate mixed interstitial and airspace opacities, stable. Lines and tubes appear Assessment & Plan - Diagnosis (1) COPD (chronic obstructive pulmonary disease) Qualifiers: COPD type: emphysema Emphysema type: centrilobular Qualified Code(s): J43.2 - Centrilobular emphysema Is this a current diagnosis for this admission?: Yes (2) Pneumonia Qualifiers: Pneumonia type: due to unspecified organism Laterality: bilateral Lung location: lower lobe of lung Qualified Code(s): J18.9 - Pneumonia, unspecified organism Is this a current diagnosis for this admission?: Yes (3) Septic shock Is this a current diagnosis for this admission?: Yes (4) Acute hypoxemic respiratory failure Is this a current diagnosis for this admission?: YesPlan: Requiring increased FiO2 and PEEP (5) Lupus (systemic lupus erythematosus) Qualifiers: Systemic lupus erythematosus type: unspecified Systemic lupus erythematosus organ involvement: unspecified Qualified Code(s): M32.9 - Systemic lupus erythematosus, unspecified Is this a current diagnosis for this admission?: Yes (6) Steroid dependence Is this a current diagnosis for this admission?: Yes - Time Critical Time spent with patient: 35 or more minutes
[2017-01-11] MEDS: NORMAL SALINE 1000 ML 1,000 ML IV PRN (14:21)
[2017-01-11] MEDS: METOPROLOL TARTRATE PF/INJ 5 MG/5 ML SDV IV PRN (14:54)
[2017-01-11] MEDS: FENTANYL CITRATE INJ/PF 100 MCG/2 ML AMPUL IV PRN (15:31)
--- NOTE | 2017-01-11 17:44 | PDOC PROGRESS REPORT ---
Subjective Progress Note for:: 01/11/17 Subjective:: No acute events overnight. Patient has been weaned off levophed. MAXIMUM TEMPERATURE the last 24 hours has been 99.1F. Patient weaned for approximately 4 hours yesterday. Patient intubated and sedated. Unable to obtain review of systems. Physical Exam Vital Signs: Temp Pulse Resp BP Pulse Ox 98.4 F 93 11 L 106/55 L 95 01/11/17 06:00 01/11/17 02:00 01/11/17 06:00 01/11/17 05:50 01/11/17 06:00 Intake & Output 01/10/17 01/11/17 01/12/17 06:59 06:59 06:59 Intake Total 3986 2958 Output Total 8808 4005 Balance 491 -417 Weight 91.4 kg 95.7 kg Exam: General: Intubated and sedated, HEENT: AT/NC, PERRL, oropharynx is moist, pink, no scleral icterus, no conjunctival injection Neck: +JVD, trachea midline Chest: Bilateral rhonchi CV: IRR, normal S1 and S2, no rub, no gallop, +sm llsb Abdomen: Soft, active bowel sounds; no rigidity Extremities: No cyanosis, clubbing; 2+edema Results Laboratory Results: 01/11/17 04:30 01/11/17 04:30 01/11/17 01/11/17 01/11/17 04:30 04:30 04:30 WBC 12.7 H RBC 3.03 L Hgb 9.1 L Hct 26.6 L MCV 88 MCH 30.0 MCHC 34.2 RDW 15.5 H Plt Count 100 L Seg Neutrophils % Not Reportable Lymphocytes % Not Reportable Monocytes % Not Reportable Eosinophils % Not Reportable Basophils % Not Reportable Absolute Neutrophils Not Reportable Absolute Lymphocytes Not Reportable Absolute Monocytes Not Reportable Absolute Eosinophils Not Reportable Absolute Basophils Not Reportable Carbonic Acid 1.71 H HCO3/H2CO3 Ratio 15:1 ABG pH 7.28 L ABG pCO2 56.9 H ABG pO2 71.4 L ABG HCO3 26.2 H ABG O2 Saturation 92.1 L ABG Base Excess -1.6 FiO2 60% Sodium 145.3 H Potassium 4.5 Chloride 113 H Carbon Dioxide 25 Anion Gap 7 BUN 44 H Creatinine 0.66 Est GFR ( Amer) > 60 Est GFR (Non-Af Amer) > 60 Glucose 152 H Calcium 8.2 L Magnesium 2.1 01/09/17 10:08 Bronchial Washings Gram Stain - Final 01/09/17 10:08 Bronchial Washings Bronchial Washings Culture - Final NO GROWTH 2 DAYS 01/09/17 10:08 Bronchial Washings AFB Smear Concentration - Final 01/09/17 10:08 Bronchial Washings Acid Fast Bacilli Smear - Final 01/06/17 01/06/17 23:20 23:20 Creatine Kinase 302 H CK-MB (CK-2) 7.47 H Troponin I 0.027 NT-Pro-B Natriuret Pep [id number] H Impressions: Abdomen/Pelvis CT 01/07/17 00:00 IMPRESSION: NO ACUTE FINDINGS WITHIN THE ABDOMEN OR PELVIS. CHRONIC CHANGES ABOVE. Chest/Abdomen CTA 01/07/17 00:00 IMPRESSION: NO PULMONARY EMBOLISM. MULTIFOCAL PNEUMONIA ABOVE WITH SMALL RIGHT PLEURAL EFFUSION. SATISFACTORY POSITION LINES/TUBES. Chest X-Ray 01/11/17 06:00 IMPRESSION: Moderate mixed interstitial and airspace opacities, stable. Lines and tubes appear Assessment & Plan - Diagnosis (1) Septic shock Is this a current diagnosis for this admission?: YesPlan: Improved. Patient is off levophed. Patient currently with Haemophilus influenza of both sets of blood cultures. Patient is well covered with Levaquin and cefepime. Have stopped gentamicin and vancomycin. In light of low-grade temperature less than recent instrumentation, will consider re-adding vancomycin. Bronchoscopy reveals purulent drainage and inflamed Will maintain a map of 65. Obtain central line and monitor CVP every 4 hours. Patient had lactic acid of 6.9 which decreased to 3.9 after hydration. Likely with adrenal insufficiency and Solu-Medrol to 60 IV every 6. (2) Pneumonia Qualifiers: Pneumonia type: due to Haemophilus influenzae Laterality: right Lung location: lower lobe of lung Qualified Code(s): J14 - Pneumonia due to Hemophilus influenzae Is this a current diagnosis for this admission?: YesPlan: Patient currently with Haemophilus influenza of both sets of blood cultures. Patient is well covered with Levaquin and cefepime. Scheduled nebulized treatments. BID Mucomyst. Cultures including AFB with concern for MAC and fungal cultures in light of her immune suppression. Patient to undergo bronchoscopy today with pulmonary medicine. Initiate chest physiotherapy. (3) Acute renal failure Qualifiers: Acute renal failure type: with acute tubular necrosis Qualified Code (s): N17.0 - Acute kidney failure with tubular necrosis Is this a current diagnosis for this admission?: YesPlan: Has resolved to baseline. This was likely ATN due to underlying sepsis (4) COPD (chronic obstructive pulmonary disease) Qualifiers: COPD type: emphysema Emphysema type: centrilobular Qualified Code(s): J43.2 - Centrilobular emphysema Is this a current diagnosis for this admission?: YesPlan: Continue patient on scheduled nebulized treatments and steroids (5) Acute hypoxemic respiratory failure Is this a current diagnosis for this admission?: YesPlan: Improving O2 requirement. Continues to be intubated. Patient with documented hypoxemia in the field. Appreciate consult pulmonary medicine for ventilator management and bronchoscopy. (6) Hypothyroid Qualifiers: Hypothyroidism type: unspecified Qualified Code(s): E03.9 - Hypothyroidism, unspecified Is this a current diagnosis for this admission?: YesPlan: All numbers are within normal limits. Continue current Synthroid dosage. (7) Lupus (systemic lupus erythematosus) Qualifiers: Systemic lupus erythematosus type: unspecified Systemic lupus erythematosus organ involvement: unspecified Qualified Code(s): M32.9 - Systemic lupus erythematosus, unspecified Is this a current diagnosis for this admission?: YesPlan: Anti-dsDNA antibodies are less than 1. No concern for lupus involvement of her lungs. (8) Steroid dependence Is this a current diagnosis for this admission?: YesPlan: We will potentially have to transition patient to Cortef in addition to steroid due to her underlying steroid dependence. Stress dose steroids (9) HLD (hyperlipidemia) Qualifiers: Hyperlipidemia type: unspecified Qualified Code(s): E78.5 - Hyperlipidemia, unspecified Is this a current diagnosis for this admission?: Yes (10) Obesity (BMI 30.0-34.9) Is this a current diagnosis for this admission?: Yes - Time Critical Time spent with patient: 25-34 minutes Medications reviewed and adjusted accordingly: Yes
[2017-01-11] MEDS: MONTELUKAST SODIUM 10 MG TABLET NG SCH (21:20)
[2017-01-11] MEDS: CETIRIZINE 10 MG TABLET NG SCH (21:20)
[2017-01-11] MEDS: SERTRALINE HCL 50 MG TABLET NG SCH (21:20)
[2017-01-11] MEDS: LEVOFLOXACIN 750 MG/D5W RTU 750 MG/150 ML RTUPB IV SCH (21:21)
[2017-01-11] MEDS: ASPIRIN 81 MG TABLET, CHEWABLE NG SCH (21:21)
[2017-01-12] MEDS: INSULIN REG, HUMAN 100 UNIT/ML 3 ML VIAL (PYX) SUBCUT PRN ×3 (00:01→17:37)
[2017-01-12] MEDS: MIDAZOLAM HCL 100 ML IV PRN (00:24)
[2017-01-12] MEDS: PROPOFOL 100 ML IV PRN ×6 (00:24→23:43)
[2017-01-12] MEDS: GUAIFENESIN SYRP 200 MG/10 ML UDC NG SCH ×6 (02:02→21:10)
[2017-01-12] MEDS: IPRATROPIUM/ALBUTEROL 0.5-2.5 MG/3 ML AMPUL NEB SCH ×4 (02:26→20:14)
[2017-01-12] MEDS: METHYLPREDNISOLONE INJ 125 MG/2 ML SDV IV SCH ×4 (03:28→21:12)
[2017-01-12 05:42] LABS: ARTERIAL BLOOD BASE EXCESS 0.9 mmol/L; ARTERIAL BLOOD O2 SATURATION 97.6 % (94-98)
[2017-01-12] MEDS: LEVOTHYROXINE SODIUM 0.075 MG TABLET NG SCH (05:45)
[2017-01-12] MEDS: LANSOPRAZOLE 30 MG TAB.RAP.DR NG SCH ×2 (05:45→17:37)
[2017-01-12] MEDS: NORMAL SALINE 1000 ML 1,000 ML IV PRN (05:46)
[2017-01-12 05:50] LABS: HEMATOCRIT 27.5 % (36.0-47.0); HEMOGLOBIN 9.3 g/dL (12.0-15.5); HGB HCT DIFFERENCE 0.4; MEAN CORPUSCULAR HEMOGLOBIN 29.5 pg (27.0-33.4); MEAN CORPUSCULAR HGB CONC 33.9 g/dL (32.0-36.0); MEAN CORPUSCULAR VOLUME 87 fl (80-97); RED BLOOD COUNT 3.17 10^6/uL (3.72-5.28); RED CELL DISTRIBUTION WIDTH 15.4 % (11.5-14.0); WHITE BLOOD COUNT 14.6 10^3/uL (4.0-10.5)
[2017-01-12 05:58] LABS: ANION GAP 7 (5-19); BLOOD UREA NITROGEN 46 mg/dL (7-20); CALCIUM 8.7 mg/dL (8.4-10.2); CARBON DIOXIDE 25 mmol/L (22-30); CHLORIDE 113 mmol/L (98-107); CREATININE RESULT 0.65 mg/dL (0.52-1.25); GLUCOSE 187 mg/dL (75-110); MAGNESIUM 2.3 mg/dL (1.6-2.3); PHOSPHORUS 1.9 mg/dL (2.5-4.5); POTASSIUM 3.8 mmol/L (3.6-5.0); SODIUM 145.3 mmol/L (137-145)
[2017-01-12 06:22] LABS: BAND NEUTROPHILS % (MANUAL) 6 % (3-5); BASOPHILS % (MANUAL) 0 % (0-2); EOSINOPHILS % (MANUAL) 3 % (0-6); LYMPHOCYTES % (MANUAL) 4 % (13-45); TOTAL CELLS COUNTED 100
[2017-01-12 06:23] LABS: ANISOCYTOSIS SLIGHT; BURR CELLS SLIGHT; OVALOCYTES 1+; POLYCHROMASIA SLIGHT; TEAR DROP CELLS SLIGHT; TOXIC GRANULATION SLIGHT
[2017-01-12] MEDS: ACETYLCYSTEINE 20% SOLN 800 MG/4 ML VIAL.NEB NEB SCH ×2 (08:42→20:14)
[2017-01-12] MEDS: METOPROLOL TARTRATE 25 MG TABLET NG SCH ×2 (09:07→21:07)
[2017-01-12] MEDS: LACTOBACILLUS ACIDOPHILUS 250 MG TAB NG SCH ×2 (09:09→17:37)
[2017-01-12] MEDS: FONDAPARINUX SODIUM INJ 2.5 MG/0.5 ML DISP.SYRIN SUBCUT SCH (09:09)
[2017-01-12] MEDS: POTASSIUM CHLORIDE 20 MEQ/15 ML UDCUP NG SCH (09:10)
[2017-01-12] MEDS: FERROUS SULFATE LIQUID 300 MG/5 ML UDC NG SCH ×3 (09:10→17:36)
[2017-01-12] MEDS: FUROSEMIDE INJ/PF 40 MG/4 ML SDV IV SCH ×2 (09:11→21:11)
[2017-01-12] MEDS: ASCORBIC ACID 500 MG TABLET NG SCH (09:11)
[2017-01-12] MEDS: CALCIUM CARBONATE 250 MG/VITAMIN D3 125 UNIT TABLET NG SCH ×2 (09:11→21:10)
[2017-01-12] MEDS: ALBUMIN HUMAN 50 ML IV SCH ×2 (09:13→11:09)
[2017-01-12] MEDS: CEFEPIME HCL 2 GM in DEXTROSE 5%-WATER 50 ML IV SCH ×2 (09:24→21:09)
[2017-01-12] MEDS: METOCLOPRAMIDE HCL ORAL SOLN 10 MG/10 ML UDCUP NG SCH ×2 (09:24→10:27)
[2017-01-12] MEDS: POLYETHYLENE GLYCOL 3350 POWDER 17 GM/1 PACKET NG SCH (09:25)
[2017-01-12] MEDS: FLUTICASONE/SALMETEROL DISKUS 250-50 MCG/DOSE IH SCH ×2 (09:25→21:13)
[2017-01-12] MEDS ORDERED: SODIUM PHOS,M-BASIC-D-BASIC 30 MMOL in NORMAL SALINE 250 ML IV ONE (09:45)
[2017-01-12] MEDS ORDERED: FUROSEMIDE INJ/PF 20 MG/2 ML SDV IV SCH (10:00)
[2017-01-12] MEDS ORDERED: POTASSIUM PHOS,M-BASIC-D-BASIC 15 MMOL in NORMAL SALINE 250 ML IV ONE (10:00)
[2017-01-12] MEDS: FENTANYL CITRATE INJ/PF 100 MCG/2 ML AMPUL IV PRN ×2 (11:09→23:44)
--- NOTE | 2017-01-12 12:16 | PDOC PROGRESS REPORT ---
Subjective Progress Note for:: 01/12/17 Subjective:: intubated Physical Exam Vital Signs: Temp Pulse Resp BP Pulse Ox 98.2 F 85 24 H 158/85 H 96 01/12/17 06:21 01/12/17 02:26 01/12/17 06:21 01/12/17 06:21 01/12/17 06:21 Intake & Output 01/11/17 01/12/17 01/13/17 06:59 06:59 06:59 Intake Total 2954 4952 Output Total 7876 7805 Balance -417 357 Weight 95.7 kg 94 kg General appearance: PRESENT: no acute distress, disheveled, obese, well- nourished Head exam: PRESENT: atraumatic, normocephalic Eye exam: PRESENT: conjunctiva pale Mouth exam: PRESENT: dry mucosa, neck supple, other - Endotracheal tube in place Neck exam: ABSENT: carotid bruit, JVD, lymphadenopathy, thyromegaly Respiratory exam: PRESENT: decreased breath sounds, prolonged expiratory phas, rales, rhonchi, symmetrical, unlabored Cardiovascular exam: PRESENT: RRR, +S1, +S2 Pulses: PRESENT: normal radial pulses GI/Abdominal exam: PRESENT: normal bowel sounds, soft. ABSENT: distended, guarding, mass, organolmegaly, rebound, tenderness Rectal exam: PRESENT: deferred Gentrourinary exam: PRESENT: indwelling catheter Skin exam: PRESENT: dry, warm Results Laboratory Results: 01/12/17 05:20 01/12/17 05:20 01/11/17 01/12/17 01/12/17 08:55 05:20 05:20 WBC RBC Hgb Hct MCV MCH MCHC RDW Plt Count Seg Neutrophils % Lymphocytes % Monocytes % Eosinophils % Basophils % Absolute Neutrophils Absolute Lymphocytes Absolute Monocytes Absolute Eosinophils Absolute Basophils Carbonic Acid 1.44 H 0.82 L HCO3/H2CO3 Ratio 18:1 27:1 ABG pH 7.36 7.54 H ABG pCO2 47.8 H 27.4 L ABG pO2 68.3 L 85.9 ABG HCO3 26.3 H 22.8 ABG O2 Saturation 92.8 L 97.6 ABG Base Excess 0.5 0.9 FiO2 60% 50% Sodium 145.3 H Potassium 3.8 Chloride 113 H Carbon Dioxide 25 Anion Gap 7 BUN 46 H Creatinine 0.65 Est GFR ( Amer) > 60 Est GFR (Non-Af Amer) > 60 Glucose 187 H Calcium 8.7 Phosphorus 1.9 L Magnesium 2.3 01/12/17 05:20 WBC 14.6 H RBC 3.17 L Hgb 9.3 L Hct 27.5 L MCV 87 MCH 29.5 MCHC 33.9 RDW 15.4 H Plt Count 105 L Seg Neutrophils % Not Reportable Lymphocytes % Not Reportable Monocytes % Not Reportable Eosinophils % Not Reportable Basophils % Not Reportable Absolute Neutrophils Not Reportable Absolute Lymphocytes Not Reportable Absolute Monocytes Not Reportable Absolute Eosinophils Not Reportable Absolute Basophils Not Reportable Carbonic Acid HCO3/H2CO3 Ratio ABG pH ABG pCO2 ABG pO2 ABG HCO3 ABG O2 Saturation ABG Base Excess FiO2 Sodium Potassium Chloride Carbon Dioxide Anion Gap BUN Creatinine Est GFR ( Amer) Est GFR (Non-Af Amer) Glucose Calcium Phosphorus Magnesium 01/07/17 08:50 Tracheal Aspirate Fungal Smear - Final 01/07/17 08:50 Tracheal Aspirate Fungal Smear - Final 01/07/17 08:50 Tracheal Aspirate Fungal Smear - Final 01/09/17 10:08 Bronchial Washings Gram Stain - Final 01/09/17 10:08 Bronchial Washings Bronchial Washings Culture - Final NO GROWTH 2 DAYS 01/09/17 10:08 Bronchial Washings AFB Smear Concentration - Final 01/09/17 10:08 Bronchial Washings Acid Fast Bacilli Smear - Final 01/06/17 01/06/17 23:20 23:20 Creatine Kinase 302 H CK-MB (CK-2) 7.47 H Troponin I 0.027 NT-Pro-B Natriuret Pep [id number] H Impressions: Abdomen/Pelvis CT 01/07/17 00:00 IMPRESSION: NO ACUTE FINDINGS WITHIN THE ABDOMEN OR PELVIS. CHRONIC CHANGES ABOVE. Chest/Abdomen CTA 01/07/17 00:00 IMPRESSION: NO PULMONARY EMBOLISM. MULTIFOCAL PNEUMONIA ABOVE WITH SMALL RIGHT PLEURAL EFFUSION. SATISFACTORY POSITION LINES/TUBES. Chest X-Ray 01/12/17 06:00 IMPRESSION: Moderate mixed interstitial and airspace opacity with some interval improvement. Lines and tubes. Assessment & Plan - Diagnosis (1) COPD (chronic obstructive pulmonary disease) Qualifiers: COPD type: emphysema Emphysema type: centrilobular Qualified Code(s): J43.2 - Centrilobular emphysema Is this a current diagnosis for this admission?: Yes (2) Pneumonia Qualifiers: Pneumonia type: due to unspecified organism Laterality: bilateral Lung location: lower lobe of lung Qualified Code(s): J18.9 - Pneumonia, unspecified organism Is this a current diagnosis for this admission?: Yes (3) Septic shock Is this a current diagnosis for this admission?: Yes (4) Acute hypoxemic respiratory failure Is this a current diagnosis for this admission?: Yes (5) Lupus (systemic lupus erythematosus) Qualifiers: Systemic lupus erythematosus type: unspecified Systemic lupus erythematosus organ involvement: unspecified Qualified Code(s): M32.9 - Systemic lupus erythematosus, unspecified Is this a current diagnosis for this admission?: Yes (6) Steroid dependence Is this a current diagnosis for this admission?: Yes
[2017-01-12] MEDS ORDERED: FLUCONAZOLE 400 MG/NS RTU 200 ML IV ONE (12:29)
[2017-01-12] MEDS: LORAZEPAM 1 MG TABLET NG SCH ×2 (12:44→21:07)
--- NOTE | 2017-01-12 13:15 | PDOC PROGRESS REPORT ---
Subjective Progress Note for:: 01/12/17 Subjective:: No acute events overnight. MAXIMUM TEMPERATURE the last 24 hours has been 100.2F. Patient intubated and sedated. Unable to obtain review of systems. Nursing reports several loose stools. Physical Exam Vital Signs: Temp Pulse Resp BP Pulse Ox 98.2 F 85 24 H 158/85 H 96 01/12/17 06:21 01/12/17 02:26 01/12/17 06:21 01/12/17 06:21 01/12/17 06:21 Intake & Output 01/11/17 01/12/17 01/13/17 06:59 06:59 06:59 Intake Total 2958 2732 Output Total 3377 9745 Balance -417 357 Weight 95.7 kg 94 kg Exam: General: Intubated and sedated, HEENT: AT/NC, PERRL, oropharynx is moist, pink, no scleral icterus, no conjunctival injection Neck: +JVD, trachea midline Chest: Bilateral rhonchi, improved air excursion CV: IRR, normal S1 and S2, no rub, no gallop, +sm llsb Abdomen: Soft, active bowel sounds; no rigidity Extremities: No cyanosis, clubbing; 2+edema Results Laboratory Results: 01/12/17 05:20 01/12/17 05:20 01/11/17 01/12/17 01/12/17 08:55 05:20 05:20 WBC RBC Hgb Hct MCV MCH MCHC RDW Plt Count Seg Neutrophils % Lymphocytes % Monocytes % Eosinophils % Basophils % Absolute Neutrophils Absolute Lymphocytes Absolute Monocytes Absolute Eosinophils Absolute Basophils Carbonic Acid 1.44 H 0.82 L HCO3/H2CO3 Ratio 18:1 27:1 ABG pH 7.36 7.54 H ABG pCO2 47.8 H 27.4 L ABG pO2 68.3 L 85.9 ABG HCO3 26.3 H 22.8 ABG O2 Saturation 92.8 L 97.6 ABG Base Excess 0.5 0.9 FiO2 60% 50% Sodium 145.3 H Potassium 3.8 Chloride 113 H Carbon Dioxide 25 Anion Gap 7 BUN 46 H Creatinine 0.65 Est GFR ( Amer) > 60 Est GFR (Non-Af Amer) > 60 Glucose 187 H Calcium 8.7 Phosphorus 1.9 L Magnesium 2.3 01/12/17 05:20 WBC 14.6 H RBC 3.17 L Hgb 9.3 L Hct 27.5 L MCV 87 MCH 29.5 MCHC 33.9 RDW 15.4 H Plt Count 105 L Seg Neutrophils % Not Reportable Lymphocytes % Not Reportable Monocytes % Not Reportable Eosinophils % Not Reportable Basophils % Not Reportable Absolute Neutrophils Not Reportable Absolute Lymphocytes Not Reportable Absolute Monocytes Not Reportable Absolute Eosinophils Not Reportable Absolute Basophils Not Reportable Carbonic Acid HCO3/H2CO3 Ratio ABG pH ABG pCO2 ABG pO2 ABG HCO3 ABG O2 Saturation ABG Base Excess FiO2 Sodium Potassium Chloride Carbon Dioxide Anion Gap BUN Creatinine Est GFR ( Amer) Est GFR (Non-Af Amer) Glucose Calcium Phosphorus Magnesium 01/07/17 08:50 Tracheal Aspirate Fungal Smear - Final 01/07/17 08:50 Tracheal Aspirate Fungal Smear - Final 01/07/17 08:50 Tracheal Aspirate Fungal Smear - Final 01/09/17 10:08 Bronchial Washings Gram Stain - Final 01/09/17 10:08 Bronchial Washings Bronchial Washings Culture - Final NO GROWTH 2 DAYS 01/09/17 10:08 Bronchial Washings AFB Smear Concentration - Final 01/09/17 10:08 Bronchial Washings Acid Fast Bacilli Smear - Final 01/06/17 01/06/17 23:20 23:20 Creatine Kinase 302 H CK-MB (CK-2) 7.47 H Troponin I 0.027 NT-Pro-B Natriuret Pep [id number] H Impressions: Abdomen/Pelvis CT 01/07/17 00:00 IMPRESSION: NO ACUTE FINDINGS WITHIN THE ABDOMEN OR PELVIS. CHRONIC CHANGES ABOVE. Chest/Abdomen CTA 01/07/17 00:00 IMPRESSION: NO PULMONARY EMBOLISM. MULTIFOCAL PNEUMONIA ABOVE WITH SMALL RIGHT PLEURAL EFFUSION. SATISFACTORY POSITION LINES/TUBES. Chest X-Ray 01/12/17 06:00 IMPRESSION: Moderate mixed interstitial and airspace opacity with some interval improvement. Lines and tubes. Assessment & Plan - Diagnosis (1) Septic shock Is this a current diagnosis for this admission?: YesPlan: Improved. Patient is off levophed. Patient currently with Haemophilus influenza of both sets of blood cultures. Patient is well covered with Levaquin and cefepime. Have stopped gentamicin and vancomycin. In light of low-grade temperature less than recent instrumentation, will consider re-adding vancomycin. Bronchoscopy reveals purulent drainage and inflamed mucosa. Will maintain a map of 65. CVP every 4 hours. Patient had lactic acid of 6.9 which decreased to 3.9 after hydration. Likely with adrenal insufficiency and Solu-Medrol to 60 IV every 6 and will decrease this tomorrow to every 8 hours. (2) Pneumonia Qualifiers: Pneumonia type: due to Haemophilus influenzae Laterality: right Lung location: lower lobe of lung Qualified Code(s): J14 - Pneumonia due to Hemophilus influenzae Is this a current diagnosis for this admission?: YesPlan: Patient currently with Haemophilus influenza of both sets of blood cultures. Patient is well covered with Levaquin and cefepime. Patient is on day #6 of 10 for antibiotic therapy. Scheduled nebulized treatments. BID Mucomyst. Cultures including AFB with concern for MAC and fungal cultures in light of her immune suppression. Patient to undergo bronchoscopy today with pulmonary medicine. Initiate chest physiotherapy. (3) Acute renal failure Qualifiers: Acute renal failure type: with acute tubular necrosis Qualified Code (s): N17.0 - Acute kidney failure with tubular necrosis Is this a current diagnosis for this admission?: YesPlan: Has resolved to baseline. This was likely ATN due to underlying sepsis (4) COPD (chronic obstructive pulmonary disease) Qualifiers: COPD type: emphysema Emphysema type: centrilobular Qualified Code(s): J43.2 - Centrilobular emphysema Is this a current diagnosis for this admission?: YesPlan: Continue patient on scheduled nebulized treatments and steroids (5) Acute hypoxemic respiratory failure Is this a current diagnosis for this admission?: YesPlan: Improving O2 requirement. Continues to be intubated. Patient with documented hypoxemia in the field. Appreciate consult pulmonary medicine for ventilator management and bronchoscopy. (6) Hypothyroid Qualifiers: Hypothyroidism type: unspecified Qualified Code(s): E03.9 - Hypothyroidism, unspecified Is this a current diagnosis for this admission?: YesPlan: All numbers are within normal limits. Continue current Synthroid dosage. (7) Lupus (systemic lupus erythematosus) Qualifiers: Systemic lupus erythematosus type: unspecified Systemic lupus erythematosus organ involvement: unspecified Qualified Code(s): M32.9 - Systemic lupus erythematosus, unspecified Is this a current diagnosis for this admission?: YesPlan: Anti-dsDNA antibodies are less than 1. No concern for lupus involvement of her lungs. (8) Steroid dependence Is this a current diagnosis for this admission?: YesPlan: We will potentially have to transition patient to Cortef in addition to steroid due to her underlying steroid dependence. Stress dose steroids (9) HLD (hyperlipidemia) Qualifiers: Hyperlipidemia type: unspecified Qualified Code(s): E78.5 - Hyperlipidemia, unspecified Is this a current diagnosis for this admission?: Yes (10) Obesity (BMI 30.0-34.9) Is this a current diagnosis for this admission?: Yes (11) Hypophosphatemia Is this a current diagnosis for this admission?: YesPlan: Will replete IV phosphorus - Time Critical Time spent with patient: 25-34 minutes Medications reviewed and adjusted accordingly: Yes
[2017-01-12] MEDS: ACETAMINOPHEN 325 MG TABLET NG PRN (13:24)
[2017-01-12 16:50] LABS: ANION GAP 10 (5-19); BLOOD UREA NITROGEN 47 mg/dL (7-20); CALCIUM 8.8 mg/dL (8.4-10.2); CARBON DIOXIDE 26 mmol/L (22-30); CHLORIDE 111 mmol/L (98-107); CREATININE RESULT 0.64 mg/dL (0.52-1.25); GLUCOSE 214 mg/dL (75-110); POTASSIUM 3.8 mmol/L (3.6-5.0); SODIUM 147.4 mmol/L (137-145)
[2017-01-12] MEDS ORDERED: METOCLOPRAMIDE HCL ORAL SOLN 10 MG/10 ML UDCUP NG SCH (18:00)
[2017-01-12] MEDS: CETIRIZINE 10 MG TABLET NG SCH (21:07)
[2017-01-12] MEDS: LEVOFLOXACIN 750 MG/D5W RTU 750 MG/150 ML RTUPB IV SCH (21:10)
[2017-01-12] MEDS: SERTRALINE HCL 50 MG TABLET NG SCH (21:11)
[2017-01-12] MEDS: ASPIRIN 81 MG TABLET, CHEWABLE NG SCH (21:11)
[2017-01-12] MEDS: MONTELUKAST SODIUM 10 MG TABLET NG SCH (21:12)
[2017-01-13] MEDS: INSULIN REG, HUMAN 100 UNIT/ML 3 ML VIAL (PYX) SUBCUT PRN ×3 (00:05→18:23)
[2017-01-13] MEDS: METOPROLOL TARTRATE PF/INJ 5 MG/5 ML SDV IV PRN ×2 (01:11→23:54)
[2017-01-13] MEDS: GUAIFENESIN SYRP 200 MG/10 ML UDC NG SCH ×6 (01:11→21:47)
[2017-01-13] MEDS: IPRATROPIUM/ALBUTEROL 0.5-2.5 MG/3 ML AMPUL NEB SCH ×4 (01:55→21:18)
[2017-01-13] MEDS: LORAZEPAM 1 MG TABLET NG SCH (03:24)
[2017-01-13] MEDS: PROPOFOL 100 ML IV PRN ×8 (03:24→23:54)
[2017-01-13] MEDS: METHYLPREDNISOLONE INJ 125 MG/2 ML SDV IV SCH ×4 (03:24→21:46)
[2017-01-13] MEDS: LEVOTHYROXINE SODIUM 0.075 MG TABLET NG SCH (05:11)
[2017-01-13] MEDS: LANSOPRAZOLE 30 MG TAB.RAP.DR NG SCH ×2 (05:11→17:45)
[2017-01-13 05:14] LABS: ARTERIAL BLOOD BASE EXCESS 3.9 mmol/L; ARTERIAL BLOOD O2 SATURATION 96.4 % (94-98)
[2017-01-13 05:20] LABS: HEMATOCRIT 26.5 % (36.0-47.0); HEMOGLOBIN 8.9 g/dL (12.0-15.5); HGB HCT DIFFERENCE 0.2; MEAN CORPUSCULAR HEMOGLOBIN 29.5 pg (27.0-33.4); MEAN CORPUSCULAR HGB CONC 33.6 g/dL (32.0-36.0); MEAN CORPUSCULAR VOLUME 88 fl (80-97); RED BLOOD COUNT 3.01 10^6/uL (3.72-5.28); RED CELL DISTRIBUTION WIDTH 15.3 % (11.5-14.0); WHITE BLOOD COUNT 16.5 10^3/uL (4.0-10.5)
[2017-01-13 05:31] LABS: ALANINE AMINOTRANSFERASE 73 U/L (9-52); ALBUMIN 2.8 g/dL (3.5-5.0); ALKALINE PHOSPHATASE 80 U/L (38-126); ANION GAP 10 (5-19); ASPARTATE AMINO TRANSFERASE 50 U/L (14-36); BILIRUBIN,DIRECT 0.6 mg/dL (0.0-0.4); BILIRUBIN,TOTAL 0.8 mg/dL (0.2-1.3); BLOOD UREA NITROGEN 46 mg/dL (7-20); CALCIUM 8.5 mg/dL (8.4-10.2); CARBON DIOXIDE 28 mmol/L (22-30); CHLORIDE 109 mmol/L (98-107); CREATININE RESULT 0.59 mg/dL (0.52-1.25); GLUCOSE 205 mg/dL (75-110); MAGNESIUM 2.3 mg/dL (1.6-2.3); PHOSPHORUS 3.6 mg/dL (2.5-4.5); POTASSIUM 3.5 mmol/L (3.6-5.0); SODIUM 147.1 mmol/L (137-145)
[2017-01-13 05:37] LABS: BAND NEUTROPHILS % (MANUAL) 4 % (3-5); BASOPHILS % (MANUAL) 0 % (0-2); EOSINOPHILS % (MANUAL) 0 % (0-6); LYMPHOCYTES % (MANUAL) 2 % (13-45); TOTAL CELLS COUNTED 100
[2017-01-13 05:41] LABS: POLYCHROMASIA SLIGHT; TOXIC GRANULATION 1+
[2017-01-13] MEDS: NORMAL SALINE 1000 ML 1,000 ML IV PRN (08:10)
[2017-01-13] MEDS: ACETYLCYSTEINE 20% SOLN 800 MG/4 ML VIAL.NEB NEB SCH ×2 (08:13→21:18)
--- NOTE | 2017-01-13 08:29 | PDOC PROGRESS REPORT ---
Subjective Progress Note for:: 01/13/17 Subjective:: Patient remained on the ventilator. Tried to be weaned yesterday but unable to , patient became tachycardic and restless. Family reports patient is highly sensitive to sedatives. No reported temperature spikes, nausea or vomiting. Patient had 2 loose stools reported by Clostridium difficile toxin was negative recently. Physical Exam Vital Signs: Temp Pulse Resp BP Pulse Ox 98.8 F 77 18 138/67 H 94 01/13/17 06:00 01/13/17 02:00 01/13/17 06:00 01/13/17 05:52 01/13/17 06:00 Intake & Output 01/12/17 01/13/17 01/14/17 06:59 06:59 06:59 Intake Total 2732 2226 Output Total 1582 0329 Balance 357 -0959 Weight 94 kg 91.7 kg General appearance: PRESENT: no acute distress, obese, other - Intubated and sedated Head exam: PRESENT: normocephalic Mouth exam: PRESENT: moist, neck supple Neck exam: ABSENT: JVD Respiratory exam: PRESENT: rhonchi - Few bilateral. ABSENT: wheezes Cardiovascular exam: PRESENT: RRR. ABSENT: gallop GI/Abdominal exam: PRESENT: normal bowel sounds, soft. ABSENT: distended, tenderness Extremities exam: PRESENT: other - Trace pretibial edema Neurological exam: PRESENT: altered - Sedated on Diprivan Skin exam: PRESENT: dry, warm. ABSENT: cyanosis Results Laboratory Results: 01/13/17 04:55 01/13/17 04:55 01/12/17 01/12/17 01/13/17 16:15 16:15 04:55 WBC RBC Hgb Hct MCV MCH MCHC RDW Plt Count Seg Neutrophils % Lymphocytes % Monocytes % Eosinophils % Basophils % Absolute Neutrophils Absolute Lymphocytes Absolute Monocytes Absolute Eosinophils Absolute Basophils Carbonic Acid 1.13 HCO3/H2CO3 Ratio 24:1 ABG pH 7.48 H ABG pCO2 37.5 ABG pO2 77.9 L ABG HCO3 27.6 H ABG O2 Saturation 96.4 ABG Base Excess 3.9 FiO2 45% Sodium 147.4 H Potassium 3.8 Chloride 111 H Carbon Dioxide 26 Anion Gap 10 BUN 47 H Creatinine 0.64 Est GFR ( Amer) > 60 Est GFR (Non-Af Amer) > 60 Glucose 214 H Calcium 8.8 Phosphorus 3.9 D Magnesium Total Bilirubin AST ALT Alkaline Phosphatase Total Protein Albumin 01/13/17 01/13/17 04:55 04:55 WBC 16.5 H RBC 3.01 L Hgb 8.9 L Hct 26.5 L MCV 88 MCH 29.5 MCHC 33.6 RDW 15.3 H Plt Count 118 L Seg Neutrophils % Not Reportable Lymphocytes % Not Reportable Monocytes % Not Reportable Eosinophils % Not Reportable Basophils % Not Reportable Absolute Neutrophils Not Reportable Absolute Lymphocytes Not Reportable Absolute Monocytes Not Reportable Absolute Eosinophils Not Reportable Absolute Basophils Not Reportable Carbonic Acid HCO3/H2CO3 Ratio ABG pH ABG pCO2 ABG pO2 ABG HCO3 ABG O2 Saturation ABG Base Excess FiO2 Sodium 147.1 H Potassium 3.5 L Chloride 109 H Carbon Dioxide 28 Anion Gap 10 BUN 46 H Creatinine 0.59 Est GFR ( Amer) > 60 Est GFR (Non-Af Amer) > 60 Glucose 205 H Calcium 8.5 Phosphorus 3.6 Magnesium 2.3 Total Bilirubin 0.8 AST 50 H ALT 73 H Alkaline Phosphatase 80 Total Protein 5.0 L Albumin 2.8 L 01/06/17 01/06/17 23:20 23:20 Creatine Kinase 302 H CK-MB (CK-2) 7.47 H Troponin I 0.027 NT-Pro-B Natriuret Pep [id number] H Impressions: Abdomen/Pelvis CT 01/07/17 00:00 IMPRESSION: NO ACUTE FINDINGS WITHIN THE ABDOMEN OR PELVIS. CHRONIC CHANGES ABOVE. Chest/Abdomen CTA 01/07/17 00:00 IMPRESSION: NO PULMONARY EMBOLISM. MULTIFOCAL PNEUMONIA ABOVE WITH SMALL RIGHT PLEURAL EFFUSION. SATISFACTORY POSITION LINES/TUBES. Assessment & Plan - Diagnosis (1) Acute hypoxemic respiratory failure Is this a current diagnosis for this admission?: Yes (2) Pneumonia Qualifiers: Pneumonia type: due to Haemophilus influenzae Laterality: right Lung location: lower lobe of lung Qualified Code(s): J14 - Pneumonia due to Hemophilus influenzae Is this a current diagnosis for this admission?: Yes (3) Septic shock Is this a current diagnosis for this admission?: Yes (4) Acute renal failure Qualifiers: Acute renal failure type: with acute tubular necrosis Qualified Code (s): N17.0 - Acute kidney failure with tubular necrosis Is this a current diagnosis for this admission?: Yes (5) Hypernatremia Is this a current diagnosis for this admission?: Yes (6) Hypokalemia Is this a current diagnosis for this admission?: Yes (7) COPD (chronic obstructive pulmonary disease) Qualifiers: COPD type: emphysema Emphysema type: centrilobular Qualified Code(s): J43.2 - Centrilobular emphysema Is this a current diagnosis for this admission?: Yes (8) Coagulopathy Is this a current diagnosis for this admission?: Yes (9) Anemia of chronic disease Is this a current diagnosis for this admission?: Yes (10) HLD (hyperlipidemia) Qualifiers: Hyperlipidemia type: unspecified Qualified Code(s): E78.5 - Hyperlipidemia, unspecified Is this a current diagnosis for this admission?: Yes (11) Hypothyroid Qualifiers: Hypothyroidism type: unspecified Qualified Code(s): E03.9 - Hypothyroidism, unspecified Is this a current diagnosis for this admission?: Yes (12) Lupus (systemic lupus erythematosus) Qualifiers: Systemic lupus erythematosus type: unspecified Systemic lupus erythematosus organ involvement: unspecified Qualified Code(s): M32.9 - Systemic lupus erythematosus, unspecified Is this a current diagnosis for this admission?: Yes (13) Obesity (BMI 30.0-34.9) Is this a current diagnosis for this admission?: Yes - Time Time Spent with patient: 25-34 minutes - Plan Summary Plan Summary: Continue current antibiotics. Replace potassium. Recheck electrolytes in the morning. Serial chest x-rays and monitor for congestion. Patient's diarrhea may all be related to tube feedings. We will continue to monitor. We will keep the patient on the Proventil only. Discontinue the fentanyl, as well as the Ativan. Ventilator weaning per pulmonary service.
[2017-01-13] MEDS: POTASSI CL 20 MEQ/50 ML RIDER 50 ML IV SCH ×2 (08:37→10:23)
[2017-01-13] MEDS ORDERED: FLUCONAZOLE 200 MG/NS RTU 100 ML IV SCH (10:00)
[2017-01-13] MEDS: FERROUS SULFATE LIQUID 300 MG/5 ML UDC NG SCH ×3 (10:17→17:45)
[2017-01-13] MEDS: CEFEPIME HCL 2 GM in DEXTROSE 5%-WATER 50 ML IV SCH ×2 (10:18→21:47)
[2017-01-13] MEDS: POTASSIUM CHLORIDE 20 MEQ/15 ML UDCUP NG SCH (10:18)
[2017-01-13] MEDS: CALCIUM CARBONATE 250 MG/VITAMIN D3 125 UNIT TABLET NG SCH ×2 (10:19→21:47)
[2017-01-13] MEDS: LACTOBACILLUS ACIDOPHILUS 250 MG TAB NG SCH ×2 (10:19→17:44)
[2017-01-13] MEDS: METOPROLOL TARTRATE 25 MG TABLET NG SCH ×2 (10:19→21:49)
[2017-01-13] MEDS: ASCORBIC ACID 500 MG TABLET NG SCH (10:19)
[2017-01-13] MEDS: FUROSEMIDE INJ/PF 40 MG/4 ML SDV IV SCH ×2 (10:20→21:47)
[2017-01-13] MEDS: FONDAPARINUX SODIUM INJ 2.5 MG/0.5 ML DISP.SYRIN SUBCUT SCH (10:21)
[2017-01-13] MEDS: FLUTICASONE/SALMETEROL DISKUS 250-50 MCG/DOSE IH SCH ×2 (10:27→21:50)
[2017-01-13] MEDS: POLYETHYLENE GLYCOL 3350 POWDER 17 GM/1 PACKET NG SCH (10:27)
[2017-01-13] MEDS: ASPIRIN 81 MG TABLET, CHEWABLE NG SCH (21:47)
[2017-01-13] MEDS: MONTELUKAST SODIUM 10 MG TABLET NG SCH (21:48)
[2017-01-13] MEDS: SERTRALINE HCL 50 MG TABLET NG SCH (21:48)
[2017-01-13] MEDS: CETIRIZINE 10 MG TABLET NG SCH (21:49)
[2017-01-13] MEDS: LEVOFLOXACIN 750 MG/D5W RTU 750 MG/150 ML RTUPB IV SCH (21:50)
[2017-01-14] MEDS: IPRATROPIUM/ALBUTEROL 0.5-2.5 MG/3 ML AMPUL NEB SCH ×4 (02:04→19:43)
[2017-01-14] MEDS: LOPERAMIDE HCL ORAL SOLN 1 MG/5 ML UDC NG PRN (02:12)
[2017-01-14] MEDS: GUAIFENESIN SYRP 200 MG/10 ML UDC NG SCH ×6 (02:13→21:29)
[2017-01-14] MEDS: METHYLPREDNISOLONE INJ 125 MG/2 ML SDV IV SCH ×4 (02:13→21:29)
[2017-01-14] MEDS: PROPOFOL 100 ML IV PRN ×6 (03:01→21:28)
[2017-01-14] MEDS: LEVOTHYROXINE SODIUM 0.075 MG TABLET NG SCH (06:22)
[2017-01-14] MEDS: NORMAL SALINE 1000 ML 1,000 ML IV PRN (06:22)
[2017-01-14] MEDS: LANSOPRAZOLE 30 MG TAB.RAP.DR NG SCH ×2 (06:22→16:38)
[2017-01-14 06:43] LABS: HEMOGLOBIN 9.3 g/dL (12.0-15.5); HGB HCT DIFFERENCE 0.9; MEAN CORPUSCULAR HGB CONC 34.6 g/dL (32.0-36.0); MEAN CORPUSCULAR VOLUME 87 fl (80-97); RED BLOOD COUNT 3.11 10^6/uL (3.72-5.28); WHITE BLOOD COUNT 18.9 10^3/uL (4.0-10.5)
[2017-01-14 06:46] LABS: ARTERIAL BLOOD BASE EXCESS 6.5 mmol/L; ARTERIAL BLOOD O2 SATURATION 96.8 % (94-98)
[2017-01-14 07:04] LABS: ANION GAP 9 (5-19); BLOOD UREA NITROGEN 44 mg/dL (7-20); CALCIUM 8.4 mg/dL (8.4-10.2); CARBON DIOXIDE 29 mmol/L (22-30); CHLORIDE 104 mmol/L (98-107); CREATININE RESULT 0.49 mg/dL (0.52-1.25); GLUCOSE 212 mg/dL (75-110); MAGNESIUM 2.2 mg/dL (1.6-2.3); PHOSPHORUS 3.2 mg/dL (2.5-4.5); POTASSIUM 3.6 mmol/L (3.6-5.0); SODIUM 141.8 mmol/L (137-145)
[2017-01-14 07:09] LABS: BAND NEUTROPHILS % (MANUAL) 3 % (3-5); BASOPHILS % (MANUAL) 0 % (0-2); EOSINOPHILS % (MANUAL) 0 % (0-6); LYMPHOCYTES % (MANUAL) 4 % (13-45); NUCLEATED RED BLOOD CELLS 1 /100 WBC (0); TOTAL CELLS COUNTED 100
[2017-01-14 07:10] LABS: ANISOCYTOSIS SLIGHT
[2017-01-14 07:13] LABS: OVALOCYTES 1+; POIKILOCYTOSIS 1+; POLYCHROMASIA SLIGHT; TARGET CELLS SLIGHT; TEAR DROP CELLS SLIGHT
[2017-01-14 07:15] LABS: TOXIC GRANULATION 1+
[2017-01-14] MEDS: ACETYLCYSTEINE 20% SOLN 800 MG/4 ML VIAL.NEB NEB SCH ×2 (08:11→19:43)
[2017-01-14] MEDS: METOPROLOL TARTRATE PF/INJ 5 MG/5 ML SDV IV PRN (08:46)
--- NOTE | 2017-01-14 08:56 | PDOC PROGRESS REPORT ---
Subjective Progress Note for:: 01/14/17 Subjective:: Patient remained on the ventilator. 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 No reported temperature spikes, nausea or vomiting. Clostridium difficile toxin has been negative recently. WBC slowly trending up but patient is on steroids. No fever noted on the temperature sheet. Physical Exam Vital Signs: Temp Pulse Resp BP Pulse Ox 98.6 F 78 18 156/83 H 94 01/14/17 07:51 01/14/17 07:51 01/14/17 07:51 01/14/17 07:51 01/14/17 07:51 Intake & Output 01/13/17 01/14/17 01/15/17 06:59 06:59 06:59 Intake Total 2226 2664 Output Total 2223 4540 45 Balance -2479 -1861 -45 Weight 91.7 kg 87.8 kg General appearance: PRESENT: no acute distress, other - Sedated intubated Head exam: PRESENT: normocephalic Eye exam: PRESENT: conjunctiva pale Mouth exam: PRESENT: moist, neck supple Neck exam: ABSENT: JVD Respiratory exam: PRESENT: rhonchi - few bilateral otherwise clear. ABSENT: wheezes Cardiovascular exam: PRESENT: RRR. ABSENT: gallop GI/Abdominal exam: PRESENT: hypoactive bowel sounds, soft. ABSENT: distended, tenderness Extremities exam: PRESENT: other - Trace lower extremity edema Neurological exam: PRESENT: altered - On diprivan drip. Skin exam: PRESENT: dry, warm. ABSENT: cyanosis Results Laboratory Results: 01/14/17 06:00 01/14/17 06:00 01/14/17 01/14/17 01/14/17 06:00 06:00 06:00 WBC 18.9 H RBC 3.11 L Hgb 9.3 L Hct 27.0 L MCV 87 MCH 30.0 MCHC 34.6 RDW 15.0 H Plt Count 161 Seg Neutrophils % Not Reportable Lymphocytes % Not Reportable Monocytes % Not Reportable Eosinophils % Not Reportable Basophils % Not Reportable Absolute Neutrophils Not Reportable Absolute Lymphocytes Not Reportable Absolute Monocytes Not Reportable Absolute Eosinophils Not Reportable Absolute Basophils Not Reportable Carbonic Acid 1.05 HCO3/H2CO3 Ratio 27:1 ABG pH 7.54 H ABG pCO2 34.9 L ABG pO2 77.3 L ABG HCO3 29.3 H ABG O2 Saturation 96.8 ABG Base Excess 6.5 FiO2 40% Sodium 141.8 Potassium 3.6 Chloride 104 Carbon Dioxide 29 Anion Gap 9 BUN 44 H Creatinine 0.49 L Est GFR ( Amer) > 60 Est GFR (Non-Af Amer) > 60 Glucose 212 H Calcium 8.4 Phosphorus 3.2 Magnesium 2.2 01/11/17 14:22 Stool - Stool - Final 01/11/17 14:22 Stool - Stool Stool Culture - Final NO SALMONELLA, SHIGELLA, CAMPYLOBACTER, OR E.COLI 0157 RECOVERED. NEGATIVE FOR SHIGA TOXINS 1&2. 01/11/17 17:48 Tracheal Aspirate Gram Stain - Final 01/11/17 17:48 Tracheal Aspirate Sputum Culture - Final C.albicans/C.dubliniensis Normal Sammie Absent 01/06/17 01/06/17 23:20 23:20 Creatine Kinase 302 H CK-MB (CK-2) 7.47 H Troponin I 0.027 NT-Pro-B Natriuret Pep 93455 H Impressions: Abdomen/Pelvis CT 01/07/17 00:00 IMPRESSION: NO ACUTE FINDINGS WITHIN THE ABDOMEN OR PELVIS. CHRONIC CHANGES ABOVE. Chest/Abdomen CTA 01/07/17 00:00 IMPRESSION: NO PULMONARY EMBOLISM. MULTIFOCAL PNEUMONIA ABOVE WITH SMALL RIGHT PLEURAL EFFUSION. SATISFACTORY POSITION LINES/TUBES. Chest X-Ray 01/14/17 06:00 IMPRESSION: Moderate airspace and interstitial opacities. Lines and tubes. No significant interval change. Assessment & Plan - Diagnosis (1) Acute hypoxemic respiratory failure Is this a current diagnosis for this admission?: Yes (2) Pneumonia Qualifiers: Pneumonia type: due to Haemophilus influenzae Laterality: right Lung location: lower lobe of lung Qualified Code(s): J14 - Pneumonia due to Hemophilus influenzae Is this a current diagnosis for this admission?: Yes (3) Septic shock Is this a current diagnosis for this admission?: Yes (4) Acute renal failure Qualifiers: Acute renal failure type: with acute tubular necrosis Qualified Code (s): N17.0 - Acute kidney failure with tubular necrosis Is this a current diagnosis for this admission?: Yes (5) Hypernatremia Is this a current diagnosis for this admission?: Yes (6) Hypokalemia Is this a current diagnosis for this admission?: Yes (7) COPD (chronic obstructive pulmonary disease) Qualifiers: COPD type: emphysema Emphysema type: centrilobular Qualified Code(s): J43.2 - Centrilobular emphysema Is this a current diagnosis for this admission?: Yes (8) Coagulopathy Is this a current diagnosis for this admission?: Yes (9) Anemia of chronic disease Is this a current diagnosis for this admission?: Yes (10) HLD (hyperlipidemia) Qualifiers: Hyperlipidemia type: unspecified Qualified Code(s): E78.5 - Hyperlipidemia, unspecified Is this a current diagnosis for this admission?: Yes (11) Hypothyroid Qualifiers: Hypothyroidism type: unspecified Qualified Code(s): E03.9 - Hypothyroidism, unspecified Is this a current diagnosis for this admission?: Yes (12) Lupus (systemic lupus erythematosus) Qualifiers: Systemic lupus erythematosus type: unspecified Systemic lupus erythematosus organ involvement: unspecified Qualified Code(s): M32.9 - Systemic lupus erythematosus, unspecified Is this a current diagnosis for this admission?: Yes (13) Obesity (BMI 30.0-34.9) Is this a current diagnosis for this admission?: Yes - Time Time Spent with patient: 25-34 minutes - Plan Summary Plan Summary: We will continue to monitor WBC. We will begin Valtrex. If patient's WBC continues to increase we will resend cultures and change antibiotic. Continue other medication and supportive care. Follow-up chest x-ray in the morning. Patient with negative fluid balance of about about 2-1/2 L for the past 2 days.
--- NOTE | 2017-01-14 09:22 | PDOC PROGRESS REPORT ---
Subjective Progress Note for:: 01/14/17 Subjective:: intubated Physical Exam Vital Signs: Temp Pulse Resp BP Pulse Ox 98.6 F 78 18 156/83 H 94 01/14/17 07:51 01/14/17 07:51 01/14/17 07:51 01/14/17 07:51 01/14/17 07:51 Intake & Output 01/13/17 01/14/17 01/15/17 06:59 06:59 06:59 Intake Total 2226 2664 Output Total 7015 4525 45 Balance -2479 -1861 -45 Weight 91.7 kg 87.8 kg General appearance: PRESENT: no acute distress, disheveled, obese, well- developed Head exam: PRESENT: atraumatic, normocephalic Eye exam: PRESENT: conjunctiva pale Mouth exam: PRESENT: dry mucosa, neck supple, other - ET tube Respiratory exam: PRESENT: crackles, decreased breath sounds, prolonged expiratory phas, rhonchi, symmetrical, unlabored Cardiovascular exam: PRESENT: RRR, +S1, +S2 Pulses: PRESENT: normal radial pulses GI/Abdominal exam: PRESENT: normal bowel sounds, soft. ABSENT: distended, guarding, mass, organolmegaly, rebound, tenderness Rectal exam: PRESENT: deferred Gentrourinary exam: PRESENT: indwelling catheter Skin exam: PRESENT: dry, warm Results Laboratory Results: 01/14/17 06:00 01/14/17 06:00 01/14/17 01/14/17 01/14/17 06:00 06:00 06:00 WBC 18.9 H RBC 3.11 L Hgb 9.3 L Hct 27.0 L MCV 87 MCH 30.0 MCHC 34.6 RDW 15.0 H Plt Count 161 Seg Neutrophils % Not Reportable Lymphocytes % Not Reportable Monocytes % Not Reportable Eosinophils % Not Reportable Basophils % Not Reportable Absolute Neutrophils Not Reportable Absolute Lymphocytes Not Reportable Absolute Monocytes Not Reportable Absolute Eosinophils Not Reportable Absolute Basophils Not Reportable Carbonic Acid 1.05 HCO3/H2CO3 Ratio 27:1 ABG pH 7.54 H ABG pCO2 34.9 L ABG pO2 77.3 L ABG HCO3 29.3 H ABG O2 Saturation 96.8 ABG Base Excess 6.5 FiO2 40% Sodium 141.8 Potassium 3.6 Chloride 104 Carbon Dioxide 29 Anion Gap 9 BUN 44 H Creatinine 0.49 L Est GFR ( Amer) > 60 Est GFR (Non-Af Amer) > 60 Glucose 212 H Calcium 8.4 Phosphorus 3.2 Magnesium 2.2 01/11/17 14:22 Stool - Stool - Final 01/11/17 14:22 Stool - Stool Stool Culture - Final NO SALMONELLA, SHIGELLA, CAMPYLOBACTER, OR E.COLI 0157 RECOVERED. NEGATIVE FOR SHIGA TOXINS 1&2. 01/11/17 17:48 Tracheal Aspirate Gram Stain - Final 01/11/17 17:48 Tracheal Aspirate Sputum Culture - Final C.albicans/C.dubliniensis Normal Sammie Absent 01/06/17 01/06/17 23:20 23:20 Creatine Kinase 302 H CK-MB (CK-2) 7.47 H Troponin I 0.027 NT-Pro-B Natriuret Pep [id number] H Impressions: Abdomen/Pelvis CT 01/07/17 00:00 IMPRESSION: NO ACUTE FINDINGS WITHIN THE ABDOMEN OR PELVIS. CHRONIC CHANGES ABOVE. Chest/Abdomen CTA 01/07/17 00:00 IMPRESSION: NO PULMONARY EMBOLISM. MULTIFOCAL PNEUMONIA ABOVE WITH SMALL RIGHT PLEURAL EFFUSION. SATISFACTORY POSITION LINES/TUBES. Chest X-Ray 01/14/17 06:00 IMPRESSION: Moderate airspace and interstitial opacities. Lines and tubes. No significant interval change. Assessment & Plan - Diagnosis (1) COPD (chronic obstructive pulmonary disease) Qualifiers: COPD type: emphysema Emphysema type: centrilobular Qualified Code(s): J43.2 - Centrilobular emphysema Is this a current diagnosis for this admission?: Yes (2) Pneumonia Qualifiers: Pneumonia type: due to unspecified organism Laterality: bilateral Lung location: lower lobe of lung Qualified Code(s): J18.9 - Pneumonia, unspecified organism Is this a current diagnosis for this admission?: Yes (3) Septic shock Is this a current diagnosis for this admission?: Yes (4) Acute hypoxemic respiratory failure Is this a current diagnosis for this admission?: Yes (5) Lupus (systemic lupus erythematosus) Qualifiers: Systemic lupus erythematosus type: unspecified Systemic lupus erythematosus organ involvement: unspecified Qualified Code(s): M32.9 - Systemic lupus erythematosus, unspecified Is this a current diagnosis for this admission?: Yes (6) Steroid dependence Is this a current diagnosis for this admission?: Yes - Time Critical Time spent with patient: 35 or more minutes
--- NOTE | 2017-01-14 09:24 | PDOC PROGRESS REPORT ---
Subjective Progress Note for:: 01/13/17 Subjective:: intubated Physical Exam Vital Signs: Temp Pulse Resp BP Pulse Ox 98.8 F 77 18 138/67 H 94 01/13/17 06:00 01/13/17 02:00 01/13/17 06:00 01/13/17 05:52 01/13/17 06:00 Intake & Output 01/12/17 01/13/17 01/14/17 06:59 06:59 06:59 Intake Total 2735 2816 Output Total 7411 6946 Balance 357 -2479 Weight 94 kg 91.7 kg General appearance: PRESENT: no acute distress, disheveled, obese, well- developed Head exam: PRESENT: atraumatic, normocephalic Eye exam: PRESENT: conjunctiva pale Mouth exam: PRESENT: dry mucosa, neck supple, other - ET tube Neck exam: ABSENT: carotid bruit, JVD, lymphadenopathy, thyromegaly Respiratory exam: PRESENT: crackles, decreased breath sounds, prolonged expiratory phas, rhonchi, symmetrical, unlabored Cardiovascular exam: PRESENT: RRR, +S1, +S2 Pulses: PRESENT: normal radial pulses GI/Abdominal exam: PRESENT: normal bowel sounds, soft. ABSENT: distended, guarding, mass, organolmegaly, rebound, tenderness Rectal exam: PRESENT: deferred Gentrourinary exam: PRESENT: indwelling catheter Skin exam: PRESENT: dry, warm Results Laboratory Results: 01/13/17 04:55 01/13/17 04:55 01/12/17 01/12/17 01/13/17 16:15 16:15 04:55 WBC RBC Hgb Hct MCV MCH MCHC RDW Plt Count Seg Neutrophils % Lymphocytes % Monocytes % Eosinophils % Basophils % Absolute Neutrophils Absolute Lymphocytes Absolute Monocytes Absolute Eosinophils Absolute Basophils Carbonic Acid 1.13 HCO3/H2CO3 Ratio 24:1 ABG pH 7.48 H ABG pCO2 37.5 ABG pO2 77.9 L ABG HCO3 27.6 H ABG O2 Saturation 96.4 ABG Base Excess 3.9 FiO2 45% Sodium 147.4 H Potassium 3.8 Chloride 111 H Carbon Dioxide 26 Anion Gap 10 BUN 47 H Creatinine 0.64 Est GFR ( Amer) > 60 Est GFR (Non-Af Amer) > 60 Glucose 214 H Calcium 8.8 Phosphorus 3.9 D Magnesium Total Bilirubin AST ALT Alkaline Phosphatase Total Protein Albumin 01/13/17 01/13/17 04:55 04:55 WBC 16.5 H RBC 3.01 L Hgb 8.9 L Hct 26.5 L MCV 88 MCH 29.5 MCHC 33.6 RDW 15.3 H Plt Count 118 L Seg Neutrophils % Not Reportable Lymphocytes % Not Reportable Monocytes % Not Reportable Eosinophils % Not Reportable Basophils % Not Reportable Absolute Neutrophils Not Reportable Absolute Lymphocytes Not Reportable Absolute Monocytes Not Reportable Absolute Eosinophils Not Reportable Absolute Basophils Not Reportable Carbonic Acid HCO3/H2CO3 Ratio ABG pH ABG pCO2 ABG pO2 ABG HCO3 ABG O2 Saturation ABG Base Excess FiO2 Sodium 147.1 H Potassium 3.5 L Chloride 109 H Carbon Dioxide 28 Anion Gap 10 BUN 46 H Creatinine 0.59 Est GFR ( Amer) > 60 Est GFR (Non-Af Amer) > 60 Glucose 205 H Calcium 8.5 Phosphorus 3.6 Magnesium 2.3 Total Bilirubin 0.8 AST 50 H ALT 73 H Alkaline Phosphatase 80 Total Protein 5.0 L Albumin 2.8 L 01/11/17 17:48 Tracheal Aspirate Gram Stain - Final 01/06/17 01/06/17 23:20 23:20 Creatine Kinase 302 H CK-MB (CK-2) 7.47 H Troponin I 0.027 NT-Pro-B Natriuret Pep [id number] H Impressions: Abdomen/Pelvis CT 01/07/17 00:00 IMPRESSION: NO ACUTE FINDINGS WITHIN THE ABDOMEN OR PELVIS. CHRONIC CHANGES ABOVE. Chest/Abdomen CTA 01/07/17 00:00 IMPRESSION: NO PULMONARY EMBOLISM. MULTIFOCAL PNEUMONIA ABOVE WITH SMALL RIGHT PLEURAL EFFUSION. SATISFACTORY POSITION LINES/TUBES. Assessment & Plan - Diagnosis (1) COPD (chronic obstructive pulmonary disease) Qualifiers: COPD type: emphysema Emphysema type: centrilobular Qualified Code(s): J43.2 - Centrilobular emphysema Is this a current diagnosis for this admission?: Yes (2) Pneumonia Qualifiers: Pneumonia type: due to unspecified organism Laterality: bilateral Lung location: lower lobe of lung Qualified Code(s): J18.9 - Pneumonia, unspecified organism Is this a current diagnosis for this admission?: Yes (3) Septic shock Is this a current diagnosis for this admission?: Yes (4) Acute hypoxemic respiratory failure Is this a current diagnosis for this admission?: Yes (5) Lupus (systemic lupus erythematosus) Qualifiers: Systemic lupus erythematosus type: unspecified Systemic lupus erythematosus organ involvement: unspecified Qualified Code(s): M32.9 - Systemic lupus erythematosus, unspecified Is this a current diagnosis for this admission?: Yes (6) Steroid dependence Is this a current diagnosis for this admission?: Yes - Time Critical Time spent with patient: 25-34 minutes
[2017-01-14] MEDS: POLYETHYLENE GLYCOL 3350 POWDER 17 GM/1 PACKET NG SCH (09:57)
[2017-01-14] MEDS: POTASSIUM CHLORIDE 20 MEQ/15 ML UDCUP NG SCH (09:57)
[2017-01-14] MEDS: CEFEPIME HCL 2 GM in DEXTROSE 5%-WATER 50 ML IV SCH ×2 (09:58→21:28)
[2017-01-14] MEDS: FERROUS SULFATE LIQUID 300 MG/5 ML UDC NG SCH ×3 (09:58→17:01)
[2017-01-14] MEDS: FUROSEMIDE INJ/PF 40 MG/4 ML SDV IV SCH ×2 (09:58→21:29)
[2017-01-14] MEDS: ASCORBIC ACID 500 MG TABLET NG SCH (09:58)
[2017-01-14] MEDS: METOPROLOL TARTRATE 25 MG TABLET NG SCH ×2 (09:58→21:30)
[2017-01-14] MEDS: FONDAPARINUX SODIUM INJ 2.5 MG/0.5 ML DISP.SYRIN SUBCUT SCH (09:59)
[2017-01-14] MEDS: FLUTICASONE/SALMETEROL DISKUS 250-50 MCG/DOSE IH SCH ×2 (10:00→21:32)
[2017-01-14] MEDS: VALACYCLOVIR HCL 500 MG TABLET NG SCH ×2 (10:23→21:31)
[2017-01-14] MEDS: CALCIUM CARBONATE 250 MG/VITAMIN D3 125 UNIT TABLET NG SCH ×2 (10:24→21:29)
[2017-01-14] MEDS: LACTOBACILLUS ACIDOPHILUS 250 MG TAB NG SCH ×2 (10:24→17:01)
[2017-01-14] MEDS: INSULIN REG, HUMAN 100 UNIT/ML 3 ML VIAL (PYX) SUBCUT PRN ×2 (12:21→16:59)
[2017-01-14] MEDS: LEVOFLOXACIN 750 MG/D5W RTU 750 MG/150 ML RTUPB IV SCH (21:28)
[2017-01-14] MEDS: CETIRIZINE 10 MG TABLET NG SCH (21:29)
[2017-01-14] MEDS: MONTELUKAST SODIUM 10 MG TABLET NG SCH (21:30)
[2017-01-14] MEDS: ASPIRIN 81 MG TABLET, CHEWABLE NG SCH (21:30)
[2017-01-14] MEDS: SERTRALINE HCL 50 MG TABLET NG SCH (21:30)
[2017-01-15] MEDS: IPRATROPIUM/ALBUTEROL 0.5-2.5 MG/3 ML AMPUL NEB SCH ×4 (01:15→19:50)
[2017-01-15] MEDS: GUAIFENESIN SYRP 200 MG/10 ML UDC NG SCH ×6 (01:31→22:36)
[2017-01-15] MEDS: METOPROLOL TARTRATE PF/INJ 5 MG/5 ML SDV IV PRN (01:54)
[2017-01-15] MEDS: PROPOFOL 100 ML IV PRN ×5 (01:57→19:25)
[2017-01-15] MEDS: METHYLPREDNISOLONE INJ 125 MG/2 ML SDV IV SCH ×4 (02:41→22:36)
[2017-01-15] MEDS: LANSOPRAZOLE 30 MG TAB.RAP.DR NG SCH ×2 (05:39→17:30)
[2017-01-15] MEDS: LEVOTHYROXINE SODIUM 0.075 MG TABLET NG SCH (05:39)
[2017-01-15 05:59] LABS: ARTERIAL BLOOD BASE EXCESS 6.6 mmol/L; ARTERIAL BLOOD O2 SATURATION 97.2 % (94-98); HEMOGLOBIN 9.5 g/dL (12.0-15.5); HGB HCT DIFFERENCE 0.5; MEAN CORPUSCULAR HEMOGLOBIN 29.6 pg (27.0-33.4); MEAN CORPUSCULAR VOLUME 87 fl (80-97); RED BLOOD COUNT 3.22 10^6/uL (3.72-5.28); WHITE BLOOD COUNT 18.7 10^3/uL (4.0-10.5)
[2017-01-15 06:21] LABS: ANION GAP 10 (5-19); BLOOD UREA NITROGEN 38 mg/dL (7-20); CALCIUM 8.3 mg/dL (8.4-10.2); CARBON DIOXIDE 28 mmol/L (22-30); CHLORIDE 100 mmol/L (98-107); CREATININE RESULT 0.52 mg/dL (0.52-1.25); GLUCOSE 234 mg/dL (75-110); MAGNESIUM 2.2 mg/dL (1.6-2.3); POTASSIUM 3.5 mmol/L (3.6-5.0); SODIUM 137.7 mmol/L (137-145)
[2017-01-15] MEDS: ACETYLCYSTEINE 20% SOLN 800 MG/4 ML VIAL.NEB NEB SCH ×2 (08:21→19:50)
[2017-01-15] MEDS: NORMAL SALINE 1000 ML 1,000 ML IV PRN (08:30)
--- NOTE | 2017-01-15 09:01 | PDOC PROGRESS REPORT ---
Subjective Progress Note for:: 01/15/17 Subjective:: Still with some loose stools but C. difficile was negative twice. No reported temperature spikes, respiratory distress. Being weaned from the ventilator but will develop tachycardia. Family reports extremely sensitive to sedatives. No reported nausea or vomiting, no high residuals, urine output negative balance of more than 3 L. Physical Exam Vital Signs: Temp Pulse Resp BP Pulse Ox 98.4 F 92 22 H 168/92 H 100 01/15/17 08:33 01/15/17 08:21 01/15/17 08:33 01/15/17 08:33 01/15/17 08:33 Intake & Output 01/14/17 01/15/17 01/16/17 06:59 06:59 06:59 Intake Total 2664 881 Output Total 4525 4690 125 Balance -1861 -5049 -125 Weight 87.8 kg 85.1 kg General appearance: PRESENT: no acute distress, obese Head exam: PRESENT: normocephalic Eye exam: PRESENT: conjunctiva pink Mouth exam: PRESENT: moist, neck supple Neck exam: ABSENT: JVD Respiratory exam: PRESENT: rhonchi - Bilateral. ABSENT: wheezes Cardiovascular exam: PRESENT: RRR. ABSENT: gallop GI/Abdominal exam: PRESENT: soft. ABSENT: distended, tenderness Extremities exam: PRESENT: other - Trace to +1 lower extremity edema Neurological exam: PRESENT: awake Focused psych exam: ABSENT: restlessness Skin exam: PRESENT: dry, warm. ABSENT: cyanosis Results Laboratory Results: 01/15/17 05:45 01/15/17 05:45 01/15/17 01/15/17 01/15/17 05:45 05:45 05:45 WBC 18.7 H RBC 3.22 L Hgb 9.5 L Hct 28.0 L MCV 87 MCH 29.6 MCHC 34.0 RDW 15.0 H Plt Count 159 Carbonic Acid 1.02 L HCO3/H2CO3 Ratio 28:1 ABG pH 7.55 H ABG pCO2 33.9 L ABG pO2 80.8 ABG HCO3 29.1 H ABG O2 Saturation 97.2 ABG Base Excess 6.6 FiO2 35% Sodium 137.7 Potassium 3.5 L Chloride 100 Carbon Dioxide 28 Anion Gap 10 BUN 38 H Creatinine 0.52 Est GFR ( Amer) > 60 Est GFR (Non-Af Amer) > 60 Glucose 234 H Calcium 8.3 L Magnesium 2.2 01/06/17 01/06/17 23:20 23:20 Creatine Kinase 302 H CK-MB (CK-2) 7.47 H Troponin I 0.027 NT-Pro-B Natriuret Pep 36621 H Impressions: Abdomen/Pelvis CT 01/07/17 00:00 IMPRESSION: NO ACUTE FINDINGS WITHIN THE ABDOMEN OR PELVIS. CHRONIC CHANGES ABOVE. Chest/Abdomen CTA 01/07/17 00:00 IMPRESSION: NO PULMONARY EMBOLISM. MULTIFOCAL PNEUMONIA ABOVE WITH SMALL RIGHT PLEURAL EFFUSION. SATISFACTORY POSITION LINES/TUBES. Chest X-Ray 01/15/17 06:00 IMPRESSION: Interval improvement in the aeration of the lungs with decrease in the bilateral airspace opacities. Support devices in expected locations. Assessment & Plan - Diagnosis (1) Acute hypoxemic respiratory failure Is this a current diagnosis for this admission?: Yes (2) Pneumonia Qualifiers: Pneumonia type: due to Haemophilus influenzae Laterality: right Lung location: lower lobe of lung Qualified Code(s): J14 - Pneumonia due to Hemophilus influenzae Is this a current diagnosis for this admission?: Yes (3) Septic shock Is this a current diagnosis for this admission?: Yes (4) Acute renal failure Qualifiers: Acute renal failure type: with acute tubular necrosis Qualified Code (s): N17.0 - Acute kidney failure with tubular necrosis Is this a current diagnosis for this admission?: Yes (5) Hypernatremia Is this a current diagnosis for this admission?: Yes (6) Hypokalemia Is this a current diagnosis for this admission?: Yes (7) COPD (chronic obstructive pulmonary disease) Qualifiers: COPD type: emphysema Emphysema type: centrilobular Qualified Code(s): J43.2 - Centrilobular emphysema Is this a current diagnosis for this admission?: Yes (8) Coagulopathy Is this a current diagnosis for this admission?: Yes (9) Anemia of chronic disease Is this a current diagnosis for this admission?: Yes (10) HLD (hyperlipidemia) Qualifiers: Hyperlipidemia type: unspecified Qualified Code(s): E78.5 - Hyperlipidemia, unspecified Is this a current diagnosis for this admission?: Yes (11) Hypothyroid Qualifiers: Hypothyroidism type: unspecified Qualified Code(s): E03.9 - Hypothyroidism, unspecified Is this a current diagnosis for this admission?: Yes (12) Lupus (systemic lupus erythematosus) Qualifiers: Systemic lupus erythematosus type: unspecified Systemic lupus erythematosus organ involvement: unspecified Qualified Code(s): M32.9 - Systemic lupus erythematosus, unspecified Is this a current diagnosis for this admission?: Yes (13) Obesity (BMI 30.0-34.9) Is this a current diagnosis for this admission?: Yes - Time Time Spent with patient: 25-34 minutes - Plan Summary Plan Summary: Continue current antibiotics. No spiking temp, WBC seems to be stable, probably related to steroids. We will continue to monitor. Replace potassium and monitor electrolytes. Chest x-ray seems to be improving, we will decrease diuretics dose. Patient has been negative balance for the past 72 hours. We will continue to monitor. Continue weaning per pulmonary service.
[2017-01-15] MEDS: FERROUS SULFATE LIQUID 300 MG/5 ML UDC NG SCH ×3 (09:52→17:30)
[2017-01-15] MEDS: POTASSIUM CHLORIDE 20 MEQ/15 ML UDCUP NG SCH (09:52)
[2017-01-15] MEDS: ASCORBIC ACID 500 MG TABLET NG SCH (09:53)
[2017-01-15] MEDS: METOPROLOL TARTRATE 25 MG TABLET NG SCH (09:53)
[2017-01-15] MEDS: FONDAPARINUX SODIUM INJ 2.5 MG/0.5 ML DISP.SYRIN SUBCUT SCH (09:54)
[2017-01-15] MEDS: LACTOBACILLUS ACIDOPHILUS 250 MG TAB NG SCH ×2 (09:54→17:30)
[2017-01-15] MEDS: FUROSEMIDE INJ/PF 40 MG/4 ML SDV IV SCH (09:54)
[2017-01-15] MEDS: LOPERAMIDE HCL ORAL SOLN 1 MG/5 ML UDC NG PRN ×2 (09:57→22:38)
[2017-01-15] MEDS: CEFEPIME HCL 2 GM in DEXTROSE 5%-WATER 50 ML IV SCH ×2 (09:58→22:36)
[2017-01-15] MEDS: POLYETHYLENE GLYCOL 3350 POWDER 17 GM/1 PACKET NG SCH (09:59)
[2017-01-15] MEDS: FLUTICASONE/SALMETEROL DISKUS 250-50 MCG/DOSE IH SCH ×2 (09:59→22:38)
[2017-01-15] MEDS: CALCIUM CARBONATE 250 MG/VITAMIN D3 125 UNIT TABLET NG SCH ×2 (11:08→22:37)
[2017-01-15] MEDS: POTASSI CL 20 MEQ/50 ML RIDER 20 MEQ/50 ML RTUPB IV SCH ×3 (11:12→18:35)
[2017-01-15] MEDS ORDERED: ALPRAZOLAM 0.25 MG TABLET PO PRN (12:47)
[2017-01-15] MEDS ORDERED: METOPROLOL TARTRATE 25 MG TABLET PO ONE (14:00)
--- NOTE | 2017-01-15 14:47 | PDOC PROGRESS REPORT ---
Subjective Progress Note for:: 01/15/17 Subjective:: intubated Physical Exam Vital Signs: Temp Pulse Resp BP Pulse Ox 99.0 F 92 18 158/77 H 97 01/15/17 05:39 01/15/17 01:24 01/15/17 05:39 01/15/17 05:39 01/15/17 04:00 Intake & Output 01/14/17 01/15/17 01/16/17 06:59 06:59 06:59 Intake Total 2663 881 Output Total 1268 5834 Balance -1868 -9841 Weight 87.8 kg 85.1 kg General appearance: PRESENT: no acute distress, disheveled, well-developed Head exam: PRESENT: atraumatic, normocephalic Eye exam: PRESENT: conjunctiva pale Mouth exam: PRESENT: dry mucosa, neck supple, other - ET tube Neck exam: ABSENT: carotid bruit, JVD, lymphadenopathy, thyromegaly Respiratory exam: PRESENT: decreased breath sounds, prolonged expiratory phas, rhonchi, symmetrical, unlabored Cardiovascular exam: PRESENT: RRR, +S1, +S2 Pulses: PRESENT: normal radial pulses GI/Abdominal exam: PRESENT: normal bowel sounds, soft. ABSENT: distended, guarding, mass, organolmegaly, rebound, tenderness Rectal exam: PRESENT: deferred Gentrourinary exam: PRESENT: indwelling catheter Skin exam: PRESENT: dry, warm, other Results Laboratory Results: 01/15/17 05:45 01/15/17 05:45 01/15/17 01/15/17 01/15/17 05:45 05:45 05:45 WBC 18.7 H RBC 3.22 L Hgb 9.5 L Hct 28.0 L MCV 87 MCH 29.6 MCHC 34.0 RDW 15.0 H Plt Count 159 Carbonic Acid 1.02 L HCO3/H2CO3 Ratio 28:1 ABG pH 7.55 H ABG pCO2 33.9 L ABG pO2 80.8 ABG HCO3 29.1 H ABG O2 Saturation 97.2 ABG Base Excess 6.6 FiO2 35% Sodium 137.7 Potassium 3.5 L Chloride 100 Carbon Dioxide 28 Anion Gap 10 BUN 38 H Creatinine 0.52 Est GFR ( Amer) > 60 Est GFR (Non-Af Amer) > 60 Glucose 234 H Calcium 8.3 L Magnesium 2.2 01/06/17 01/06/17 23:20 23:20 Creatine Kinase 302 H CK-MB (CK-2) 7.47 H Troponin I 0.027 NT-Pro-B Natriuret Pep 64039 H Impressions: Abdomen/Pelvis CT 01/07/17 00:00 IMPRESSION: NO ACUTE FINDINGS WITHIN THE ABDOMEN OR PELVIS. CHRONIC CHANGES ABOVE. Chest/Abdomen CTA 01/07/17 00:00 IMPRESSION: NO PULMONARY EMBOLISM. MULTIFOCAL PNEUMONIA ABOVE WITH SMALL RIGHT PLEURAL EFFUSION. SATISFACTORY POSITION LINES/TUBES. Chest X-Ray 01/15/17 06:00 IMPRESSION: Interval improvement in the aeration of the lungs with decrease in the bilateral airspace opacities. Support devices in expected locations. Assessment & Plan - Diagnosis (1) COPD (chronic obstructive pulmonary disease) Qualifiers: COPD type: emphysema Emphysema type: centrilobular Qualified Code(s): J43.2 - Centrilobular emphysema Is this a current diagnosis for this admission?: YesPlan: stable (2) Pneumonia Qualifiers: Pneumonia type: due to unspecified organism Laterality: bilateral Lung location: lower lobe of lung Qualified Code(s): J18.9 - Pneumonia, unspecified organism Is this a current diagnosis for this admission?: YesPlan: radiographic improvement (3) Septic shock Is this a current diagnosis for this admission?: Yes (4) Acute hypoxemic respiratory failure Is this a current diagnosis for this admission?: Yes (5) Lupus (systemic lupus erythematosus) Qualifiers: Systemic lupus erythematosus type: unspecified Systemic lupus erythematosus organ involvement: unspecified Qualified Code(s): M32.9 - Systemic lupus erythematosus, unspecified Is this a current diagnosis for this admission?: Yes (6) Steroid dependence Is this a current diagnosis for this admission?: Yes - Time Critical Time spent with patient: 35 or more minutes
[2017-01-15] MEDS: INSULIN REG, HUMAN 100 UNIT/ML 3 ML VIAL (PYX) SUBCUT PRN (17:28)
[2017-01-15] MEDS: METOPROLOL TARTRATE 25 MG TABLET PO SCH (22:37)
[2017-01-15] MEDS: ASPIRIN 81 MG TABLET, CHEWABLE NG SCH (22:37)
[2017-01-15] MEDS: CETIRIZINE 10 MG TABLET NG SCH (22:37)
[2017-01-15] MEDS: SERTRALINE HCL 50 MG TABLET NG SCH (22:37)
[2017-01-15] MEDS: MONTELUKAST SODIUM 10 MG TABLET NG SCH (22:37)
[2017-01-16] MEDS: IPRATROPIUM/ALBUTEROL 0.5-2.5 MG/3 ML AMPUL NEB SCH ×4 (01:21→20:31)
[2017-01-16] MEDS: GUAIFENESIN SYRP 200 MG/10 ML UDC NG SCH ×6 (01:28→21:04)
[2017-01-16] MEDS: PROPOFOL 100 ML IV PRN ×2 (01:28→06:42)
[2017-01-16] MEDS ORDERED: DEXAMETHASONE SOD PHOSPHATE INJ 4 MG/1 ML VIAL IV ONE (03:00)
[2017-01-16] MEDS: METHYLPREDNISOLONE INJ 125 MG/2 ML SDV IV SCH ×4 (03:08→21:03)
[2017-01-16] MEDS: LANSOPRAZOLE 30 MG TAB.RAP.DR NG SCH ×2 (06:42→17:33)
[2017-01-16] MEDS: LEVOTHYROXINE SODIUM 0.075 MG TABLET NG SCH (06:42)
[2017-01-16 07:19] LABS: ARTERIAL BLOOD O2 SATURATION 99.8 % (94-98)
[2017-01-16 07:20] LABS: HEMATOCRIT 29.4 % (36.0-47.0); HEMOGLOBIN 9.8 g/dL (12.0-15.5); MEAN CORPUSCULAR HEMOGLOBIN 29.3 pg (27.0-33.4); MEAN CORPUSCULAR HGB CONC 33.3 g/dL (32.0-36.0); MEAN CORPUSCULAR VOLUME 88 fl (80-97); RED BLOOD COUNT 3.33 10^6/uL (3.72-5.28); RED CELL DISTRIBUTION WIDTH 14.9 % (11.5-14.0); WHITE BLOOD COUNT 17.5 10^3/uL (4.0-10.5)
[2017-01-16 07:32] LABS: ANION GAP 8 (5-19); BLOOD UREA NITROGEN 35 mg/dL (7-20); CALCIUM 8.5 mg/dL (8.4-10.2); CARBON DIOXIDE 26 mmol/L (22-30); CHLORIDE 102 mmol/L (98-107); CREATININE RESULT 0.45 mg/dL (0.52-1.25); GLUCOSE 231 mg/dL (75-110); MAGNESIUM 2.4 mg/dL (1.6-2.3); PHOSPHORUS 3.2 mg/dL (2.5-4.5); POTASSIUM 4.4 mmol/L (3.6-5.0); SODIUM 135.7 mmol/L (137-145)
[2017-01-16 07:52] LABS: BAND NEUTROPHILS % (MANUAL) 4 % (3-5); BASOPHILS % (MANUAL) 0 % (0-2); EOSINOPHILS % (MANUAL) 0 % (0-6); LYMPHOCYTES % (MANUAL) 1 % (13-45); TOTAL CELLS COUNTED 100
[2017-01-16 07:53] LABS: ANISOCYTOSIS 1+; POIKILOCYTOSIS 1+; POLYCHROMASIA SLIGHT; TEAR DROP CELLS 1+
[2017-01-16] MEDS: ACETYLCYSTEINE 20% SOLN 800 MG/4 ML VIAL.NEB NEB SCH ×2 (08:22→20:31)
--- NOTE | 2017-01-16 09:11 | PDOC PROGRESS REPORT ---
Subjective Progress Note for:: 01/16/17 Subjective:: Patient for possible extubation today. No reported temperature spikes, respiratory distress, nausea or vomiting. Sedation is being weaned, she is awake, seems to be tolerating weaning. Has loose stools, but negative for Clostridium difficile toxin. Physical Exam Vital Signs: Temp Pulse Resp BP Pulse Ox 98.8 F 88 18 155/82 H 98 01/16/17 07:53 01/16/17 07:53 01/16/17 07:53 01/16/17 07:53 01/16/17 07:53 Intake & Output 01/15/17 01/16/17 01/17/17 06:59 06:59 06:59 Intake Total 1805 1680 Output Total 4690 3000 110 Balance -2885 -1320 -110 Weight 85.1 kg 86.5 kg General appearance: PRESENT: no acute distress, other - On mechanical ventilator Eye exam: PRESENT: conjunctiva pink, EOMI Mouth exam: PRESENT: moist, neck supple Neck exam: ABSENT: JVD Respiratory exam: PRESENT: rhonchi - few. ABSENT: wheezes Cardiovascular exam: PRESENT: RRR. ABSENT: gallop GI/Abdominal exam: PRESENT: hypoactive bowel sounds, soft. ABSENT: distended, tenderness Extremities exam: PRESENT: other - Trace to +1 edema bilateral Neurological exam: PRESENT: awake Psychiatric exam: ABSENT: agitated Focused psych exam: ABSENT: restlessness Skin exam: PRESENT: dry, warm. ABSENT: cyanosis Results Laboratory Results: 01/16/17 06:50 01/16/17 06:50 01/16/17 01/16/17 01/16/17 06:50 06:50 06:50 WBC 17.5 H RBC 3.33 L Hgb 9.8 L Hct 29.4 L MCV 88 MCH 29.3 MCHC 33.3 RDW 14.9 H Plt Count 167 Seg Neutrophils % Not Reportable Lymphocytes % Not Reportable Monocytes % Not Reportable Eosinophils % Not Reportable Basophils % Not Reportable Absolute Neutrophils Not Reportable Absolute Lymphocytes Not Reportable Absolute Monocytes Not Reportable Absolute Eosinophils Not Reportable Absolute Basophils Not Reportable Carbonic Acid 0.92 L HCO3/H2CO3 Ratio 27:1 ABG pH 7.53 H ABG pCO2 30.6 L ABG pO2 299.3 H ABG HCO3 25.2 ABG O2 Saturation 99.8 H ABG Base Excess 3.0 FiO2 30% Sodium 135.7 L Potassium 4.4 Chloride 102 Carbon Dioxide 26 Anion Gap 8 BUN 35 H Creatinine 0.45 L Est GFR ( Amer) > 60 Est GFR (Non-Af Amer) > 60 Glucose 231 H Calcium 8.5 Phosphorus 3.2 Magnesium 2.4 H 01/06/17 01/06/17 23:20 23:20 Creatine Kinase 302 H CK-MB (CK-2) 7.47 H Troponin I 0.027 NT-Pro-B Natriuret Pep 10031 H Impressions: Abdomen/Pelvis CT 01/07/17 00:00 IMPRESSION: NO ACUTE FINDINGS WITHIN THE ABDOMEN OR PELVIS. CHRONIC CHANGES ABOVE. Chest/Abdomen CTA 01/07/17 00:00 IMPRESSION: NO PULMONARY EMBOLISM. MULTIFOCAL PNEUMONIA ABOVE WITH SMALL RIGHT PLEURAL EFFUSION. SATISFACTORY POSITION LINES/TUBES. Chest X-Ray 01/16/17 06:00 IMPRESSION: Mild streakiness of the left lower lobe. Moderate interstitial markings. Lines and tubes. No significant interval change. Assessment & Plan - Diagnosis (1) Acute hypoxemic respiratory failure Is this a current diagnosis for this admission?: Yes (2) Pneumonia Qualifiers: Pneumonia type: due to Haemophilus influenzae Laterality: right Lung location: lower lobe of lung Qualified Code(s): J14 - Pneumonia due to Hemophilus influenzae Is this a current diagnosis for this admission?: Yes (3) Septic shock Is this a current diagnosis for this admission?: Yes (4) Acute renal failure Qualifiers: Acute renal failure type: with acute tubular necrosis Qualified Code (s): N17.0 - Acute kidney failure with tubular necrosis Is this a current diagnosis for this admission?: Yes (5) Hypernatremia Is this a current diagnosis for this admission?: Yes (6) Hypokalemia Is this a current diagnosis for this admission?: Yes (7) COPD (chronic obstructive pulmonary disease) Qualifiers: COPD type: emphysema Emphysema type: centrilobular Qualified Code(s): J43.2 - Centrilobular emphysema Is this a current diagnosis for this admission?: Yes (8) Coagulopathy Is this a current diagnosis for this admission?: Yes (9) Anemia of chronic disease Is this a current diagnosis for this admission?: Yes (10) HLD (hyperlipidemia) Qualifiers: Hyperlipidemia type: unspecified Qualified Code(s): E78.5 - Hyperlipidemia, unspecified Is this a current diagnosis for this admission?: Yes (11) Hypothyroid Qualifiers: Hypothyroidism type: unspecified Qualified Code(s): E03.9 - Hypothyroidism, unspecified Is this a current diagnosis for this admission?: Yes (12) Lupus (systemic lupus erythematosus) Qualifiers: Systemic lupus erythematosus type: unspecified Systemic lupus erythematosus organ involvement: unspecified Qualified Code(s): M32.9 - Systemic lupus erythematosus, unspecified Is this a current diagnosis for this admission?: Yes (13) Obesity (BMI 30.0-34.9) Is this a current diagnosis for this admission?: Yes - Time Time Spent with patient: 25-34 minutes - Plan Summary Plan Summary: For extubation today. We will continue current antibiotics, monitor WBC, monitor electrolytes and creatinine. Once extubated, we will transfer to stepdown unit, begin physical therapy. Will likely need subacute rehabilitation. Continue supportive care.
[2017-01-16] MEDS: ASCORBIC ACID 500 MG TABLET NG SCH (09:55)
[2017-01-16] MEDS: POLYETHYLENE GLYCOL 3350 POWDER 17 GM/1 PACKET NG SCH (09:55)
[2017-01-16] MEDS: CEFEPIME HCL 2 GM in DEXTROSE 5%-WATER 50 ML IV SCH ×2 (09:55→21:04)
[2017-01-16] MEDS: METOPROLOL TARTRATE 25 MG TABLET PO SCH ×2 (09:56→21:05)
[2017-01-16] MEDS: FERROUS SULFATE LIQUID 300 MG/5 ML UDC NG SCH ×3 (09:56→17:33)
[2017-01-16] MEDS: POTASSIUM CHLORIDE 20 MEQ/15 ML UDCUP NG SCH (09:56)
[2017-01-16] MEDS: LACTOBACILLUS ACIDOPHILUS 250 MG TAB NG SCH ×2 (09:56→17:33)
[2017-01-16] MEDS: CALCIUM CARBONATE 250 MG/VITAMIN D3 125 UNIT TABLET NG SCH ×2 (09:56→21:04)
[2017-01-16] MEDS: FONDAPARINUX SODIUM INJ 2.5 MG/0.5 ML DISP.SYRIN SUBCUT SCH (09:57)
[2017-01-16] MEDS: FUROSEMIDE INJ/PF 40 MG/4 ML SDV IV SCH (09:57)
[2017-01-16] MEDS: FLUTICASONE/SALMETEROL DISKUS 250-50 MCG/DOSE IH SCH ×2 (09:58→21:07)
[2017-01-16] MEDS: ONDANSETRON HCL INJ/PF 4 MG/2 ML SDV IV PRN (16:24)
--- NOTE | 2017-01-16 20:46 | PDOC PROGRESS REPORT ---
Subjective Progress Note for:: 01/16/17 Subjective:: intubated awake Physical Exam Vital Signs: Temp Pulse Resp BP Pulse Ox 98.8 F 88 18 155/82 H 98 01/16/17 07:53 01/16/17 07:53 01/16/17 07:53 01/16/17 07:53 01/16/17 07:53 Intake & Output 01/15/17 01/16/17 01/17/17 06:59 06:59 06:59 Intake Total 1805 1680 Output Total 4690 3000 110 Balance -2885 -1320 -110 Weight 85.1 kg 86.5 kg General appearance: PRESENT: no acute distress, disheveled, obese, well- developed Head exam: PRESENT: atraumatic, normocephalic Eye exam: PRESENT: conjunctiva pale, EOMI Mouth exam: PRESENT: dry mucosa, neck supple, other - ET tube in place Neck exam: ABSENT: carotid bruit, JVD, lymphadenopathy, thyromegaly Respiratory exam: PRESENT: decreased breath sounds, prolonged expiratory phas, symmetrical, unlabored Cardiovascular exam: PRESENT: RRR, +S1, +S2 Pulses: PRESENT: normal radial pulses GI/Abdominal exam: PRESENT: normal bowel sounds, soft. ABSENT: distended, guarding, mass, organolmegaly, rebound, tenderness Rectal exam: PRESENT: deferred Gentrourinary exam: PRESENT: indwelling catheter Neurological exam: PRESENT: awake Skin exam: PRESENT: dry Results Laboratory Results: 01/16/17 06:50 01/16/17 06:50 01/16/17 01/16/17 01/16/17 06:50 06:50 06:50 WBC 17.5 H RBC 3.33 L Hgb 9.8 L Hct 29.4 L MCV 88 MCH 29.3 MCHC 33.3 RDW 14.9 H Plt Count 167 Seg Neutrophils % Not Reportable Lymphocytes % Not Reportable Monocytes % Not Reportable Eosinophils % Not Reportable Basophils % Not Reportable Absolute Neutrophils Not Reportable Absolute Lymphocytes Not Reportable Absolute Monocytes Not Reportable Absolute Eosinophils Not Reportable Absolute Basophils Not Reportable Carbonic Acid 0.92 L HCO3/H2CO3 Ratio 27:1 ABG pH 7.53 H ABG pCO2 30.6 L ABG pO2 299.3 H ABG HCO3 25.2 ABG O2 Saturation 99.8 H ABG Base Excess 3.0 FiO2 30% Sodium 135.7 L Potassium 4.4 Chloride 102 Carbon Dioxide 26 Anion Gap 8 BUN 35 H Creatinine 0.45 L Est GFR ( Amer) > 60 Est GFR (Non-Af Amer) > 60 Glucose 231 H Calcium 8.5 Phosphorus 3.2 Magnesium 2.4 H 01/06/17 01/06/17 23:20 23:20 Creatine Kinase 302 H CK-MB (CK-2) 7.47 H Troponin I 0.027 NT-Pro-B Natriuret Pep 92370 H Impressions: Abdomen/Pelvis CT 01/07/17 00:00 IMPRESSION: NO ACUTE FINDINGS WITHIN THE ABDOMEN OR PELVIS. CHRONIC CHANGES ABOVE. Chest/Abdomen CTA 01/07/17 00:00 IMPRESSION: NO PULMONARY EMBOLISM. MULTIFOCAL PNEUMONIA ABOVE WITH SMALL RIGHT PLEURAL EFFUSION. SATISFACTORY POSITION LINES/TUBES. Chest X-Ray 01/16/17 06:00 IMPRESSION: Mild streakiness of the left lower lobe. Moderate interstitial markings. Lines and tubes. No significant interval change. Assessment & Plan - Diagnosis (1) COPD (chronic obstructive pulmonary disease) Qualifiers: COPD type: emphysema Emphysema type: centrilobular Qualified Code(s): J43.2 - Centrilobular emphysema Is this a current diagnosis for this admission?: YesPlan: resp rate;min vol;fio2;suggest extubation will proceed (2) Pneumonia Qualifiers: Pneumonia type: due to unspecified organism Laterality: bilateral Lung location: lower lobe of lung Qualified Code(s): J18.9 - Pneumonia, unspecified organism Is this a current diagnosis for this admission?: Yes (3) Septic shock Is this a current diagnosis for this admission?: No (4) Acute hypoxemic respiratory failure Is this a current diagnosis for this admission?: No (5) Lupus (systemic lupus erythematosus) Qualifiers: Systemic lupus erythematosus type: unspecified Systemic lupus erythematosus organ involvement: unspecified Qualified Code(s): M32.9 - Systemic lupus erythematosus, unspecified Is this a current diagnosis for this admission?: Yes (6) Steroid dependence Is this a current diagnosis for this admission?: Yes - Time Critical Time spent with patient: 35 or more minutes - 55 min extubate
[2017-01-16] MEDS: CETIRIZINE 10 MG TABLET NG SCH (21:04)
[2017-01-16] MEDS: MONTELUKAST SODIUM 10 MG TABLET NG SCH (21:05)
[2017-01-16] MEDS: SERTRALINE HCL 50 MG TABLET NG SCH (21:05)
[2017-01-16] MEDS: ASPIRIN 81 MG TABLET, CHEWABLE NG SCH (21:06)
[2017-01-16] MEDS: INSULIN REG, HUMAN 100 UNIT/ML 3 ML VIAL (PYX) SUBCUT PRN (23:38)
[2017-01-17] MEDS: IPRATROPIUM/ALBUTEROL 0.5-2.5 MG/3 ML AMPUL NEB SCH ×4 (02:48→19:41)
[2017-01-17] MEDS: GUAIFENESIN SYRP 200 MG/10 ML UDC NG SCH ×6 (02:50→21:19)
[2017-01-17] MEDS: METHYLPREDNISOLONE INJ 125 MG/2 ML SDV IV SCH ×4 (02:50→21:21)
[2017-01-17 04:40] LABS: ARTERIAL BLOOD BASE EXCESS 6.1 mmol/L; ARTERIAL BLOOD O2 SATURATION 95.6 % (94-98)
[2017-01-17 04:43] LABS: HEMATOCRIT 32.1 % (36.0-47.0); HEMOGLOBIN 10.8 g/dL (12.0-15.5); HGB HCT DIFFERENCE 0.3; MEAN CORPUSCULAR HEMOGLOBIN 29.1 pg (27.0-33.4); MEAN CORPUSCULAR HGB CONC 33.6 g/dL (32.0-36.0); MEAN CORPUSCULAR VOLUME 87 fl (80-97); RED CELL DISTRIBUTION WIDTH 14.8 % (11.5-14.0); WHITE BLOOD COUNT 19.4 10^3/uL (4.0-10.5)
[2017-01-17 04:53] LABS: BLOOD UREA NITROGEN 30 mg/dL (7-20); CALCIUM 8.9 mg/dL (8.4-10.2); CARBON DIOXIDE 30 mmol/L (22-30); CHLORIDE 102 mmol/L (98-107); CREATININE RESULT 0.45 mg/dL (0.52-1.25); GLUCOSE 167 mg/dL (75-110); MAGNESIUM 2.4 mg/dL (1.6-2.3); PHOSPHORUS 3.5 mg/dL (2.5-4.5); POTASSIUM 4.5 mmol/L (3.6-5.0)
[2017-01-17 05:04] LABS: ANION GAP 6 (5-19); SODIUM 137.7 mmol/L (137-145)
[2017-01-17 05:16] LABS: BAND NEUTROPHILS % (MANUAL) 2 % (3-5); BASOPHILS % (MANUAL) 0 % (0-2); EOSINOPHILS % (MANUAL) 0 % (0-6); LYMPHOCYTES % (MANUAL) 1 % (13-45); TOTAL CELLS COUNTED 100
[2017-01-17 05:18] LABS: ANISOCYTOSIS SLIGHT; OVALOCYTES 1+; POIKILOCYTOSIS 1+; POLYCHROMASIA SLIGHT; TEAR DROP CELLS SLIGHT
[2017-01-17] MEDS: LEVOTHYROXINE SODIUM 0.075 MG TABLET NG SCH (06:05)
[2017-01-17] MEDS: LANSOPRAZOLE 30 MG TAB.RAP.DR NG SCH ×2 (06:05→16:22)
[2017-01-17] MEDS: ACETYLCYSTEINE 20% SOLN 800 MG/4 ML VIAL.NEB NEB SCH ×2 (08:36→19:41)
--- NOTE | 2017-01-17 10:17 | PDOC PROGRESS REPORT ---
Subjective Progress Note for:: 01/17/17 Subjective:: Patient now extubated. There is generalized weakness, unable to move both upper extremities well. No reported temperature spikes, nausea or vomiting, chills or fever. Remain on Saez catheter and nasogastric tube. No noted respiratory distress. Physical Exam Vital Signs: Temp Pulse Resp BP Pulse Ox 97.7 F 76 16 151/81 H 100 01/17/17 08:00 01/17/17 08:00 01/17/17 08:00 01/17/17 08:00 01/17/17 08:00 Intake & Output 01/16/17 01/17/17 01/18/17 06:59 06:59 06:59 Intake Total 1680 1083 Output Total 3000 5075 375 Balance -1320 -3992 -375 Weight 86.5 kg 81.4 kg General appearance: PRESENT: no acute distress, obese Head exam: PRESENT: normocephalic Eye exam: PRESENT: conjunctiva pale, EOMI Mouth exam: PRESENT: moist, neck supple Neck exam: ABSENT: JVD Respiratory exam: PRESENT: rhonchi - few bilateral. ABSENT: wheezes Cardiovascular exam: PRESENT: RRR. ABSENT: gallop GI/Abdominal exam: PRESENT: hypoactive bowel sounds, soft. ABSENT: distended, tenderness Extremities exam: PRESENT: other - Trace to +1 edema bilateral Neurological exam: PRESENT: alert, awake Psychiatric exam: ABSENT: agitated Focused psych exam: ABSENT: restlessness Skin exam: PRESENT: dry, warm. ABSENT: cyanosis Results Laboratory Results: 01/17/17 04:20 01/17/17 04:20 01/17/17 01/17/17 01/17/17 04:20 04:20 04:20 WBC 19.4 H RBC 3.70 L Hgb 10.8 L Hct 32.1 L MCV 87 MCH 29.1 MCHC 33.6 RDW 14.8 H Plt Count 193 Seg Neutrophils % Not Reportable Lymphocytes % Not Reportable Monocytes % Not Reportable Eosinophils % Not Reportable Basophils % Not Reportable Absolute Neutrophils Not Reportable Absolute Lymphocytes Not Reportable Absolute Monocytes Not Reportable Absolute Eosinophils Not Reportable Absolute Basophils Not Reportable Carbonic Acid 1.26 HCO3/H2CO3 Ratio 23:1 ABG pH 7.48 H ABG pCO2 41.9 ABG pO2 73.6 L ABG HCO3 30.2 H ABG O2 Saturation 95.6 ABG Base Excess 6.1 FiO2 3 LITERS Sodium 137.7 Potassium 4.5 Chloride 102 Carbon Dioxide 30 Anion Gap 6 BUN 30 H Creatinine 0.45 L Est GFR ( Amer) > 60 Est GFR (Non-Af Amer) > 60 Glucose 167 H Calcium 8.9 Phosphorus 3.5 Magnesium 2.4 H 01/06/17 01/06/17 23:20 23:20 Creatine Kinase 302 H CK-MB (CK-2) 7.47 H Troponin I 0.027 NT-Pro-B Natriuret Pep [id number] H Impressions: Abdomen/Pelvis CT 01/07/17 00:00 IMPRESSION: NO ACUTE FINDINGS WITHIN THE ABDOMEN OR PELVIS. CHRONIC CHANGES ABOVE. Chest/Abdomen CTA 01/07/17 00:00 IMPRESSION: NO PULMONARY EMBOLISM. MULTIFOCAL PNEUMONIA ABOVE WITH SMALL RIGHT PLEURAL EFFUSION. SATISFACTORY POSITION LINES/TUBES. Chest X-Ray 01/17/17 06:00 IMPRESSION: Stable small left basilar opacity -effusion. Lines and tubes. Assessment & Plan - Diagnosis (1) Critical illness neuropathy Is this a current diagnosis for this admission?: Yes (2) Acute hypoxemic respiratory failure Is this a current diagnosis for this admission?: No (3) Pneumonia Qualifiers: Pneumonia type: due to Haemophilus influenzae Laterality: right Lung location: lower lobe of lung Qualified Code(s): J14 - Pneumonia due to Hemophilus influenzae Is this a current diagnosis for this admission?: Yes (4) Septic shock Is this a current diagnosis for this admission?: No (5) Acute renal failure Qualifiers: Acute renal failure type: with acute tubular necrosis Qualified Code (s): N17.0 - Acute kidney failure with tubular necrosis Is this a current diagnosis for this admission?: Yes (6) Hypernatremia Is this a current diagnosis for this admission?: Yes (7) Hypokalemia Is this a current diagnosis for this admission?: Yes (8) COPD (chronic obstructive pulmonary disease) Qualifiers: COPD type: emphysema Emphysema type: centrilobular Qualified Code(s): J43.2 - Centrilobular emphysema Is this a current diagnosis for this admission?: Yes (9) Coagulopathy Is this a current diagnosis for this admission?: Yes (10) Anemia of chronic disease Is this a current diagnosis for this admission?: Yes (11) HLD (hyperlipidemia) Qualifiers: Hyperlipidemia type: unspecified Qualified Code(s): E78.5 - Hyperlipidemia, unspecified Is this a current diagnosis for this admission?: Yes (12) Hypothyroid Qualifiers: Hypothyroidism type: unspecified Qualified Code(s): E03.9 - Hypothyroidism, unspecified Is this a current diagnosis for this admission?: Yes (13) Lupus (systemic lupus erythematosus) Qualifiers: Systemic lupus erythematosus type: unspecified Systemic lupus erythematosus organ involvement: unspecified Qualified Code(s): M32.9 - Systemic lupus erythematosus, unspecified Is this a current diagnosis for this admission?: Yes (14) Obesity (BMI 30.0-34.9) Is this a current diagnosis for this admission?: Yes - Time Time Spent with patient: 25-34 minutes - Plan Summary Plan Summary: Continue antibiotics. Discontinue nasogastric tube. Speech therapy for swallowing evaluation and safety. Begin physical therapy. Transferred to [facility]. Continue supportive care. Avoid sedatives.
[2017-01-17] MEDS: LACTOBACILLUS ACIDOPHILUS 250 MG TAB NG SCH ×2 (11:05→17:06)
[2017-01-17] MEDS: CALCIUM CARBONATE 250 MG/VITAMIN D3 125 UNIT TABLET NG SCH ×2 (11:05→21:18)
[2017-01-17] MEDS: ASCORBIC ACID 500 MG TABLET NG SCH (11:06)
[2017-01-17] MEDS: ACETAMINOPHEN 325 MG TABLET NG PRN (11:06)
[2017-01-17] MEDS: METOPROLOL TARTRATE 25 MG TABLET PO SCH ×2 (11:06→21:21)
[2017-01-17] MEDS: POTASSIUM CHLORIDE 20 MEQ/15 ML UDCUP NG SCH (11:07)
[2017-01-17] MEDS: POLYETHYLENE GLYCOL 3350 POWDER 17 GM/1 PACKET NG SCH (11:08)
[2017-01-17] MEDS: FERROUS SULFATE LIQUID 300 MG/5 ML UDC NG SCH ×3 (11:08→17:06)
[2017-01-17] MEDS: FONDAPARINUX SODIUM INJ 2.5 MG/0.5 ML DISP.SYRIN SUBCUT SCH (11:09)
[2017-01-17] MEDS: CEFEPIME HCL 2 GM in DEXTROSE 5%-WATER 50 ML IV SCH ×2 (11:10→21:22)
[2017-01-17] MEDS: FLUTICASONE/SALMETEROL DISKUS 250-50 MCG/DOSE IH SCH ×2 (11:11→21:23)
--- NOTE | 2017-01-17 11:23 | PDOC PROGRESS REPORT ---
Subjective Progress Note for:: 01/17/17 Subjective:: 24 hrs s/p extubation doing well Physical Exam Vital Signs: Temp Pulse Resp BP Pulse Ox 97.7 F 76 16 151/81 H 100 01/17/17 08:00 01/17/17 08:00 01/17/17 08:00 01/17/17 08:00 01/17/17 08:00 Intake & Output 01/16/17 01/17/17 01/18/17 06:59 06:59 06:59 Intake Total 1680 1083 Output Total 8265 5075 375 Balance -1320 -3992 -375 Weight 86.5 kg 81.4 kg General appearance: PRESENT: no acute distress, cooperative, disheveled, obese, well-developed Head exam: PRESENT: atraumatic, normocephalic Eye exam: PRESENT: conjunctiva pale, EOMI Mouth exam: PRESENT: moist, neck supple Neck exam: PRESENT: meningismus, tenderness, tracheal deviation, tracheostomy, other. ABSENT: carotid bruit, JVD, lymphadenopathy, thyromegaly Respiratory exam: PRESENT: decreased breath sounds, prolonged expiratory phas, rhonchi, symmetrical, unlabored Cardiovascular exam: PRESENT: RRR, +S1, +S2 GI/Abdominal exam: PRESENT: normal bowel sounds Rectal exam: PRESENT: deferred Gentrourinary exam: PRESENT: indwelling catheter Musculoskeletal exam: PRESENT: normal inspection Neurological exam: PRESENT: alert, awake Skin exam: PRESENT: dry Results Laboratory Results: 01/17/17 04:20 01/17/17 04:20 01/17/17 01/17/17 01/17/17 04:20 04:20 04:20 WBC 19.4 H RBC 3.70 L Hgb 10.8 L Hct 32.1 L MCV 87 MCH 29.1 MCHC 33.6 RDW 14.8 H Plt Count 193 Seg Neutrophils % Not Reportable Lymphocytes % Not Reportable Monocytes % Not Reportable Eosinophils % Not Reportable Basophils % Not Reportable Absolute Neutrophils Not Reportable Absolute Lymphocytes Not Reportable Absolute Monocytes Not Reportable Absolute Eosinophils Not Reportable Absolute Basophils Not Reportable Carbonic Acid 1.26 HCO3/H2CO3 Ratio 23:1 ABG pH 7.48 H ABG pCO2 41.9 ABG pO2 73.6 L ABG HCO3 30.2 H ABG O2 Saturation 95.6 ABG Base Excess 6.1 FiO2 3 LITERS Sodium 137.7 Potassium 4.5 Chloride 102 Carbon Dioxide 30 Anion Gap 6 BUN 30 H Creatinine 0.45 L Est GFR ( Amer) > 60 Est GFR (Non-Af Amer) > 60 Glucose 167 H Calcium 8.9 Phosphorus 3.5 Magnesium 2.4 H 01/06/17 01/06/17 23:20 23:20 Creatine Kinase 302 H CK-MB (CK-2) 7.47 H Troponin I 0.027 NT-Pro-B Natriuret Pep [id number] H Impressions: Abdomen/Pelvis CT 01/07/17 00:00 IMPRESSION: NO ACUTE FINDINGS WITHIN THE ABDOMEN OR PELVIS. CHRONIC CHANGES ABOVE. Chest/Abdomen CTA 01/07/17 00:00 IMPRESSION: NO PULMONARY EMBOLISM. MULTIFOCAL PNEUMONIA ABOVE WITH SMALL RIGHT PLEURAL EFFUSION. SATISFACTORY POSITION LINES/TUBES. Chest X-Ray 01/17/17 06:00 IMPRESSION: Stable small left basilar opacity -effusion. Lines and tubes. Assessment & Plan - Diagnosis (1) COPD (chronic obstructive pulmonary disease) Qualifiers: COPD type: emphysema Emphysema type: centrilobular Qualified Code(s): J43.2 - Centrilobular emphysema Is this a current diagnosis for this admission?: Yes (2) Pneumonia Qualifiers: Pneumonia type: due to unspecified organism Laterality: bilateral Lung location: lower lobe of lung Qualified Code(s): J18.9 - Pneumonia, unspecified organism Is this a current diagnosis for this admission?: Yes (3) Septic shock Is this a current diagnosis for this admission?: No (4) Acute hypoxemic respiratory failure Is this a current diagnosis for this admission?: No (5) Lupus (systemic lupus erythematosus) Qualifiers: Systemic lupus erythematosus type: unspecified Systemic lupus erythematosus organ involvement: unspecified Qualified Code(s): M32.9 - Systemic lupus erythematosus, unspecified Is this a current diagnosis for this admission?: Yes (6) Steroid dependence Is this a current diagnosis for this admission?: Yes
[2017-01-17] MEDS: INSULIN REG, HUMAN 100 UNIT/ML 3 ML VIAL (PYX) SUBCUT PRN ×2 (12:10→16:22)
[2017-01-17] MEDS: NORMAL SALINE 1000 ML 1,000 ML IV PRN (12:53)
[2017-01-17] MEDS: ONDANSETRON HCL INJ/PF 4 MG/2 ML SDV IV PRN (20:18)
[2017-01-17] MEDS: MONTELUKAST SODIUM 10 MG TABLET NG SCH (21:19)
[2017-01-17] MEDS: ASPIRIN 81 MG TABLET, CHEWABLE NG SCH (21:19)
[2017-01-17] MEDS: CETIRIZINE 10 MG TABLET NG SCH (21:20)
[2017-01-17] MEDS: SERTRALINE HCL 50 MG TABLET NG SCH (21:20)
[2017-01-18] MEDS: INSULIN REG, HUMAN 100 UNIT/ML 3 ML VIAL (PYX) SUBCUT PRN (00:52)
[2017-01-18] MEDS: GUAIFENESIN SYRP 200 MG/10 ML UDC NG SCH ×5 (01:38→21:46)
[2017-01-18] MEDS: IPRATROPIUM/ALBUTEROL 0.5-2.5 MG/3 ML AMPUL NEB SCH ×4 (01:47→20:52)
[2017-01-18] MEDS: NORMAL SALINE 1000 ML 1,000 ML IV PRN (02:29)
[2017-01-18] MEDS: METHYLPREDNISOLONE INJ 125 MG/2 ML SDV IV SCH ×3 (02:46→15:00)
[2017-01-18 02:58] LABS: HEMATOCRIT 33.8 % (36.0-47.0); HEMOGLOBIN 10.8 g/dL (12.0-15.5); HGB HCT DIFFERENCE -1.4; MEAN CORPUSCULAR HEMOGLOBIN 28.5 pg (27.0-33.4); MEAN CORPUSCULAR HGB CONC 31.8 g/dL (32.0-36.0); MEAN CORPUSCULAR VOLUME 90 fl (80-97); RED BLOOD COUNT 3.77 10^6/uL (3.72-5.28); RED CELL DISTRIBUTION WIDTH 14.8 % (11.5-14.0); WHITE BLOOD COUNT 18.8 10^3/uL (4.0-10.5)
[2017-01-18] MEDS: ACETYLCYSTEINE 20% SOLN 800 MG/4 ML VIAL.NEB NEB SCH ×2 (08:00→20:53)
[2017-01-18] MEDS: POTASSIUM CHLORIDE 20 MEQ/15 ML UDCUP NG SCH (10:00)
[2017-01-18] MEDS: CEFEPIME HCL 2 GM in DEXTROSE 5%-WATER 50 ML IV SCH ×2 (10:00→21:45)
[2017-01-18] MEDS: FONDAPARINUX SODIUM INJ 2.5 MG/0.5 ML DISP.SYRIN SUBCUT SCH (10:00)
[2017-01-18] MEDS: LACTOBACILLUS ACIDOPHILUS 250 MG TAB NG SCH ×2 (10:00→18:00)
[2017-01-18] MEDS: ASCORBIC ACID 500 MG TABLET NG SCH (10:00)
[2017-01-18] MEDS: FLUTICASONE/SALMETEROL DISKUS 250-50 MCG/DOSE IH SCH ×2 (10:00→21:43)
[2017-01-18] MEDS: FERROUS SULFATE LIQUID 300 MG/5 ML UDC NG SCH ×3 (10:00→18:00)
[2017-01-18] MEDS: METOPROLOL TARTRATE 25 MG TABLET PO SCH ×2 (10:00→21:43)
[2017-01-18] MEDS: POLYETHYLENE GLYCOL 3350 POWDER 17 GM/1 PACKET NG SCH (10:00)
[2017-01-18] MEDS: CALCIUM CARBONATE 250 MG/VITAMIN D3 125 UNIT TABLET NG SCH ×2 (10:00→21:45)
--- NOTE | 2017-01-18 16:37 | PROGRESS NOTE E ---
Progress Note NAME: ALYSHA BEDOLLA : 1955 AGE: 61Y DATE: 01/18/2017 ROOM: 322 SUBJECTIVE: The patient's neck control is better today, still with upper extremity and lower extremity weakness. Patient, however, is able to speak and take oral intake without a problem. Noted some confusion, however, last night. No temperature spikes. No diarrhea. Denies any increasing shortness of breath. OBJECTIVE: VITAL SIGNS: Pulse rate of 90. Telemetry is sinus. Blood pressure of 145/82. On 3 L nasal cannula. GENERAL: The patient is awake, appropriately responsive to questions. NECK: Shows no jugular venous distention. LUNGS: Minimal rhonchi bilateral. No wheezing. HEART: Regular with no gallops. ABDOMEN: Soft, nontender, nondistended. Bowel sounds are present. EXTREMITIES: Lower extremities with trace edema bilateral. Manual muscle testing, both upper and lower extremities, is about 1/5. ASSESSMENT: 1. CRITICAL ILLNESS POLYNEUROPATHY. 2. ACUTE HYPOXEMIC RESPIRATORY FAILURE, RESOLVED. 3. HAEMOPHILUS INFLUENZAE PNEUMONIA. 4. STATUS POST SEPTIC SHOCK. 5. ACUTE RENAL FAILURE, RESOLVED. 6. HYPERNATREMIA AND HYPOKALEMIA. 7. COPD. 8. COAGULOPATHY. 9. ANEMIA OF CHRONIC DISEASE. 10. HYPERLIPIDEMIA. 11. HYPOTHYROIDISM. 12. HISTORY OF SLE AND MORBID OBESITY. PLAN: Continue current antibiotics for now. Discontinue steroids and switch to oral. In the meantime, we will continue physical therapy. We will obtain CT scan of the head and current carbon dioxide level on ABG. We will also obtain an ammonia level. We will continue to monitor. DICTATING PHYSICIAN: KAYLAH LINDSAY M.D. [id number] PHY#: [id number] ID: [id number] JOB#: [id number] ACCT: [id number] cc: >
[2017-01-18] MEDS: LANSOPRAZOLE 30 MG TAB.RAP.DR NG SCH (17:00)
[2017-01-18] MEDS: CETIRIZINE 10 MG TABLET NG SCH (21:43)
[2017-01-18] MEDS: MONTELUKAST SODIUM 10 MG TABLET NG SCH (21:43)
[2017-01-18] MEDS: ASPIRIN 81 MG TABLET, CHEWABLE NG SCH (21:45)
[2017-01-18] MEDS: SERTRALINE HCL 50 MG TABLET NG SCH (21:45)
[2017-01-19] MEDS: IPRATROPIUM/ALBUTEROL 0.5-2.5 MG/3 ML AMPUL NEB SCH ×4 (01:45→19:30)
[2017-01-19] MEDS: LEVOTHYROXINE SODIUM 0.075 MG TABLET NG SCH (05:18)
[2017-01-19] MEDS: LANSOPRAZOLE 30 MG TAB.RAP.DR NG SCH (05:19)
[2017-01-19] MEDS: GUAIFENESIN SYRP 200 MG/10 ML UDC NG SCH ×2 (05:19→09:53)
[2017-01-19] MEDS: ACETYLCYSTEINE 20% SOLN 800 MG/4 ML VIAL.NEB NEB SCH ×2 (07:44→19:30)
[2017-01-19] MEDS: FONDAPARINUX SODIUM INJ 2.5 MG/0.5 ML DISP.SYRIN SUBCUT SCH (09:43)
[2017-01-19] MEDS: FERROUS SULFATE LIQUID 300 MG/5 ML UDC NG SCH (09:47)
[2017-01-19] MEDS: CALCIUM CARBONATE 250 MG/VITAMIN D3 125 UNIT TABLET NG SCH (09:48)
[2017-01-19] MEDS: LACTOBACILLUS ACIDOPHILUS 250 MG TAB NG SCH (09:50)
[2017-01-19] MEDS: METOPROLOL TARTRATE 25 MG TABLET PO SCH ×2 (09:50→21:07)
[2017-01-19] MEDS: ASCORBIC ACID 500 MG TABLET NG SCH (09:50)
[2017-01-19] MEDS: FLUTICASONE/SALMETEROL DISKUS 250-50 MCG/DOSE IH SCH ×2 (09:51→21:09)
[2017-01-19] MEDS: PREDNISONE 20 MG TABLET PO SCH (09:52)
[2017-01-19] MEDS: CEFEPIME HCL 2 GM in DEXTROSE 5%-WATER 50 ML IV SCH ×2 (09:53→21:05)
[2017-01-19] MEDS: POLYETHYLENE GLYCOL 3350 POWDER 17 GM/1 PACKET NG SCH (09:53)
--- NOTE | 2017-01-19 10:06 | PDOC PROGRESS REPORT ---
Subjective Progress Note for:: 01/19/17 Subjective:: There is generalized weakness, unable to move both upper extremities well but able to move lower extremities better.. No reported temperature spikes, nausea or vomiting, chills or fever. Remain on Saez catheter. No noted respiratory distress. Oral intake is fair. Physical Exam Vital Signs: Temp Pulse Resp BP Pulse Ox 98.0 F 77 16 127/67 H 95 01/19/17 07:08 01/19/17 07:44 01/19/17 07:44 01/19/17 07:08 01/19/17 07:44 Intake & Output 01/18/17 01/19/17 01/20/17 06:59 06:59 06:59 Intake Total 958 656 Output Total 2525 850 Balance -1567 -194 Weight 79.9 kg 78.9 kg General appearance: PRESENT: no acute distress, cooperative Head exam: PRESENT: normocephalic Eye exam: PRESENT: EOMI Mouth exam: PRESENT: moist, neck supple Neck exam: ABSENT: JVD Respiratory exam: PRESENT: rhonchi - few B/L. ABSENT: wheezes Cardiovascular exam: PRESENT: RRR. ABSENT: gallop GI/Abdominal exam: PRESENT: soft. ABSENT: distended, tenderness Extremities exam: PRESENT: other - trace edema Neurological exam: PRESENT: alert, awake, oriented to situation Skin exam: PRESENT: dry, warm. ABSENT: cyanosis Results Laboratory Results: 01/18/17 02:44 01/17/17 04:20 01/07/17 08:50 Tracheal Aspirate Fungal Smear - Final 01/07/17 08:50 Tracheal Aspirate Fungal Smear - Final 01/07/17 08:50 Tracheal Aspirate Fungal Smear - Final 01/06/17 01/06/17 23:20 23:20 Creatine Kinase 302 H CK-MB (CK-2) 7.47 H Troponin I 0.027 NT-Pro-B Natriuret Pep 27035 H Impressions: Abdomen/Pelvis CT 01/07/17 00:00 IMPRESSION: NO ACUTE FINDINGS WITHIN THE ABDOMEN OR PELVIS. CHRONIC CHANGES ABOVE. Chest/Abdomen CTA 01/07/17 00:00 IMPRESSION: NO PULMONARY EMBOLISM. MULTIFOCAL PNEUMONIA ABOVE WITH SMALL RIGHT PLEURAL EFFUSION. SATISFACTORY POSITION LINES/TUBES. Chest X-Ray 01/17/17 06:00 IMPRESSION: Stable small left basilar opacity -effusion. Lines and tubes. Assessment & Plan - Diagnosis (1) Critical illness neuropathy Is this a current diagnosis for this admission?: Yes (2) Acute hypoxemic respiratory failure Is this a current diagnosis for this admission?: No (3) Pneumonia Qualifiers: Pneumonia type: due to Haemophilus influenzae Laterality: right Lung location: lower lobe of lung Qualified Code(s): J14 - Pneumonia due to Hemophilus influenzae Is this a current diagnosis for this admission?: Yes (4) Septic shock Is this a current diagnosis for this admission?: No (5) Acute renal failure Qualifiers: Acute renal failure type: with acute tubular necrosis Qualified Code (s): N17.0 - Acute kidney failure with tubular necrosis Is this a current diagnosis for this admission?: Yes (6) Hypernatremia Is this a current diagnosis for this admission?: Yes (7) Hypokalemia Is this a current diagnosis for this admission?: Yes (8) COPD (chronic obstructive pulmonary disease) Qualifiers: COPD type: emphysema Emphysema type: centrilobular Qualified Code(s): J43.2 - Centrilobular emphysema Is this a current diagnosis for this admission?: Yes (9) Coagulopathy Is this a current diagnosis for this admission?: Yes (10) Anemia of chronic disease Is this a current diagnosis for this admission?: Yes (11) HLD (hyperlipidemia) Qualifiers: Hyperlipidemia type: unspecified Qualified Code(s): E78.5 - Hyperlipidemia, unspecified Is this a current diagnosis for this admission?: Yes (12) Hypothyroid Qualifiers: Hypothyroidism type: unspecified Qualified Code(s): E03.9 - Hypothyroidism, unspecified Is this a current diagnosis for this admission?: Yes (13) Lupus (systemic lupus erythematosus) Qualifiers: Systemic lupus erythematosus type: unspecified Systemic lupus erythematosus organ involvement: unspecified Qualified Code(s): M32.9 - Systemic lupus erythematosus, unspecified Is this a current diagnosis for this admission?: Yes (14) Obesity (BMI 30.0-34.9) Is this a current diagnosis for this admission?: Yes - Time Time Spent with patient: 15-24 minutes - Plan Summary Plan Summary: Antibx to complete today. Cont PT. Cont other meds and supportive care. Consult program services planner for subacute rehab.
[2017-01-19] MEDS ORDERED: LOPERAMIDE HCL 2 MG CAPSULE PO PRN (10:11)
[2017-01-19] MEDS ORDERED: ACETAMINOPHEN 325 MG TABLET PO PRN (10:15)
[2017-01-19] MEDS: POTASSIUM CHLORIDE 10 MEQ TABLET.SA PO SCH (10:44)
--- NOTE | 2017-01-19 11:06 | PDOC PROGRESS REPORT ---
Subjective Progress Note for:: 01/19/17 Subjective:: 48 hours status post extubation without complaint Physical Exam Vital Signs: Temp Pulse Resp BP Pulse Ox 98.0 F 77 16 127/67 H 95 01/19/17 07:08 01/19/17 07:44 01/19/17 07:44 01/19/17 07:08 01/19/17 07:44 Intake & Output 01/18/17 01/19/17 01/20/17 06:59 06:59 06:59 Intake Total 958 656 Output Total 2525 850 Balance -1567 -194 Weight 79.9 kg 78.9 kg General appearance: PRESENT: no acute distress, disheveled, obese, well- developed Head exam: PRESENT: normocephalic Eye exam: PRESENT: conjunctiva pale, EOMI Mouth exam: PRESENT: dry mucosa, neck supple Neck exam: ABSENT: carotid bruit, JVD, lymphadenopathy, thyromegaly Respiratory exam: PRESENT: decreased breath sounds, prolonged expiratory phas, rhonchi, symmetrical, unlabored Cardiovascular exam: PRESENT: RRR, +S1, +S2 Pulses: PRESENT: normal radial pulses GI/Abdominal exam: PRESENT: ascites Rectal exam: PRESENT: deferred Gentrourinary exam: PRESENT: indwelling catheter Musculoskeletal exam: PRESENT: normal inspection Neurological exam: PRESENT: alert, awake Psychiatric exam: PRESENT: normal mood Skin exam: PRESENT: dry, warm Results Laboratory Results: 01/18/17 02:44 01/17/17 04:20 01/07/17 08:50 Tracheal Aspirate Fungal Smear - Final 01/07/17 08:50 Tracheal Aspirate Fungal Smear - Final 01/07/17 08:50 Tracheal Aspirate Fungal Smear - Final 01/06/17 01/06/17 23:20 23:20 Creatine Kinase 302 H CK-MB (CK-2) 7.47 H Troponin I 0.027 NT-Pro-B Natriuret Pep 71422 H Impressions: Abdomen/Pelvis CT 01/07/17 00:00 IMPRESSION: NO ACUTE FINDINGS WITHIN THE ABDOMEN OR PELVIS. CHRONIC CHANGES ABOVE. Chest/Abdomen CTA 01/07/17 00:00 IMPRESSION: NO PULMONARY EMBOLISM. MULTIFOCAL PNEUMONIA ABOVE WITH SMALL RIGHT PLEURAL EFFUSION. SATISFACTORY POSITION LINES/TUBES. Chest X-Ray 01/17/17 06:00 IMPRESSION: Stable small left basilar opacity -effusion. Lines and tubes. Head CT 01/18/17 17:00 IMPRESSION: No acute abnormality in the brain. Assessment & Plan - Diagnosis (1) COPD (chronic obstructive pulmonary disease) Qualifiers: COPD type: emphysema Emphysema type: centrilobular Qualified Code(s): J43.2 - Centrilobular emphysema Is this a current diagnosis for this admission?: Yes (2) Pneumonia Qualifiers: Pneumonia type: due to unspecified organism Laterality: bilateral Lung location: lower lobe of lung Qualified Code(s): J18.9 - Pneumonia, unspecified organism Is this a current diagnosis for this admission?: Yes (3) Septic shock Is this a current diagnosis for this admission?: No (4) Acute hypoxemic respiratory failure Is this a current diagnosis for this admission?: No (5) Lupus (systemic lupus erythematosus) Qualifiers: Systemic lupus erythematosus type: unspecified Systemic lupus erythematosus organ involvement: unspecified Qualified Code(s): M32.9 - Systemic lupus erythematosus, unspecified Is this a current diagnosis for this admission?: Yes (6) Steroid dependence Is this a current diagnosis for this admission?: Yes - Time Critical Time spent with patient: 25-34 minutes
--- NOTE | 2017-01-19 11:08 | PDOC PROGRESS REPORT ---
Subjective Progress Note for:: 01/19/17 Subjective:: Increasingly more interactive Physical Exam Vital Signs: Temp Pulse Resp BP Pulse Ox 98.0 F 77 16 127/67 H 95 01/19/17 07:08 01/19/17 07:44 01/19/17 07:44 01/19/17 07:08 01/19/17 07:44 Intake & Output 01/18/17 01/19/17 01/20/17 06:59 06:59 06:59 Intake Total 958 656 Output Total 2525 850 Balance -1567 -194 Weight 79.9 kg 78.9 kg General appearance: PRESENT: no acute distress, disheveled, obese Head exam: PRESENT: atraumatic, normocephalic Eye exam: PRESENT: conjunctiva pale, EOMI Mouth exam: PRESENT: dry mucosa, neck supple Neck exam: ABSENT: carotid bruit, JVD, lymphadenopathy, thyromegaly Respiratory exam: PRESENT: decreased breath sounds, prolonged expiratory phas, rhonchi, symmetrical, unlabored Cardiovascular exam: PRESENT: RRR, +S1, +S2 Pulses: PRESENT: normal radial pulses GI/Abdominal exam: PRESENT: normal bowel sounds, soft. ABSENT: distended, guarding, mass, organolmegaly, rebound, tenderness Rectal exam: PRESENT: deferred Gentrourinary exam: PRESENT: indwelling catheter Musculoskeletal exam: PRESENT: normal inspection Neurological exam: PRESENT: alert, awake Psychiatric exam: PRESENT: normal mood Skin exam: PRESENT: dry, warm, other - Eschar around nares and upper lip Results Laboratory Results: 01/18/17 02:44 01/17/17 04:20 01/07/17 08:50 Tracheal Aspirate Fungal Smear - Final 01/07/17 08:50 Tracheal Aspirate Fungal Smear - Final 01/07/17 08:50 Tracheal Aspirate Fungal Smear - Final 01/06/17 01/06/17 23:20 23:20 Creatine Kinase 302 H CK-MB (CK-2) 7.47 H Troponin I 0.027 NT-Pro-B Natriuret Pep 35964 H Impressions: Abdomen/Pelvis CT 01/07/17 00:00 IMPRESSION: NO ACUTE FINDINGS WITHIN THE ABDOMEN OR PELVIS. CHRONIC CHANGES ABOVE. Chest/Abdomen CTA 01/07/17 00:00 IMPRESSION: NO PULMONARY EMBOLISM. MULTIFOCAL PNEUMONIA ABOVE WITH SMALL RIGHT PLEURAL EFFUSION. SATISFACTORY POSITION LINES/TUBES. Chest X-Ray 01/17/17 06:00 IMPRESSION: Stable small left basilar opacity -effusion. Lines and tubes. Head CT 01/18/17 17:00 IMPRESSION: No acute abnormality in the brain. Assessment & Plan - Diagnosis (1) COPD (chronic obstructive pulmonary disease) Qualifiers: COPD type: emphysema Emphysema type: centrilobular Qualified Code(s): J43.2 - Centrilobular emphysema Is this a current diagnosis for this admission?: Yes (2) Pneumonia Qualifiers: Pneumonia type: due to unspecified organism Laterality: bilateral Lung location: lower lobe of lung Qualified Code(s): J18.9 - Pneumonia, unspecified organism Is this a current diagnosis for this admission?: Yes (3) Septic shock Is this a current diagnosis for this admission?: No (4) Acute hypoxemic respiratory failure Is this a current diagnosis for this admission?: No (5) Lupus (systemic lupus erythematosus) Qualifiers: Systemic lupus erythematosus type: unspecified Systemic lupus erythematosus organ involvement: unspecified Qualified Code(s): M32.9 - Systemic lupus erythematosus, unspecified Is this a current diagnosis for this admission?: Yes (6) Steroid dependence Is this a current diagnosis for this admission?: Yes
[2017-01-19] MEDS: GUAIFENESIN SYRP 200 MG/10 ML UDC PO SCH ×3 (13:55→21:10)
[2017-01-19] MEDS: FERROUS SULFATE 325 MG TABLET PO SCH ×2 (13:55→17:08)
[2017-01-19 14:21] LABS: ARTERIAL BLOOD BASE EXCESS 2.3 mmol/L; ARTERIAL BLOOD O2 SATURATION 98.3 % (94-98)
[2017-01-19] MEDS: LANSOPRAZOLE 30 MG TAB.RAP.DR PO SCH (16:27)
[2017-01-19] MEDS: LACTOBACILLUS ACIDOPHILUS 250 MG TAB PO SCH (17:08)
[2017-01-19] MEDS: INSULIN REG, HUMAN 100 UNIT/ML 3 ML VIAL (PYX) SUBCUT PRN (17:08)
[2017-01-19] MEDS: NORMAL SALINE 1000 ML 1,000 ML IV PRN (21:00)
[2017-01-19] MEDS: CALCIUM CARBONATE 250 MG/VITAMIN D3 125 UNIT TABLET PO SCH (21:07)
[2017-01-19] MEDS: MONTELUKAST SODIUM 10 MG TABLET PO SCH (21:08)
[2017-01-19] MEDS: ASPIRIN 81 MG TABLET, CHEWABLE PO SCH (21:08)
[2017-01-19] MEDS: SERTRALINE HCL 50 MG TABLET PO SCH (21:09)
[2017-01-19] MEDS: CETIRIZINE 10 MG TABLET PO SCH (21:10)
[2017-01-20] MEDS: GUAIFENESIN SYRP 200 MG/10 ML UDC PO SCH ×6 (01:26→21:24)
[2017-01-20] MEDS: IPRATROPIUM/ALBUTEROL 0.5-2.5 MG/3 ML AMPUL NEB SCH ×4 (02:08→20:13)
[2017-01-20] MEDS: LANSOPRAZOLE 30 MG TAB.RAP.DR PO SCH ×2 (05:55→17:52)
[2017-01-20] MEDS: LEVOTHYROXINE SODIUM 0.075 MG TABLET PO SCH (05:55)
[2017-01-20] MEDS: ACETYLCYSTEINE 20% SOLN 800 MG/4 ML VIAL.NEB NEB SCH ×2 (08:11→20:14)
[2017-01-20] MEDS: FONDAPARINUX SODIUM INJ 2.5 MG/0.5 ML DISP.SYRIN SUBCUT SCH (09:26)
[2017-01-20] MEDS: FLUTICASONE/SALMETEROL DISKUS 250-50 MCG/DOSE IH SCH ×2 (09:27→21:24)
[2017-01-20] MEDS: POTASSIUM CHLORIDE 10 MEQ TABLET.SA PO SCH (09:29)
[2017-01-20] MEDS: CALCIUM CARBONATE 250 MG/VITAMIN D3 125 UNIT TABLET PO SCH ×2 (09:31→21:22)
[2017-01-20] MEDS: ASCORBIC ACID 500 MG TABLET PO SCH (09:32)
[2017-01-20] MEDS: LACTOBACILLUS ACIDOPHILUS 250 MG TAB PO SCH ×2 (09:33→17:52)
[2017-01-20] MEDS: METOPROLOL TARTRATE 25 MG TABLET PO SCH ×2 (09:34→21:23)
[2017-01-20] MEDS: FERROUS SULFATE 325 MG TABLET PO SCH ×3 (09:34→17:52)
[2017-01-20] MEDS: PREDNISONE 20 MG TABLET PO SCH ×2 (09:35→10:17)
[2017-01-20] MEDS: CEFEPIME HCL 2 GM in DEXTROSE 5%-WATER 50 ML IV SCH (09:37)
[2017-01-20] MEDS: POLYETHYLENE GLYCOL 3350 POWDER 17 GM/1 PACKET PO SCH (09:39)
--- NOTE | 2017-01-20 09:52 | PDOC PROGRESS REPORT ---
Subjective Progress Note for:: 01/20/17 Subjective:: There is generalized weakness, but overall improving. Unable to move both upper extremities still but abble to lift shoulders. Able to move lower extremities better. No reported temperature spikes, nausea or vomiting, chills or fever. Remain on Saez catheter. No respiratory distress. Oral intake is improving as well and diet consistency advanced.. Physical Exam Vital Signs: Temp Pulse Resp BP Pulse Ox 98.0 F 79 20 130/57 H 100 01/20/17 08:00 01/20/17 08:00 01/20/17 08:00 01/20/17 08:00 01/20/17 08:00 Intake & Output 01/19/17 01/20/17 01/21/17 06:59 06:59 06:59 Intake Total 656 2426 Output Total 850 2500 Balance -194 -74 Weight 78.9 kg 75.9 kg General appearance: PRESENT: no acute distress, cooperative Head exam: PRESENT: normocephalic Eye exam: PRESENT: EOMI Mouth exam: PRESENT: moist, neck supple Neck exam: ABSENT: JVD Respiratory exam: PRESENT: clear to auscultation urszula. ABSENT: rhonchi, wheezes Cardiovascular exam: PRESENT: RRR. ABSENT: gallop GI/Abdominal exam: PRESENT: hypoactive bowel sounds, soft. ABSENT: distended, tenderness Extremities exam: PRESENT: other - trace LE edema Neurological exam: PRESENT: alert, awake, oriented to situation Skin exam: PRESENT: dry, warm. ABSENT: cyanosis Results Laboratory Results: 01/18/17 02:44 01/17/17 04:20 01/18/17 01/18/17 12:08 12:20 Carbonic Acid 1.22 HCO3/H2CO3 Ratio 21:1 ABG pH 7.44 ABG pCO2 40.4 ABG pO2 113.8 H ABG HCO3 26.6 H ABG O2 Saturation 98.3 H ABG Base Excess 2.3 FiO2 3L Ammonia < 8.7 L 01/07/17 08:50 Tracheal Aspirate Fungal Smear - Final 01/07/17 08:50 Tracheal Aspirate Fungal Smear - Final 01/07/17 08:50 Tracheal Aspirate Fungal Smear - Final 01/07/17 08:50 Tracheal Aspirate Fungal Culture - Final 01/06/17 01/06/17 23:20 23:20 Creatine Kinase 302 H CK-MB (CK-2) 7.47 H Troponin I 0.027 NT-Pro-B Natriuret Pep [id number] H Impressions: Abdomen/Pelvis CT 01/07/17 00:00 IMPRESSION: NO ACUTE FINDINGS WITHIN THE ABDOMEN OR PELVIS. CHRONIC CHANGES ABOVE. Chest/Abdomen CTA 01/07/17 00:00 IMPRESSION: NO PULMONARY EMBOLISM. MULTIFOCAL PNEUMONIA ABOVE WITH SMALL RIGHT PLEURAL EFFUSION. SATISFACTORY POSITION LINES/TUBES. Chest X-Ray 01/17/17 06:00 IMPRESSION: Stable small left basilar opacity -effusion. Lines and tubes. Head CT 01/18/17 17:00 IMPRESSION: No acute abnormality in the brain. Assessment & Plan - Diagnosis (1) Critical illness neuropathy Is this a current diagnosis for this admission?: Yes (2) Acute hypoxemic respiratory failure Is this a current diagnosis for this admission?: No (3) Pneumonia Qualifiers: Pneumonia type: due to Haemophilus influenzae Laterality: right Lung location: lower lobe of lung Qualified Code(s): J14 - Pneumonia due to Hemophilus influenzae Is this a current diagnosis for this admission?: Yes (4) Septic shock Is this a current diagnosis for this admission?: No (5) Acute renal failure Qualifiers: Acute renal failure type: with acute tubular necrosis Qualified Code (s): N17.0 - Acute kidney failure with tubular necrosis Is this a current diagnosis for this admission?: Yes (6) Hypernatremia Is this a current diagnosis for this admission?: Yes (7) Hypokalemia Is this a current diagnosis for this admission?: Yes (8) COPD (chronic obstructive pulmonary disease) Qualifiers: COPD type: emphysema Emphysema type: centrilobular Qualified Code(s): J43.2 - Centrilobular emphysema Is this a current diagnosis for this admission?: Yes (9) Coagulopathy Is this a current diagnosis for this admission?: Yes (10) Anemia of chronic disease Is this a current diagnosis for this admission?: Yes (11) HLD (hyperlipidemia) Qualifiers: Hyperlipidemia type: unspecified Qualified Code(s): E78.5 - Hyperlipidemia, unspecified Is this a current diagnosis for this admission?: Yes (12) Hypothyroid Qualifiers: Hypothyroidism type: unspecified Qualified Code(s): E03.9 - Hypothyroidism, unspecified Is this a current diagnosis for this admission?: Yes (13) Lupus (systemic lupus erythematosus) Qualifiers: Systemic lupus erythematosus type: unspecified Systemic lupus erythematosus organ involvement: unspecified Qualified Code(s): M32.9 - Systemic lupus erythematosus, unspecified Is this a current diagnosis for this admission?: Yes (14) Obesity (BMI 30.0-34.9) Is this a current diagnosis for this admission?: Yes - Time Time Spent with patient: 25-34 minutes - Plan Summary Plan Summary: D/C IV antibiotics. Taper steroids off. Bronchial washings reported molds. Begin anti-fungal. Cont. PT. Continue other meds and supportive care.
[2017-01-20] MEDS: FLUCONAZOLE 100 MG TABLET PO SCH (10:28)
[2017-01-20] MEDS: INSULIN REG, HUMAN 100 UNIT/ML 3 ML VIAL (PYX) SUBCUT PRN (17:52)
[2017-01-20] MEDS: MONTELUKAST SODIUM 10 MG TABLET PO SCH (21:23)
[2017-01-20] MEDS: SERTRALINE HCL 50 MG TABLET PO SCH (21:23)
[2017-01-20] MEDS: CETIRIZINE 10 MG TABLET PO SCH (21:23)
[2017-01-20] MEDS: ASPIRIN 81 MG TABLET, CHEWABLE PO SCH (21:23)
[2017-01-21] MEDS: GUAIFENESIN SYRP 200 MG/10 ML UDC PO SCH ×5 (01:21→17:13)
[2017-01-21] MEDS: IPRATROPIUM/ALBUTEROL 0.5-2.5 MG/3 ML AMPUL NEB SCH ×4 (02:05→20:27)
[2017-01-21] MEDS: LEVOTHYROXINE SODIUM 0.075 MG TABLET PO SCH (05:10)
[2017-01-21] MEDS: LANSOPRAZOLE 30 MG TAB.RAP.DR PO SCH ×2 (05:10→17:12)
[2017-01-21 05:29] LABS: HEMATOCRIT 32.3 % (36.0-47.0); HEMOGLOBIN 10.8 g/dL (12.0-15.5); HGB HCT DIFFERENCE 0.1; MEAN CORPUSCULAR HEMOGLOBIN 29.6 pg (27.0-33.4); MEAN CORPUSCULAR HGB CONC 33.5 g/dL (32.0-36.0); MEAN CORPUSCULAR VOLUME 89 fl (80-97); RED BLOOD COUNT 3.65 10^6/uL (3.72-5.28); RED CELL DISTRIBUTION WIDTH 15.5 % (11.5-14.0); WHITE BLOOD COUNT 9.2 10^3/uL (4.0-10.5)
[2017-01-21 05:47] LABS: ANION GAP 6 (5-19); BLOOD UREA NITROGEN 19 mg/dL (7-20); CALCIUM 8.8 mg/dL (8.4-10.2); CARBON DIOXIDE 29 mmol/L (22-30); CHLORIDE 102 mmol/L (98-107); CREATININE RESULT 0.39 mg/dL (0.52-1.25); GLUCOSE 103 mg/dL (75-110); MAGNESIUM 2.1 mg/dL (1.6-2.3); POTASSIUM 4.1 mmol/L (3.6-5.0); SODIUM 136.6 mmol/L (137-145)
[2017-01-21] MEDS: ACETYLCYSTEINE 20% SOLN 800 MG/4 ML VIAL.NEB NEB SCH ×2 (08:29→20:27)
[2017-01-21] MEDS: CALCIUM CARBONATE 250 MG/VITAMIN D3 125 UNIT TABLET PO SCH ×2 (09:38→21:12)
[2017-01-21] MEDS: FERROUS SULFATE 325 MG TABLET PO SCH ×3 (09:39→17:12)
[2017-01-21] MEDS: LACTOBACILLUS ACIDOPHILUS 250 MG TAB PO SCH ×2 (09:40→17:12)
[2017-01-21] MEDS: ASCORBIC ACID 500 MG TABLET PO SCH (09:40)
[2017-01-21] MEDS: PREDNISONE 20 MG TABLET PO SCH (09:40)
[2017-01-21] MEDS: FLUCONAZOLE 100 MG TABLET PO SCH (09:40)
[2017-01-21] MEDS: POTASSIUM CHLORIDE 10 MEQ TABLET.SA PO SCH (09:41)
[2017-01-21] MEDS: FONDAPARINUX SODIUM INJ 2.5 MG/0.5 ML DISP.SYRIN SUBCUT SCH (09:41)
[2017-01-21] MEDS: POLYETHYLENE GLYCOL 3350 POWDER 17 GM/1 PACKET PO SCH (09:41)
[2017-01-21] MEDS: FLUTICASONE/SALMETEROL DISKUS 250-50 MCG/DOSE IH SCH ×2 (09:43→21:14)
[2017-01-21] MEDS: METOPROLOL TARTRATE 25 MG TABLET PO SCH ×2 (09:44→21:13)
--- NOTE | 2017-01-21 10:17 | PDOC PROGRESS REPORT ---
Subjective Progress Note for:: 01/21/17 Subjective:: There is generalized weakness present, but overall continuous to improve slowly. Unable to move both upper extremities but able to pronbate and slightly supinate forearm and lift shoulders. Able to move lower extremities better. No reported temperature spikes, nausea or vomiting, chills or fever. Remain on Saez catheter. No respiratory distress. Oral intake is improving as well and diet consistency advanced. 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 Physical Exam Vital Signs: Temp Pulse Resp BP Pulse Ox 98.1 F 90 16 143/63 H 97 01/21/17 07:42 01/21/17 07:42 01/21/17 07:42 01/21/17 07:42 01/21/17 07:42 Intake & Output 01/20/17 01/21/17 01/22/17 06:59 06:59 06:59 Intake Total 2426 350 Output Total 2500 1625 Balance -74 -1275 Weight 75.9 kg 75.7 kg General appearance: PRESENT: no acute distress, cooperative Head exam: PRESENT: normocephalic Eye exam: PRESENT: EOMI Mouth exam: PRESENT: moist, neck supple Neck exam: ABSENT: JVD Respiratory exam: PRESENT: clear to auscultation urszula. ABSENT: rhonchi, wheezes Cardiovascular exam: PRESENT: RRR. ABSENT: gallop GI/Abdominal exam: PRESENT: normal bowel sounds, soft. ABSENT: distended, tenderness Extremities exam: PRESENT: other - trace edema Neurological exam: PRESENT: alert, awake, oriented to situation Skin exam: PRESENT: dry, warm. ABSENT: cyanosis Results Laboratory Results: 01/21/17 05:15 01/21/17 05:15 01/21/17 01/21/17 05:15 05:15 WBC 9.2 RBC 3.65 L Hgb 10.8 L Hct 32.3 L MCV 89 MCH 29.6 MCHC 33.5 RDW 15.5 H Plt Count 174 Sodium 136.6 L Potassium 4.1 Chloride 102 Carbon Dioxide 29 Anion Gap 6 BUN 19 Creatinine 0.39 L Est GFR ( Amer) > 60 Est GFR (Non-Af Amer) > 60 Glucose 103 Calcium 8.8 Phosphorus 3.0 Magnesium 2.1 01/07/17 08:50 Tracheal Aspirate Fungal Smear - Final 01/07/17 08:50 Tracheal Aspirate Fungal Smear - Final 01/07/17 08:50 Tracheal Aspirate Fungal Smear - Final 01/07/17 08:50 Tracheal Aspirate Fungal Culture - Final 01/06/17 01/06/17 23:20 23:20 Creatine Kinase 302 H CK-MB (CK-2) 7.47 H Troponin I 0.027 NT-Pro-B Natriuret Pep [id number] H Impressions: Abdomen/Pelvis CT 01/07/17 00:00 IMPRESSION: NO ACUTE FINDINGS WITHIN THE ABDOMEN OR PELVIS. CHRONIC CHANGES ABOVE. Chest/Abdomen CTA 01/07/17 00:00 IMPRESSION: NO PULMONARY EMBOLISM. MULTIFOCAL PNEUMONIA ABOVE WITH SMALL RIGHT PLEURAL EFFUSION. SATISFACTORY POSITION LINES/TUBES. Chest X-Ray 01/17/17 06:00 IMPRESSION: Stable small left basilar opacity -effusion. Lines and tubes. Head CT 01/18/17 17:00 IMPRESSION: No acute abnormality in the brain. Assessment & Plan - Diagnosis (1) Critical illness neuropathy Is this a current diagnosis for this admission?: Yes (2) Acute hypoxemic respiratory failure Is this a current diagnosis for this admission?: No (3) Pneumonia Qualifiers: Pneumonia type: due to Haemophilus influenzae Laterality: right Lung location: lower lobe of lung Qualified Code(s): J14 - Pneumonia due to Hemophilus influenzae Is this a current diagnosis for this admission?: Yes (4) Septic shock Is this a current diagnosis for this admission?: No (5) Acute renal failure Qualifiers: Acute renal failure type: with acute tubular necrosis Qualified Code (s): N17.0 - Acute kidney failure with tubular necrosis Is this a current diagnosis for this admission?: Yes (6) Hypernatremia Is this a current diagnosis for this admission?: Yes (7) Hypokalemia Is this a current diagnosis for this admission?: Yes (8) COPD (chronic obstructive pulmonary disease) Qualifiers: COPD type: emphysema Emphysema type: centrilobular Qualified Code(s): J43.2 - Centrilobular emphysema Is this a current diagnosis for this admission?: Yes (9) Coagulopathy Is this a current diagnosis for this admission?: Yes (10) Anemia of chronic disease Is this a current diagnosis for this admission?: Yes (11) HLD (hyperlipidemia) Qualifiers: Hyperlipidemia type: unspecified Qualified Code(s): E78.5 - Hyperlipidemia, unspecified Is this a current diagnosis for this admission?: Yes (12) Hypothyroid Qualifiers: Hypothyroidism type: unspecified Qualified Code(s): E03.9 - Hypothyroidism, unspecified Is this a current diagnosis for this admission?: Yes (13) Lupus (systemic lupus erythematosus) Qualifiers: Systemic lupus erythematosus type: unspecified Systemic lupus erythematosus organ involvement: unspecified Qualified Code(s): M32.9 - Systemic lupus erythematosus, unspecified Is this a current diagnosis for this admission?: Yes (14) Obesity (BMI 30.0-34.9) Is this a current diagnosis for this admission?: Yes - Time Time Spent with patient: 15-24 minutes - Plan Summary Plan Summary: Cont. current meds and supportive care. Cont. PT. Taper steroids down until 5mg daily.
[2017-01-21] MEDS: SERTRALINE HCL 50 MG TABLET PO SCH (21:12)
[2017-01-21] MEDS: MONTELUKAST SODIUM 10 MG TABLET PO SCH (21:13)
[2017-01-21] MEDS: CETIRIZINE 10 MG TABLET PO SCH (21:13)
[2017-01-21] MEDS: ASPIRIN 81 MG TABLET, CHEWABLE PO SCH (21:13)
[2017-01-22] MEDS: IPRATROPIUM/ALBUTEROL 0.5-2.5 MG/3 ML AMPUL NEB SCH ×4 (02:18→20:24)
[2017-01-22] MEDS: LEVOTHYROXINE SODIUM 0.075 MG TABLET PO SCH (05:04)
[2017-01-22] MEDS: LANSOPRAZOLE 30 MG TAB.RAP.DR PO SCH ×2 (05:04→17:16)
[2017-01-22 05:24] LABS: ANION GAP 5 (5-19); BLOOD UREA NITROGEN 16 mg/dL (7-20); CALCIUM 8.8 mg/dL (8.4-10.2); CARBON DIOXIDE 30 mmol/L (22-30); CHLORIDE 101 mmol/L (98-107); CREATININE RESULT 0.34 mg/dL (0.52-1.25); GLUCOSE 119 mg/dL (75-110); POTASSIUM 4.1 mmol/L (3.6-5.0); SODIUM 136.2 mmol/L (137-145)
[2017-01-22] MEDS: ACETYLCYSTEINE 20% SOLN 800 MG/4 ML VIAL.NEB NEB SCH ×2 (08:27→20:24)
[2017-01-22] MEDS: CALCIUM CARBONATE 250 MG/VITAMIN D3 125 UNIT TABLET PO SCH ×2 (09:30→21:43)
[2017-01-22] MEDS: ASCORBIC ACID 500 MG TABLET PO SCH (09:30)
[2017-01-22] MEDS: POTASSIUM CHLORIDE 10 MEQ TABLET.SA PO SCH (09:30)
[2017-01-22] MEDS: FERROUS SULFATE 325 MG TABLET PO SCH ×3 (09:31→17:16)
[2017-01-22] MEDS: POLYETHYLENE GLYCOL 3350 POWDER 17 GM/1 PACKET PO SCH (09:31)
[2017-01-22] MEDS: LACTOBACILLUS ACIDOPHILUS 250 MG TAB PO SCH ×2 (09:31→17:16)
[2017-01-22] MEDS: FONDAPARINUX SODIUM INJ 2.5 MG/0.5 ML DISP.SYRIN SUBCUT SCH (09:31)
[2017-01-22] MEDS: FLUCONAZOLE 100 MG TABLET PO SCH (09:32)
[2017-01-22] MEDS: METOPROLOL TARTRATE 25 MG TABLET PO SCH ×2 (09:32→21:44)
[2017-01-22] MEDS: FLUTICASONE/SALMETEROL DISKUS 250-50 MCG/DOSE IH SCH ×2 (09:34→21:43)
[2017-01-22] MEDS: PREDNISONE 20 MG TABLET PO SCH (09:34)
[2017-01-22] MEDS ORDERED: PREDNISONE 20 MG TABLET PO SCH (10:00)
--- NOTE | 2017-01-22 11:42 | PDOC PROGRESS REPORT ---
Subjective Progress Note for:: 01/22/17 Subjective:: Continues to improve slowly. 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 Physical Exam Vital Signs: Temp Pulse Resp BP Pulse Ox 98.7 F 84 16 123/51 L 99 01/22/17 07:50 01/22/17 07:50 01/22/17 07:50 01/22/17 07:50 01/22/17 07:50 Intake & Output 01/21/17 01/22/17 01/23/17 06:59 06:59 06:59 Intake Total 350 510 Output Total 1625 1700 Balance -1275 -1190 Weight 75.7 kg 74.6 kg General appearance: PRESENT: no acute distress, cooperative Head exam: PRESENT: normocephalic Mouth exam: PRESENT: moist Neck exam: ABSENT: JVD Extremities exam: PRESENT: other - tace edema B/L Skin exam: ABSENT: cyanosis Results Laboratory Results: 01/21/17 05:15 01/22/17 04:35 01/22/17 04:35 Sodium 136.2 L Potassium 4.1 Chloride 101 Carbon Dioxide 30 Anion Gap 5 BUN 16 Creatinine 0.34 L Est GFR ( Amer) > 60 Est GFR (Non-Af Amer) > 60 Glucose 119 H Calcium 8.8 01/06/17 01/06/17 23:20 23:20 Creatine Kinase 302 H CK-MB (CK-2) 7.47 H Troponin I 0.027 NT-Pro-B Natriuret Pep [id number] H Impressions: Abdomen/Pelvis CT 01/07/17 00:00 IMPRESSION: NO ACUTE FINDINGS WITHIN THE ABDOMEN OR PELVIS. CHRONIC CHANGES ABOVE. Chest/Abdomen CTA 01/07/17 00:00 IMPRESSION: NO PULMONARY EMBOLISM. MULTIFOCAL PNEUMONIA ABOVE WITH SMALL RIGHT PLEURAL EFFUSION. SATISFACTORY POSITION LINES/TUBES. Chest X-Ray 01/17/17 06:00 IMPRESSION: Stable small left basilar opacity -effusion. Lines and tubes. Head CT 01/18/17 17:00 IMPRESSION: No acute abnormality in the brain. Assessment & Plan - Diagnosis (1) Critical illness neuropathy Is this a current diagnosis for this admission?: Yes (2) Acute hypoxemic respiratory failure Is this a current diagnosis for this admission?: No (3) Pneumonia Qualifiers: Pneumonia type: due to Haemophilus influenzae Laterality: right Lung location: lower lobe of lung Qualified Code(s): J14 - Pneumonia due to Hemophilus influenzae Is this a current diagnosis for this admission?: Yes (4) Septic shock Is this a current diagnosis for this admission?: No (5) Acute renal failure Qualifiers: Acute renal failure type: with acute tubular necrosis Qualified Code (s): N17.0 - Acute kidney failure with tubular necrosis Is this a current diagnosis for this admission?: Yes (6) Hypernatremia Is this a current diagnosis for this admission?: Yes (7) Hypokalemia Is this a current diagnosis for this admission?: Yes (8) COPD (chronic obstructive pulmonary disease) Qualifiers: COPD type: emphysema Emphysema type: centrilobular Qualified Code(s): J43.2 - Centrilobular emphysema Is this a current diagnosis for this admission?: Yes (9) Coagulopathy Is this a current diagnosis for this admission?: Yes (10) Anemia of chronic disease Is this a current diagnosis for this admission?: Yes (11) HLD (hyperlipidemia) Qualifiers: Hyperlipidemia type: unspecified Qualified Code(s): E78.5 - Hyperlipidemia, unspecified Is this a current diagnosis for this admission?: Yes (12) Hypothyroid Qualifiers: Hypothyroidism type: unspecified Qualified Code(s): E03.9 - Hypothyroidism, unspecified Is this a current diagnosis for this admission?: Yes (13) Lupus (systemic lupus erythematosus) Qualifiers: Systemic lupus erythematosus type: unspecified Systemic lupus erythematosus organ involvement: unspecified Qualified Code(s): M32.9 - Systemic lupus erythematosus, unspecified Is this a current diagnosis for this admission?: Yes (14) Obesity (BMI 30.0-34.9) Is this a current diagnosis for this admission?: Yes - Time Time Spent with patient: Less than 15 minutes - Plan Summary Plan Summary: Continue current meds and supportive care. Transfer to rehab in am.
[2017-01-22] MEDS ORDERED: LORAZEPAM INJ 2 MG/1 ML VIAL IV ONE (15:00)
[2017-01-22] MEDS: MONTELUKAST SODIUM 10 MG TABLET PO SCH (21:44)
[2017-01-22] MEDS: SERTRALINE HCL 50 MG TABLET PO SCH (21:44)
[2017-01-22] MEDS: CETIRIZINE 10 MG TABLET PO SCH (21:44)
[2017-01-22] MEDS: ASPIRIN 81 MG TABLET, CHEWABLE PO SCH (21:45)
[2017-01-23] MEDS: IPRATROPIUM/ALBUTEROL 0.5-2.5 MG/3 ML AMPUL NEB SCH (02:19)
[2017-01-23 04:25] VITALS: BP 138/63
[2017-01-23] MEDS: LEVOTHYROXINE SODIUM 0.075 MG TABLET PO SCH (05:22)
[2017-01-23] MEDS: LANSOPRAZOLE 30 MG TAB.RAP.DR PO SCH (05:22)
--- NOTE | 2017-01-23 07:18 | PDOC TRANSFER SUMMARY ---
General - Admit/Disc Date/PCP Admission Date/Primary Care Provider: 01/06/17 16:55 TERRY HAGER PA-C Discharge Date: 01/23/17 - Discharge Diagnosis (1) Critical illness neuropathy Is this a current diagnosis for this admission?: Yes (2) Acute hypoxemic respiratory failure Is this a current diagnosis for this admission?: No (3) Pneumonia Is this a current diagnosis for this admission?: Yes (4) Septic shock Is this a current diagnosis for this admission?: No (5) Acute renal failure Is this a current diagnosis for this admission?: Yes (6) Hypernatremia Is this a current diagnosis for this admission?: Yes (7) Hypokalemia Is this a current diagnosis for this admission?: Yes (8) COPD (chronic obstructive pulmonary disease) Is this a current diagnosis for this admission?: Yes (9) Coagulopathy Is this a current diagnosis for this admission?: Yes (10) Anemia of chronic disease Is this a current diagnosis for this admission?: Yes (11) HLD (hyperlipidemia) Is this a current diagnosis for this admission?: Yes (12) Hypothyroid Is this a current diagnosis for this admission?: Yes (13) Lupus (systemic lupus erythematosus) Is this a current diagnosis for this admission?: Yes (14) Obesity (BMI 30.0-34.9) Is this a current diagnosis for this admission?: Yes - Additional Information Resuscitation Status: Full Code Discharge Diet: Cardiac Discharge Activity: Activity As Tolerated, Balance Activity w/Rest, Slowly Increase Activity Home Medications: Albuterol Sulfate [Proair HFA] 1 puff IH PRN PRN 01/06/17 Ascorbic Acid [Vitamin C] 1,000 mg PO DAILY 01/06/17 Aspirin [Aspirin EC] 81 mg PO QHS 01/06/17 Calcium Carbonate/Vitamin D3 [Calcium 600 + Vit D Tablet] 2 tab PO Q12 01/06/17 Cetirizine HCl [Zyrtec 10 mg Tablet] 10 mg PO QHS 01/06/17 Esomeprazole Mag Trihydrate [Nexium] 40 mg PO DAILY 01/06/17 Estradiol [Estrace] 0.5 mg PO QHS 01/06/17 Fish Oil/Dha/Epa [Fish Oil 1,200 mg Fish Oil] 1,200 mg PO Q12 01/06/17 Fluticasone/Salmeterol [Advair 250-50 Diskus 28 dose] 1 puff IH Q12 01/06/17 Lactobacillus Combination No.8 [Adult Probiotic] 1 cap PO QHS 01/06/17 Levothyroxine Sodium [Synthroid 0.075 mg Tablet] 75 mcg PO DAILY 01/06/17 Metoprolol Succinate [Toprol Xl 50 mg Tab.sr] 50 mg PO Q12 01/06/17 Montelukast Sodium [Singulair 10 mg Tablet] 10 mg PO QHS 01/06/17 Multivitamin with Minerals [Hair, Skin and Nails] 5,000 mg PO Q12 01/06/17 Potassium Chloride [Klor-Con 8] 16 meq PO Q12 01/06/17 Prednisone [Deltasone 5 mg Tablet] 5 mg PO DAILY 01/06/17 Sertraline HCl [Zoloft] 100 mg PO QHS 01/06/17 Simvastatin [Zocor 20 mg Tablet] 20 mg PO QHS 01/06/17 Tofacitinib Citrate [Xeljanz] 5 mg PO Q12 01/06/17 Triamcinolone Acetonide 0.03% Cream 1 applic TOP ASDIR PRN 01/06/17 Turmeric Curcumin 500mg 500 mg PO QPM 01/06/17 Ferrous Sulfate [Feosol 325 mg Tablet] 325 mg PO TID tablet 01/23/17 Fluconazole [Diflucan 100 mg Tablet] 100 mg PO DAILY tablet 01/23/17 Fondaparinux Sodium [Arixtra Inj 2.5 mg/0.5 ml Disp.syrin] 2.5 mg SUBCUT DAILY disp.syrin 01/23/17 Additional Information: 1. Follow up final fungal culture report out-patient w/ primary physician or from the rehab facility 2. Diflucan to take for 12 days. History of Present Illness Admission Date/PCP: 01/06/17 16:55 TERRY HAGER PA-C Patient complains of: Shortness of breath History of Present Illness: ALYSHA BEDOLLA is a 61 year old female who presents to the emergency department with via EMS with a one-day history of shortness of breath. Upon EMS arrival to patient's residence, she was found to be hypoxic to the low 70s. Patient was also tachycardic and tachypnic. She has a history of multiple medical problems including COPD, pneumonia, chronic steroid dependance, rheumatoid arthritis, and lupus. Patient is currently on BiPAP and history is limited due to patient's hypotension and lethargy. Patient has had one day of vomiting and reports several diarrheal stools. Patient was hospitalized from 10/09/16- and this H&P and discharge summary was reviewed. Patient was discharged on Levaquin at that time. Chest x-ray in the emergency department reveals a right lower lobe pneumonia. For details, please refer to History and physical examination performed by the admitting physician. Hospital Course Hospital Course: The patient was admitted to stepdown unit. Her initial course in stepdown was short due to worsening respiratory condition and hypotension. Patient eventually intubated and MV instituted. Vasopressors likewise started. Pulmonary was consulted for ventillator management. She was transfered to ICU where she had a prolonged course w/ difficult extubation. She was placed on NGT tube feedings and IV hydration. She required bronchoscopy and BAL and cultures were re-sent. She had CT of her chest w/c showed multifocal pneumonia but no PE. Her cultures grew hemophilus influenza on the initial sputum not on BAL. She was placed on nebulizers, stress dose of steroids due to chronic prednisone use, and IV diuretics to maintain negative balance. She eventually improved slowly and was successfully extubated and was transfered to the stepdown unit. She had significant weakness likely due to critical illness polyneuropathy and PT was instituted. Her head CT was negative for acute stroke. She slowly gained some function with her lower extremity first and then both her hands. Still w/ significant debility, she was refered to [facility] for acute rehabilitation and she was accepted. One of her samples in BAL reported with some mold. She was began on diflucan. Her steroids were tapered to home dose. She completed IV antibiotics for pneumonia. Patient and family advised to follow final report as out-patient w/ primary physician or at the rehabilitation facility. The rest of the hospital stay was unremarkable. Physical Exam Vital Signs: Temp Pulse Resp BP Pulse Ox 98.2 F 82 18 138/63 H 99 01/23/17 04:04 01/23/17 04:04 01/23/17 04:04 01/23/17 04:04 01/23/17 04:04 Intake & Output 01/22/17 01/23/1717 06:59 06:59 06:59 Intake Total 510 775 Output Total 1700 700 Balance -1190 75 Weight 74.6 kg General appearance: PRESENT: no acute distress, cooperative Head exam: PRESENT: normocephalic Eye exam: PRESENT: EOMI Mouth exam: PRESENT: moist, neck supple Neck exam: ABSENT: JVD Respiratory exam: PRESENT: clear to auscultation urszula. ABSENT: rhonchi, wheezes Cardiovascular exam: PRESENT: RRR. ABSENT: gallop GI/Abdominal exam: PRESENT: normal bowel sounds, soft. ABSENT: distended, tenderness Extremities exam: PRESENT: other - trace pre-tibial edema Neurological exam: PRESENT: alert, awake, oriented to situation Skin exam: PRESENT: dry, warm. ABSENT: cyanosis Results Laboratory Results: 01/21/17 05:15 01/22/17 04:35 01/06/17 01/06/17 23:20 23:20 Creatine Kinase 302 H CK-MB (CK-2) 7.47 H Troponin I 0.027 NT-Pro-B Natriuret Pep 41780 H Impressions: Abdomen/Pelvis CT 01/07/17 00:00 IMPRESSION: NO ACUTE FINDINGS WITHIN THE ABDOMEN OR PELVIS. CHRONIC CHANGES ABOVE. Chest/Abdomen CTA 01/07/17 00:00 IMPRESSION: NO PULMONARY EMBOLISM. MULTIFOCAL PNEUMONIA ABOVE WITH SMALL RIGHT PLEURAL EFFUSION. SATISFACTORY POSITION LINES/TUBES. Chest X-Ray 01/17/17 06:00 IMPRESSION: Stable small left basilar opacity -effusion. Lines and tubes. Head CT 01/18/17 17:00 IMPRESSION: No acute abnormality in the brain. Transfer Plan - Disposition Transfer Plan: Patient will be followed by the physician at the facility. - Time Spent with Patient Time spent with patient: Less than 30 Minutes Qualifiers PATEINT BEING DISCHARGED WITH ANY OF THE FOLLOWING DIAGNOSIS?: No Plan Discharge Plan: Follow-up w/ primary physician in 2 weeks. Time Spent: Less than 30 Minutes
--- NOTE | 2017-01-25 13:58 | Progress Note ---
Provider Note Provider Note: 01/25/[address] [facility] with positive MAC from BAL.
== END 2017-01-23 08:20 | disposition short-term general hospital (02) | DRG 853 ==
LOC: ER 14:08 → EH 16:55 → ICU 21:48 → 3W 01-17 20:35
PROVIDERS: ADMIT Family Medicine; ATTEND Family Medicine
PROC: 05HM33Z Insertion of Infusion Device into Right Internal Jugular Vein, Percutaneous Approach (ICD-10-PCS; 2017-01-06)
PROC: B543ZZA Ultrasonography of Right Jugular Veins, Guidance (ICD-10-PCS; 2017-01-06)
PROC: 0BH17EZ Insertion of Endotracheal Airway into Trachea, Via Natural or Artificial Opening (ICD-10-PCS; 2017-01-07)
PROC: 5A1955Z Respiratory Ventilation, Greater than 96 Consecutive Hours (ICD-10-PCS; 2017-01-07)
PROC: 0B9C8ZX Drainage of Right Upper Lung Lobe, Via Natural or Artificial Opening Endoscopic, Diagnostic (ICD-10-PCS; 2017-01-09)
PROC: 0B9F8ZX Drainage of Right Lower Lung Lobe, Via Natural or Artificial Opening Endoscopic, Diagnostic (ICD-10-PCS; principal; 2017-01-09 10:00)
DX: A41.9 Sepsis, unspecified organism (principal); J96.01 Acute respiratory failure with hypoxia; R65.21 Severe sepsis with septic shock; J18.9 Pneumonia, unspecified organism; N17.9 Acute kidney failure, unspecified; E87.0 Hyperosmolality and hypernatremia; G62.81 Critical illness polyneuropathy; E87.6 Hypokalemia; J43.2 Centrilobular emphysema; D63.8 Anemia in other chronic diseases classified elsewhere; E78.5 Hyperlipidemia, unspecified; E03.9 Hypothyroidism, unspecified; M32.9 Systemic lupus erythematosus, unspecified; I25.10 Atherosclerotic heart disease of native coronary artery without angina pectoris; E11.9 Type 2 diabetes mellitus without complications; F32.9 Major depressive disorder, single episode, unspecified; M06.9 Rheumatoid arthritis, unspecified; M19.90 Unspecified osteoarthritis, unspecified site; E66.9 Obesity, unspecified; Z68.30 Body mass index [BMI] 30.0-30.9, adult; Z79.82 Long term (current) use of aspirin; Z79.899 Other long term (current) drug therapy; Z90.710 Acquired absence of both cervix and uterus
CPT/HCPCS: 31500; 31624; 36415; 36600; 70450; 71010; 71275; 74176; 80048; 80053; 80170; 80202; 81001; 82040; 82140; 82272; 82550; 82553; 82607; 82728; 82746; 82803; 82962; 83540; 83550; 83605; 83615; 83735; 83880; 84100; 84132; 84134; 84439; 84443; 84466; 84481; 84484; 85025; 85027; 85045; 85362; 85384; 85610; 85730; 86022; 86225; 86603; 86850; 86900; 86901; 87015; 87040; 87045; 87070; 87077; 87086; 87101; 87116; 87205; 87206; 87493; 88104; 88305; 89050; 89055; 93005; 93010; 93306; 94002; 94003; 94640; 94660; 94667; 94668; 94799; 96365; 99285; C1751; G8978-GP; G8979-GP; G8987-GO; G8988-GO; G8996-GN; G8997-GN; J0330; J0610; J0692; J1100; J1580; J1652; J1720; J1815; J1940; J1956; J2060; J2250; J2370; J2405; J2704; J2930; J3010; J3370; J3475; J3480; J3490; J7030; J7050; J7060; J7120; J7512; J7620; P9047

== ENCOUNTER 2017-04-04 00:46 | Emergency (ER) | payer MEDICARE, OTHER ==
[2017-04-04] MEDS ORDERED: LIDOCAINE 1%/EPINEPHRINE INJ 20 ML VIAL INJ ONE (02:57)
--- NOTE | 2017-04-04 03:27 | ER Document Report ---
ED General - General Chief Complaint: Bleeding Gums Stated Complaint: INSIDE OF MOUTH/CHEEK BLEEDING Time Seen by Provider: 04/04/17 02:57 Notes: Patient is a 62-year-old female presents with complaint of a laceration to the inside of the mouth. Patient's is on Xarelto due to her history of DVT. Patient says that she was sleeping and woke up and felt like she was gagging. She did not know she was bleeding on the inside of her mouth. She therefore came to the ER. No other complaints at this time. TRAVEL OUTSIDE OF THE [place] IN LAST 30 DAYS: No - Related Data Allergies/Adverse Reactions: heparin Allergy (Intermediate, Verified 04/04/17 00:51) Thrombocytopenia heparinoids Allergy (Intermediate, Verified 04/04/17 00:51) Thrombocytopenia diphenhydramine HCl [From Benadryl] Adverse Reaction (Intermediate, Verified 09/20 00:51) Anxiety Past Medical History - Social History Smoking Status: Unknown if Ever Smoked Frequency of alcohol use: None Drug Abuse: None Family History: CAD, CVA, Hypertension, Malignancy - Past Medical History Cardiac Medical History: Reports: Hx Coronary Artery Disease - high chol , Hx Hypercholesterolemia, Hx Hypertension Denies: Hx Heart Attack Pulmonary Medical History: Reports: Hx Asthma, Hx Bronchitis, Hx COPD, Hx Pneumonia - 2003 Neurological Medical History: Denies: Hx Cerebrovascular Accident, Hx Seizures Endocrine Medical History: Reports: Hx Diabetes Mellitus Type 2, Hx Hypothyroidism Renal/ Medical History: Denies: Hx Peritoneal Dialysis GI Medical History: Denies: Hx Hepatitis, Hx Hiatal Hernia, Hx Ulcer Musculoskeltal Medical History: Reports Hx Arthritis - RA Psychiatric Medical History: Reports: Hx Depression Infectious Medical History: Denies: Hx Hepatitis Past Surgical History: Reports: Hx Appendectomy, Hx Breast Surgery, Hx Hysterectomy, Hx Orthopedic Surgery. Denies: Hx Mastectomy, Hx Open Heart Surgery, Hx Pacemaker - Immunizations Hx Diphtheria, Pertussis, Tetanus Vaccination: Yes - 1965 Hx Pneumococcal Vaccination: 09/04/11 Review of Systems - Review of Systems Notes: My Normal Review Basic REVIEW OF SYSTEMS: CONSTITUTIONAL : Denies fever, chills, or sweats. Denies recent illness. EENT: Bleeding inside the mouth. SKIN: Denies rash or skin lesions. HEMATOLOGIC : On Xarelto NEUROLOGICAL: Denies altered mental status or loss of consciousness. Denies headache. Denies weakness or paralysis or loss of use of either side. Denies problems with gait or speech. Denies sensory or motor loss. ALL OTHER SYSTEMS REVIEWED AND NEGATIVE. Physical Exam - Vital signs Vitals: Temp Pulse Resp BP Pulse Ox 98.0 F 67 20 137/85 H 96 04/04/17 00:51 04/04/17 00:51 04/04/17 00:51 04/04/17 00:51 04/04/17 00:51 - Notes Notes: General Appearance: Well nourished, alert, cooperative, no acute distress, no obvious discomfort. Vitals: reviewed, See vital signs table. Eyes: PERRL, EOMI, Conjuctiva clear Mouth: 2 very small superficial lacerations on the oral mucosal side of the left lower lip. Throat: No tonsillar inflammation, No airway obstruction, No lymphadenopathy Skin: warm, dry, appropriate color Neuro: speech clear, oriented x 3, normal affect, responds appropriately to questions. Course - Re-evaluation Re-evalutation: 04/04/17 03:44 After lidocaine with epi and sutures were placed the patient's bleeding did stop. I waited 30 minutes afterwards and the bleeding is still controlled and no further bleeding. At this time for the patient safe to be discharged home. Encouraged to return to ER if she has recurrent bleeding despite the sutures in place or if she has recurrent bleeding despite holding pressure for 30 minutes. Patient agrees with plan and will be discharged home. Dictation of this chart was performed using voice recognition software; therefore, there may be some unintended grammatical errors. - Vital Signs Vital signs: Temp Pulse Resp BP Pulse Ox 98.0 F 67 20 137/85 H 96 04/04/17 00:51 04/04/17 00:51 04/04/17 00:51 04/04/17 00:51 04/04/17 00:51 Procedures - Laceration/Wound Repair oral Wound length (cm): 1 Wound's Depth, Shape: Superficial, Linear Anesthetic type: 1% Lidocaine w/epi Volume Anesthetic (mLs): 3 Wound explored: Clean Wound Repaired With: Sutures Suture Size/Type: 5:0, Other - Chromic gut Number of Sutures: 3 Complications: No Discharge - Discharge Clinical Impression: Laceration of oral cavity Qualifiers: Encounter type: initial encounter Qualified Code(s): S01.512A - Laceration without foreign body of oral cavity, initial encounter Condition: Good Disposition: HOME, SELF-CARE Additional Instructions: Please return to the ER if you have recurrence of bleeding from your mouth that does not improve with holding pressure for 30 minutes. The sutures that were placed should dissolve in 5-7 days.
[2017-04-04 04:47] VITALS: BP 131/76
== END 2017-04-04 04:00 | disposition home or self-care (01) ==
LOC: ER 00:46
PROC: 0CQ1XZZ Repair Lower Lip, External Approach (ICD-10-PCS; principal; 2017-04-04)
DX: S01.511A Laceration without foreign body of lip, initial encounter (principal); X58.XXXA Exposure to other specified factors, initial encounter; Z79.01 Long term (current) use of anticoagulants; Z86.718 Personal history of other venous thrombosis and embolism; I25.10 Atherosclerotic heart disease of native coronary artery without angina pectoris; I10 Essential (primary) hypertension; Z88.8 Allergy status to other drugs, medicaments and biological substances; J44.9 Chronic obstructive pulmonary disease, unspecified
CPT/HCPCS: 99282

== ENCOUNTER → 2017-06-02 | Outpatient (CLI) | payer MEDICARE, OTHER ==
--- NOTE | 2017-06-02 16:41 | WOMENS IMAGING REPORT ---
EXAM DESCRIPTION: 3D SCREENING MAMMO BILAT COMPLETED DATE/TIME: 06/02/2017 8:53 am REASON FOR STUDY: SCREENING MAMMO COMPARISON: Multiple since 2013 TECHNIQUE: Standard craniocaudal and mediolateral oblique views of each breast recorded using digita l acquisition and breast tomosynthesis. LIMITATIONS: None. FINDINGS: Findings present which are benign by mammographic criteria. No suspicious masses, calcifi cations or architectural distortion. Pertinent benign findings: Stable bilateral breast parenchymal calcifications and benign nodules. Fa t necrosis right periareolar region, stable. Read with the assistance of CAD. .[facility] - R2 Cenova Version 1.3 .[facility] - R2 Cenova Version 1.3 .[facility] - R2 Cenova Version 2.4 .[facility] - R2 Cenova Version 2.4 .[facility] - R2 [employer]ting [employer] Tender Decorative Version 9.2 Benign mammographic findings may include one or more of the following: Smooth masses, popcorn/rim/co arse calcifications, asymmetries, post-procedure changes, and lesions with long-standing stability. IMPRESSION: BENIGN MAMMOGRAPHIC FINDINGS. BIRADS 2 BREAST DENSITY: c. The breasts are heterogeneously dense, which may obscure small masses. BIRAD: 2 BENIGN FINDING(S) RECOMMENDATION: RECOMMENDATION: ROUTINE SCREENING Please continue bilateral screening tomosynthesis in May 2018 COMMENT: The patient has been notified of the results by letter per SA requirements. Additional no tification policies are in place for contacting patient with suspicious or incomplete findings. Quality ID #[id number]: The [employer] recommends an annual screening mammogram for women aged 40 years or over. This facility utilizes a reminder system to ensure that all patients receive reminder letters, and/or direct phone calls for appointments. This includes reminders for routine scr eening mammograms, diagnostic mammograms, or other Breast Imaging Interventions when appropriate. Th is patient will be placed in the appropriate reminder system. The [employer] (ACR) has developed recommendations for screening MRI of the breast s in certain patient populations, to be used in conjunction with mammography. Breast MRI surveillanc e may be appropriate for women with more than 20% lifetime risk of developing breast cancer as deter mined by genetic testing, significant family history of the disease, or history of mantle radiation f or Hodgkins Disease. ACR Practice Guidelines 2008. DBT Technology DBT is a type of tomographic mammography. With conventional mammography, overlapping breast tissue ma y make lesions difficult to detect, even with good compression. DBT uses an x-ray tube that rotates a round the breast, taking images at different angles. These images are then combined to create thin sl ices of the breast that the radiologist can view as a 3D reconstruction. The [employer] unit can perform full-field digital mammograms (2D imaging); or DBT (3D imaging); or both, in a combination mode that quickly performs both the mammogram and the tomosynthesis scan while the breast is still compressed. PQRS 6045F: Fluoroscopic imaging is not utilized for breast tomosynthesis. TECHNICAL DOCUMENTATION: FINDING NUMBER: (1) ASSESSMENT: (1) JOB ID: [id number] [employer]- All Rights Reserved
== END ==
LOC: RAD 08:13
PROVIDERS: ATTEND Physician Assistant Medical
DX: Z12.31 Encounter for screening mammogram for malignant neoplasm of breast (principal)
CPT/HCPCS: 77063; G0202; 77067

== ENCOUNTER 2017-10-09 16:00 | Emergency (ER) | payer MEDICARE, OTHER ==
[2017-10-09] MEDS ORDERED: ACETAMINOPHEN 325 MG TABLET PO ONE (17:02)
[2017-10-09] MEDS ORDERED: NORMAL SALINE 1000 ML 1,000 ML IV ONE (17:02)
--- NOTE | 2017-10-09 17:09 | ER Document Report ---
ED Medical Screen (RME) - General Chief Complaint: Breathing Difficulty Stated Complaint: FEVER Time Seen by Provider: 10/09/17 17:02 Notes: Patient has history of rheumatoid arthritis. She states she was also told by her doctor that she has a "poor immune system". She states that at her physician today she had a fever and was complaining of cough and congestion so she was referred here for further evaluation. TRAVEL OUTSIDE OF THE [place] IN LAST 30 DAYS: No - Related Data Allergies/Adverse Reactions: heparin Allergy (Intermediate, Verified 10/09/17 16:12) Thrombocytopenia heparinoids Allergy (Intermediate, Verified 10/09/17 16:12) Thrombocytopenia diphenhydramine HCl [From Benadryl] Adverse Reaction (Intermediate, Verified 01/19 16:12) Anxiety Past Medical History - Social History Chew tobacco use (# tins/day): No Frequency of alcohol use: None Drug Abuse: None - Past Medical History Cardiac Medical History: Reports: Hx Coronary Artery Disease - high chol , Hx Hypercholesterolemia, Hx Hypertension Denies: Hx Heart Attack Pulmonary Medical History: Reports: Hx Asthma, Hx Bronchitis, Hx COPD, Hx Pneumonia - 2003 Neurological Medical History: Denies: Hx Cerebrovascular Accident, Hx Seizures Endocrine Medical History: Reports: Hx Diabetes Mellitus Type 2, Hx Hypothyroidism Renal/ Medical History: Denies: Hx Peritoneal Dialysis GI Medical History: Denies: Hx Hepatitis, Hx Hiatal Hernia, Hx Ulcer Musculoskeltal Medical History: Reports Hx Arthritis - RA Psychiatric Medical History: Reports: Hx Depression Infectious Medical History: Denies: Hx Hepatitis Past Surgical History: Reports: Hx Appendectomy, Hx Breast Surgery, Hx Hysterectomy, Hx Orthopedic Surgery. Denies: Hx Mastectomy, Hx Open Heart Surgery, Hx Pacemaker - Immunizations Hx Diphtheria, Pertussis, Tetanus Vaccination: Yes - 1965 Physical Exam - Vital signs Vitals: Temp Pulse Resp BP Pulse Ox 100.2 F 133 H 20 122/58 L 94 10/09/17 16:28 10/09/17 16:28 10/09/17 16:28 10/09/17 16:28 10/09/17 16:28 Course - Vital Signs Vital signs: Temp Pulse Resp BP Pulse Ox 100.2 F 133 H 20 122/58 L 94 10/09/17 16:28 10/09/17 16:28 10/09/17 16:28 10/09/17 16:28 10/09/17 16:28
--- NOTE | 2017-10-09 18:05 | RADIOLOGY REPORT (SQ) ---
EXAM DESCRIPTION: CHEST PA/LAT COMPLETED DATE/TIME: 10/09/2017 5:39 pm REASON FOR STUDY: fever, cough COMPARISON: 2017. TECHNIQUE: Frontal and lateral radiographic views of the chest acquired. NUMBER OF VIEWS: Two view. LIMITATIONS: None. FINDINGS: LUNGS AND PLEURA: Minimal density right upper lobe. This could reflect very early develop ing infiltrate, nodule also in the differential. Recommend treatment for pneumonia with subsequent r adiographs for followup. If the area fails to resolve, chest CT would then be warranted. Lungs othe rwise clear. MEDIASTINUM AND HILAR STRUCTURES: No masses or contour abnormalities. HEART AND VASCULAR STRUCTURES: Heart normal size. No evidence for failure. BONES: No acute findings. HARDWARE: None in the chest. OTHER: No other significant finding. IMPRESSION: Minimal potential infiltrate right upper lobe. Follow-up as below. TECHNICAL DOCUMENTATION: JOB ID: [id number] [employer]- All Rights Reserved
[2017-10-09 18:12] LABS: VENOUS BLOOD BASE EXCESS 0.5 mmol/L; VENOUS BLOOD HCO3 25.4 mmol/L (20-32); VENOUS BLOOD PCO2 42.3 mmHg (35-63); VENOUS BLOOD PH 7.4 (7.30-7.42)
[2017-10-09 18:14] LABS: HEMATOCRIT 35.7 % (36.0-47.0); HEMOGLOBIN 11.3 g/dL (12.0-15.5); MEAN CORPUSCULAR HGB CONC 31.8 g/dL (32.0-36.0); MEAN CORPUSCULAR VOLUME 73 fl (80-97); PLATELET COUNT 172 10^3/uL (150-450); RED BLOOD COUNT 4.92 10^6/uL (3.72-5.28); WHITE BLOOD COUNT 9.8 10^3/uL (4.0-10.5)
[2017-10-09 18:31] LABS: ALANINE AMINOTRANSFERASE 49 U/L (9-52); ALBUMIN 4.3 g/dL (3.5-5.0); ALKALINE PHOSPHATASE 110 U/L (38-126); ANION GAP 9 (5-19); ASPARTATE AMINO TRANSFERASE 44 U/L (14-36); BILIRUBIN,DIRECT 0.4 mg/dL (0.0-0.4); BILIRUBIN,TOTAL 0.6 mg/dL (0.2-1.3); BLOOD UREA NITROGEN 13 mg/dL (7-20); CALCIUM 9.8 mg/dL (8.4-10.2); CARBON DIOXIDE 27 mmol/L (22-30); CHLORIDE 100 mmol/L (98-107); GLUCOSE 102 mg/dL (75-110); POTASSIUM 4.5 mmol/L (3.6-5.0); SODIUM 136.3 mmol/L (137-145); TOTAL PROTEIN 6.6 g/dL (6.3-8.2)
[2017-10-09 18:32] LABS: ABSOLUTE MONOCYTES # (MANUAL) 1.2 10^3/uL (0.1-1.4); ABSOLUTE NEUTROPHILS# (MANUAL) 8.6 10^3/uL (1.7-8.2); APPEARANCE,URINE CLEAR; BAND NEUTROPHILS % (MANUAL) 1 % (3-5); BASOPHILS % (MANUAL) 0 % (0-2); BILIRUBIN,URINE NEGATIVE (NEGATIVE); COLOR,URINE YELLOW; EOSINOPHILS % (MANUAL) 0 % (0-6); GLUCOSE, URINE NEGATIVE (NEGATIVE); KETONES,URINE NEGATIVE (NEGATIVE); LEUKOCYTE ESTERASE,URINE NEGATIVE (NEGATIVE); LYMPHOCYTES % (MANUAL) 0 % (13-45); MONOCYTES % (MANUAL) 12 % (3-13); NITRITE,URINE NEGATIVE (NEGATIVE); PROTEIN,URINE 30 mg/dL (NEGATIVE); SEGMENTED NEUTROPHILS % (MAN) 87 % (42-78); TOTAL CELLS COUNTED 100; URINE SPECIFIC GRAVITY 1.023; UROBILINOGEN,URINE NEGATIVE mg/dL (<2.0)
[2017-10-09 18:33] LABS: HYPOCHROMASIA 1+; POIKILOCYTOSIS 1+
[2017-10-09 18:34] LABS: OVALOCYTES 1+; PLATELET COMMENT ADEQUATE; POLYCHROMASIA SLIGHT
[2017-10-09] MEDS ORDERED: LEVOFLOXACIN 750 MG TABLET PO ONE (20:19)
[2017-10-09 21:12] VITALS: BP 134/71
[2017-10-09] MEDS ORDERED: BENZONATATE 100 MG CAPSULE PO ONE (21:21)
--- NOTE | 2017-10-09 21:31 | ER Document Report ---
ED General - General Chief Complaint: Breathing Difficulty Stated Complaint: FEVER Time Seen by Provider: 10/09/17 17:02 Notes: Patient is a 62-year-old woman with a past medical history of rheumatoid arthritis, immune suppressed on methotrexate, who presents with concerns of fever, cough and sputum production for the past 2 days. She also reports general body aches which she describes as an aching, throbbing pain throughout her body. Symptoms have been unchanged since onset. Nothing improves or worsens her symptoms. She reports a history of similar symptoms in the past when she had a pneumonia. She states that she was very concerned that she would have a recurrence. She states she is also worried that she may have influenza. She has not had any vomiting, diarrhea, focal weakness or numbness, headache or neck pain. She has not seen her general doctor regarding today's concerns. TRAVEL OUTSIDE OF THE [place] IN LAST 30 DAYS: No - Related Data Allergies/Adverse Reactions: heparin Allergy (Intermediate, Verified 10/09/17 16:12) Thrombocytopenia heparinoids Allergy (Intermediate, Verified 10/09/17 16:12) Thrombocytopenia diphenhydramine HCl [From Benadryl] Adverse Reaction (Intermediate, Verified 01/19 16:12) Anxiety Past Medical History - General Information source: Patient, Relative - Social History Smoking Status: Never Smoker Chew tobacco use (# tins/day): No Frequency of alcohol use: None Drug Abuse: None Lives with: Family Family History: CAD, CVA, Hypertension, Malignancy Patient has suicidal ideation: No Patient has homicidal ideation: No - Past Medical History Cardiac Medical History: Reports: Hx Coronary Artery Disease - high chol , Hx Hypercholesterolemia, Hx Hypertension Denies: Hx Heart Attack Pulmonary Medical History: Reports: Hx Asthma, Hx Bronchitis, Hx COPD, Hx Pneumonia - 2003 Neurological Medical History: Denies: Hx Cerebrovascular Accident, Hx Seizures Endocrine Medical History: Reports: Hx Diabetes Mellitus Type 2, Hx Hypothyroidism Renal/ Medical History: Denies: Hx Peritoneal Dialysis GI Medical History: Denies: Hx Hepatitis, Hx Hiatal Hernia, Hx Ulcer Musculoskeltal Medical History: Reports Hx Arthritis - RA Psychiatric Medical History: Reports: Hx Depression Infectious Medical History: Denies: Hx Hepatitis Past Surgical History: Reports: Hx Appendectomy, Hx Breast Surgery, Hx Hysterectomy, Hx Orthopedic Surgery. Denies: Hx Mastectomy, Hx Open Heart Surgery, Hx Pacemaker - Immunizations Hx Diphtheria, Pertussis, Tetanus Vaccination: Yes - 1963 Hx Pneumococcal Vaccination: 09/04/11 Review of Systems - Review of Systems Notes: Constitutional: Positive for fever. HENT: Negative for sore throat. Eyes: Negative for visual changes. Cardiovascular: Negative for chest pain. Respiratory: Positive for cough and sputum production Gastrointestinal: Negative for abdominal pain, vomiting or diarrhea. Genitourinary: Negative for dysuria. Musculoskeletal: Negative for back pain. Skin: Negative for rash. Neurological: Negative for headaches, weakness or numbness. 10 point ROS negative except as marked above and in HPI. Physical Exam - Vital signs Vitals: Temp Pulse Resp BP Pulse Ox 100.2 F 133 H 20 122/58 L 94 10/09/17 16:28 10/09/17 16:28 10/09/17 16:28 10/09/17 16:28 10/09/17 16:28 Interpretation: Tachycardic Notes: PHYSICAL EXAMINATION: GENERAL: Well-appearing, well-nourished and in no acute distress. HEAD: Atraumatic, normocephalic. EYES: Pupils equal round and reactive to light, extraocular movements intact, sclera anicteric, conjunctiva are normal. ENT: nares patent, oropharynx clear without exudates. Moist mucous membranes. NECK: Normal range of motion, supple without lymphadenopathy LUNGS: Breath sounds clear to auscultation bilaterally and equal. No wheezes rales or rhonchi. Intermittently coughing vigorously. HEART: Regular rate and rhythm without murmurs ABDOMEN: Soft, nontender, normoactive bowel sounds. No guarding, no rebound. No masses appreciated. EXTREMITIES: Normal range of motion, no pitting or edema. No cyanosis. NEUROLOGICAL: No focal neurological deficits. Moves all extremities spontaneously and on command. PSYCH: Normal mood, normal affect. SKIN: Warm, Dry, normal turgor, no rashes or lesions noted. Course - Re-evaluation Re-evalutation: 10/09/17 21:22 Patient presents with fever, cough, and a chest x-ray consistent with a right upper lobe pneumonia. Labs are otherwise unremarkable, curb 65 score is 0. Patient is not hypoxic saturating between 98 and 100% on room air. Patient is ambulated on pulse oximetry and maintain saturations above 95%. She is not tachycardic or tachypneic. No respiratory distress. Influenza testing will be performed per patient's request. I believe patient is safe for outpatient management with pneumonia. Corwin Serna have been provided for her persistent cough. I have had an extensive conversation with the patient and her daughter on the phone regarding this management plan and they are agreeable. At this time will discharge with return precautions and follow-up recommendations. Verbal discharge instructions given a the bedside and opportunity for questions given. Medication warnings reviewed. Patient is in agreement with this plan and has verbalized understanding of return precautions and the need for primary care follow-up in the next 24-72 hours. - Vital Signs Vital signs: Temp Pulse Resp BP Pulse Ox 100.2 F 133 H 23 H 134/71 H 95 10/09/17 16:28 10/09/17 16:28 10/09/17 22:00 10/09/17 21:01 10/09/17 22:00 - Laboratory Result Diagrams: 10/09/17 17:49 10/09/17 17:49 Laboratory results interpreted by me: 10/09/17 10/09/17 10/09/17 17:49 17:49 17:49 Hgb 11.3 L Hct 35.7 L MCV 73 L MCH 23.0 L MCHC 31.8 L RDW 16.0 H Seg Neuts % (Manual) 87 H Band Neutrophils % 1 L Lymphocytes % (Manual) 0 L Abs Neuts (Manual) 8.6 H Abs Lymphs (Manual) 0.0 L Sodium 136.3 L AST 44 H Urine Protein 30 H - Diagnostic Test Radiology reviewed: Image reviewed, Reports reviewed Radiology results interpreted by me: 10/09/17 21:24 Chest x-ray: Right upper lobe infiltrate Discharge - Discharge Clinical Impression: Cough Right upper lobe pneumonia Qualifiers: Pneumonia type: due to unspecified organism Qualified Code(s): J18.1 - Lobar pneumonia, unspecified organism Condition: Fair Disposition: ADMITTED INPATIENT Additional Instructions: You have been diagnosed with a pneumonia. It is very important that you take all of your antibiotics until they are gone even if you are feeling better. Please return to the emergency department immediately if you began having worsening shortness of breath, become confused, have worsening pain, pass out, have persistent vomiting that prevents you from being able to drink fluids for more than 12 hours, or have any other symptoms that are worrisome to you. Please follow-up with your primary care doctor in the next 1-2 days. Prescriptions: Fluconazole 200 mg PO ONCE PRN #1 tablet PRN Reason: Levofloxacin [Levaquin 750 mg Tablet] 750 mg PO DAILY #4 tablet Referrals: TERRY BLAND PA-C [Primary Care Provider] - Follow up as needed
[2017-10-09 21:59] LABS: A TYPE INFLUENZA AG NEGATIVE (NEGATIVE); B INFLUENZA AG NEGATIVE (NEGATIVE)
== END 2017-10-09 22:26 | disposition home or self-care (01) ==
LOC: ER 16:00
DX: J18.1 Lobar pneumonia, unspecified organism (principal); E78.00 Pure hypercholesterolemia, unspecified; I10 Essential (primary) hypertension; I25.10 Atherosclerotic heart disease of native coronary artery without angina pectoris; E11.9 Type 2 diabetes mellitus without complications; E03.9 Hypothyroidism, unspecified; Z90.710 Acquired absence of both cervix and uterus
CPT/HCPCS: 99285; 96360; 36415; 87040; 87086; 85025; 87088; 80053; 81001; 87186; 82803; 83605; 87804; 71046; A9270 ×3; J7030

== ENCOUNTER → 2018-06-05 | Outpatient (CLI) | payer MEDICARE, OTHER ==
--- NOTE | 2018-06-07 10:42 | WOMENS IMAGING REPORT ---
EXAM DESCRIPTION: 3D SCREENING MAMMO BILAT COMPLETED DATE/TIME: 06/05/2018 10:53 am REASON FOR STUDY: SCREENING MAMMO Z12.31 ENCNTR SCREEN MAMMOGRAM FOR MALIGNANT NEOPLASM OF [place] COMPARISON: Multiple since 2013 TECHNIQUE: Standard craniocaudal and mediolateral oblique views of each breast recorded using digita l acquisition and breast tomosynthesis. LIMITATIONS: None. FINDINGS: Findings present which are benign by mammographic criteria. No suspicious masses, calcifi cations or architectural distortion. Pertinent benign findings: Peripherally calcified oil cysts, bilaterally, benign. Benign breast pare nchymal calcifications. Read with the assistance of CAD. .[facility] - R2 Cenova Version 1.3 .[facility] Imaging - R2 Cenova Version 1.3 .[facility] - R2 Cenova Version 2.4 .[facility] [place] - R2 Cenova Version 2.4 .[facility] - R2 Audiometrist Version 9.2 Benign mammographic findings may include one or more of the following: Smooth masses, popcorn/rim/co arse calcifications, asymmetries, post-procedure changes, and lesions with long-standing stability. IMPRESSION: BENIGN MAMMOGRAPHIC FINDINGS. BIRADS 2 BREAST DENSITY: c. The breasts are heterogeneously dense, which may obscure small masses. BIRAD: 2 BENIGN FINDING(S) RECOMMENDATION: RECOMMENDATION: ROUTINE SCREENING Please continue yearly bilateral screening tomosynthesis in June 2019 COMMENT: The patient has been notified of the results by letter per [place] requirements. Additional no tification policies are in place for contacting patient with suspicious or incomplete findings. Quality ID #[id number]: The [employer] recommends an annual screening mammogram for women aged 40 years or over. This facility utilizes a reminder system to ensure that all patients receive reminder letters, and/or direct phone calls for appointments. This includes reminders for routine scr eening mammograms, diagnostic mammograms, or other Breast Imaging Interventions when appropriate. Th is patient will be placed in the appropriate reminder system. The [employer] (ACR) has developed recommendations for screening MRI of the breast s in certain patient populations, to be used in conjunction with mammography. Breast MRI surveillanc e may be appropriate for women with more than 20% lifetime risk of developing breast cancer as deter mined by genetic testing, significant family history of the disease, or history of mantle radiation f or Hodgkins Disease. ACR Practice Guidelines 2008. DBT Technology DBT is a type of tomographic mammography. With conventional mammography, overlapping breast tissue ma y make lesions difficult to detect, even with good compression. DBT uses an x-ray tube that rotates a round the breast, taking images at different angles. These images are then combined to create thin sl ices of the breast that the radiologist can view as a 3D reconstruction. The Hologic unit can perform full-field digital mammograms (2D imaging); or DBT (3D imaging); or both, in a combination mode that quickly performs both the mammogram and the tomosynthesis scan while the breast is still compressed. PQRS 6045F: Fluoroscopic imaging is not utilized for breast tomosynthesis. TECHNICAL DOCUMENTATION: FINDING NUMBER: (1) ASSESSMENT: (1) JOB ID: [id number] [employer] All Rights Reserved Reading location - IP/workstation name: [email or web address]
== END ==
LOC: WI 10:12
PROVIDERS: ATTEND Physician Assistant Medical
DX: Z12.31 Encounter for screening mammogram for malignant neoplasm of breast (principal)
CPT/HCPCS: 77063; 77067

== ENCOUNTER 2018-12-27 08:36 | Inpatient (IN) | payer MEDICARE, OTHER ==
[2018-12-27] MEDS ORDERED: IPRATROPIUM/ALBUTEROL 0.5-2.5 MG/3 ML AMPUL NEB ONE (10:28)
--- NOTE | 2018-12-27 10:50 | ER Document Report ---
ED General - General Chief Complaint: Shortness Of Breath Stated Complaint: SHORTNESS OF BREATH Time Seen by Provider: 12/27/18 09:34 Primary Care Provider: GIAN NEGRETE PA [NO LOCAL MD] - Follow up as needed Notes: 63-year-old female with RA on methotrexate and prednisone who is immunosuppressed presents to the emergency department for shortness of breath and pain on her left side. She had a severe RA flare and her prednisone was recently increased. Over the last day and a half she developed a cough and dusty me acutely ill. She is complaining of shortness of breath but denies wheezing, complains of nonproductive cough. Denies fever or chills, denies chest pain, denies nausea or vomiting, complains of left lower back pain muscular in nature. No other complaints TRAVEL OUTSIDE OF THE [place] IN LAST 30 DAYS: No - Related Data Allergies/Adverse Reactions: heparin Allergy (Intermediate, Verified 12/27/18 08:39) Thrombocytopenia heparinoids Allergy (Intermediate, Verified 12/27/18 08:39) Thrombocytopenia diphenhydramine HCl [From Benadryl] Adverse Reaction (Intermediate, Verified 12/27/18 08:39) Anxiety Past Medical History - Social History Smoking Status: Unknown if Ever Smoked Family History: CAD, CVA, Hypertension, Malignancy Patient has suicidal ideation: No Patient has homicidal ideation: No - Past Medical History Cardiac Medical History: Reports: Hx Coronary Artery Disease - high chol , Hx Hypercholesterolemia, Hx Hypertension Denies: Hx Heart Attack Pulmonary Medical History: Reports: Hx Asthma, Hx Bronchitis, Hx COPD, Hx Pneumonia - 2003 Neurological Medical History: Denies: Hx Cerebrovascular Accident, Hx Seizures Endocrine Medical History: Reports: Hx Diabetes Mellitus Type 2, Hx Hypothyroidism Renal/ Medical History: Denies: Hx Peritoneal Dialysis GI Medical History: Denies: Hx Hepatitis, Hx Hiatal Hernia, Hx Ulcer Musculoskeletal Medical History: Reports Hx Arthritis - RA Psychiatric Medical History: Reports: Hx Depression Infectious Medical History: Denies: Hx Hepatitis Past Surgical History: Reports: Hx Appendectomy, Hx Breast Surgery, Hx Hysterectomy, Hx Orthopedic Surgery. Denies: Hx Mastectomy, Hx Open Heart Surgery, Hx Pacemaker - Immunizations Hx Diphtheria, Pertussis, Tetanus Vaccination: Yes - 1964 Hx Pneumococcal Vaccination: 09/04/11 Review of Systems - Review of Systems Constitutional: See HPI EENT: No symptoms reported Cardiovascular: See HPI Respiratory: See HPI Gastrointestinal: See HPI Genitourinary: No symptoms reported Female Genitourinary: No symptoms reported Musculoskeletal: See HPI Skin: No symptoms reported Hematologic/Lymphatic: No symptoms reported Neurological/Psychological: No symptoms reported Physical Exam - Vital signs Vitals: Temp Pulse Resp BP Pulse Ox 98.3 F 119 H 20 125/83 97 12/27/18 08:39 12/27/18 08:39 12/27/18 08:39 12/27/18 08:39 12/27/18 08:39 - Notes Notes: PHYSICAL EXAMINATION: Reviewed vital signs and charting by RN GENERAL: Alert, interacts well. No acute distress. HEAD: Normocephalic, atraumatic. EYES: Pupils equal and round. Extraocular movements intact. ENT: Oral mucosa moist, tongue midline. NECK: Full range of motion. Supple. Trachea midline. LUNGS: Clear to auscultation bilaterally, no wheezes, rales, or rhonchi. No respiratory distress. HEART: Sinus tachycardia. Regular rhythm. No murmur ABDOMEN: soft, non-tender. Non-distended. Bowel sounds present. no McBurney's point tenderness, no Brown sign. EXTREMITIES: Moves all 4 extremities spontaneously. No edema, No cyanosis. Normal distal neurovascular exam BACK: No CVAT NEUROLOGIC: Oriented and appropriate. Normal speech. PSYCH: Normal affect, normal mood. SKIN: Warm, dry, normal turgor. No rashes or lesions noted. Course - Re-evaluation Re-evalutation: 12/27/18 10:52 Appears mildly ill, nonproductive cough, lungs were clear. Patient is immunosuppressed so we will initiate a work-up. 12/27/18 14:06 Patient responded to initial fluid bolus and is now high 90s low 100s heart rate. She still feels generally poor and has a persistent cough. States she does not feel much better. Has a leukocytosis with a bandemia. I talked to the lead hospitalist who referred me to OMAYRA Lea who accepted the patient for full admission to medical floor. - Vital Signs Vital signs: Temp Pulse Resp BP Pulse Ox 98.3 F 119 H 18 127/68 H 91 L 12/27/18 08:39 12/27/18 08:39 12/27/18 13:01 12/27/18 13:00 12/27/18 13:01 - Laboratory Result Diagrams: 12/27/18 09:34 12/27/18 09:34 Laboratory results interpreted by me: 12/27/18 12/27/18 09:34 09:34 WBC 12.9 H Hgb 11.8 L MCV 76 L MCH 24.9 L RDW 18.7 H Plt Count 141 L Seg Neuts % (Manual) 90 H Band Neutrophils % 1 L Lymphocytes % (Manual) 4 L Abs Neuts (Manual) 11.7 H Glucose 122 H Discharge - Discharge Clinical Impression: Cough, Steroid dependence Condition: Stable Disposition: ADMITTED INPATIENT Admitting Provider: OMAY[facility] Lea Unit Admitted: Medical Floor Referrals: GIAN NEGRETE PA [NO LOCAL MD] - Follow up as needed
[2018-12-27 10:59] LABS: HEMATOCRIT 36.1 % (36.0-47.0); HEMOGLOBIN 11.8 g/dL (12.0-15.5); MEAN CORPUSCULAR HEMOGLOBIN 24.9 pg (27.0-33.4); MEAN CORPUSCULAR HGB CONC 32.7 g/dL (32.0-36.0); MEAN CORPUSCULAR VOLUME 76 fl (80-97); PLATELET COUNT 141 10^3/uL (150-450); RED BLOOD COUNT 4.74 10^6/uL (3.72-5.28); RED CELL DISTRIBUTION WIDTH 18.7 % (11.5-14.0); WHITE BLOOD COUNT 12.9 10^3/uL (4.0-10.5)
[2018-12-27 11:05] LABS: ALANINE AMINOTRANSFERASE 38 U/L (9-52); ALBUMIN 3.8 g/dL (3.5-5.0); ALKALINE PHOSPHATASE 119 U/L (38-126); ANION GAP 9 (5-19); ASPARTATE AMINO TRANSFERASE 29 U/L (14-36); BILIRUBIN,DIRECT 0.3 mg/dL (0.0-0.4); BILIRUBIN,TOTAL 0.9 mg/dL (0.2-1.3); BLOOD UREA NITROGEN 19 mg/dL (7-20); CALCIUM 9.2 mg/dL (8.4-10.2); CARBON DIOXIDE 28 mmol/L (22-30); CHLORIDE 101 mmol/L (98-107); GLUCOSE 122 mg/dL (75-110); POTASSIUM 4.1 mmol/L (3.6-5.0); SODIUM 138.4 mmol/L (137-145); TOTAL PROTEIN 6.6 g/dL (6.3-8.2)
[2018-12-27 11:36] LABS: ABSOLUTE LYMPHOCYTES# (MANUAL) 0.5 10^3/uL (0.5-4.7); ABSOLUTE MONOCYTES # (MANUAL) 0.6 10^3/uL (0.1-1.4); ABSOLUTE NEUTROPHILS# (MANUAL) 11.7 10^3/uL (1.7-8.2); BAND NEUTROPHILS % (MANUAL) 1 % (3-5); BASOPHILS % (MANUAL) 0 % (0-2); EOSINOPHILS % (MANUAL) 0 % (0-6); LYMPHOCYTES % (MANUAL) 4 % (13-45); MONOCYTES % (MANUAL) 5 % (3-13); SEGMENTED NEUTROPHILS % (MAN) 90 % (42-78); TOTAL CELLS COUNTED 100
[2018-12-27 11:37] LABS: ANISOCYTOSIS 1+; OVALOCYTES 2+; PLATELET COMMENT DECREASED; POIKILOCYTOSIS 1+
--- NOTE | 2018-12-27 11:52 | RADIOLOGY REPORT (SQ) ---
EXAM DESCRIPTION: CHEST SINGLE VIEW COMPLETED DATE/TIME: 12/27/2018 11:29 am REASON FOR STUDY: cough COMPARISON: 10/09/2017 EXAM PARAMETERS: NUMBER OF VIEWS: One view. TECHNIQUE: Single frontal radiographic view of the chest acquired. RADIATION DOSE: NA LIMITATIONS: None. FINDINGS: LUNGS AND PLEURA: No opacities, masses or pneumothorax. No pleural effusion. MEDIASTINUM AND HILAR STRUCTURES: No masses. Contour normal. HEART AND VASCULAR STRUCTURES: Heart normal in size. Normal vasculature. BONES: No acute findings. HARDWARE: None in the chest. OTHER: No other significant finding. IMPRESSION: NO ACUTE RADIOGRAPHIC FINDING IN THE CHEST. TECHNICAL DOCUMENTATION: JOB ID: [id number] [employer]- All Rights Reserved Reading location - IP/workstation name: [email or web address]
[2018-12-27] MEDS ORDERED: NORMAL SALINE 1000 ML 1,000 ML IV ONE (12:03)
--- NOTE | 2018-12-27 12:27 | EKG REPORT ---
SEVERITY:- OTHERWISE NORMAL ECG - SINUS TACHYCARDIA : Confirmed by: Aristides Garcia MD 27-Dec-2018 12:26:53
[2018-12-27] MEDS ORDERED: LIDOCAINE 5% (700 MG) TRANSDERMAL ADH..PATCH TP ONE (12:54)
[2018-12-27] MEDS ORDERED: METHOCARBAMOL 500 MG TABLET PO ONE (12:55)
[2018-12-27] MEDS ORDERED: ACETAMINOPHEN 325 MG TABLET PO ONE (12:55)
[2018-12-27] MEDS ORDERED: ALBUTEROL SULFATE 0.083% NEB 2.5 MG/3 ML AMPUL NEB PRN (14:33)
[2018-12-27] MEDS ORDERED: ONDANSETRON HCL INJ/PF 4 MG/2 ML SDV IV PRN (14:40)
[2018-12-27] MEDS ORDERED: MAG HYDROX/AL HYDROX/SIMETH SUSP 30 ML UDCUP PO PRN (14:40)
[2018-12-27] MEDS ORDERED: GUAIFENESIN 600 MG TABLET.SA PO ONE (14:42)
--- NOTE | 2018-12-27 15:41 | RADIOLOGY REPORT (SQ) ---
EXAM DESCRIPTION: CTA CHEST COMPLETED DATE/TIME: 12/27/2018 3:27 pm REASON FOR STUDY: hypoxia, tachycardia COMPARISON: CT chest, 01/07/2017 TECHNIQUE: CT scan of the chest performed using helical scanning technique with dynamic intravenous contrast injection. Images reviewed with lung, soft tissue and bone windows. Reconstructed coronal and sagittal MPR images reviewed. Additional 3 dimensional post-processing performed to develop Maximal Intensity Projection images (CO P). All images stored on PACS. All CT scanners at this facility use dose modulation, iterative reconstruction, and/or weight based d osing when appropriate to reduce radiation dose to as low as reasonably achievable (ALARA). [facility]: Dose Right [facility]: CareDose [facility]: Dose Right [facility]: Teradose 4D [facility]: Hylete CONTRAST TYPE AND DOSE: contrast/concentration: Isovue 350.00 mg/ml; Total Contrast Delivered: 68.0 ml; Total Saline Delivered: 80.0 ml Contrast bolus optimized for the pulmonary arteries. Not diagnostic for the aorta. RENAL FUNCTION: GFR > 60. RADIATION DOSE: CT Rad equipment meets quality standard of care and radiation dose reduction techniq ues were employed. CTDIvol: 14.4 - 16.5 mGy. DLP: 530 mGy-cm. . LIMITATIONS: None. FINDINGS: LUNGS AND PLEURA: There is a 1.3 cm nodule of the right upper lobe, which is new compared to most recent prior CT examination although located at the site of a previously seen heterogeneous o pacity. AORTA AND GREAT VESSELS: No aneurysm. Contrast bolus not optimized for the aorta. HEART: No pericardial effusion. No significant coronary artery calcifications. PULMONARY ARTERIES: No emboli visualized in the main pulmonary arteries or the segmental branches. HILAR AND MEDIASTINAL STRUCTURES: No identified masses or abnormal nodes. HARDWARE: None in the chest. UPPER ABDOMEN: No significant findings. Limited exam. THYROID AND OTHER SOFT TISSUES: No masses. No adenopathy. BONES: No acute or significant finding. 3D MIPS: Confirm above findings. OTHER: No other significant finding. IMPRESSION: 1. Negative examination for pulmonary embolism. 2. There is a 1.3 cm nodule of the right upper lobe, which is new compared to most recent prior CT ex amination although located at the site of a previously seen heterogeneous opacity. This is likely se quelae of prior infection or inflammation, although follow-up CT in 3 to 6 months is recommended to e nsure stability. COMMENT: Quality ID # [id number]: Final reports with documentation of one or more dose reduction techniques (e.g., Automated exposure control, adjustment of the mA and/or kV according to patient size, use of iterative reconstruction technique) TECHNICAL DOCUMENTATION: JOB ID: [id number] [employer]- All Rights Reserved Reading location - IP/workstation name: [email or web address]
[2018-12-27] MEDS: NORMAL SALINE 1000 ML 1,000 ML IV PRN (19:09)
--- NOTE | 2018-12-27 19:39 | PDOC H&P ---
History of Present Illness Admission Date/PCP: 12/27/18 14:15 TERRY BLAND PA-C Patient complains of: dyspnea History of Present Illness: ALYSHA BEDOLLA is a 63 year old female with a past medical history of rheumatoid arthritis and lupus (on chronic immune modulation and steroid therapy), anemia, COPD, hypertension, hyperlipidemia, depression and anxiety who presented to emergency department today with a complaint of 3 days of progressively worsening shortness of breath and nonproductive cough. Patient reports that she was seen by her molding line assistant earlier this week and was provided increased dose of prednisone due to rheumatoid arthritis flare resulting in left hip and lower back pain (increased to 20 mg daily versus her 10 mg chronic dose). She reports that shortly thereafter she began having rhinorrhea, sore throat, nonproductive cough, with dyspnea on exertion. Evaluation in the emergency department was unremarkable other than tachycardia which did improve after an IV fluid bolus, mild leukocytosis (12.9; likely secondary to her increased steroid use), normal chemistry, proBNP of 143, benign chest x-ray, EKG showing sinus tachycardia, and a chest CTA that was negative for pulmonary embolus, pneumonia, pleural effusions but does reveal a right upper lobe nodule. The patient is referred to the hospitalist service for admission and management of the above-stated complaints. Past Medical History Cardiac Medical History: Reports: Hyperlipidema, Hypertension Denies: Myocardial Infarction Pulmonary Medical History: Reports: Asthma, Bronchitis, Chronic Obstructive Pulmonary Disease (COPD), Intubation, Pneumonia EENT Medical History: Reports: None Neurological Medical History: Denies: Seizures Endocrine Medical History: Reports: Diabetes Mellitus Type 2, Hypothyroidism, Other - Lupus Renal/ Medical History: Reports: None Malignancy Medical History: Reports: None GI Medical History: Reports: Gastroesophageal Reflux Disease Musculoskeltal Medical History: Reports: Arthritis - RA Psychiatric Medical History: Reports: Depression, General Anxiety Disorder Hematology: Reports: Anemia Denies: Sickle Cell Disease Past Surgical History Past Surgical History: Reports: Appendectomy, Hysterectomy, Orthopedic Surgery Denies: Amputation, Mastectomy, Pacemaker Social History Information Source: Patient Lives with: Family Smoking Status: Unknown if Ever Smoked Frequency of Alcohol Use: None Hx Recreational Drug Use: No Drugs: None Hx Prescription Drug Abuse: No - Advance Directive Resuscitation Status: Full Code Family History Family History: CAD, CVA, Hypertension, Malignancy Parental Family History Reviewed: Yes Children Family History Reviewed: Yes Sibling(s) Family History Reviewed.: Yes Medication/Allergy Home Medications: Albuterol Sulfate [Proair HFA Inhalation Aerosol 8.5 gm MDI] 2 puff IH Q4HP PRN 12/27/18 Ascorbic Acid [Vitamin C 500 mg Tablet] 1,000 mg PO DAILY 12/27/18 Calcium Carbonate/Vitamin D3 [Calcium 1,000 + D3 Caplet] 1 tab PO BID 12/27/18 Folic Acid [Folvite 1 mg Tablet] 1 mg PO QPM 12/27/18 Lactobacillus Acidophilus [Probiotic Acidophilus] 1 tab PO DAILY 12/27/18 Levothyroxine Sodium [Synthroid 0.075 mg Tablet] 0.075 mg PO Q6AM 12/27/18 Magnesium Oxide [Mag-Ox 400 mg Tablet] 400 mg PO DAILY 12/27/18 Melatonin 10 mg PO QHS 12/27/18 Methotrexate Sodium [Rheumatrex 2.5 mg Tablet] 10 mg PO WE@1000 12/27/18 Montelukast Sodium [Singulair 10 mg Tablet] 10 mg PO QPM 12/27/18 Multivitamin with Minerals [Hair, Skin and Nails] 1 tab PO BID 12/27/18 [place]-3S/Dha/Epa/Fish Oil [Fish Oil [place]-3 Softgel] 1 cap PO BID 12/27/18 Pantoprazole Sodium [Protonix [address] Tablet] 40 mg PO BID 12/27/18 Prednisone [Deltasone 10 mg Tablet] 10 mg PO DAILY 12/27/18 Sertraline HCl [Zoloft] 100 mg PO BID 12/27/18 Simvastatin [Zocor 20 mg Tablet] 20 mg PO QHS 12/27/18 Turmeric Root Extract [Turmeric Curcumin] 500 mg PO QPM 12/27/18 Allergies/Adverse Reactions: heparin Allergy (Intermediate, Verified 12/27/18 08:39) Thrombocytopenia heparinoids Allergy (Intermediate, Verified 12/27/18 08:39) Thrombocytopenia diphenhydramine HCl [From Benadryl] Adverse Reaction (Intermediate, Verified 12/27/18 08:39) Anxiety Review of Systems Constitutional: ABSENT: chills, fever(s), headache(s), weight gain, weight loss Eyes: ABSENT: visual disturbances Ears: ABSENT: hearing changes Cardiovascular: PRESENT: dyspnea on exertion. ABSENT: chest pain, edema, orthropnea, palpitations Respiratory: PRESENT: cough. ABSENT: hemoptysis, sputum Gastrointestinal: ABSENT: abdominal pain, constipation, diarrhea, hematemesis, hematochezia, nausea, vomiting Genitourinary: ABSENT: dysuria, hematuria Musculoskeletal: ABSENT: joint swelling Integumentary: ABSENT: rash, wounds Neurological: ABSENT: abnormal gait, abnormal speech, confusion, dizziness, focal weakness, syncope Psychiatric: ABSENT: anxiety, depression, homidical ideation, suicidal ideation Endocrine: PRESENT: as per HPI. ABSENT: cold intolerance, heat intolerance, polydipsia, polyuria Hematologic/Lymphatic: ABSENT: easy bleeding, easy bruising Physical Exam Vital Signs: Temp Pulse Resp BP Pulse Ox 97.9 F 119 H 24 H 129/70 H 94 12/27/18 17:06 12/27/18 08:39 12/27/18 19:01 12/27/18 19:00 12/27/18 19:01 Intake & Output 12/26/18 12/27/18 12/28/18 06:59 06:59 06:59 Intake Total 1000 Balance 1000 Weight 66.8 kg General appearance: PRESENT: no acute distress, well-developed, well-nourished - overweight Head exam: PRESENT: atraumatic, normocephalic Eye exam: PRESENT: conjunctiva pink, EOMI, PERRLA. ABSENT: scleral icterus Ear exam: PRESENT: normal external ear exam Mouth exam: PRESENT: moist, tongue midline Neck exam: ABSENT: carotid bruit, JVD, lymphadenopathy, thyromegaly Respiratory exam: PRESENT: prolonged expiratory phas, rhonchi, symmetrical, unlabored, other - Supplemental oxygen by nasal cannula. ABSENT: rales, wheezes Cardiovascular exam: PRESENT: RRR, tachycardia. ABSENT: diastolic murmur, rubs, systolic murmur Pulses: PRESENT: normal dorsalis pedis pul Vascular exam: PRESENT: normal capillary refill GI/Abdominal exam: PRESENT: normal bowel sounds, soft. ABSENT: distended, guarding, mass, organolmegaly, rebound, tenderness Rectal exam: PRESENT: deferred Extremities exam: PRESENT: full ROM. ABSENT: calf tenderness, clubbing, pedal edema Neurological exam: PRESENT: alert, awake, oriented to person, oriented to place, oriented to time, oriented to situation, CN II-XII grossly intact. ABSENT: motor sensory deficit Psychiatric exam: PRESENT: anxious, normal mood. ABSENT: homicidal ideation, suicidal ideation Skin exam: PRESENT: dry, intact, warm. ABSENT: cyanosis, rash Results Laboratory Results: 12/27/18 09:34 12/27/18 09:34 12/27/18 12/27/18 12/27/18 09:34 09:34 09:34 WBC 12.9 H RBC 4.74 Hgb 11.8 L Hct 36.1 MCV 76 L MCH 24.9 L MCHC 32.7 RDW 18.7 H Plt Count 141 L Seg Neutrophils % Not Reportable Lymphocytes % Not Reportable Monocytes % Not Reportable Eosinophils % Not Reportable Basophils % Not Reportable Absolute Neutrophils Not Reportable Absolute Lymphocytes Not Reportable Absolute Monocytes Not Reportable Absolute Eosinophils Not Reportable Absolute Basophils Not Reportable Sodium 138.4 Potassium 4.1 Chloride 101 Carbon Dioxide 28 Anion Gap 9 BUN 19 Creatinine 0.62 Est GFR ( Amer) > 60 Est GFR (Non-Af Amer) > 60 Glucose 122 H Lactic Acid 1.0 Calcium 9.2 Total Bilirubin 0.9 AST 29 ALT 38 Alkaline Phosphatase 119 Total Protein 6.6 Albumin 3.8 12/27/18 09:34 NT-Pro-B Natriuret Pep 143 Impressions: Chest/Abdomen CTA 12/27/18 00:00 IMPRESSION: 1. Negative examination for pulmonary embolism. 2. There is a 1.3 cm nodule of the right upper lobe, which is new compared to most recent prior CT examination although located at the site of a previously seen heterogeneous opacity. This is likely sequelae of prior infection or inflammation, although follow-up CT in 3 to 6 months is recommended to ensure stability. Chest X-Ray 12/27/18 10:26 IMPRESSION: NO ACUTE RADIOGRAPHIC FINDING IN THE CHEST. Assessment and Plan - Diagnosis (1) Dyspnea Qualifiers: Dyspnea type: shortness of breath Qualified Code(s): R06.02 - Shortness of breath; R06.00 - Dyspnea, unspecified; R06.01 - Orthopnea Is this a current diagnosis for this admission?: Yes Plan: Patient presents with complaint of 3 days of progressively worsening dyspnea and nonproductive cough. Likely secondary to COPD/bronchitis exacerbation. She does have slight rhonchi on exam but no wheezing. She is noted to be tach ycardic (110s) but is maintaining oxygenation on room air (low 90s). She is afebrile, but does have leukocytosis. Chest x-ray was benign. Follow-up CTA In the low 90s. Chest revealed 1.3 cm nodule to the right upper lobe which is new compared to most recent prior CT; located a site of previous heterogeneous opacity which likely reflects prior infection or inflammation. Recommend follow-up CT in 3 to 6 months. Negative for PE. No other significant findings. She is admitted to the medical floor. We will provide supplemental oxygen as needed to maintain oxygen saturations >89% She is placed on scheduled and as needed nebulizer treatments. Mucinex twice daily. Robitussin as needed. Singulair nightly. Increased prednisone to 60 mg daily. Doxycycline for COPD/bronchitis exacerbation. PPI Incentive spirometer and flutter valve to bedside. (2) COPD (chronic obstructive pulmonary disease) Qualifiers: COPD type: COPD with acute exacerbation Qualified Code(s): J44.1 - Chronic obstructive pulmonary disease with (acute) exacerbation Is this a current diagnosis for this admission?: Yes Plan: Management as above. (3) Leukocytosis Is this a current diagnosis for this admission?: Yes Plan: Mild leukocytosis; likely secondary to increased prednisone dosing per her molding line assistant. CTA of the chest and CXR were negative for pneumonia. We will monitor with daily CBC. (4) HLD (hyperlipidemia) Qualifiers: Hyperlipidemia type: unspecified Qualified Code(s): E78.5 - Hyperlipidemia, unspecified Is this a current diagnosis for this admission?: Yes Plan: Continue home dose statin. (5) Hypertension Is this a current diagnosis for this admission?: Yes Plan: Normotensive at present. Does not appear that the patient takes home intact hypertensive therapies. We will continue monitor blood pressures to determine need for [place] management.
[2018-12-27] MEDS: IPRATROPIUM/ALBUTEROL 0.5-2.5 MG/3 ML AMPUL NEB SCH (20:05)
[2018-12-27] MEDS: SIMVASTATIN 10 MG TABLET PO SCH (21:40)
[2018-12-27] MEDS: MELATONIN 5 MG TABLET PO SCH (21:40)
[2018-12-27] MEDS: DOXYCYCLINE HYCLATE 100 MG TABLET PO SCH (21:41)
[2018-12-27] MEDS: GUAIFENESIN/CODEINE PHOS 100-10 MG/ 5 ML UDC PO PRN (21:50)
[2018-12-27] MEDS ORDERED: (PENDING PHARMACY ID) (Melatonin [Melatonin] 10 MG) PO SCH (22:00)
[2018-12-27] MEDS ORDERED: MONTELUKAST SODIUM 10 MG TABLET PO SCH (22:00)
[2018-12-27] MEDS ORDERED: FAMOTIDINE 20 MG TABLET PO SCH (22:00)
[2018-12-28] MEDS: ACETAMINOPHEN 325 MG TABLET PO PRN ×2 (01:40→08:05)
[2018-12-28] MEDS: IPRATROPIUM/ALBUTEROL 0.5-2.5 MG/3 ML AMPUL NEB SCH ×4 (02:15→20:28)
[2018-12-28 02:34] LABS: APPEARANCE,URINE CLEAR; BILIRUBIN,URINE NEGATIVE (NEGATIVE); COLOR,URINE COLORLESS; GLUCOSE, URINE NEGATIVE (NEGATIVE); KETONES,URINE NEGATIVE (NEGATIVE); LEUKOCYTE ESTERASE,URINE NEGATIVE (NEGATIVE); NITRITE,URINE NEGATIVE (NEGATIVE); PROTEIN,URINE NEGATIVE (NEGATIVE); URINE SPECIFIC GRAVITY 1.006; UROBILINOGEN,URINE NEGATIVE mg/dL (<2.0)
[2018-12-28] MEDS: LEVOTHYROXINE SODIUM 0.075 MG TABLET PO SCH (05:20)
[2018-12-28 06:43] LABS: HEMATOCRIT 30.7 % (36.0-47.0); MEAN CORPUSCULAR HEMOGLOBIN 24.9 pg (27.0-33.4); MEAN CORPUSCULAR HGB CONC 32.5 g/dL (32.0-36.0); MEAN CORPUSCULAR VOLUME 77 fl (80-97); PLATELET COUNT 114 10^3/uL (150-450); RED BLOOD COUNT 4.01 10^6/uL (3.72-5.28); RED CELL DISTRIBUTION WIDTH 18.4 % (11.5-14.0); WHITE BLOOD COUNT 8.6 10^3/uL (4.0-10.5)
[2018-12-28 07:03] LABS: ANION GAP 6 (5-19); BLOOD UREA NITROGEN 14 mg/dL (7-20); CALCIUM 8.6 mg/dL (8.4-10.2); CARBON DIOXIDE 25 mmol/L (22-30); CHLORIDE 108 mmol/L (98-107); GLUCOSE 100 mg/dL (75-110); POTASSIUM 3.8 mmol/L (3.6-5.0); SODIUM 139.3 mmol/L (137-145)
[2018-12-28] MEDS: CALCIUM CARBONATE 250 MG/VITAMIN D3 125 UNIT TABLET PO SCH ×2 (08:00→17:04)
[2018-12-28] MEDS ORDERED: VITAMIN D3 PO SCH (10:00)
[2018-12-28] MEDS ORDERED: CALCIUM CARBONATE PO SCH (10:00)
[2018-12-28] MEDS ORDERED: PREDNISONE 20 MG TABLET PO SCH (10:00)
[2018-12-28] MEDS: GUAIFENESIN/CODEINE PHOS 100-10 MG/ 5 ML UDC PO PRN ×2 (10:23→21:02)
[2018-12-28] MEDS: DOCUSATE SODIUM 100 MG CAPSULE PO SCH (10:23)
[2018-12-28] MEDS: PANTOPRAZOLE SODIUM 40 MG TABLET.DR PO SCH ×2 (10:28→17:05)
[2018-12-28] MEDS: SERTRALINE HCL 50 MG TABLET PO SCH ×2 (10:28→17:02)
[2018-12-28] MEDS: DOXYCYCLINE HYCLATE 100 MG TABLET PO SCH ×2 (11:10→21:02)
--- NOTE | 2018-12-28 13:22 | PDOC PROGRESS REPORT ---
Subjective Progress Note for:: 12/28/18 Subjective:: Patient is seen resting in bed. She is awake, alert, oriented x3. She denies shortness of breath or dyspnea at rest. She continues to have a harsh mostly nonproductive cough. She denies any nausea, vomiting or abdominal pain. She is eating. She is complaining of pain in her left lower back. She feels this most likely muscular pull from coughing. She is continues nebulizers and Robitussin cough syrup. States her cough has not improved significantly overnight. Her daughter is concerned regarding her poor immune system due to lupus and chronic steroid and methotrexate use being discharged home. She denies any other complaints. Remaining review of systems are negative Reason For Visit: SIRS, COPD EXACERBATION Physical Exam Vital Signs: Temp Pulse Resp BP Pulse Ox 98.6 F 90 18 120/65 100 12/28/18 12:03 12/28/18 12:03 12/28/18 12:03 12/28/18 12:03 12/28/18 12:03 Intake & Output 12/27/18 12/28/18 12/29/18 06:59 06:59 06:59 Intake Total 1999 Balance 1999 Weight 66.8 kg General appearance: PRESENT: no acute distress, well-developed, well-nourished Head exam: PRESENT: atraumatic, normocephalic Eye exam: PRESENT: conjunctiva pink, EOMI, PERRLA. ABSENT: scleral icterus Ear exam: PRESENT: normal external ear exam Mouth exam: PRESENT: moist, tongue midline Neck exam: ABSENT: carotid bruit, JVD, lymphadenopathy, thyromegaly Respiratory exam: PRESENT: chest wall tenderness - posterior left chest wall, clear to auscultation urszula, symmetrical, unlabored. ABSENT: rales, rhonchi, wheezes Cardiovascular exam: PRESENT: RRR. ABSENT: diastolic murmur, rubs, systolic murmur Pulses: PRESENT: normal dorsalis pedis pul Vascular exam: PRESENT: normal capillary refill GI/Abdominal exam: PRESENT: normal bowel sounds, soft. ABSENT: distended, guarding, mass, organolmegaly, rebound, tenderness Rectal exam: PRESENT: deferred Extremities exam: PRESENT: full ROM. ABSENT: calf tenderness, clubbing, pedal edema Neurological exam: PRESENT: alert, awake, oriented to person, oriented to place, oriented to time, oriented to situation, CN II-XII grossly intact. ABSENT: motor sensory deficit Psychiatric exam: PRESENT: appropriate affect, normal mood. ABSENT: homicidal ideation, suicidal ideation Skin exam: PRESENT: dry, intact, warm. ABSENT: cyanosis, rash Results Laboratory Results: 12/28/18 05:25 12/28/18 05:25 12/28/18 12/28/18 12/28/18 01:40 05:25 05:25 WBC 8.6 RBC 4.01 Hgb 10.0 L Hct 30.7 L MCV 77 L MCH 24.9 L MCHC 32.5 RDW 18.4 H Plt Count 114 L Sodium 139.3 Potassium 3.8 Chloride 108 H Carbon Dioxide 25 Anion Gap 6 BUN 14 Creatinine 0.57 Est GFR ( Amer) > 60 Est GFR (Non-Af Amer) > 60 Glucose 100 Calcium 8.6 Urine Color COLORLESS Urine Appearance CLEAR Urine pH 8.0 Ur Specific [place] 1.006 Urine Protein NEGATIVE Urine Glucose (UA) NEGATIVE Urine Ketones NEGATIVE Urine Blood NEGATIVE Urine Nitrite NEGATIVE Ur Leukocyte Esterase NEGATIVE Urine WBC (Auto) 0 Urine RBC (Auto) 0 12/27/18 09:34 NT-Pro-B Natriuret Pep 143 Impressions: Chest/Abdomen CTA 12/27/18 00:00 IMPRESSION: 1. Negative examination for pulmonary embolism. 2. There is a 1.3 cm nodule of the right upper lobe, which is new compared to most recent prior CT examination although located at the site of a previously seen heterogeneous opacity. This is likely sequelae of prior infection or inflammation, although follow-up CT in 3 to 6 months is recommended to ensure stability. Chest X-Ray 12/27/18 10:26 IMPRESSION: NO ACUTE RADIOGRAPHIC FINDING IN THE CHEST. Assessment and Plan - Diagnosis (1) Cough Is this a current diagnosis for this admission?: Yes Plan: Change oral prednisone to IV Solu-Medrol 30 mg every 8 hours over the next 24 hours. Hopefully this will improve her cough. We will continue oral doxycycline twice daily. Continue DuoNeb nebulizers and Robitussin-AC. (2) Dyspnea Qualifiers: Dyspnea type: shortness of breath Qualified Code(s): R06.02 - Shortness of breath; R06.00 - Dyspnea, unspecified; R06.01 - Orthopnea Is this a current diagnosis for this admission?: Yes Plan: Patient presents with complaint of 3 days of progressively worsening dyspnea and nonproductive cough. Likely secondary to COPD/bronchitis exacerbation. She does have slight rhonchi on exam but no wheezing. She is noted to be tachycardic (110s) but is maintaining oxygenation on room air (low 90s). She is afebrile, but does have leukocytosis. Chest x-ray was benign. Follow-up CTA In the low 90s. Chest revealed 1.3 cm nodule to the right upper lobe which is new compared to most recent prior CT; located a site of previous heterogeneous opacity which likely reflects prior infection or inflammation. Recommend follow-up CT in 3 to 6 months. Negative for PE. No other significant findings. She is admitted to the medical floor. We will provide supplemental oxygen as needed to maintain oxygen saturations >89% She is placed on scheduled and as needed nebulizer treatments. Mucinex twice daily. Robitussin as needed. Singulair nightly. Increased prednisone to 60 mg daily. Doxycycline for COPD/bronchitis exacerbation. PPI Incentive spirometer and flutter valve to bedside. (3) Steroid dependence Is this a current diagnosis for this admission?: Yes Plan: Secondary to above (4) Lupus (systemic lupus erythematosus) Qualifiers: Systemic lupus erythematosus type: unspecified Systemic lupus erythematosus organ involvement: unspecified Qualified Code(s): M32.9 - Systemic lupus erythematosus, unspecified Is this a current diagnosis for this admission?: Yes Plan: Continue home medications (5) Migraine Is this a current diagnosis for this admission?: Yes Plan: Continue home medications - Time Time Spent with patient: 25-34 minutes Total Critical Time (Minutes): 20 Medications reviewed and adjusted accordingly: Yes Within: within 24 hours - Inpatient Certification Based on my medical assessment, after consideration of the patient's comorbidities, presenting symptoms, or acuity I expect that the services needed warrant INPATIENT care.: Yes I certify that my determination is in accordance with my understanding of Medicare's requirements for reasonable and necessary INPATIENT services [42 CFR 412.3e].: Yes Medical Necessity: Failure to Improve With Outpatient Therapy, Significant Comorbidiites Make Outpatient Treatment Too Risky, Need Close Monitoring Due to Risk of Patient Decompensation
[2018-12-28] MEDS: METHYLPREDNISOLONE INJ 40 MG/1 ML SDV IV SCH ×2 (14:12→21:02)
[2018-12-28] MEDS: NAPROXEN 250 MG TABLET PO SCH (17:04)
[2018-12-28] MEDS: FOLIC ACID 1 MG TABLET PO SCH (17:05)
[2018-12-28] MEDS: OMEGA-3 ACID ETHYL ESTERS 1 GM CAPSULE PO SCH (17:05)
[2018-12-28] MEDS: MONTELUKAST SODIUM 10 MG TABLET PO SCH (17:05)
[2018-12-28] MEDS ORDERED: MULTIVITAMIN WITH MINERALS PO SCH (18:00)
[2018-12-28] MEDS ORDERED: FISH OIL PO SCH (18:00)
[2018-12-28] MEDS ORDERED: DHA PO SCH (18:00)
[2018-12-28] MEDS ORDERED: OMEGA PO SCH (18:00)
[2018-12-28] MEDS ORDERED: EPA PO SCH (18:00)
[2018-12-28] MEDS: SIMVASTATIN 10 MG TABLET PO SCH (21:02)
[2018-12-28] MEDS: MELATONIN 5 MG TABLET PO SCH (21:02)
[2018-12-29] MEDS: IPRATROPIUM/ALBUTEROL 0.5-2.5 MG/3 ML AMPUL NEB SCH ×4 (02:08→21:01)
[2018-12-29] MEDS: GUAIFENESIN/CODEINE PHOS 100-10 MG/ 5 ML UDC PO PRN (02:38)
[2018-12-29] MEDS: ACETAMINOPHEN 325 MG TABLET PO PRN (02:38)
[2018-12-29] MEDS: METHYLPREDNISOLONE INJ 40 MG/1 ML SDV IV SCH ×3 (05:23→21:46)
[2018-12-29] MEDS: LEVOTHYROXINE SODIUM 0.075 MG TABLET PO SCH (05:23)
[2018-12-29] MEDS: CALCIUM CARBONATE 250 MG/VITAMIN D3 125 UNIT TABLET PO SCH ×2 (07:56→17:37)
[2018-12-29] MEDS: NAPROXEN 250 MG TABLET PO SCH ×2 (07:56→17:38)
[2018-12-29] MEDS ORDERED: HYDROCODONE BIT/HOMATROPINE SYRUP 5 ML UDCUP PO PRN (09:58)
[2018-12-29] MEDS ORDERED: (PENDING PHARMACY ID) (Lactobacillus Acidophilus [Probiotic Acidophilus] 1 TAB) PO SCH (10:00)
--- NOTE | 2018-12-29 10:24 | PDOC PROGRESS REPORT ---
Subjective Progress Note for:: 12/29/18 Subjective:: Patient is seen resting in bed. She is awake, alert, oriented x3. She denies shortness of breath or dyspnea at rest. She continues to have a harsh mostly nonproductive cough. She denies any nausea, vomiting or abdominal pain. She is eating. She is complaining of pain in her left lower back. She feels this most likely muscular pull from coughing. She is continues nebulizers and Robitussin cough syrup. States her cough has not improved significantly overnight. Reason For Visit: ACUTE RESPIRATORY FAILURE WITH HYPOXEMIA Physical Exam Vital Signs: Temp Pulse Resp BP Pulse Ox 97.7 F 96 18 145/71 H 96 12/29/18 08:30 12/29/18 09:04 12/29/18 09:04 12/29/18 08:30 12/29/18 09:04 Intake & Output 12/28/18 12/29/18 12/30/18 06:59 06:59 06:59 Intake Total 1999 3459 Output Total 2049 Balance 1999 1410 Weight 66.8 kg 69.9 kg General appearance: PRESENT: no acute distress, well-developed, well-nourished Head exam: PRESENT: atraumatic, normocephalic Eye exam: PRESENT: conjunctiva pink, EOMI, PERRLA. ABSENT: scleral icterus Ear exam: PRESENT: normal external ear exam Neck exam: ABSENT: carotid bruit, JVD, lymphadenopathy, thyromegaly Respiratory exam: PRESENT: rhonchi, symmetrical, unlabored Cardiovascular exam: PRESENT: RRR. ABSENT: diastolic murmur, rubs, systolic murmur Pulses: PRESENT: normal dorsalis pedis pul Vascular exam: PRESENT: normal capillary refill GI/Abdominal exam: PRESENT: normal bowel sounds, soft. ABSENT: distended, guarding, mass, organolmegaly, rebound, tenderness Rectal exam: PRESENT: deferred Extremities exam: PRESENT: full ROM. ABSENT: calf tenderness, clubbing, pedal edema Musculoskeletal exam: PRESENT: ambulatory Neurological exam: PRESENT: alert, awake, oriented to person, oriented to place, oriented to time, oriented to situation, CN II-XII grossly intact. ABSENT: motor sensory deficit Psychiatric exam: PRESENT: flat affect Skin exam: PRESENT: dry, warm Results Laboratory Results: 12/28/18 05:25 12/28/18 05:25 12/27/18 09:34 NT-Pro-B Natriuret Pep 143 Impressions: Chest/Abdomen CTA 12/27/18 00:00 IMPRESSION: 1. Negative examination for pulmonary embolism. 2. There is a 1.3 cm nodule of the right upper lobe, which is new compared to most recent prior CT examination although located at the site of a previously seen heterogeneous opacity. This is likely sequelae of prior infection or i nflammation, although follow-up CT in 3 to 6 months is recommended to ensure stability. Chest X-Ray 12/27/18 10:26 IMPRESSION: NO ACUTE RADIOGRAPHIC FINDING IN THE CHEST. Assessment and Plan - Diagnosis (1) Cough Is this a current diagnosis for this admission?: Yes Plan: Change oral prednisone to IV Solu-Medrol 30 mg every 8 hours over the next 24 hours. Hopefully this will improve her cough. We will continue oral doxycycline twice daily. Continue DuoNeb nebulizers. Will d/c robitussin switch to hycodan prn (2) Dyspnea Qualifiers: Dyspnea type: shortness of breath Qualified Code(s): R06.02 - Shortness of breath; R06.00 - Dyspnea, unspecified; R06.01 - Orthopnea Is this a current diagnosis for this admission?: Yes Plan: Slowly improving. Will continue IV steroids today, nebulizers, and cough syrup (3) Steroid dependence Is this a current diagnosis for this admission?: Yes Plan: Secondary to above. She is also on weekly methotrexate (4) Lupus (systemic lupus erythematosus) Qualifiers: Systemic lupus erythematosus type: unspecified Systemic lupus erythematosus organ involvement: unspecified Qualified Code(s): M32.9 - Systemic lupus erythematosus, unspecified Is this a current diagnosis for this admission?: Yes Plan: Continue home medications (5) Migraine Is this a current diagnosis for this admission?: Yes Plan: Continue home medications - Time Time Spent with patient: 25-34 minutes Total Critical Time (Minutes): 20 Medications reviewed and adjusted accordingly: Yes Anticipated discharge: Home Within: within 48 hours - Inpatient Certification Based on my medical assessment, after consideration of the patient's comorbidities, presenting symptoms, or acuity I expect that the services needed warrant INPATIENT care.: Yes I certify that my determination is in accordance with my understanding of Medicare's requirements for reasonable and necessary INPATIENT services [42 CFR 412.3e].: Yes Medical Necessity: Failure to Improve With Outpatient Therapy, Significant Comorbidiites Make Outpatient Treatment Too Risky, Need for Nebulizer Therapy and Monitoring of Response
[2018-12-29] MEDS: DOCUSATE SODIUM 100 MG CAPSULE PO SCH (10:56)
[2018-12-29] MEDS: LACTOBACILLUS ACIDOPHILUS 250 MG TAB PO SCH (11:03)
[2018-12-29] MEDS: PANTOPRAZOLE SODIUM 40 MG TABLET.DR PO SCH ×2 (11:04→17:38)
[2018-12-29] MEDS: OMEGA-3 ACID ETHYL ESTERS 1 GM CAPSULE PO SCH ×2 (11:04→17:38)
[2018-12-29] MEDS: MAGNESIUM OXIDE 400 MG TABLET PO SCH (11:04)
[2018-12-29] MEDS: ASCORBIC ACID 500 MG TABLET PO SCH (11:05)
[2018-12-29] MEDS: SERTRALINE HCL 50 MG TABLET PO SCH ×2 (11:05→17:38)
[2018-12-29] MEDS: DOXYCYCLINE HYCLATE 100 MG TABLET PO SCH ×2 (11:06→21:46)
[2018-12-29] MEDS: HYDROCODONE BIT/HOMATROPINE 5-1.5 MG TABLET PO PRN ×3 (11:07→23:15)
[2018-12-29] MEDS: NORMAL SALINE 1000 ML 1,000 ML IV PRN (11:53)
[2018-12-29] MEDS: LIDOCAINE 5% (700 MG) TRANSDERMAL ADH..PATCH TP SCH (11:53)
[2018-12-29] MEDS: MONTELUKAST SODIUM 10 MG TABLET PO SCH (17:38)
[2018-12-29] MEDS: FOLIC ACID 1 MG TABLET PO SCH (17:38)
[2018-12-29] MEDS: SIMVASTATIN 10 MG TABLET PO SCH (21:45)
[2018-12-29] MEDS: MELATONIN 5 MG TABLET PO SCH (21:46)
[2018-12-29] MEDS: TRAMADOL HCL 50 MG TABLET PO PRN (23:15)
[2018-12-30] MEDS: IPRATROPIUM/ALBUTEROL 0.5-2.5 MG/3 ML AMPUL NEB SCH ×4 (02:53→22:24)
[2018-12-30] MEDS: HYDROCODONE BIT/HOMATROPINE 5-1.5 MG TABLET PO PRN ×3 (05:47→18:54)
[2018-12-30] MEDS: LEVOTHYROXINE SODIUM 0.075 MG TABLET PO SCH (05:47)
[2018-12-30] MEDS: METHYLPREDNISOLONE INJ 40 MG/1 ML SDV IV SCH ×3 (05:47→21:35)
[2018-12-30] MEDS: NORMAL SALINE 1000 ML 1,000 ML IV PRN (05:49)
[2018-12-30 05:53] LABS: HEMATOCRIT 29.7 % (36.0-47.0); MEAN CORPUSCULAR HEMOGLOBIN 25.9 pg (27.0-33.4); MEAN CORPUSCULAR HGB CONC 33.7 g/dL (32.0-36.0); MEAN CORPUSCULAR VOLUME 77 fl (80-97); PLATELET COUNT 110 10^3/uL (150-450); RED BLOOD COUNT 3.87 10^6/uL (3.72-5.28); RED CELL DISTRIBUTION WIDTH 18.7 % (11.5-14.0); WHITE BLOOD COUNT 9.3 10^3/uL (4.0-10.5)
[2018-12-30 06:07] LABS: ANION GAP 8 (5-19); BLOOD UREA NITROGEN 21 mg/dL (7-20); CALCIUM 9.3 mg/dL (8.4-10.2); CARBON DIOXIDE 23 mmol/L (22-30); CHLORIDE 110 mmol/L (98-107); GLUCOSE 157 mg/dL (75-110); SODIUM 140.7 mmol/L (137-145)
[2018-12-30 06:32] LABS: ABSOLUTE LYMPHOCYTES# (MANUAL) 0.2 10^3/uL (0.5-4.7); ABSOLUTE MONOCYTES # (MANUAL) 0.2 10^3/uL (0.1-1.4); ABSOLUTE NEUTROPHILS# (MANUAL) 8.9 10^3/uL (1.7-8.2); BASOPHILS % (MANUAL) 0 % (0-2); EOSINOPHILS % (MANUAL) 0 % (0-6); LYMPHOCYTES % (MANUAL) 2 % (13-45); MONOCYTES % (MANUAL) 2 % (3-13); SEGMENTED NEUTROPHILS % (MAN) 96 % (42-78); TOTAL CELLS COUNTED 100
[2018-12-30 06:35] LABS: PLATELET COMMENT DECREASED
[2018-12-30 06:36] LABS: ANISOCYTOSIS 2+; HYPOCHROMASIA SLIGHT; OVALOCYTES 2+
[2018-12-30] MEDS: CALCIUM CARBONATE 250 MG/VITAMIN D3 125 UNIT TABLET PO SCH ×2 (07:57→16:10)
[2018-12-30] MEDS: NAPROXEN 250 MG TABLET PO SCH ×2 (07:57→16:10)
[2018-12-30] MEDS: LIDOCAINE 5% (700 MG) TRANSDERMAL ADH..PATCH TP SCH (09:15)
[2018-12-30] MEDS: SERTRALINE HCL 50 MG TABLET PO SCH ×2 (09:15→17:34)
[2018-12-30] MEDS: DOXYCYCLINE HYCLATE 100 MG TABLET PO SCH ×2 (09:15→21:35)
[2018-12-30] MEDS: DOCUSATE SODIUM 100 MG CAPSULE PO SCH (09:15)
[2018-12-30] MEDS: OMEGA-3 ACID ETHYL ESTERS 1 GM CAPSULE PO SCH ×2 (09:15→17:34)
[2018-12-30] MEDS: ASCORBIC ACID 500 MG TABLET PO SCH (09:15)
[2018-12-30] MEDS: LACTOBACILLUS ACIDOPHILUS 250 MG TAB PO SCH (09:15)
[2018-12-30] MEDS: MAGNESIUM OXIDE 400 MG TABLET PO SCH (09:16)
[2018-12-30] MEDS: PANTOPRAZOLE SODIUM 40 MG TABLET.DR PO SCH ×2 (09:16→17:33)
[2018-12-30] MEDS ORDERED: LIDOCAINE 5% (700 MG) TRANSDERMAL ADH..PATCH TP SCH (11:00)
[2018-12-30] MEDS: FLUTICASONE NASAL SPRAY 50 MCG/SPRY 120 SPRAY/16 GM NASL SCH (11:08)
[2018-12-30] MEDS: BENZOCAINE/MENTHOL SORE THROAT LOZENGE BUCCAL PRN ×4 (11:11→17:34)
[2018-12-30] MEDS: TRAMADOL HCL 50 MG TABLET PO PRN ×3 (12:52→21:34)
--- NOTE | 2018-12-30 12:55 | PDOC PROGRESS REPORT ---
Subjective Progress Note for:: 12/30/18 Subjective:: Patient is seen resting in bed. She is awake, alert, oriented x3. She denies shortness of breath or dyspnea at rest. She continues to have a harsh mostly nonproductive cough. She denies any nausea, vomiting or abdominal pain. She is eating. She is complaining of pain in her left lower back. She feels this most likely muscular pull from coughing. She is continues nebulizers and Robitussin cough syrup. States her cough has not improved significantly overnight. Reason For Visit: ACUTE RESPIRATORY FAILURE WITH HYPOXEMIA Physical Exam Vital Signs: Temp Pulse Resp BP Pulse Ox 97.9 F 99 20 163/79 H 99 12/30/18 08:10 12/30/18 08:31 12/30/18 08:31 12/30/18 08:10 12/30/18 08:10 Intake & Output 12/29/18 12/30/18 12/31/18 06:59 06:59 06:59 Intake Total 3460 3460 Output Total 2050 2750 Balance 1410 710 Weight 69.9 kg 67.7 kg General appearance: PRESENT: no acute distress, well-developed, well-nourished Head exam: PRESENT: atraumatic, normocephalic Eye exam: PRESENT: conjunctiva pink, EOMI, PERRLA. ABSENT: scleral icterus Ear exam: PRESENT: normal external ear exam Neck exam: ABSENT: carotid bruit, JVD, lymphadenopathy, thyromegaly Respiratory exam: PRESENT: rhonchi - coarse throughout both lung wise, symmetrical, unlabored. ABSENT: rales, wheezes Cardiovascular exam: PRESENT: RRR. ABSENT: diastolic murmur, rubs, systolic murmur Pulses: PRESENT: normal carotid pulses, normal radial pulses Vascular exam: PRESENT: normal capillary refill GI/Abdominal exam: PRESENT: soft Rectal exam: PRESENT: deferred Extremities exam: PRESENT: full ROM. ABSENT: calf tenderness, clubbing, pedal edema Musculoskeletal exam: PRESENT: ambulatory, full ROM, normal inspection Neurological exam: PRESENT: alert, awake, oriented to person, oriented to place, oriented to time, oriented to situation, CN II-XII grossly intact. ABSENT: motor sensory deficit Psychiatric exam: PRESENT: appropriate affect, normal mood. ABSENT: homicidal ideation, suicidal ideation Skin exam: PRESENT: dry, intact, warm. ABSENT: cyanosis, rash Results Laboratory Results: 12/30/18 03:52 12/30/18 03:52 12/30/18 12/30/18 03:52 03:52 WBC 9.3 RBC 3.87 Hgb 10.0 L Hct 29.7 L MCV 77 L MCH 25.9 L MCHC 33.7 RDW 18.7 H Plt Count 110 L Seg Neutrophils % Not Reportable Lymphocytes % Not Reportable Monocytes % Not Reportable Eosinophils % Not Reportable Basophils % Not Reportable Absolute Neutrophils Not Reportable Absolute Lymphocytes Not Reportable Absolute Monocytes Not Reportable Absolute Eosinophils Not Reportable Absolute Basophils Not Reportable Sodium 140.7 Potassium 5.0 Chloride 110 H Carbon Dioxide 23 Anion Gap 8 BUN 21 H Creatinine 0.59 Est GFR ( Amer) > 60 Est GFR (Non-Af Amer) > 60 Glucose 157 H Calcium 9.3 12/27/18 09:34 NT-Pro-B Natriuret Pep 143 Impressions: Chest/Abdomen CTA 12/27/18 00:00 IMPRESSION: 1. Negative examination for pulmonary embolism. 2. There is a 1.3 cm nodule of the right upper lobe, which is new compared to most recent prior CT examination although located at the site of a previously seen heterogeneous opacity. This is likely sequelae of prior infection or inflammation, although follow-up CT in 3 to 6 months is recommended to ensure stability. Chest X-Ray 12/27/18 10:26 IMPRESSION: NO ACUTE RADIOGRAPHIC FINDING IN THE CHEST. Assessment and Plan - Diagnosis (1) Cough Is this a current diagnosis for this admission?: Yes Plan: Will continue IV Solu-Medrol 30 mg every 8 hours over the next 24 hours. Hopefully this will improve her cough. We will continue oral doxycycline twice daily. Continue DuoNeb nebulizers. Will d/c robitussin switch to hycodan prn (2) Dyspnea Qualifiers: Dyspnea type: shortness of breath Qualified Code(s): R06.02 - Shortness of breath; R06.00 - Dyspnea, unspecified; R06.01 - Orthopnea Is this a current diagnosis for this admission?: Yes Plan: Slowly improving. Will continue IV steroids today, nebulizers, and cough syrup (3) Steroid dependence Is this a current diagnosis for this admission?: Yes Plan: Secondary to above. She is also on weekly methotrexate (4) Lupus (systemic lupus erythematosus) Qualifiers: Systemic lupus erythematosus type: unspecified Systemic lupus erythematosus organ involvement: unspecified Qualified Code(s): M32.9 - Systemic lupus erythematosus, unspecified Is this a current diagnosis for this admission?: Yes Plan: Continue home medications (5) Migraine Is this a current diagnosis for this admission?: Yes Plan: Continue home medications - Time Time Spent with patient: 25-34 minutes Medications reviewed and adjusted accordingly: Yes Anticipated discharge: Home Within: within 48 hours - Inpatient Certification Based on my medical assessment, after consideration of the patient's comorbidities, presenting symptoms, or acuity I expect that the services needed warrant INPATIENT care.: Yes I certify that my determination is in accordance with my understanding of Medicare's requirements for reasonable and necessary INPATIENT services [42 CFR 412.3e].: Yes Medical Necessity: Failure to Improve With Outpatient Therapy, Risk of Complication if Not Cared For in Hospital
[2018-12-30] MEDS: MONTELUKAST SODIUM 10 MG TABLET PO SCH (17:34)
[2018-12-30] MEDS: FOLIC ACID 1 MG TABLET PO SCH (17:34)
[2018-12-30] MEDS: MELATONIN 5 MG TABLET PO SCH (21:34)
[2018-12-30] MEDS: SIMVASTATIN 10 MG TABLET PO SCH (21:35)
[2018-12-31] MEDS: HYDROCODONE BIT/HOMATROPINE 5-1.5 MG TABLET PO PRN ×2 (00:56→07:34)
[2018-12-31] MEDS: IPRATROPIUM/ALBUTEROL 0.5-2.5 MG/3 ML AMPUL NEB SCH ×4 (02:53→20:16)
[2018-12-31] MEDS: BENZOCAINE/MENTHOL SORE THROAT LOZENGE BUCCAL PRN ×4 (03:05→22:41)
[2018-12-31] MEDS: TRAMADOL HCL 50 MG TABLET PO PRN ×5 (03:05→22:42)
[2018-12-31] MEDS: LEVOTHYROXINE SODIUM 0.075 MG TABLET PO SCH (05:54)
[2018-12-31] MEDS: METHYLPREDNISOLONE INJ 40 MG/1 ML SDV IV SCH (05:54)
[2018-12-31] MEDS: NAPROXEN 250 MG TABLET PO SCH ×2 (07:30→17:43)
[2018-12-31] MEDS: CALCIUM CARBONATE 250 MG/VITAMIN D3 125 UNIT TABLET PO SCH ×2 (07:30→17:45)
[2018-12-31] MEDS: OMEGA-3 ACID ETHYL ESTERS 1 GM CAPSULE PO SCH ×2 (09:48→17:43)
[2018-12-31] MEDS: ASCORBIC ACID 500 MG TABLET PO SCH (09:48)
[2018-12-31] MEDS: DOCUSATE SODIUM 100 MG CAPSULE PO SCH (09:48)
[2018-12-31] MEDS: LACTOBACILLUS ACIDOPHILUS 250 MG TAB PO SCH (09:48)
[2018-12-31] MEDS: FLUTICASONE NASAL SPRAY 50 MCG/SPRY 120 SPRAY/16 GM NASL SCH (09:49)
[2018-12-31] MEDS: SERTRALINE HCL 50 MG TABLET PO SCH ×2 (09:49→17:43)
[2018-12-31] MEDS: MAGNESIUM OXIDE 400 MG TABLET PO SCH (09:49)
[2018-12-31] MEDS: LIDOCAINE 5% (700 MG) TRANSDERMAL ADH..PATCH TP SCH (09:49)
[2018-12-31] MEDS: PANTOPRAZOLE SODIUM 40 MG TABLET.DR PO SCH ×2 (09:49→17:44)
[2018-12-31] MEDS: DOXYCYCLINE HYCLATE 100 MG TABLET PO SCH (09:50)
[2018-12-31] MEDS ORDERED: LIDOCAINE 5% (700 MG) TRANSDERMAL ADH..PATCH TP SCH (10:00)
[2018-12-31] MEDS ORDERED: POLYETHYLENE GLYCOL 3350 POWDER 17 GM/1 PACKET PO PRN (10:10)
--- NOTE | 2018-12-31 14:10 | PDOC PROGRESS REPORT ---
Subjective Progress Note for:: 12/31/18 Subjective:: Assumed care today. Chart reviewed. This is a 63 year old female with a past medical history of rheumatoid arthritis and SLE on chronic steroids, anemia, COPD, hypertension, hyperlipidemia, depression and anxiety who presented to emergency department today with a complaint of 3 days of progressively worsening shortness of breath and nonproductive cough. She was admitted for COPD exacerbation. She is currently on solumedrol 40 mg q8h. She says her SOB has improved but she is still complaining of persistent nonproductive coughing. Her chest CTA was unremarkable aside from a 1.5 cm RUL nodule. Denies chest pain. She is currently saturating well on room air. She has minimal wheezing on the bases on auscultation. Will decrease steroids and will attempt to switch her to prednisone PO later today. She is on day 4 of antibiotics. No signs or findings suggestive of pneumonia or atypical infection on chest CT. Will discontinue doxycycline. Patient called he daughter who's a nurse and inquired about patient's status. Daughter updated on plan of care over phone. Reason For Visit: ACUTE RESPIRATORY FAILURE WITH HYPOXEMIA Physical Exam Vital Signs: Temp Pulse Resp BP Pulse Ox 98.1 F 96 18 158/78 H 93 12/31/18 11:43 12/31/18 11:43 12/31/18 11:43 12/31/18 11:43 12/31/18 11:43 Intake & Output 12/30/18 12/31/18 01/01/19 06:59 06:59 06:59 Intake Total 3460 2700 Output Total 2750 3100 Balance 710 -400 Weight 149 lb 4.047 oz 150 lb 2.157 oz General appearance: PRESENT: no acute distress, well-developed, well-nourished Head exam: PRESENT: atraumatic, normocephalic Eye exam: PRESENT: conjunctiva pink, EOMI, PERRLA. ABSENT: scleral icterus Ear exam: PRESENT: normal external ear exam Mouth exam: PRESENT: moist, tongue midline Neck exam: ABSENT: carotid bruit, JVD, lymphadenopathy, thyromegaly Respiratory exam: PRESENT: wheezes. ABSENT: rales, rhonchi Cardiovascular exam: PRESENT: RRR. ABSENT: diastolic murmur, rubs, systolic murmur Pulses: PRESENT: normal dorsalis pedis pul GI/Abdominal exam: PRESENT: normal bowel sounds, soft. ABSENT: distended, guarding, mass, organolmegaly, rebound, tenderness Rectal exam: PRESENT: deferred Extremities exam: PRESENT: full ROM. ABSENT: calf tenderness, clubbing, pedal edema Neurological exam: PRESENT: alert, awake, oriented to person, oriented to place, oriented to time, oriented to situation, CN II-XII grossly intact. ABSENT: motor sensory deficit Results Laboratory Results: 12/30/18 03:52 12/30/18 03:52 12/27/18 09:34 NT-Pro-B Natriuret Pep 143 Impressions: Chest/Abdomen CTA 12/27/18 00:00 IMPRESSION: 1. Negative examination for pulmonary embolism. 2. There is a 1.3 cm nodule of the right upper lobe, which is new compared to most recent prior CT examination although located at the site of a previously seen heterogeneous opacity. This is likely sequelae of prior infection or inflammation, although follow-up CT in 3 to 6 months is recommended to ensure stability. Chest X-Ray 12/27/18 10:26 IMPRESSION: NO ACUTE RADIOGRAPHIC FINDING IN THE CHEST. Assessment and Plan - Diagnosis (1) Acute exacerbation of chronic obstructive pulmonary disease (COPD) Is this a current diagnosis for this admission?: Yes Plan: She is currently on solumedrol 40 mg q8h. She says her SOB has improved but she is still complaining of persistent nonproductive coughing. Her chest CTA was unremarkable aside from a 1.5 cm RUL nodule. Denies chest pain. She is currently saturating well on room air. She has minimal wheezing on the bases on auscultation. Will decrease steroids and will attempt to switch her to prednisone PO later today. She is on day 4 of antibiotics. No signs or findings suggestive of pneumonia or atypical infection on chest CT. Will discontinue doxycycline. Patient called he daughter who's a nurse and inquired about patient's status. Daughter updated on plan of care over phone. On Hycodan for her cough. Will add Tessalon perles. (2) Right upper lobe pulmonary nodule Is this a current diagnosis for this admission?: Yes Plan: Recommend outpatient follow up with repeat surveillance imaging in 3-6 months. (3) Hypothyroidism Is this a current diagnosis for this admission?: Yes Plan: Continue synthroid. (4) SLE (systemic lupus erythematosus) Is this a current diagnosis for this admission?: Yes Plan: Not in flare. - Time Time Spent with patient: 25-34 minutes
[2018-12-31] MEDS: BENZONATATE 100 MG CAPSULE PO SCH ×2 (14:43→22:43)
[2018-12-31] MEDS: FOLIC ACID 1 MG TABLET PO SCH (17:43)
[2018-12-31] MEDS: MONTELUKAST SODIUM 10 MG TABLET PO SCH (17:44)
[2018-12-31] MEDS: PREDNISONE 20 MG TABLET PO SCH (17:44)
[2018-12-31] MEDS ORDERED: BISACODYL 10 MG SUPP.RECT PR ONE (18:00)
[2018-12-31] MEDS: SIMVASTATIN 10 MG TABLET PO SCH (22:43)
[2018-12-31] MEDS: MELATONIN 5 MG TABLET PO SCH (22:43)
[2019-01-01] MEDS: IPRATROPIUM/ALBUTEROL 0.5-2.5 MG/3 ML AMPUL NEB SCH ×3 (02:15→13:49)
[2019-01-01] MEDS: BENZOCAINE/MENTHOL SORE THROAT LOZENGE BUCCAL PRN ×6 (04:04→21:55)
[2019-01-01] MEDS: LEVOTHYROXINE SODIUM 0.075 MG TABLET PO SCH (06:15)
[2019-01-01] MEDS: BENZONATATE 100 MG CAPSULE PO SCH ×3 (06:15→21:55)
[2019-01-01] MEDS: CALCIUM CARBONATE 250 MG/VITAMIN D3 125 UNIT TABLET PO SCH ×2 (08:57→17:24)
[2019-01-01] MEDS: NAPROXEN 250 MG TABLET PO SCH ×2 (08:58→17:25)
[2019-01-01] MEDS: OMEGA-3 ACID ETHYL ESTERS 1 GM CAPSULE PO SCH ×2 (10:22→17:24)
[2019-01-01] MEDS: DOCUSATE SODIUM 100 MG CAPSULE PO SCH (10:22)
[2019-01-01] MEDS: SERTRALINE HCL 50 MG TABLET PO SCH ×2 (10:22→17:24)
[2019-01-01] MEDS: LACTOBACILLUS ACIDOPHILUS 250 MG TAB PO SCH (10:22)
[2019-01-01] MEDS: ASCORBIC ACID 500 MG TABLET PO SCH (10:22)
[2019-01-01] MEDS: MAGNESIUM OXIDE 400 MG TABLET PO SCH (10:22)
[2019-01-01] MEDS: PANTOPRAZOLE SODIUM 40 MG TABLET.DR PO SCH ×2 (10:23→17:24)
[2019-01-01] MEDS: HYDROCODONE BIT/HOMATROPINE 5-1.5 MG TABLET PO PRN ×2 (10:23→17:24)
[2019-01-01] MEDS: PREDNISONE 20 MG TABLET PO SCH ×2 (10:23→17:24)
[2019-01-01] MEDS: FLUTICASONE NASAL SPRAY 50 MCG/SPRY 120 SPRAY/16 GM NASL SCH (10:24)
[2019-01-01] MEDS: LIDOCAINE 5% (700 MG) TRANSDERMAL ADH..PATCH TP SCH (10:24)
[2019-01-01] MEDS: FOLIC ACID 1 MG TABLET PO SCH (17:25)
[2019-01-01] MEDS: MONTELUKAST SODIUM 10 MG TABLET PO SCH (17:25)
[2019-01-01] MEDS ORDERED: LEVALBUTEROL HCL NEB 1.25 MG/3 ML AMPUL NEB PRN (19:22)
[2019-01-01] MEDS: LEVALBUTEROL HCL NEB 1.25 MG/3 ML AMPUL NEB SCH (20:14)
[2019-01-01] MEDS: BUDESONIDE NEB 0.5 MG/2 ML AMPUL NEB SCH (20:14)
[2019-01-01] MEDS: IPRATROPIUM BROMIDE 0.02% NEB 0.5 MG/2.5 ML AMPUL NEB SCH (20:14)
[2019-01-01] MEDS: NORMAL SALINE 1000 ML 1,000 ML IV PRN (21:45)
[2019-01-01] MEDS: LISINOPRIL 5 MG TABLET PO SCH (21:54)
[2019-01-01] MEDS: METOPROLOL TARTRATE 25 MG TABLET PO SCH (21:55)
[2019-01-01] MEDS: TRAMADOL HCL 50 MG TABLET PO PRN (21:55)
[2019-01-01] MEDS: GUAIFENESIN 600 MG TABLET.SA PO SCH (21:55)
[2019-01-01] MEDS: SIMVASTATIN 10 MG TABLET PO SCH (21:55)
[2019-01-01] MEDS: MELATONIN 5 MG TABLET PO SCH (21:56)
--- NOTE | 2019-01-01 22:55 | RADIOLOGY REPORT (SQ) ---
EXAM DESCRIPTION: [facility]Lex: XR ABDOMEN 1 VIEW (KUB) CLINICAL HISTORY: 63 years Female, constipation COMPARISON: None. FINDINGS: There is increased fecal material throughout the colon. Scattered gas is seen in the small bowel, without significant small bowel distention. No pneumatosis. No suspicious calcifications. Severe chronic degenerative changes are seen throughout the lumbar spine, with a mild scoliosis due to asymmetric disc space narrowing at several levels. No suspicious focal bone lesion. IMPRESSION: 1. Significant diffuse colonic fecal retention, but no small bowel distention
[2019-01-02] MEDS: LEVALBUTEROL HCL NEB 1.25 MG/3 ML AMPUL NEB SCH ×4 (01:36→21:41)
[2019-01-02] MEDS: IPRATROPIUM BROMIDE 0.02% NEB 0.5 MG/2.5 ML AMPUL NEB SCH ×4 (01:36→21:41)
[2019-01-02] MEDS: BENZONATATE 100 MG CAPSULE PO SCH ×3 (06:21→22:12)
[2019-01-02] MEDS: LEVOTHYROXINE SODIUM 0.075 MG TABLET PO SCH (06:21)
[2019-01-02] MEDS: BENZOCAINE/MENTHOL SORE THROAT LOZENGE BUCCAL PRN ×2 (06:21→22:11)
[2019-01-02] MEDS: NORMAL SALINE 1000 ML 1,000 ML IV PRN (06:24)
[2019-01-02] MEDS: NAPROXEN 250 MG TABLET PO SCH ×2 (07:35→17:25)
[2019-01-02] MEDS: CALCIUM CARBONATE 250 MG/VITAMIN D3 125 UNIT TABLET PO SCH ×2 (07:35→17:25)
[2019-01-02] MEDS: BUDESONIDE NEB 0.5 MG/2 ML AMPUL NEB SCH ×2 (08:40→21:41)
[2019-01-02] MEDS: FLUTICASONE NASAL SPRAY 50 MCG/SPRY 120 SPRAY/16 GM NASL SCH (09:30)
[2019-01-02] MEDS: LIDOCAINE 5% (700 MG) TRANSDERMAL ADH..PATCH TP SCH (09:30)
[2019-01-02] MEDS: PREDNISONE 20 MG TABLET PO SCH ×2 (09:31→17:25)
[2019-01-02] MEDS: METOPROLOL TARTRATE 25 MG TABLET PO SCH ×2 (09:31→22:13)
[2019-01-02] MEDS: DOCUSATE SODIUM 100 MG CAPSULE PO SCH (09:31)
[2019-01-02] MEDS: LISINOPRIL 5 MG TABLET PO SCH (09:31)
[2019-01-02] MEDS: OMEGA-3 ACID ETHYL ESTERS 1 GM CAPSULE PO SCH ×2 (09:31→17:25)
[2019-01-02] MEDS: SERTRALINE HCL 50 MG TABLET PO SCH ×2 (09:31→17:24)
[2019-01-02] MEDS: LACTOBACILLUS ACIDOPHILUS 250 MG TAB PO SCH (09:31)
[2019-01-02] MEDS: ASCORBIC ACID 500 MG TABLET PO SCH (09:31)
[2019-01-02] MEDS: GUAIFENESIN 600 MG TABLET.SA PO SCH ×2 (09:32→22:13)
[2019-01-02] MEDS: POLYETHYLENE GLYCOL 3350 POWDER 17 GM/1 PACKET PO SCH (09:32)
[2019-01-02] MEDS: PANTOPRAZOLE SODIUM 40 MG TABLET.DR PO SCH ×2 (09:32→17:25)
[2019-01-02] MEDS: MAGNESIUM OXIDE 400 MG TABLET PO SCH (09:32)
[2019-01-02] MEDS ORDERED: METHOTREXATE SODIUM 2.5 MG TABLET PO SCH (10:00)
[2019-01-02 11:14] LABS: HEMATOCRIT 30.5 % (36.0-47.0); HEMOGLOBIN 9.7 g/dL (12.0-15.5); MEAN CORPUSCULAR HEMOGLOBIN 24.7 pg (27.0-33.4); MEAN CORPUSCULAR HGB CONC 31.8 g/dL (32.0-36.0); MEAN CORPUSCULAR VOLUME 78 fl (80-97); PLATELET COUNT 124 10^3/uL (150-450); RED BLOOD COUNT 3.93 10^6/uL (3.72-5.28); RED CELL DISTRIBUTION WIDTH 18.8 % (11.5-14.0); WHITE BLOOD COUNT 10.6 10^3/uL (4.0-10.5)
[2019-01-02 11:32] LABS: ANION GAP 9 (5-19); BLOOD UREA NITROGEN 23 mg/dL (7-20); CALCIUM 8.9 mg/dL (8.4-10.2); CARBON DIOXIDE 26 mmol/L (22-30); CHLORIDE 104 mmol/L (98-107); GLUCOSE 136 mg/dL (75-110); SODIUM 138.7 mmol/L (137-145)
[2019-01-02] MEDS: MONTELUKAST SODIUM 10 MG TABLET PO SCH (17:25)
[2019-01-02] MEDS: FOLIC ACID 1 MG TABLET PO SCH (17:26)
[2019-01-02] MEDS: SIMVASTATIN 10 MG TABLET PO SCH (22:12)
[2019-01-02] MEDS: TRAMADOL HCL 50 MG TABLET PO PRN (22:12)
[2019-01-02] MEDS: MELATONIN 5 MG TABLET PO SCH (22:12)
--- NOTE | 2019-01-02 23:17 | XCELERA REPORT ---
[address] [address] Transthoracic Echocardiogram Report Name: ALYSHA BEDOLLA Age: 63 yrs Gender: Female : 1955 Patient Status: Inpatient Patient Location: [address] [place] [address] Study Date: 01/02/2019 09:32 AM Height: 64 in Weight: 150 lb BSA: 1.7 m2 Procedure: A complete two-dimensional transthoracic echocardiogram was performed (2D, M-mode, spectral and color flow Doppler). The study was technically adequate with some images being suboptimal in quality. Reason For Study: Assess for EF and possible pulmonary hypertension Ordering Physician: SHIRA MICHELLE Performed By: Jasmin Go Interpretation Summary The left ventricular ejection fraction is normal. Doppler measurements suggest impaired left ventricular relaxation, which is associated with grade I/IV or mild diastolic dysfunction There is borderline concentric left ventricular hypertrophy. The left ventricle is normal in size. Wall motion cannot be accurately commented on, but no definite regional wall motion abnormalities noted. The right ventricular systolic function is normal. The right ventricle is normal in size, thickness and function The left atrial size is normal. The right atrium is normal. There is a trace to mild amount of mitral regurgitation There is no mitral valve stenosis. No aortic regurgitation is present. There is no aortic valve stenosis There is a trace or physiologic amount of tricuspid regurgitation Tricuspid regurgitation jet envelope not well defined to measure RV systolic pressure accurately. The aortic root is not well visualized but is probably normal size. The inferior vena cava appeared normal and decreased > 50% with respiration (RAP 5-10 mmHg) Minimal pericardial effusion. MMode/2D Measurements & Calculations RVDd: 2.6 cm LVIDd: 5.8 cm FS: 42.2 % Ao root diam: 2.8 cm IVSd: 0.75 cm LVIDs: 3.3 cm EDV(Teich): 164.4 ml Ao root area: 6.0 cm2 LVPWd: 0.85 cm ESV(Teich): 45.3 ml EF(Teich): 72.5 % Doppler Measurements & Calculations MV E max kaelyn: MV dec slope: Ao V2 max: LV V1 max P.5 cm/sec 723.0 cm/sec2 182.6 cm/sec 7.3 mmHg MV A max kaelyn: MV dec time: 0.16 secAo max PG: LV V1 max: 86.2 cm/sec 13.3 mmHg 135.3 cm/sec MV E/A: 1.3 LV dP/dt: 5704 mmHg/s PA V2 max: 113.4 cm/sec PA max P.1 mmHg Left Ventricle The left ventricle is normal in size. There is borderline concentric left ventricular hypertrophy. The left ventricular ejection fraction is normal. Doppler measurements suggest impaired left ventricular relaxation, which is associated with grade I/IV or mild diastolic dysfunction. Wall motion cannot be accurately commented on, but no definite regional wall motion abnormalities noted. Right Ventricle The right ventricle is normal in size, thickness and function. There is normal right ventricular wall thickness. The right ventricular systolic function is normal. Atria The right atrium is normal. The left atrial size is normal. Interarterial septum not well visualized and not well dopplered. Cannot comment on ASD/PFO presence. Mitral Valve The mitral valve is grossly normal. There is no mitral valve stenosis. There is a trace to mild amount of mitral regurgitation. Aortic Valve The aortic valve is grossly normal. There is no aortic valve stenosis. No aortic regurgitation is present. Tricuspid Valve The tricuspid valve is not well visualized, but is grossly normal. There is no tricuspid stenosis. There is a trace or physiologic amount of tricuspid regurgitation. Tricuspid regurgitation jet envelope not well defined to measure RV systolic pressure accurately. Pulmonic Valve The pulmonic valve is not well seen, but is grossly normal. Great Vessels The aortic root is not well visualized but is probably normal size. The inferior vena cava appeared normal and decreased > 50% with respiration (RAP 5-10 mmHg). Effusions Minimal pericardial effusion. : SHIRA MICHELLE > Sen Tee
[2019-01-03] MEDS: IPRATROPIUM BROMIDE 0.02% NEB 0.5 MG/2.5 ML AMPUL NEB SCH ×3 (02:39→13:24)
[2019-01-03] MEDS: LEVALBUTEROL HCL NEB 1.25 MG/3 ML AMPUL NEB SCH ×3 (02:39→13:24)
[2019-01-03] MEDS: LEVOTHYROXINE SODIUM 0.075 MG TABLET PO SCH (06:29)
[2019-01-03] MEDS: BENZONATATE 100 MG CAPSULE PO SCH ×2 (06:29→13:19)
[2019-01-03] MEDS: BUDESONIDE NEB 0.5 MG/2 ML AMPUL NEB SCH (07:44)
[2019-01-03] MEDS: HYDROCODONE BIT/HOMATROPINE 5-1.5 MG TABLET PO PRN (08:21)
[2019-01-03] MEDS: CALCIUM CARBONATE 250 MG/VITAMIN D3 125 UNIT TABLET PO SCH (08:22)
[2019-01-03] MEDS: NAPROXEN 250 MG TABLET PO SCH (08:23)
[2019-01-03] MEDS: BENZOCAINE/MENTHOL SORE THROAT LOZENGE BUCCAL PRN ×3 (08:23→12:30)
[2019-01-03] MEDS: OMEGA-3 ACID ETHYL ESTERS 1 GM CAPSULE PO SCH (09:46)
[2019-01-03] MEDS: POLYETHYLENE GLYCOL 3350 POWDER 17 GM/1 PACKET PO SCH (09:46)
[2019-01-03] MEDS: GUAIFENESIN 600 MG TABLET.SA PO SCH (09:46)
[2019-01-03] MEDS: METOPROLOL TARTRATE 25 MG TABLET PO SCH (09:47)
[2019-01-03] MEDS: TRAMADOL HCL 50 MG TABLET PO PRN (09:48)
[2019-01-03] MEDS: LISINOPRIL 5 MG TABLET PO SCH (09:49)
[2019-01-03] MEDS: DOCUSATE SODIUM 100 MG CAPSULE PO SCH (09:50)
[2019-01-03] MEDS: PREDNISONE 20 MG TABLET PO SCH (09:50)
[2019-01-03] MEDS: SERTRALINE HCL 50 MG TABLET PO SCH (09:50)
[2019-01-03] MEDS: MAGNESIUM OXIDE 400 MG TABLET PO SCH (09:50)
[2019-01-03] MEDS: LACTOBACILLUS ACIDOPHILUS 250 MG TAB PO SCH (09:50)
[2019-01-03] MEDS: PANTOPRAZOLE SODIUM 40 MG TABLET.DR PO SCH (09:50)
[2019-01-03] MEDS: ASCORBIC ACID 500 MG TABLET PO SCH (09:51)
[2019-01-03] MEDS: LIDOCAINE 5% (700 MG) TRANSDERMAL ADH..PATCH TP SCH (09:58)
[2019-01-03] MEDS: FLUTICASONE NASAL SPRAY 50 MCG/SPRY 120 SPRAY/16 GM NASL SCH (09:59)
[2019-01-03] MEDS: ACETAMINOPHEN 325 MG TABLET PO PRN (12:30)
[2019-01-03 15:13] VITALS: BP 163/83
--- NOTE | 2019-01-04 06:22 | PDOC PROGRESS REPORT ---
Subjective Progress Note for:: 01/01/19 Subjective:: Still with dry hacking cough constantly. The patient states that she feels like there is something to cough up but is not able. Reason For Visit: ACUTE RESPIRATORY FAILURE WITH HYPOXEMIA Physical Exam Vital Signs: Temp Pulse Resp BP Pulse Ox 97.6 F 106 H 18 161/70 H 97 01/01/19 07:59 01/01/19 08:03 01/01/19 08:03 01/01/19 07:59 01/01/19 08:03 Pulse Oximeter Ambulatory Start: 12/29/18 10:16 Freq: DAILY Status: Active Protocol: Document 12/31/18 15:35 DBE (Rec: 12/31/18 15:47 DBE [id number]) Exercise Oximetry Treatment Ambulating SpO2 Charge Now Yes Oxygen Delivery Method Nasal Cannula FIO2 (% Oxygen) 21 Recovery O2 Saturation by Pulse Oximetry 98 Pulse Rate 103 Respiratory Rate 20 Exercise O2 Saturation by Pulse Oximetry 95 Pulse Rate 134 Respiratory Rate 24 Resting O2 Saturation by Pulse Oximetry 96 Pulse Rate 18 Respiratory Rate 103 Oximetry Exercise Interval (min) 3 Ambulation Distance (ft) 600 Exercise Tolerance Good Intake & Output 12/31/18 01/01/19 01/02/19 06:59 06:59 06:59 Intake Total 2700 400 Output Total 3100 1900 Balance -400 -1500 Weight 68.1 kg 68.4 kg General appearance: PRESENT: cooperative, mild distress, well-developed Head exam: PRESENT: atraumatic, normocephalic Respiratory exam: PRESENT: rales - Fine rales on the right, symmetrical, tachypnea. ABSENT: accessory muscle use, rhonchi, wheezes Cardiovascular exam: PRESENT: RRR, +S1, +S2 - 2/6, systolic murmur - 2/6 GI/Abdominal exam: PRESENT: normal bowel sounds, soft. ABSENT: distended, tenderness Rectal exam: PRESENT: deferred Musculoskeletal exam: PRESENT: ambulatory Neurological exam: PRESENT: alert, awake, oriented to person, oriented to place, oriented to time, oriented to situation, CN II-XII grossly intact. ABSENT: motor sensory deficit Psychiatric exam: PRESENT: anxious - Anxious and frustrated about the slow improvement and ongoing cough.. ABSENT: agitated Focused psych exam: ABSENT: delusional, restlessness Results Laboratory Results: 12/30/18 03:52 12/30/18 03:52 12/27/18 09:34 NT-Pro-B Natriuret Pep 143 Impressions: Chest/Abdomen CTA 12/27/18 00:00 IMPRESSION: 1. Negative examination for pulmonary embolism. 2. There is a 1.3 cm nodule of the right upper lobe, which is new compared to most recent prior CT examination although located at the site of a previously seen heterogeneous opacity. This is likely sequelae of prior infection or inflammation, although follow-up CT in 3 to 6 months is recommended to ensure stability. Chest X-Ray 12/27/18 10:26 IMPRESSION: NO ACUTE RADIOGRAPHIC FINDING IN THE CHEST. Assessment and Plan - Diagnosis (1) Acute exacerbation of chronic obstructive pulmonary disease (COPD) Is this a current diagnosis for this admission?: Yes Plan: Despite aggressive therapy the patient still requires oxygen but we are attempting to wean. She is on nebulizers and steroids. Improvement is slow. (2) Right upper lobe pulmonary nodule Is this a current diagnosis for this admission?: Yes Plan: This is chronic and already being monitored. Clinically is not likely contributing to her current illness. (3) Hypothyroidism Qualifiers: Hypothyroidism type: unspecified Qualified Code(s): E03.9 - Hypothyroidism, unspecified Is this a current diagnosis for this admission?: Yes Plan: Continue levothyroxine. (4) SLE (systemic lupus erythematosus) Qualifiers: Systemic lupus erythematosus type: unspecified Is this a current diagnosis for this admission?: Yes Plan: Continue slow taper of steroids. She is on 10 mg of prednisone daily for her lupus and currently her steroid dose far exceeds this. Goal is to get back to baseline. - Time Time Spent with patient: 15-24 minutes Medications reviewed and adjusted accordingly: Yes Anticipated discharge: Home - Inpatient Certification Based on my medical assessment, after consideration of the patient's comorbidities, presenting symptoms, or acuity I expect that the services needed warrant INPATIENT care.: Yes I certify that my determination is in accordance with my understanding of Medicare's requirements for reasonable and necessary INPATIENT services [42 CFR 412.3e].: Yes Medical Necessity: Need for Nebulizer Therapy and Monitoring of Response
--- NOTE | 2019-01-04 06:30 | PDOC PROGRESS REPORT ---
Subjective Progress Note for:: 01/02/19 Subjective:: Patient reports having a bowel movement yesterday. Still with hacking cough. Her daughter was on speaker phone and states that her current coughing appears to be her baseline. Reason For Visit: ACUTE RESPIRATORY FAILURE WITH HYPOXEMIA Physical Exam Vital Signs: Temp Pulse Resp BP Pulse Ox 97.9 F 92 16 146/69 H 96 01/02/19 14:59 01/02/19 14:59 01/02/19 14:59 01/02/19 14:59 01/02/19 14:59 Pulse Oximeter Ambulatory Start: 12/29/18 10:16 Freq: DAILY Status: Active Protocol: Document 01/02/19 10:00 CONRAD (Rec: 01/02/19 12:12 J [email or web address]) Exercise Oximetry Treatment Ambulating SpO2 Charge Now Yes Oxygen Delivery Method Room Air FIO2 (% Oxygen) 21 Recovery O2 Saturation by Pulse Oximetry 98 Pulse Rate 89 Respiratory Rate 18 Exercise O2 Saturation by Pulse Oximetry 99 Pulse Rate 106 Respiratory Rate 24 Resting O2 Saturation by Pulse Oximetry 95 Pulse Rate 98 Respiratory Rate 20 Exercise Tolerance Good Intake & Output 01/01/19 01/02/19 01/03/19 06:59 06:59 06:59 Intake Total 400 2320 Output Total 1900 2050 Balance -1500 270 Weight 68.4 kg 72.6 kg General appearance: PRESENT: cooperative, mild distress, well-developed Head exam: PRESENT: atraumatic, normocephalic Mouth exam: PRESENT: moist, tongue midline Respiratory exam: PRESENT: rales - Still with faint rales., symmetrical, tachypnea. ABSENT: accessory muscle use, rhonchi, wheezes Cardiovascular exam: PRESENT: RRR, +S1, +S2, systolic murmur - 2/6 GI/Abdominal exam: PRESENT: normal bowel sounds, soft. ABSENT: distended, tenderness Rectal exam: PRESENT: deferred Musculoskeletal exam: PRESENT: ambulatory Neurological exam: PRESENT: alert, awake, oriented to person, oriented to place, oriented to time, oriented to situation, CN II-XII grossly intact. ABSENT: motor sensory deficit Psychiatric exam: PRESENT: anxious, appropriate affect. ABSENT: agitated Focused psych exam: ABSENT: delusional, restlessness Results Laboratory Results: 01/02/19 10:06 01/02/19 10:06 01/02/19 01/02/19 10:06 10:06 WBC 10.6 H RBC 3.93 Hgb 9.7 L Hct 30.5 L MCV 78 L MCH 24.7 L MCHC 31.8 L RDW 18.8 H Plt Count 124 L Sodium 138.7 Potassium 4.0 Chloride 104 Carbon Dioxide 26 Anion Gap 9 BUN 23 H Creatinine 0.50 L Est GFR ( Amer) > 60 Est GFR (Non-Af Amer) > 60 Glucose 136 H Calcium 8.9 12/27/18 09:34 NT-Pro-B Natriuret Pep 143 Impressions: Chest/Abdomen CTA 12/27/18 00:00 IMPRESSION: 1. Negative examination for pulmonary embolism. 2. There is a 1.3 cm nodule of the right upper lobe, which is new compared to most recent prior CT examination although located at the site of a previously seen heterogeneous opacity. This is likely sequelae of prior infection or inflammation, although follow-up CT in 3 to 6 months is recommended to ensure stability. Chest X-Ray 12/27/18 10:26 IMPRESSION: NO ACUTE RADIOGRAPHIC FINDING IN THE CHEST. KUB X-Ray 01/01/19 00:00 IMPRESSION: 1. Significant diffuse colonic fecal retention, but no small bowel distention Assessment and Plan - Diagnosis (1) Acute exacerbation of chronic obstructive pulmonary disease (COPD) Is this a current diagnosis for this admission?: Yes Plan: The patient is doing better today. Her walking oximetry is still reveal tachycardia but it is slightly improved. She is intermittently on room air. Continue nebulizer treatments as well as steroids. (2) Tachycardia Is this a current diagnosis for this admission?: Yes Plan: The patient has exhibited marked tachycardia (pulse greater than 120) while ambulating. It was decided to start metoprolol to see if this helps. She does have underlying hypertension as well. Hypertension will benefit from the medication. (3) Hypertension Qualifiers: Hypertension type: essential hypertension Qualified Code(s): I10 - Essential (primary) hypertension Is this a current diagnosis for this admission?: Yes Plan: Possibly exacerbated by the steroids. With the tachycardia we will start lisinopril and metoprolol. Another reason for her shortness of breath could be pulmonary hypertension and therefore I will order an echocardiogram. 2 years ago she had a slightly decreased ejection fraction and a slightly enlarged right ventricle. (4) Constipation Qualifiers: Constipation type: slow transit constipation Qualified Code(s): K59.01 - Slow transit constipation Is this a current diagnosis for this admission?: Yes Plan: The patient reports constipation. I will obtain an abdominal film to see if we can quantify the amount of stool. MiraLAX has been added. The patient reports that she did have a small bowel movement. (5) Lupus (systemic lupus erythematosus) Qualifiers: Systemic lupus erythematosus type: unspecified Systemic lupus erythematosus organ involvement: unspecified Qualified Code(s): M32.9 - Systemic lupus erythematosus, unspecified Is this a current diagnosis for this admission?: Yes Plan: In addition to the steroids the patient is on methotrexate. Continue to taper steroids towards her baseline. Her lupus does not appear to be clinically active at this point but clearly would be suppressed by the high steroid dose. Lupus can certainly affect other organs but it does not appear to be contributing to her respiratory status. (6) Right upper lobe pulmonary nodule Is this a current diagnosis for this admission?: Yes Plan: Continue to monitor as an outpatient. - Time Time Spent with patient: 35 or more minutes Medications reviewed and adjusted accordingly: Yes Anticipated discharge: Home
--- NOTE | 2019-01-04 06:43 | PDOC DISCHARGE SUMMARY ---
General - Admit/Disc Date/PCP Admission Date/Primary Care Provider: 12/28/18 17:51 TERRY BLAND PA-C Discharge Date: 01/03/19 - Discharge Diagnosis (1) Acute exacerbation of chronic obstructive pulmonary disease (COPD) Is this a current diagnosis for this admission?: Yes Summary: The patient will be discharged with a steroid taper back to her baseline 10 mg of prednisone daily. In addition I have provided levalbuterol nebulizer treatments. She is back to room air. She will follow-up with her mold filler post discharge. With her chronic sinus issues this could be reactive airway disease from chronic sinus. This is the most likely factor contributing to her chronic cough. I have suggested considering ENT consultation especially since she has had sinus surgery in the past. She is back on room air at this time. (2) Reactive airway disease Is this a current diagnosis for this admission?: Yes Summary: As noted above this is a significant possibility. She is already on Flonase and Singulair and I believe she takes an antihistamine at home. As noted above she will follow-up with her mold filler and she should also consider an ENT referral. (3) Chronic frontal sinusitis Is this a current diagnosis for this admission?: Yes Summary: Continue Flonase and establish with local ENT (4) Hypertension Is this a current diagnosis for this admission?: Yes Summary: Blood pressures are improved on metoprolol and lisinopril. She is having significantly less tachycardia with ambulation. Her echocardiogram revealed normal ejection fraction. Pulmonary hypertension was not able to be adequately assessed by this study. She will establish with cardiology as an outpatient. (5) Tachycardia Is this a current diagnosis for this admission?: Yes Summary: Possibly due to high steroid dose. Metoprolol is helping. This will benefit her blood pressure as well. (6) Right upper lobe pulmonary nodule Is this a current diagnosis for this admission?: Yes Summary: Continue to follow as an outpatient (7) SLE (systemic lupus erythematosus) Is this a current diagnosis for this admission?: Yes Summary: Continue prednisone taper back to her baseline dose of 10 mg. Continue methotrexate. (8) Hypothyroidism Is this a current diagnosis for this admission?: Yes Summary: Continue levothyroxine. (9) Constipation Is this a current diagnosis for this admission?: Yes Summary: Abdominal x-ray still revealed large amount of feces present in the colon despite the patient having had a bowel movement. I encouraged the patient to use an aggressive regimen. Her daughter, who is a nurse, also try to explain the large volume of feces that the colon is able to hold. She is to continue the MiraLAX daily and I suggested a bottle of citrate of magnesium when she is home. - Additional Information Resuscitation Status: Full Code Discharge Diet: As Tolerated Discharge Activity: Activity As Tolerated, Balance Activity w/Rest Prescriptions: Fluticasone Propionate [Flonase Nasal [place] 50 Mcg/[place] 16 gm] 2 spray NASL DAILY 30 Days #1 spray.pump Hydrocodone Bit/Homatropine [Hycodan 5-1.5 mg Tablet] 1 tab PO Q6HP PRN 5 Days #15 tablet PRN Reason: Levalbuterol HCl [Xopenex Neb 1.25 mg/3 ml Ampul] 1.25 mg NEB RTQ6 14 Days #56 vial.neb Lisinopril [Prinivil 5 mg Tablet] 2.5 mg PO DAILY 30 Days #30 tablet Metoprolol Succinate [Toprol Xl 25 mg Tab.sr] 25 mg PO DAILY #30 tab.sr.24h Prednisone [Deltasone 10 mg Tablet] 10 mg PO ASDIR 15 Days #60 tablet Home Medications: Albuterol Sulfate [Proair HFA Inhalation Aerosol 8.5 gm MDI] 2 puff IH Q4HP PRN 12/27/18 Ascorbic Acid [Vitamin C 500 mg Tablet] 1,000 mg PO DAILY 12/27/18 Calcium Carbonate/Vitamin D3 [Calcium 1,000 + D3 Caplet] 1 tab PO BID 12/27/18 Folic Acid [Folvite 1 mg Tablet] 1 mg PO QPM 12/27/18 Lactobacillus Acidophilus [Probiotic Acidophilus] 1 tab PO DAILY 12/27/18 Levothyroxine Sodium [Synthroid 0.075 mg Tablet] 0.075 mg PO Q6AM 12/27/18 Magnesium Oxide [Mag-Ox 400 mg Tablet] 400 mg PO DAILY 12/27/18 Melatonin 10 mg PO QHS 12/27/18 Methotrexate Sodium [Rheumatrex 2.5 mg Tablet] 10 mg PO WE@1000 12/27/18 Montelukast Sodium [Singulair 10 mg Tablet] 10 mg PO QPM 12/27/18 Multivitamin with Minerals [Hair, Skin and Nails] 1 tab PO BID 12/27/18 [place]-3S/Dha/Epa/Fish Oil [Fish Oil [place]-3 Softgel] 1 cap PO BID 12/27/18 Pantoprazole Sodium [Protonix [address] Tablet] 40 mg PO BID 12/27/18 Sertraline HCl [Zoloft] 100 mg PO BID 12/27/18 Simvastatin [Zocor 20 mg Tablet] 20 mg PO QHS 12/27/18 Turmeric Root Extract [Turmeric Curcumin] 500 mg PO QPM 12/27/18 Benzocaine/Menthol [Chloraseptic Sore Throat Lozenge] 1 each BUCCAL Q1HP PRN lozenge 01/03/19 Docusate Sodium [Colace 100 mg Capsule] 100 mg PO DAILY capsule 01/03/19 Fluticasone Propionate [Flonase Nasal [place] 50 Mcg/[place] 16 gm] 2 spray NASL DAILY 30 Days #1 spray.pump 01/03/19 Guaifenesin [Mucinex Sr 600 mg Tablet.sa] 600 mg PO Q12 tablet.sa 01/03/19 Hydrocodone Bit/Homatropine [Hycodan 5-1.5 mg Tablet] 1 tab PO Q6HP PRN 5 Days #15 tablet 01/03/19 Levalbuterol HCl [Xopenex Neb 1.25 mg/3 ml Ampul] 1.25 mg NEB RTQ4HP PRN v ial.neb 01/03/19 Levalbuterol HCl [Xopenex Neb 1.25 mg/3 ml Ampul] 1.25 mg NEB RTQ6 14 Days #56 vial.neb 01/03/19 Lisinopril [Prinivil 5 mg Tablet] 2.5 mg PO DAILY 30 Days #30 tablet 01/03/19 Metoprolol Succinate [Toprol Xl 25 mg Tab.sr] 25 mg PO DAILY #30 tab.sr.24h 01/03/19 Naproxen [Naprosyn 250 mg Tablet] 500 mg PO BIDBS tablet 01/03/19 Polyethylene Glycol 3350 [Miralax Powder 17 gm/Packet] 17 gm PO DAILY powd.pack 01/03/19 Prednisone [Deltasone 10 mg Tablet] 10 mg PO ASDIR 15 Days #60 tablet 01/03/19 Prednisone [Deltasone 10 mg Tablet] 10 mg PO DAILY #0 01/03/19 History of Present Illness Patient complains of: Patient complained of increasing shortness of breath. History of Present Illness: ALYSHA BEDOLLA is a 63 year old female with a complex medical history. See the history and physical for greater detail. She had been experiencing increased shortness of breath. Her painter spring had increased her prednisone several days prior to admission but this was not helping. She was experiencing hypoxia as well as tachypnea and tachycardia. She was referred to the hospitalist for admission. CT scan revealed a pulmonary nodule that the patient is aware of and is being followed as an outpatient. No pneumonia or pulmonary embolus was identified. The patient was referred for admission. Hospital Course Hospital Course: It took a while for the patient to improve. She was eventually weaned off of her oxygen and tachycardia and hypertension were addressed. Please see above for details. Physical Exam Vital Signs: Temp Pulse Resp BP Pulse Ox 97.8 F 87 16 119/76 100 01/03/19 08:48 01/03/19 08:48 01/03/19 08:48 01/03/19 08:48 01/03/19 08:48 Pulse Oximeter Ambulatory Start: 12/29/18 10:16 Freq: DAILY Status: Complete Protocol: Document 01/02/19 10:00 [facility] (Rec: 01/02/19 12:12 [facility] [id number]) Exercise Oximetry Treatment Ambulating SpO2 Charge Now Yes Oxygen Delivery Method Room Air FIO2 (% Oxygen) 21 Recovery O2 Saturation by Pulse Oximetry 98 Pulse Rate 89 Respiratory Rate 18 Exercise O2 Saturation by Pulse Oximetry 99 Pulse Rate 106 Respiratory Rate 24 Resting O2 Saturation by Pulse Oximetry 95 Pulse Rate 98 Respiratory Rate 20 Exercise Tolerance Good Intake & Output 01/02/19 01/03/19 01/04/19 06:59 06:59 06:59 Intake Total 2320 222 Output Total 2049 1000 Balance 270 -778 Weight 72.6 kg 76.2 kg General appearance: PRESENT: cooperative, mild distress - From her chronic cough, well-developed Head exam: PRESENT: atraumatic, normocephalic Ear exam: PRESENT: normal external ear exam Mouth exam: PRESENT: moist, tongue midline Respiratory exam: PRESENT: clear to auscultation urszula, symmetrical, unlabored. ABSENT: accessory muscle use, rales, rhonchi, wheezes Cardiovascular exam: PRESENT: RRR, +S1, +S2, systolic murmur - 2/6 GI/Abdominal exam: PRESENT: normal bowel sounds, soft. ABSENT: distended, tenderness Rectal exam: PRESENT: deferred Extremities exam: ABSENT: pedal edema Musculoskeletal exam: PRESENT: ambulatory Neurological exam: PRESENT: alert, awake, oriented to person, oriented to place, oriented to time, oriented to situation, CN II-XII grossly intact. ABSENT: motor sensory deficit Psychiatric exam: PRESENT: appropriate affect. ABSENT: agitated, anxious Focused psych exam: ABSENT: delusional, restlessness Results Laboratory Results: 01/02/19 10:06 01/02/19 10:06 12/27/18 09:34 NT-Pro-B Natriuret Pep 143 Impressions: Chest/Abdomen CTA 12/27/18 00:00 IMPRESSION: 1. Negative examination for pulmonary embolism. 2. There is a 1.3 cm nodule of the right upper lobe, which is new compared to most recent prior CT examination although located at the site of a previously seen heterogeneous opacity. This is likely sequelae of prior infection or inflammation, although follow-up CT in 3 to 6 months is recommended to ensure stability. Chest X-Ray 12/27/18 10:26 IMPRESSION: NO ACUTE RADIOGRAPHIC FINDING IN THE CHEST. KUB X-Ray 01/01/19 00:00 IMPRESSION: 1. Significant diffuse colonic fecal retention, but no small bowel distention Qualifiers - * PATIENT BEING DISCHARGED WITH ANY OF THE FOLLOWING DIAGNOSIS: No Acute Heart Failure Is this a Heart Failure Patient?: No Plan Discharge Plan: As above. Follow-up with primary care, pulmonology and establish with cardiology. Consider local ENT appointment as well. Time Spent: Greater than 30 Minutes
== END 2019-01-03 16:23 | disposition home or self-care (01) | DRG 192 ==
LOC: ER 08:36 → INTOOBSV 14:15 → EH 14:15 → 4S 19:44 → OBSVTOIN 12-28 17:51
PROVIDERS: ADMIT Internal Medicine; ATTEND Internal Medicine
PROC: 3E0F3GC Introduction of Other Therapeutic Substance into Respiratory Tract, Percutaneous Approach (ICD-10-PCS; principal; 2018-12-30)
DX: J44.1 Chronic obstructive pulmonary disease with (acute) exacerbation (principal); M32.9 Systemic lupus erythematosus, unspecified; E03.9 Hypothyroidism, unspecified; D64.9 Anemia, unspecified; D72.829 Elevated white blood cell count, unspecified; E11.9 Type 2 diabetes mellitus without complications; J32.1 Chronic frontal sinusitis; I10 Essential (primary) hypertension; R00.0 Tachycardia, unspecified; R91.1 Solitary pulmonary nodule; K59.00 Constipation, unspecified; R09.02 Hypoxemia; M06.9 Rheumatoid arthritis, unspecified; E78.5 Hyperlipidemia, unspecified; F32.9 Major depressive disorder, single episode, unspecified; F41.9 Anxiety disorder, unspecified; K21.9 Gastro-esophageal reflux disease without esophagitis; E66.3 Overweight; G43.909 Migraine, unspecified, not intractable, without status migrainosus; Z82.49 Family history of ischemic heart disease and other diseases of the circulatory system; Z88.8 Allergy status to other drugs, medicaments and biological substances
CPT/HCPCS: 36415; 71045; 71275; 74018; 80048; 80053; 81001; 83605; 83880; 85025; 85027; 93005; 93010; 93306; 94640; 94668; 94761; 94799; 96360; 96361; 99285; G0378; J2920; J3490; J7030; J7512; J7620; J8610

== ENCOUNTER → 2019-06-11 | Outpatient (CLI) | payer MEDICARE, OTHER ==
--- NOTE | 2019-06-11 14:03 | WOMENS IMAGING REPORT ---
EXAM DESCRIPTION: 3D SCREENING MAMMO BILAT COMPLETED DATE/TIME: 06/11/2019 10:53 am REASON FOR STUDY: Z12.31 ENCOUNTER FOR SCREENING MAMMOGRAM FOR MALIGNANT NEOPLASM OF BREAST Z12.31 ENCNTR SCREEN MAMMOGRAM FOR MALIGNANT NEOPLASM OF [place] COMPARISON: Digital tomosynthesis bilateral screening mammograms dated 06/05/2018 and, 06/02/2017. EXAM PARAMETERS: Standard craniocaudal and mediolateral oblique views of each breast recorded using digital acquisition and breast tomosynthesis. Read with the assistance of CAD. .[facility] - [employer] Version 9.2 LIMITATIONS: None. FINDINGS: Findings present which are benign by mammographic criteria. No suspicious masses, calcific ations or architectural distortion. Pertinent benign findings: Stable calcifications and nodules in the breasts. Stable oil cysts in th e breast, more so on the right. Benign mammographic findings may include one or more of the following: Smooth masses, popcorn/rim/coa rse calcifications, asymmetries, post-procedure changes, and lesions with long-standing stability. IMPRESSION: BENIGN MAMMOGRAPHIC FINDINGS. BIRADS 2 BREAST DENSITY: c. The breasts are heterogeneously dense, which may obscure small masses. BIRAD: ASSESSMENT: 2 BENIGN FINDING(S) RECOMMENDATION: 1. ROUTINE SCREENING COMMENT: The patient has been notified of the results by letter per MQSA requirements. Additional no tification policies are in place for contacting patient with suspicious or incomplete findings. Quality ID #225: The [employer] recommends an annual screening mammogram for women aged 40 years or over. This facility utilizes a reminder system to ensure that all patients receive reminder letters, and/or direct phone calls for appointments. This includes reminders for routine scr eening mammograms, diagnostic mammograms, or other Breast Imaging Interventions when appropriate. Th is patient will be placed in the appropriate reminder system. TECHNICAL DOCUMENTATION: FINDING NUMBER: (1) ASSESSMENT: (1) JOB ID: [id number] [employer]- All Rights Reserved Reading location - IP/workstation name: [email or web address]
== END ==
LOC: WI 09:53
PROVIDERS: ATTEND Physician Assistant
DX: Z12.31 Encounter for screening mammogram for malignant neoplasm of breast (principal)
CPT/HCPCS: 77063; 77067

== ENCOUNTER 2019-08-21 08:26 | Day surgery (SDC) | payer MEDICARE, OTHER ==
[2019-08-21] MEDS: MIDAZOLAM 2 MG/2 ML INJ ONE ×2 (08:25→08:28)
[2019-08-21] MEDS ORDERED: DIPHENHYDRAMINE HCL 50 MG/ML VIAL ONE (09:14)
[2019-08-21] MEDS ORDERED: ONDANSETRON HCL INJ/PF 4 MG/2 ML SDV ONE (09:14)
[2019-08-21] MEDS ORDERED: FLUMAZENIL INJ 0.5 MG/5 ML VIAL ONE (09:15)
[2019-08-21] MEDS ORDERED: EPINEPHRINE INJ 1 MG/10 ML DISP.SYRIN ONE (09:15)
[2019-08-21] MEDS ORDERED: NALOXONE HCL INJ/PF 0.4 MG/1 ML SDV ONE (09:15)
[2019-08-21] MEDS ORDERED: GLUCAGON,HUMAN RECOMB 1 MG INJ ONE (09:15)
[2019-08-21] MEDS ORDERED: FENTANYL CITRATE INJ/PF 100 MCG/2 ML AMPUL ONE (09:15)
--- NOTE | 2019-08-21 09:45 | Operative Report ---
Operative Report DATE OF SURGERY: 08/21/19 Operative Report: The risks benefits and alternatives of the procedure explained to the patient in detail and informed consent is obtained.A GIF Olympus video scope was inserted into the patient's mouth and hypopharynx ,the esophagus is identified intubated and insufflated,the scope was then advanced through the esophagus stomach and duodenum, retroflexion maneuver is done ,the esophagus stomach and first and second portions of the duodenum examined PREOPERATIVE DIAGNOSIS: Nausea vomiting, gastroesophageal reflux disease. Epigastric pain POSTOPERATIVE DIAGNOSIS: Small hiatal hernia. Gastritis status post biopsy without Helicobacter pylori OPERATION: EGD with biopsy SURGEON: JEANCARLOS DARLING ANESTHESIA: Moderate Sedation - 3 mg of Versed, 25 mics of fentanyl. Conscious sedation monitoring time 30 minutes. TISSUE REMOVED OR ALTERED: As noted above. COMPLICATIONS: None. ESTIMATED BLOOD LOSS: None. INTRAOPERATIVE FINDINGS: As noted above. PROCEDURE: Patient tolerated the procedure well. No immediate postprocedure complications are noted. Patient is discharged in good condition. Discharge date 08/21/2019. Discharge diet: Regular. Discharge activity: Regular. 2 to 3-week follow-up to discuss findings. Patient is instructed to call the office or proceed to the emergency room should there be any further problems or questions. Await pathology.
[2019-08-21 10:36] VITALS: BP 123/61
== END 2019-08-21 10:40 | disposition home or self-care (01) ==
LOC: END 08:26
PROVIDERS: ATTEND Internal Medicine Gastroenterology
DX: K44.9 Diaphragmatic hernia without obstruction or gangrene (principal); K29.50 Unspecified chronic gastritis without bleeding; K21.9 Gastro-esophageal reflux disease without esophagitis; E78.5 Hyperlipidemia, unspecified; E03.9 Hypothyroidism, unspecified; I10 Essential (primary) hypertension; J44.9 Chronic obstructive pulmonary disease, unspecified; G47.33 Obstructive sleep apnea (adult) (pediatric); M06.00 Rheumatoid arthritis without rheumatoid factor, unspecified site; Z86.718 Personal history of other venous thrombosis and embolism; Z85.828 Personal history of other malignant neoplasm of skin; M32.9 Systemic lupus erythematosus, unspecified
CPT/HCPCS: 43239; 88305 ×2; J2250; J3010; J0171; J1200; J1610; J2310; J2405; J3490

== ENCOUNTER → 2019-10-22 | Outpatient (CLI) | payer MEDICARE, OTHER ==
--- NOTE | 2019-10-22 11:18 | RADIOLOGY REPORT (SQ) ---
EXAM DESCRIPTION: WILMA SWALLOW COMPLETED DATE/TIME: 10/22/2019 9:37 am REASON FOR STUDY: R13.13 DYSPHAGIA, PHARYNGEAL PHASE R13.13 DYSPHAGIA, PHARYNGEAL PHASE COUGHING WI TH MEALS COMPARISON: None. TECHNIQUE: Videofluoroscopic swallowing examination was performed in conjunction with speech patholo gy. Videofluoroscopic imaging was obtained and reviewed and these are the findings: RADIATION DOSE: 1 minutes 41 seconds of fluoroscopy was used 2 images saved to PACS. LIMITATIONS: None FINDINGS: The patient was brought into the fluoro room and placed upright on a modified barium swall ow chair. The patient was then given multiple consistencies mixed with barium to swallow under live fluoroscopic video guidance. According to the Speech Pathologist there was no penetration or aspirat ion. IMPRESSION: NO EVIDENCE OF PENETRATION OR ASPIRATION. PLEASE SEE SPEECH PATHOLOGIST REPORT FOR OTHER FINDINGS AND RECOMMENDATIONS. COMMENT: Quality ID 145: Final reports for procedures using fluoroscopy that document radiation exp osure indices, or exposure time and number of fluorographic images (if radiation exposure indices are not available) TECHNICAL DOCUMENTATION: JOB ID: [id number] 2010 [employer]- All Rights Reserved Reading location - IP/workstation name: [email or web address] [id number]
--- NOTE | 2019-10-22 17:21 | ST Modified Barium Swallow ---
Recommendation - Recommendations Recommendations: No oral or pharyngeal phase deficits seen. Patient did demonstrate significant coughing without any pharyngeal dysfunction or aspiration event. If patient concerns persist, may benefit from ENT consult. Medical Diagnoses - Medical Diagnoses Medical Diagnosis Description & ICD-10 Code(s): dysphagia R13.13 Other Medical Diagnoses/Co-Morbidities: per patient report: asthmatic bron chitis, reflux ST Modified Barium Swallow - General Date: 10/22/19 Referring Physician: Dr. Peterson Risks/Precautions: None Date of Onset: 11/01/18 - approximate onset Reason for Referral: difficulty swallowing - History History obtained from: Patient -: Medical - Patient arrived independently, acted as her own historian. Patient reports that she has had swallowing diffiuclty for a little under 1 year. She reports specificially breads and crackers cause her to cough frequently. Patient does have a diagnosis of reflux and pneumonia in the past, but no recent pneumonia. Medications: per patient report: gabapentin, mag. oxide, sinvastatin, levothyroxin, sertaline, lisinopril, furosemida, metoprolol, potassium, pantoprazole, benzonatate, montelukast, prednisone, folic acid, methotrexate Allergies: benadril - Functional Status Prior Functional Status: INDEPENDENT: feeding Current Functional Limitations: feeding - coughing - Subjective Patient/caregiver goal(s): safe swallow Cognitive-Linguistic Function: Functional Speech Intelligibility: WNL Current Nutritional Means: PO Current PO diet: Regular - avoiding breads/crackers Current symptoms: Coughing Pain: Patient reports, 0/5 - Objective Assessment: Upright, Left Lateral - Food Trials Used Food trials used: Thin liquids, Pureed, Regular The patient: Was Able to Self Feed - Oral-Motor Skills Dentition: Full Velo-pharyngeal function: Unremarkable Laryngeal Function: clear voicing - Assessment Oral prep: Normal Labial closure: Adequate Leakage: None Mastication: Adequate Lingual Movement: Normal Oral stage: Normal for this Procedure - Pharyngeal Stage Initiation of Pharyngeal Stage Reflex: Normal Decreased laryngeal elevation: No Reduced Velopharyngeal Closure: no Reduced pressure generation: No reduced tongue-based retraction: No Pre-swallow pooling in valleculae: None Pre-Swallow pooling in pyriforms: None Reduced Thyro-Hyoid approximation: No Reduced epiglottic excursion: No Reduced pharyngeal peristalsis/contraction: No Post-swallow residulas vallecular: None Post-Swallow residuals in pyriforms: None - Fall Risk Assessment Medications/Conditions that increase fall risks include: Antidepressants, sedatives, anti-arrhythmic, diuretic, benzodiazipenes, neuroleptics. BP regulation problems, cardiac problems, balance or gait deficits, neurological problems. Is patient considered at risk for falls: no Fall Risk Actions Taken: No action needed - Behavioral Observations During evaluation process patient: was pleasant, was cooperative, able to answer questions - Treatment / Educational Needs: Treatment/Education Needs: Treatment consisted of patient education on the role of the Speech Pathologist. Patient's plan of care and golas were communicated as well as scheduling and attendance policies. Recommendations for initial home program were shared. Patient demonstrated understanding and verbalized agreement. - Impression/Summary Laryngeal Penetration: No Tracheal Aspiration: no Patient presents with: Normal swallow at eval Evaluation and Findings: Patient did demonstrate significant coughing with zana cracker trials x2, however, this was not accompanied by any material entering laryngeal vestibule. Coughing was prolonged until well after bolus had cleared pharyngeal cavity. - Recommendations Solid diet recommendations: Regular Liquid Diet Modification: Thin Reflux Precautions: Taught to Patient Recommended techniques: Fully Upright During Meal, Small Bites and Sips Information, Precautions and Recommendations: Patient (Written), Patient (Verbal), Family Member (Verbal) - daughter was called by patient on her phone - Time Total Time: 30 - Plan of Care Strategies to optimize patient understanding include:: ongoing assessment of educational needs, implementation of educational strategies, and re-education. - - -: Thank you for the opportunity to work with this patient and his/her family. Should you have any questions about this patient's plan or progress, I can be reached at [phone].
== END ==
LOC: RAD 08:03
PROVIDERS: ATTEND Internal Medicine Gastroenterology
DX: R13.13 Dysphagia, pharyngeal phase (principal)
CPT/HCPCS: 74230

== ENCOUNTER → 2020-07-01 | Outpatient (CLI) | payer MEDICARE, OTHER ==
--- NOTE | 2020-07-01 15:45 | WOMENS IMAGING REPORT ---
EXAM DESCRIPTION: BILAT SCREENING MAMMO W/CAD IMAGES COMPLETED DATE/TIME: 07/01/2020 3:06 pm REASON FOR STUDY: Z12.31 ENCNTR SCREEN MAMMOGRAM FOR MALIGNANT NEOPLASM OF BREAST Z12.31 ENCNTR SCR EEN MAMMOGRAM FOR MALIGNANT NEOPLASM OF [place] COMPARISON: Priors back to 2016 EXAM PARAMETERS: Standard craniocaudal and mediolateral oblique views of each breast recorded using digital acquisition. Read with the assistance of CAD. .[facility] - [employer] Qualitative Researcher Version 9.2 LIMITATIONS: None. FINDINGS: No suspicious masses, suspicious calcifications or architectural distortion. No areas of c oncern. IMPRESSION: NEGATIVE MAMMOGRAM. BIRADS 1 BREAST DENSITY: b. There are scattered areas of fibroglandular density. BIRAD: ASSESSMENT: 1 NEGATIVE RECOMMENDATION: ROUTINE SCREENING COMMENT: The patient has been notified of the results by letter per MQSA requirements. Additional no tification policies are in place for contacting patient with suspicious or incomplete findings. Quality ID #225: The [employer] recommends an annual screening mammogram for women aged 40 years or over. This facility utilizes a reminder system to ensure that all patients receive reminder letters, and/or direct phone calls for appointments. This includes reminders for routine scr eening mammograms, diagnostic mammograms, or other Breast Imaging Interventions when appropriate. Th is patient will be placed in the appropriate reminder system. TECHNICAL DOCUMENTATION: FINDING NUMBER: (1) ASSESSMENT: (1) JOB ID: [id number] 2010 [employer]- All Rights Reserved Reading location - IP/workstation name: [email or web address]
== END ==
LOC: WI 14:38
PROVIDERS: ATTEND Family Medicine
DX: Z12.31 Encounter for screening mammogram for malignant neoplasm of breast (principal); Z85.3 Personal history of malignant neoplasm of breast
CPT/HCPCS: 77067